=== PATIENT | male | born 1955 | race Caucasian/White ===

== ENCOUNTER 2021-03-21 10:35 | Outpatient (REF) | payer MEDICARE, SELFPAY ==
[2021-03-21 11:32] LABS: MANUAL DIFF FLAG NO
[2021-03-21 11:41] LABS: Glucose Urine UA NEG (NEG); Leukocyte Esterase Urine NEG (NEG); Nitrite Urine NEG (NEG); Urine Blood NEG (NEG); Urine Ketones NEG (NEG); Urine Protein NEG (NEG-TRACE)
[2021-03-21 11:46] LABS: Appearance Urine CLEAR; Color Urine YELLOW
[2021-03-21 11:50] LABS: Basophils Absolute Auto 0.1 X10*3/uL (0.0-0.2); Basophils Percent Auto 0.8 % (0-2); Eosinophils Absolute Auto 0.2 X10*3/uL (0.0-0.4); Eosinophils Percent Auto 3.1 % (0-4); Hematocrit 36.5 % (42-52); Hemoglobin 12.5 g/dl (14.0-18.0); Imm Gran Abs Auto 0.03 X10*3/uL (0.00-0.03); Imm Gran Pct Auto 0.5 % (0.0-0.4); Lymphocytes Absolute Auto 1.2 X10*3/uL (1.2-4.9); Lymphocytes Percent Auto 19.6 % (20-40); Mean Corpuscular HGB Conc 34.2 g/dl (31.0-36.0); Mean Corpuscular Hemoglobin 32.7 pg (27.0-33.0); Mean Corpuscular Volume 95.5 fL (80-98); Mean Platelet Volume 9.1 fL (9.4-12.4); Monocytes Absolute Auto 0.6 X10*3/uL (0.1-1.2); Monocytes Percent Auto 10.3 % (2-11); Neutrophils Percent Auto 65.7 % (45-73); Platelet Count 300 X10*3/uL (160-400); Red Blood Count 3.82 X10*6/uL (4.60-5.80); Red Cell Distribution Width 12.6 % (11.0-16.0); White Blood Count 6.1 X10*3/uL (4.8-10.8)
[2021-03-21 12:07] LABS: Alanine Aminotransferase 12 U/L (0-40); Albumin Level 4.3 g/dL (3.5-5.0); Alkaline Phosphatase 65 U/L (39-117); Anion Gap 14 (12-20); Aspartate Amino Transferase 17 U/L (5-37); Bilirubin Total 0.4 mg/dL (0.0-1.0); Blood Urea Nitrogen 15 mg/dL (9-16); Calcium 9.3 mg/dL (8.4-10.2); Carbon Dioxide 22 mmol/L (22-29); Chloride 100 mmol/L (96-108); Cholesterol 234 mg/dL; Estimated Glomerular Filt Rate > 60; Glucose Fasting 106 mg/dL (60-99); HDL Cholesterol 76 mg/dL; LDL Cholesterol Calculated 141 mg/dl; Potassium 5.1 mmol/L (3.3-5.1); Sodium 131 mmol/L (135-145); Total Protein 6.7 g/dL (6.5-8.0); Triglycerides 85 mg/dL
[2021-03-21 12:45] LABS: Prostate Specific Antigen < 0.05 ng/mL (<0.05-4.0)
== END 2021-03-21 10:36 | disposition home or self-care (01) ==
LOC: HO.LAB 10:35
PROVIDERS: PCP Internal Medicine; Visit Provider Internal Medicine
DX: Z12.5 Encounter for screening for malignant neoplasm of prostate (principal); I10 Essential (primary) hypertension; E78.00 Pure hypercholesterolemia, unspecified; Z87.19 Personal history of other diseases of the digestive system
CPT/HCPCS: 36415; 80053; 80061; 81003; 82378; 84153; 85025

== ENCOUNTER 2021-04-25 06:58 | Day surgery (SDC) | payer MEDICARE, OTHER, SELFPAY ==
[2021-04-18 16:15] VITALS: BMI 31.3
--- NOTE | 2021-04-24 11:53 | HO.ANESPROP2 ---
Documented by User: Therese Garcia 04/24/21 11:55 HPI - Anesthesia Eval Consult details Narrative: 65yo M for Colonoscopy Labs from PCP noted hyponatremic. Repeat lytes DOS. [facility] Past Medical History Medical History GERD (gastroesophageal reflux disease) Hiatal hernia HTN (hypertension) Hyperlipidemia Prostate cancer Surgical History Surgical History History of esophagogastroduodenoscopy (EGD) History of prostatectomy History of tonsillectomy Hx of colonoscopy Social History Social History Are you a primary summer child caregiver to a significant other at home: No Do you presently have visiting nurse or other home services: No Patient Tobacco Use Status: Former Tobacco user Tobacco use type: Cigarette Are you DNR?: No Advance Directives: No Advance Directives Information Provided: No Advance Directives on File: No Recently lost weight without trying: No Eating poorly because of decreased appetite: No Nutrition Risks: No Nutritional Risk Meds Allergies Allergy/AdvReac Type Severity Reaction Status Date / Time bee pollen [bee stings] Allergy Severe Swelling Verified 04/25/21 07:31 Penicillins [PENICILLINS] Allergy Intermediate UNKNOWN Verified 04/25/21 07:31 Home Medications Medication Instructions Recorded Confirmed Last Taken Type lisinopril 1 tab PO DAILY 04/18/21 04/18/21 Unknown History pantoprazole 1 tab PO DAILY 04/18/21 04/18/21 Unknown History pravastatin 1 tab PO DAILY 04/18/21 04/18/21 Unknown History Exam Exam Date and Time: April 24, 2021 1153 Height,Weight and Vital Signs: Height 6 ft Weight 104.78 kg Assessment and Plan Assessment Anesthesia Assessment: Chart Reviewed Documented by User: Maria Guadalupe Go 04/25/21 07:48 [facility] Past Medical History Medical History GERD (gastroesophageal reflux disease) Hiatal hernia HTN (hypertension) Hyperlipidemia Prostate cancer Surgical History Surgical History History of esophagogastroduodenoscopy (EGD) History of prostatectomy History of tonsillectomy Hx of colonoscopy Social History Social History Are you a primary summer child caregiver to a significant other at home: No Do you presently have visiting nurse or other home services: No Patient Tobacco Use Status: Former Tobacco user Tobacco use type: Cigarette Are you DNR?: No Advance Directives: No Advance Directives Information Provided: No Advance Directives on File: No Recently lost weight without trying: No Eating poorly because of decreased appetite: No Nutrition Risks: No Nutritional Risk Meds Allergies Allergy/AdvReac Type Severity Reaction Status Date / Time bee pollen [bee stings] Allergy Severe Swelling Verified 04/25/21 07:31 Penicillins [PENICILLINS] Allergy Intermediate UNKNOWN Verified 04/25/21 07:31 Home Medications Medication Instructions Recorded Confirmed Last Taken Type lisinopril 1 tab PO DAILY 04/18/21 04/18/21 Unknown History pantoprazole 1 tab PO DAILY 04/18/21 04/18/21 Unknown History pravastatin 1 tab PO DAILY 04/18/21 04/18/21 Unknown History Exam Airway Mallampati Class: III TM Dist: >3cm Neck ROM: Full Loose/Missing/Broken Teeth: No Heart: RRR Lungs: CTA Assessment and Plan Assessment Anesthesia Assessment: Anesthesia Plan Discussed and Chart Reviewed Final Anesthetic Review NPO: Yes ASA Class: II Final Preanesthetic Review: Meds/Allgs Chart Reviewed, Consent Obtained/Reviewed and Anes Risks/Benef Reviewed Patient Risk: Low Procedure Risk: Low Anesthetic Plan Anesthetic Plan: MAC: Disposition: Standard PACU
[2021-04-25 07:27] VITALS: BP 160/99; PULSE 83; RESP 20; TEMP 36.6; O2SAT 97
[2021-04-25 07:28] LABS: INTERNATIONAL NORM RATIO 0.9 (0.9-1.1); Prothrombin Time 10.9 SEC (10.8-13.0)
[2021-04-25 07:41] LABS: Anion Gap 14 (12-20); Carbon Dioxide 23 mmol/L (22-29); Chloride 102 mmol/L (96-108); Potassium 4.4 mmol/L (3.3-5.1); Sodium 135 mmol/L (135-145)
[2021-04-25] MEDS: Lactated Ringers 1,000 ML 50 ML IVCONT (07:45)
[2021-04-25 09:35] VITALS: BP 133/78; PULSE 74; RESP 12; TEMP 36.4; O2SAT 98
--- NOTE | 2021-04-25 09:37 | PM.OP ---
Brief Operative Note Date of Service: 04/25/21 Pre-op diagnosis: Screening Post-op diagnosis: other (Colon polyps) Procedure: Colonoscopy to cecum and TI with bx/removal of polyps, snare polypectomy, and placement of 2 Resolution clips on the distal AC polypectomy site. Surgeon: Russ Davis Anesthesia: MAC Was an Calcine Furnace Loader used for this Procedure?: No Estimated blood loss (mL): 5.0 Pathology: other (A. TC polyps B. Cecal polyp near juanpablo. orific C. Cecal polyp opposite ICV D. Proximal AC polyp E. E. Distal AC polyp F. rectal polyp) Condition: stable Disposition: PACU
[2021-04-25 09:49] VITALS: BP 148/97; PULSE 69; RESP 16; TEMP 36.4; O2SAT 99
--- NOTE | 2021-04-25 09:55 | OP_ITS ---
SURGEON: Russ Davis MD INDICATIONS: Full consent has been obtained from him for this, including risks of bleeding and perforation. PREOPERATIVE DIAGNOSIS: POSTOPERATIVE DIAGNOSIS: PROCEDURE PERFORMED: Colonoscopy to cecum and terminal ileum with snare polypectomy, biopsy and removal of polyps, and placement of 2 resolution clips on the distal ascending colon polypectomy site. ESTIMATED BLOOD LOSS: COMPLICATIONS: ANESTHESIA: Monitored anesthesia care. ASSISTANTS: SPECIMENS: PREOPERATIVE DIAGNOSES: Colorectal cancer screening and personal history of colon polyps. POSTOPERATIVE DIAGNOSES: Colorectal cancer screening and personal history of colon polyps, colon polyps, diverticulosis and internal hemorrhoids. DESCRIPTION OF PROCEDURE: The patient was placed in the left lateral decubitus position. The digital rectal exam revealed no abnormalities. The Olympus video pediatric colonoscope was entered into the rectum and advanced easily to the cecum. Once in the cecum, I did identify cecal pouch with an approximately 3 or 4 mm polyp just adjacent to the appendiceal orifice that was biopsied and completely removed with a cold biopsy forceps. The terminal ileum was cannulated and appeared normal. The scope was withdrawn back in the colon. The appendiceal orifice appeared normal. Just opposite the ileocecal valve in the cecum, was a flat approximately 4 or 5 mm polyp, which was biopsied and completely removed with cold biopsy forceps. The scope was slowly withdrawn assessing all mucosal surfaces carefully. Preparation was excellent. In the proximal ascending colon, was an approximately 8 to 10 mm polyp, which was snared and recovered by suction. The polypectomy site appeared clean, without any sign of residual polyp nor bleeding. In the distal ascending colon, was an approximately 12 to 15 mm flat, but raised polyp, which was snared and removed. It was then recovered with the retrieval net and brought out of the patient. The scope was advanced back to the polypectomy site, which appeared clean, without any sign of residual polyp nor bleeding. However, I did place 2 resolution clips on it with good deployment and good hemostasis. In the transverse colon, was a 3 mm polyp, which was biopsied and completely removed with cold biopsy forceps. In the same area, was an approximately 10 mm polyp, which was snared and recovered by suction. The polypectomy site appeared clean, without any sign of residual polyp nor bleeding. In the rectum, was an approximately 3 or 4 mm polyp, which was biopsied and completely removed with cold biopsy forceps. I did not visualize any other polyps, colitis, nor angiodysplasia. There was a moderate amount of sigmoid diverticulosis. In the rectum, scope was retroflexed visualizing internal hemorrhoids, but no other pathology. The rectal mucosa appeared normal. The scope was straightened out and withdrawn from the patient. He tolerated the procedure well and was returned to recovery area in stable condition. IMPRESSION: 1. Colon polyps, status post biopsy and removal, snare polypectomy, and placement of 2 resolution clips on the distal ascending colon polypectomy site. 2. Diverticulosis. 3. Internal hemorrhoids. PLAN: The results of the pathology will be checked. I would recommend a repeat colonoscopy within 5 years for further screening and surveillance. He was advised not to use any aspirin and NSAIDs for at least a week. He will otherwise see me on a p.r.n. basis. MD DAV Krishnamurthy/SHARI / [id number] MTDD
== END 2021-04-25 10:08 | disposition home or self-care (01) ==
PROVIDERS: Nurse Practitioner; PCP Internal Medicine; Visit Provider Internal Medicine
PROC: 0DJD8ZZ Inspection of Lower Intestinal Tract, Via Natural or Artificial Opening Endoscopic (ICD-10-PCS; CPT 45378; principal; 2021-04-25 08:20)
DX: Z12.11 Encounter for screening for malignant neoplasm of colon (principal); Z86.010 Personal history of colon polyps; D12.0 Benign neoplasm of cecum; D12.2 Benign neoplasm of ascending colon; D12.3 Benign neoplasm of transverse colon; D12.8 Benign neoplasm of rectum; K57.30 Diverticulosis of large intestine without perforation or abscess without bleeding; K64.8 Other hemorrhoids; K21.9 Gastro-esophageal reflux disease without esophagitis; I10 Essential (primary) hypertension; E78.5 Hyperlipidemia, unspecified; Z79.899 Other long term (current) drug therapy; Z88.0 Allergy status to penicillin; Z85.46 Personal history of malignant neoplasm of prostate; Z87.891 Personal history of nicotine dependence
CPT/HCPCS: 45385; 45380; 36415; 80051; 85610; 88305

== ENCOUNTER 2022-02-06 07:55 | Outpatient (REF) | payer MEDICARE, SELFPAY ==
--- NOTE | ~2022-02-06 | XR_ITS ---
EXAMINATION: XR RIBS, RIGHT CLINICAL INFORMATION: Right-sided rib pain COMPARISON: Chest x-ray 06/15/2018 TECHNIQUE: 3 views of the right ribs were obtained. FINDINGS: Cardiac silhouette is normal in size. The lungs are well aerated. There is no lobar consolidation. No pleural effusion or pneumothorax. No acute right-sided rib fracture. Old healed left fourth anterior rib fracture. XR/XR ribs RT min 3V w CXR1V IMPRESSION: No right-sided rib fracture.
[2022-02-06 08:41] LABS: MANUAL DIFF FLAG NO
[2022-02-06 08:55] LABS: Basophils Absolute Auto 0.1 X10*3/uL (0.0-0.2); Basophils Percent Auto 0.6 % (0-2); Eosinophils Absolute Auto 0.3 X10*3/uL (0.0-0.4); Eosinophils Percent Auto 2.8 % (0-4); Hematocrit 35.4 % (42.0-52.0); Hemoglobin 11.9 g/dl (14.0-18.0); Imm Gran Abs Auto 0.03 X10*3/uL (0.00-0.03); Imm Gran Pct Auto 0.3 % (0.0-0.4); Lymphocytes Absolute Auto 1.4 X10*3/uL (1.2-4.9); Lymphocytes Percent Auto 14.7 % (20-40); Mean Corpuscular HGB Conc 33.6 g/dl (31.0-36.0); Mean Corpuscular Hemoglobin 33.3 pg (27.0-33.0); Mean Corpuscular Volume 99.2 fL (80.0-98.0); Monocytes Absolute Auto 0.6 X10*3/uL (0.1-1.2); Monocytes Percent Auto 6.7 % (2-11); Neutrophils Absolute Auto 6.9 x10*3/uL (2.0-8.3); Neutrophils Percent Auto 74.9 % (45-73); Platelet Count 294 X10*3/uL (160-400); Red Blood Count 3.57 X10*6/uL (4.60-5.80); Red Cell Distribution Width 12.2 % (11.0-16.0); White Blood Count 9.2 X10*3/uL (4.8-10.8)
[2022-02-06 09:18] LABS: Anion Gap 12 (12-20); Blood Urea Nitrogen 15 mg/dL (9-16); Calcium 8.9 mg/dL (8.4-10.2); Carbon Dioxide 25 mmol/L (22-29); Chloride 102 mmol/L (96-108); Estimated Glomerular Filt Rate 57; Glucose Random 94 mg/dL (60-115); Potassium 5.1 mmol/L (3.3-5.1); Sodium 134 mmol/L (135-145)
[2022-02-06 09:56] LABS: Appearance Urine CLEAR; Color Urine YELLOW; Glucose Urine UA NEG (NEG); Leukocyte Esterase Urine NEG (NEG); Nitrite Urine NEG (NEG); Urine Blood NEG (NEG); Urine Ketones NEG (NEG); Urine Protein NEG (NEG-TRACE)
== END 2022-02-06 07:56 | disposition home or self-care (01) ==
LOC: HO.LAB 07:55
PROVIDERS: PCP Internal Medicine; Visit Provider Internal Medicine
DX: R10.9 Unspecified abdominal pain (principal); R07.81 Pleurodynia
CPT/HCPCS: 36415; 71101; 80048; 81003; 85025

== ENCOUNTER 2022-02-19 13:15 | Outpatient (REF) | payer MEDICARE, OTHER, SELFPAY ==
--- NOTE | ~2022-02-19 | CT_ITS ---
EXAMINATION: CT ABDOMEN AND PELVIS WITHOUT CONTRAST CLINICAL INFORMATION: Chronic kidney disease. Abdominal pain. COMPARISON: 08/16/2006 TECHNIQUE: Multidetector volumetric imaging was performed from the superior aspect of the liver through the pubic symphysis. Sagittal and coronal reformatted images were obtained on the technologist's workstation. This CT examination was performed using dose optimization techniques as appropriate, variously including the following: *Automated exposure control *Adjustment of mA and/or kV according to patient size (this includes techniques or standardized protocols for targeted exams where dose is matched to indication/reason for exam; i.e. extremities or head) *Use of iterative reconstruction technique DLP: 595 mGy-cm FINDINGS: LUNG BASES: The visualized lung bases are unremarkable. LIVER, GALLBLADDER, AND BILIARY TREE: The liver is normal in size, shape, and attenuation. No focal hepatic lesion or biliary ductal dilatation is present. The gallbladder is unremarkable with no evidence of radiopaque gallstones, gallbladder wall thickening, or obvious pericholecystic inflammatory changes. PANCREAS: Unremarkable. SPLEEN: Unremarkable. ADRENAL GLANDS: Unremarkable. KIDNEYS AND URETERS: The kidneys are normal in size, shape, and attenuation. No hydronephrosis, hydroureter, or calculi seen. Moderate symmetric perinephric stranding. Exophytic left lower pole 3 cm simple cyst. No follow-up imaging recommended. BLADDER: Unremarkable. GASTROINTESTINAL TRACT: The stomach is decompressed. Normal caliber small bowel. No obstruction. There is prominent colonic diverticulosis present, particularly at the sigmoid colon. Mild inflammation of the fat in the left lower quadrant near the sigmoid colon could represent very mild diverticulitis. No free air or free fluid. Normal appendix. ABDOMINAL WALL: No significant hernia is appreciated. LYMPH NODES: Normal. VASCULAR: Normal caliber aorta with mild atherosclerotic calcification. PELVIC VISCERA: The prostate is diminutive or absent. No pelvic mass. OSSEOUS STRUCTURES: No acute or suspicious osseous abnormality. Mild to moderate degenerative change throughout the spine. CT/CT abdomen pelvis wo con IMPRESSION: Suspect mild sigmoid diverticulitis. No free air or fluid collection. The report will be called to the ordering clinician by a [facility] Workflow Coordinator.
== END 2022-02-19 13:16 | disposition home or self-care (01) ==
LOC: HO.CT 13:15
PROVIDERS: Visit Provider Internal Medicine
DX: N18.9 Chronic kidney disease, unspecified (principal); R10.9 Unspecified abdominal pain; D64.9 Anemia, unspecified
CPT/HCPCS: 74176

== ENCOUNTER 2022-09-08 10:01 | Inpatient (IN) | payer MEDICARE, SELFPAY ==
--- NOTE | 2022-09-08 | ECG_ITS ---
Test Reason : TACHYCARDIA Blood Pressure : / mmHG Vent. Rate : 127 BPM Atrial Rate : 127 BPM P-R Int : 160 ms QRS Dur : 080 ms QT Int : 324 ms P-R-T Axes : 036 -18 015 degrees QTc Int : 470 ms Sinus tachycardia Left anterior fascicular block Cannot rule out Anterior infarct , age undetermined Abnormal ECG When compared with ECG of 07-NOV-2018 15:07, T wave inversion less evident in Inferior leads Referred By: Generic ED Physician Electronically Signed By:AVRIL AMEZQUITA MD
--- NOTE | ~2022-09-08 | XR_ITS ---
EXAMINATION: XR KNEE, LEFT CLINICAL INFORMATION: Left knee pain. COMPARISON: None TECHNIQUE: Four views of the left knee. FINDINGS: Mild medial femoral-tibial joint space narrowing is seen. There is no acute fracture, dislocation or joint effusion. The soft tissues are unremarkable. XR/XR knee LT 4V IMPRESSION: Mild medial femoral-tibial joint space narrowing may be degenerative in nature. No acute abnormality.
--- NOTE | ~2022-09-08 | US_ITS ---
EXAMINATION: US VENOUS ULTRASOUND WITH DOPPLER LOWER EXTREMITY, LEFT CLINICAL INFORMATION: Leg pain COMPARISON: None TECHNIQUE: Ultrasound of the deep veins is performed from the hip to the calf with compression sonography and color and pulse Doppler assessment. Spectral analysis with color-flow imaging is performed. FINDINGS: There is normal venous compression and respiratory variation and augmented flow. The visualized common femoral vein, superficial femoral vein, profunda femoral vein, popliteal vein, and the trifurcation region shows no evidence of deep venous thrombosis. There is a edema seen along the lateral thigh in the area of pain. Also visualized is fluid collection along the anterior medial knee measuring 4.5 x 0.8 x 3.5 cm. There is limited visualization of peroneal vein due to body habitus. If the patient's symptoms persist, followup ultrasound in 5 days 7 days might be of value to exclude proximal propagation from a non-visualized calf vein. US/US venous duplex LE IMPRESSION: No DVT demonstrated in the left lower extremity.
--- NOTE | ~2022-09-08 | CT_ITS ---
EXAMINATION: CT ABDOMEN AND PELVIS WITHOUT CONTRAST CLINICAL INFORMATION: Abdominal pain COMPARISON: Previous CT of the abdomen and pelvis January 2022 TECHNIQUE: Multidetector volumetric imaging was performed from the superior aspect of the liver through the pubic symphysis. Sagittal and coronal reformatted images were obtained on the technologist's workstation. This CT examination was performed using dose optimization techniques as appropriate, variously including the following: *Automated exposure control *Adjustment of mA and/or kV according to patient size (this includes techniques or standardized protocols for targeted exams where dose is matched to indication/reason for exam; i.e. extremities or head) *Use of iterative reconstruction technique DLP: 795 mGy-cm FINDINGS: LUNG BASES: There is subsegmental atelectasis at the left lung base. LIVER, GALLBLADDER, AND BILIARY TREE: The liver is low in attenuation suggestive of fatty infiltration. Normal gallbladder. No biliary duct dilatation. PANCREAS: There is slight enlargement of the body and tail the pancreas. There is stranding of the peripancreatic fat. There is a small amount of fluid in the left anterior pararenal and left lateral conal fascia. Findings are questionable for pancreatitis. SPLEEN: Unremarkable. ADRENAL GLANDS: Unremarkable. KIDNEYS AND URETERS: 3 cm cyst in the lower pole of the left kidney. No imaging follow-up. Kidneys are otherwise unremarkable. BLADDER: Not optimally distended and not well evaluated. GASTROINTESTINAL TRACT: There is diverticulosis of the colon. There is a long segment of all wall thickening of the colon from the distal transverse colon to the sigmoid colon. There may be some wall edema. There is stranding of the pericolic fat. Long segment distribution is more suggestive of colitis than diverticulitis. This could be reactive secondary to pancreatitis small and large bowel is otherwise normal. The appendix is normal. There is question of mild wall thickening of the proximal stomach versus changes due to underdistention. ABDOMINAL WALL: No significant hernia is appreciated. LYMPH NODES: Normal. VASCULAR: Atherosclerotic disease. No aneurysm. PELVIC VISCERA: Small or absent. OSSEOUS STRUCTURES: Degenerative changes of the spine. CT/CT abdomen pelvis wo IV con IMPRESSION: Slight enlargement of the body and tail the pancreas, stranding of the peripancreatic fat and small amount of fluid in the left anterior pararenal fascia and left paracolic gutter. Findings are questionable for pancreatitis. Diverticulosis of the colon. Long segment wall thickening and edema of the mid transverse colon to sigmoid colon, stranding of the surrounding fat and small amount of adjacent fluid. Long segment distribution is more suggestive of colitis than diverticulitis. This may be a secondary to pancreatitis secondary to vascular changes. Fatty liver. Fleischner guidelines were followed.
[2022-09-08 10:32] VITALS: BP 108/76; PULSE 128; RESP 20; TEMP 36.4; O2SAT 98; BMI 31.1
[2022-09-08 11:05] LABS: Hematocrit 39.4 % (42.0-52.0); Hemoglobin 14.4 g/dl (14.0-18.0); Mean Corpuscular HGB Conc 36.5 g/dl (31.0-36.0); Mean Corpuscular Hemoglobin 33.8 pg (27.0-33.0); Mean Corpuscular Volume 92.5 fL (80.0-98.0); Platelet Count 223 X10*3/uL (160-400); Red Blood Count 4.26 X10*6/uL (4.60-5.80); Red Cell Distribution Width 12.8 % (11.0-16.0)
[2022-09-08 11:15] LABS: Alanine Aminotransferase 65 U/L (0-40); Albumin Level 3.5 g/dL (3.5-5.0); Alkaline Phosphatase 103 U/L (39-117); Anion Gap 23 (12-20); Aspartate Amino Transferase 120 U/L (5-37); Bilirubin Direct 0.8 mg/dL (0.0-0.5); Bilirubin Total 1.7 mg/dL (0.0-1.0); Blood Urea Nitrogen 43 mg/dL (9-16); Carbon Dioxide 12 mmol/L (22-29); Chloride 98 mmol/L (96-108); Creatinine Clr Calc Pharmacy 40.8; Estimated Glomerular Filt Rate 30; Glucose Random 146 mg/dL (60-115); Potassium 4.6 mmol/L (3.3-5.1); Sodium 128 mmol/L (135-145); Total Protein 6.1 g/dL (6.5-8.0)
[2022-09-08 11:21] LABS: COVID-19 Test Negative (Negative); IDNOW Serial# 55D5AD1C
--- OUTSIDE RECORDS SUMMARY | 2022-09-08 11:31 | XMS_ITS ---
:1955 Author Organization [facility] Address [address] [place] [address] Care Team Providers Name Role Phone Russ Davis Unavailable Unavailable PROBLEMS Type Condition ICD9-CM HGE70-AM Onset Condition SNOMED Cod e Code Code Dates Status Problem History of colon Z86.010 Active 428 200013 polyps Problem Diverticulosis of K57.30 Active 42 3183312 sigmoid colon Problem Preprocedural Z01.818 Active 920932 [id number] examination Problem Encounter for Z12.11 Active 668472 004 screening for malignant neoplasm of colon ALLERGIES Substance Reaction Event Type Date Status Penicillin G Sodium Unknown Drug Allergy Mar, Active bees Unknown Non Drug Allergy Mar, Active ENCOUNTERS Encounter Location Date Diagnosis [facility] Out[facility] [address] [address] Apr, Colon polyps K6 3.5 ; Ayo MD [id number] Diverticul osis of sigmoid colon K57.30 ; I nternal hemorrhoids K64. 8 and Rectal polyp K62 .[address] Mar, [facility] [address] [place] MD Z01.818 ; History of colon [address] polyps Z86.010 a nd Encounter for sc reening for malignant neopla sm of colon Z12.[address] February, [facility] [address] [place] [address] IMMUNIZATIONS No Known Immunizations SOCIAL HISTORY Qualifiers Date Never Smoker REASON FOR REFERRAL FUNCTIONAL STATUS PLAN OF CARE Activity Details Follow Up prn Reason: Pending Test Pathology Future/Pending Procedure COLONOSCOPY [id number] VITAL SIGNS Weight 231 lbs 2021-04-01 Height 72 in 2021-04-01 BMI 31.33 kg/m2 2021-04-01 Temperature 97.5 degrees Fahrenheit 2021-04-01 Blood pressure systolic 000 mm Hg 2021-04-01 Blood pressure diastolic 00 mm Hg 2021-04-01 MEDICATIONS Medication Instructions Dosage Frequency Start Date End Date Duration S tatus Pravastatin TAKE 1 90 Active Sodium 40 MG TABLET BY MOUTH EVERY DAY Lisinopril 5 MG TAKE 1 90 Active TABLET BY MOUTH EVERY DAY Prevacid Active PROCEDURES Procedure Date Ordered Result Body Site BP SCR PRFRM RCMDD DEFIND SCR INTVL April 01, 2021 TOBACCO NON-USER April 01, 2021 DOC MEDS VERIFIED W/PT OR RE April 01, 2021 COLONOSCOPY AND BIOPSY April 25, 2021 COLORECTAL CA SCREEN DOC REV April 01, 2021 LESION REMOVAL COLONOSCOPY April 25, 2021 RESULTS Name Result Date Reference Range Prothrombin Time INR 2021-04-25 Prothrombin Time 10.9 10.8-13.0 INTERNATIONAL NORM RATIO 0.9 0.9-1.1 REASON FOR VISIT hx polyps,screening, patient presents today for hx of polyps, screening colonoscopy, cancelled appt march 12urs @ 3:15 Insurance Providers [facility] Health Member Patient Patient Patient Patient Patient Subscriber Subscriber Subscriber Group Insurance Plan Plan Plan Plan ID Relationship Address Phone Name Date of ID Name Date of No Type Insurance Insurance Insurance Coverage to Subscriber Address Phone Name Dates BLUE [address] BLUE self [employer] [id number] [facility] [id number] [id number] MEDICARE [phone] MEDICARE self [employer] [id number] [facility] [id number] [facility] [address] [place] [phone] [place] self [employer] [id number] [facility] [id number] [address]
[2022-09-08 11:40] LABS: Neutrophils Percent Manual 84 % (45-73)
[2022-09-08 11:45] LABS: Band Neutrophils Percent 13 % (3-5); Lymphocytes Absolute Manual 0.3 X10*3/uL (1.2-4.9); Lymphocytes Percent Manual 1 % (20-40); Metamyelocytes Absolute 0.3 X10*3/uL; Metamyelocytes Percent 1 %; Monocytes Absolute Manual 0.3 X10*3/uL (0.1-1.2); Monocytes Percent Manual 1 % (2-11); Neutrophils Absolute Manual 28.1 X10*3/uL (2.0-8.3); Platelet Estimate NORMAL (NORMAL); Platelet Morphology Comment NORMAL; RBC Morphology NORMAL; Toxic Vacuolation PRESENT
--- NOTE | 2022-09-08 12:03 | ED.GENADULT ---
HPI - General Adult General Chief complaint: Abdominal Pain Stated complaint: Abdominal Pain Time Seen by Provider: 09/08/22 12:03 Source: patient and family () Mode of arrival: ambulatory Limitations: no limitations History of Present Illness HPI narrative: Patient is a 67 year old assigned male at with a history of diverticulitis presenting to the emergency department today with abdominal pain. Patient states that since yesterday, he has had lower abdominal pain and diarrhea. Patient states that he has had some bright red blood in his stools but he does have hemorrhoids. Patient's states that the patient is a daily drinker of vodka. Patient denies any dizziness, lightheadedness, nausea, vomiting, fever, chills, blurry vision, double vision, loss of vision, chest pain, difficulty breathing, shortness of breath, back pain, night sweats, pain with urination, increased urinary frequency, increased urinary urgency, blood in his urine, syncope or a near syncopal episode, recent trauma or falls, bowel incontinence, bladder incontinence, bowel retention, bladder retention, or any other complaints at this time. Onset (ago): day(s) (1) Location: abdomen Radiation: non-radiation Severity: severe Severity scale (1-10): 8 Quality: constant Pain Consistency: constant Relieving factors: none Exacerbating factors: none Associated symptoms: denies other symptoms Treatments prior to arrival: none Related Data Home Medications Medication Instructions Recorded Confirmed lisinopril 5 mg tablet 1 tab PO DAILY 04/18/21 09/08/22 omeprazole 20 mg capsule,delayed 20 mg PO DAILY 09/08/22 09/08/22 release Allergies Allergy/AdvReac Type Severity Reaction Status Date / Time bee pollen [bee stings] Allergy Severe Swelling Verified 10/07/21 10:36 Penicillins [PENICILLINS] Allergy Intermediate UNKNOWN Verified 10/07/21 10:36 Review of Systems Constitutional: Constitutional: Reports no additional constitutional complaints, Denies chills, Denies fever(s) and Denies night sweats Eyes: Eyes: Reports no additional eye complaints, Denies blurry vision, Denies change in vision, Denies diplopia, Denies eye discharge, Denies loss of vision and Denies eye pain ENT: Denies dizziness Cardiovascular: Cardiovascular: Reports no additional cardiovascular complaints, Denies chest pain, Denies lightheadedness, Denies Loss of Consciousness and Denies dyspnea Respiratory: Respiratory: Reports no additional respiratory complaints and Denies dyspnea Gastrointestinal: Gastrointestinal: Reports no additional gastrointestinal complaints, Reports abdominal pain, Denies melena, Reports hematochezia, Denies change in bowel habits and Denies change in stool character Genitourinary: Genitourinary: Reports no additional male genitourinary complaints, Denies hematuria, Denies oliguria, Denies difficulty urinating, Denies dysuria, Denies urinary frequency, Denies urinary hesitancy, Denies urinary incontinence and Denies urinary urgency Musculoskeletal: Musculoskeletal: Reports no additional musculoskeletal complaints, Denies numbness and Denies tingling Neurologic: Denies dizziness, Denies loss of vision, Denies numbness and Denies tingling Psychiatric: Psychiatric: Reports no additional psychiatric complaints Endocrine: Endocrine: Reports no additional endocrine complaints Hematologic/Lymphatic: Hematologic/Lymphatic: Reports no additional hematologic/lymphatic complaints Allergic/Immunologic: Allergic/Immunologic: Reports no additional allergic/immunologic complaints PMF Past Medical History Attestation statement: The following information was validated with the patient. Source: old records reviewed Medical History Acute pancreatitis GERD (gastroesophageal reflux disease) Hiatal hernia HTN (hypertension) Hyperlipidemia Prostate cancer Surgical History History of esophagogastroduodenoscopy (EGD) History of prostatectomy History of tonsillectomy Hx of colonoscopy Social History Social History Are you a primary post acute care nurse practitioner to a significant other at home: No Do you presently have visiting nurse or other home services: No Alcohol intake: current Alcohol intake frequency: 0-2 drinks per day Alcohol type: hard liquor Patient Tobacco Use Status: Former Tobacco user Tobacco use type: Cigarette Smoked in Last 30 Days: Yes Use of substances other than those prescribed or required for medical reasons: No Advance Directives: No Physical Exam ED Vital Signs: Vital Signs - 24 hr 09/08/22 10:32 09/08/22 12:24 09/08/22 13:52 Temperature 97.5 F 98.0 F Pulse Rate 128 H 102 H 108 H Respiratory Rate 20 14 20 Blood Pressure 108/76 145/96 H 126/84 Pulse Oximetry 98 97 Oxygen Delivery Method Room Air Room Air 09/08/22 14:33 Temperature 98.5 F Pulse Rate 99 Respiratory Rate 14 Blood Pressure 152/82 H Pulse Oximetry 98 Oxygen Delivery Method Room Air BMI result Body Mass Index 31.1 Const General: cooperative, no acute distress, alert and awake Nutritional Appearance: well nourished Orientation/consciousness: patient oriented x3 Limitations: no limitations HENMT Head: Yes normal to inspection and Yes atraumatic Ears: hearing grossly normal bilaterally and external ears normal General nose exam: Normal external nose present, no nasal discharge noted and no epistaxis Face and sinus: Yes normal facial exam, No abrasion and No laceration Mouth: Normal oral and palatal mucosa present, no drooling and no muffled voice Eyes General: appearance normal, both eyes and all related structures Periorbital: periorbital findings normal Eyelids: Yes eyelids normal Conjunctivae: conjunctivae normal Pupils: Equal, round and reactive pupils present EOM: EOMs intact bilaterally Neck Neck: Yes normal visual inspection, Yes full ROM and Yes no lymphadenopathy Chest Chest palpation & inspection: normal inspection of the chest Resp Effort & Inspection: normal respiratory effort and able to speak in complete sentences Auscultation: clear to auscultation bilaterally Cardio Rate: regular rate Rhythm: regular rhythm GI Inspection: Yes normal to inspection Palpation (GI): Soft to palpation, not firm, Tenderness to palpation present (GI) other (diffuse), no guarding and not rigid Neuro General: patient oriented x3 and moves all extremities Cranial nerves: Yes Equal, round and reactive pupils present Cognition (Neuro): normal cognition Motor exam (neuro): 5/5 motor strength present throughout Sensory Exam: Normal double simultaneous stimulation for sensation Coordination: [id number] test normal Extrem General: Yes normal to inspection, Yes full ROM and Yes capillary refill normal Psych Appearance: grossly normal Mental Status: mental status grossly normal Affect: normal affect Attitude: cooperative Thought process: Normal thought process present Thought content: Normal thought content present Insight: Good insight present (Psych) Medications Administered Discontinued Medications Generic Name Dose Route Start Last Admin Trade Name Freq PRN Reason Stop Dose Admin Piperacillin Sod/Tazobactam 50 mls @ 100 mls/hr 09/08/22 12:05 09/08/22 13:43 Sod 3.375 gm/ Sodium Chloride IV 09/08/22 12:34 Infused ONCE ONE Infusion Sodium Chloride 3,129.78 mls @ 3,129.78 mls/hr 09/08/22 12:09 09/08/22 12:34 Ns 30 ml/kg infuse over 1 hr (3129.78 ml) 09/08/22 13:08 3,129.78 mls/hr IV Administration .Q1H STA Morphine Sulfate 4 mg 09/08/22 12:09 09/08/22 12:35 Morphine Sulfate 4 Mg/Ml Cartridge IVPUSH 09/08/22 12:10 4 mg ONCE ONE Administration Protocol Ondansetron HCl 4 mg 09/08/22 12:09 09/08/22 12:34 Ondansetron Hcl 4 Mg/2 Ml Vial IVPUSH 09/08/22 12:10 4 mg ONCE ONE Administration Medical Decision Making MDM Narrative Medical decision making narrative: Patient is a 67 year old assigned male at with a history of diverticulitis and alcohol abuse presenting to the emergency department today with abdominal pain. Patient's physical exam showed diffuse tenderness to the abdomen. Patient's blood work showed a WBC count of 29, NA of 128, CO2 of 12, anion gap of 23, BUN of 43, CR of 2.19, total bilirubin of 1.7, elevated AST of 120, ALT of 65, amylase of 199, lipase of 501, and lactic acid of 2.6. Patient's urine showed no acute process. Patient's EKG was unremarkable. Patient's abdominal CT showed possible pancreatitis and colitis. I spoke to the surgical team who recommended the patient be admitted and he will consult on him. I spoke to the hospitalist team who agreed to admission. Patient is not septic and I do not consider the patient to be septic. Patient was covered with IV Zosyn and given IV fluds. I explained my physical exam findings as well as all test results to the patient and the patient's . I answered all questions asked by the patient and the patient's . Patient and the patient's verbalized agreement and understanding with this treatment plan and admission. Medical Records Medical records reviewed: Yes I reviewed the patient's medical records. Lab Data Lab results reviewed: Yes I reviewed the patient's lab results. Result diagrams: 09/08/22 10:47 09/08/22 10:47 Labs: Lab Results 11/15/22 11/15/22 11/15/22 Range/Units 10:47 10:47 10:47 WBC 29.0 H (4.8-10.8) X10*3/uL RBC 4.26 L (4.60-5.80) X10*6/uL Hgb 14.4 D (14.0-18.0) g/dl Hct 39.4 L (42.0-52.0) % MCV 92.5 (80.0-98.0) fL MCH 33.8 H (27.0-33.0) pg MCHC 36.5 H (31.0-36.0) g/dl RDW 12.8 (11.0-16.0) % Plt Count 223 (160-400) X10*3/uL MPV 9.0 L (9.4-12.4) fL Immature Gran % (Auto) Cancelled Neut % (Auto) Cancelled Lymph % (Auto) Cancelled Meeker % (Auto) Cancelled Eos % (Auto) Cancelled Baso % (Auto) Cancelled Lymph # (Auto) Cancelled Meeker # (Auto) Cancelled Eos # (Auto) Cancelled Baso # (Auto) Cancelled Abs Immat Gran (auto) Cancelled Absolute Neuts (auto) Cancelled Absolute Nucleated RBC 0.000 (0.0-0.012) X10*3/uL Nucleated RBC % (auto) 0.0 (0.0-0.2) /100WBC Neutrophils % (Manual) 84 H (45-73) % Band Neutrophils % 13 H (3-5) % Lymphocytes % (Manual) 1 L (20-40) % Monocytes % (Manual) 1 L (2-11) % Metamyelocytes % 1 % Abs Neuts (Manual) 28.1 H (2.0-8.3) X10*3/uL Lymphocytes # (Manual) 0.3 L (1.2-4.9) X10*3/uL Monocytes # (Manual) 0.3 (0.1-1.2) X10*3/uL Metamyelocytes # 0.3 X10*3/uL Toxic Vacuolation PRESENT Platelet Estimate NORMAL (NORMAL) Plt Morphology Comment NORMAL RBC Morphology NORMAL VBG pH (7.32-7.43) VBG pCO2 mmHg VBG pO2 mmHg VBG HCO3 (22-26) mmol/L VBG O2 Saturation % VBG Base Excess mmol/L Sodium 128 L (135-145) mmol/L Potassium 4.6 (3.3-5.1) mmol/L Chloride 98 (96-108) mmol/L Carbon Dioxide 12 L (22-29) mmol/L Anion Gap 23 H (12-20) BUN 43 H D (9-16) mg/dL Creatinine 2.19 H (0.5-1.4) mg/dL Estim Creat Clear Calc 40.8 Estimated GFR 30 Random Glucose 146 H D (60-115) mg/dL Lactic Acid (0.5-2.0) mmol/L Calcium 8.0 L D (8.4-10.2) mg/dL Total Bilirubin 1.7 H (0.0-1.0) mg/dL Direct Bilirubin 0.8 H (0.0-0.5) mg/dL AST 120 H (5-37) U/L ALT 65 H (0-40) U/L Alkaline Phosphatase 103 D (39-117) U/L Total Protein 6.1 L (6.5-8.0) g/dL Albumin 3.5 (3.5-5.0) g/dL Amylase 199 H (28-100) U/L Lipase 501 H (8-78) U/L COVID-19 ([facility]) Negative (Negative) COVID-19 Clin Com See Note 09/08/22 09/08/22 Range/Units 12:26 14:00 WBC (4.8-10.8) X10*3/uL RBC (4.60-5.80) X10*6/uL Hgb (14.0-18.0) g/dl Hct (42.0-52.0) % MCV (80.0-98.0) fL MCH (27.0-33.0) pg MCHC (31.0-36.0) g/dl RDW (11.0-16.0) % Plt Count (160-400) X10*3/uL MPV (9.4-12.4) fL Immature Gran % (Auto) Neut % (Auto) Lymph % (Auto) Meeker % (Auto) Eos % (Auto) Baso % (Auto) Lymph # (Auto) Meeker # (Auto) Eos # (Auto) Baso # (Auto) Abs Immat Gran (auto) Absolute Neuts (auto) Absolute Nucleated RBC (0.0-0.012) X10*3/uL Nucleated RBC % (auto) (0.0-0.2) /100WBC Neutrophils % (Manual) (45-73) % Band Neutrophils % (3-5) % Lymphocytes % (Manual) (20-40) % Monocytes % (Manual) (2-11) % Metamyelocytes % % Abs Neuts (Manual) (2.0-8.3) X10*3/uL Lymphocytes # (Manual) (1.2-4.9) X10*3/uL Monocytes # (Manual) (0.1-1.2) X10*3/uL Metamyelocytes # X10*3/uL Toxic Vacuolation Platelet Estimate (NORMAL) Plt Morphology Comment RBC Morphology VBG pH 7.34 (7.32-7.43) VBG pCO2 29 mmHg VBG pO2 38 mmHg VBG HCO3 16 L (22-26) mmol/L VBG O2 Saturation 57.0 % VBG Base Excess -7.9 mmol/L Sodium (135-145) mmol/L Potassium (3.3-5.1) mmol/L Chloride (96-108) mmol/L Carbon Dioxide (22-29) mmol/L Anion Gap (12-20) BUN (9-16) mg/dL Creatinine (0.5-1.4) mg/dL Estim Creat Clear Calc Estimated GFR Random Glucose (60-115) mg/dL Lactic Acid 2.6 H* (0.5-2.0) mmol/L Calcium (8.4-10.2) mg/dL Total Bilirubin (0.0-1.0) mg/dL Direct Bilirubin (0.0-0.5) mg/dL AST (5-37) U/L ALT (0-40) U/L Alkaline Phosphatase (39-117) U/L Total Protein (6.5-8.0) g/dL Albumin (3.5-5.0) g/dL Amylase (28-100) U/L Lipase (8-78) U/L COVID-19 ([facility]) (Negative) COVID-19 Clin Com Imaging Data [address] scan - abdomen: Attestation: I personally reviewed and interpreted this imaging study as follows: My impression: Pancreatitis and colitis. Radiologist's impression: EXAMINATION: CT ABDOMEN AND PELVIS WITHOUT CONTRAST? CLINICAL INFORMATION: Abdominal pain? COMPARISON: Previous CT of the abdomen and pelvis January 2022? TECHNIQUE: Multidetector volumetric imaging was performed from the superior aspect of the liver through the pubic symphysis. Sagittal and coronal reformatted images were obtained on the technologist's workstation.? This CT examination was performed using dose optimization techniques as appropriate, variously including the following: *Automated exposure control *Adjustment of mA and/or kV according to patient size (this includes techniques or standardized protocols for targeted exams where dose is matched to indication/reason for exam; i.e. extremities or head) *Use of iterative reconstruction technique DLP: 795 mGy-cm FINDINGS: LUNG BASES: There is subsegmental atelectasis at the left lung base.? LIVER, GALLBLADDER, AND BILIARY TREE: The liver is low in attenuation suggestive of fatty infiltration. Normal gallbladder. No biliary duct dilatation. PANCREAS: There is slight enlargement of the body and tail the pancreas. There is stranding of the peripancreatic fat. There is a small amount of fluid in the left anterior pararenal and left lateral conal fascia. Findings are questionable for pancreatitis.? SPLEEN: Unremarkable.? ADRENAL GLANDS: Unremarkable.? KIDNEYS AND URETERS: 3 cm cyst in the lower pole of the left kidney. No imaging follow-up. Kidneys are otherwise unremarkable.? BLADDER: Not optimally distended and not well evaluated.? GASTROINTESTINAL TRACT: There is diverticulosis of the colon. There is a long segment of all wall thickening of the colon from the distal transverse colon to the sigmoid colon. There may be some wall edema. There is stranding of the pericolic fat. Long segment distribution is more suggestive of colitis than diverticulitis. This could be reactive secondary to pancreatitis small and large bowel is otherwise normal. The appendix is normal. There is question of mild wall thickening of the proximal stomach versus changes due to underdistention.? ABDOMINAL WALL: No significant hernia is appreciated.? LYMPH NODES: Normal. VASCULAR: Atherosclerotic disease. No aneurysm. PELVIC VISCERA: Small or absent. OSSEOUS STRUCTURES: Degenerative changes of the spine.? CT/CT abdomen pelvis wo IV con IMPRESSION: Slight enlargement of the body and tail the pancreas, stranding of the peripancreatic fat and small amount of fluid in the left anterior pararenal fascia and left paracolic gutter. Findings are questionable for pancreatitis. Diverticulosis of the colon. Long segment wall thickening and edema of the mid transverse colon to sigmoid colon, stranding of the surrounding fat and small amount of adjacent fluid. Long segment distribution is more suggestive of colitis than diverticulitis. This may be a secondary to pancreatitis secondary to vascular changes. Fatty liver.? ? Fleischner guidelines were followed. Dictated By: Maria Guadalupe Nava MD Signed By: Electronically signed by Maria Guadalupe Nava MD 09/08/22 1331 ECG Data Attestation: I personally reviewed and interpreted this ECG as follows: Prior ECG tracings: available for review Interpretation: Vent. Rate: 127 BPM ? ? Atrial Rate: 127 BPM P-R Int: 160 ms? QRS Dur: 080 ms QT Int: 324 ms ? ? ? P-R-T Axes: 036 -18 015 degrees QTc Int: 470 ms ? Sinus tachycardia Cannot rule out Anterior infarct , age undetermined Abnormal ECG When compared with ECG of 07-NOV-2018 15:07, No significant change was found [id number]/ [id number] Critical Care Time Critical Care Time Critical Care Time: Yes Total Critical Care Time: 30 Attestation: I spent 30 minutes of Critical Care Time with this patient. This does not include time spent on separately reported billable procedures. Discharge Plan Discharge Clinical Impression: Acute pancreatitis, Colitis Patient Disposition: Admitted As Inpatient Prescriptions: No Action lisinopril 5 mg tablet 1 tab PO DAILY omeprazole 20 mg Capsule,Delayed Release(Dr/Ec) 20 mg PO DAILY
[2022-09-08 12:24] VITALS: BP 145/96; PULSE 102; RESP 14; TEMP 36.7; O2SAT 97
[2022-09-08] MEDS: ondansetron HCL 4 MG/2 ML VIAL IVPUSH (12:34)
[2022-09-08] MEDS: 0.9 % Sodium Chloride 3,129.78 ML 3129.78 ML IV (12:34)
[2022-09-08] MEDS: Morphine Sulfate 4 MG/ML CARTRIDGE IVPUSH ×3 (12:35→19:43)
[2022-09-08 12:53] LABS: Lactic Acid 2.6 mmol/L (0.5-2.0)
[2022-09-08] MEDS: Piperacillin Sodium/Tazobactam 3.375 GM in 0.9 % Sodium Chloride 50 ML IV (13:03)
[2022-09-08 13:29] LABS: Amylase 199 U/L (28-100); Lipase 501 U/L (8-78)
--- NOTE | 2022-09-08 13:31 | PM.CNGS ---
History of Present Illness Consult details Consult date: 09/08/22 Narrative: 67M here in the ED for abdominal pain. He says this started yesterday afternoon. He describes this as diffuse but now is mostly on the upper abdomen. He denies nausea. He does state that the intensity of his pain has been progressively getting worse since yesterday. His says he drinks vodka almost everyday. He had a colonoscopy in [address] Davis showing polyps and diverticulosis. His says he has a history of diveriticulitis in the distant past. He had robotic prostate surgery many years ago for prostate cancer. Review of Systems Constitutional: Constitutional: Denies chills and Denies fever(s) Cardiovascular: Cardiovascular: Denies chest pain, Denies dyspnea and Denies dyspnea on exertion Respiratory: Respiratory: Denies cough, Denies dyspnea and Denies dyspnea on exertion Gastrointestinal: Gastrointestinal: Denies hematochezia and Denies change in bowel habits Genitourinary: Genitourinary: Denies hematuria and Denies difficulty urinating Musculoskeletal: Musculoskeletal: Denies back pain and Denies limited range of motion Neurologic: Denies focal weakness and Denies convulsions Psychiatric: Psychiatric: Denies depression and Denies mood swings PMFSH Past Medical History Medical History (Updated 09/10/22 @ 12:25 by Abhilash Villatoro MD) GERD (gastroesophageal reflux disease) Hiatal hernia HTN (hypertension) Hyperlipidemia Prostate cancer Surgical History Surgical History History of esophagogastroduodenoscopy (EGD) History of prostatectomy History of tonsillectomy Hx of colonoscopy Social History Social History (Updated 09/08/22 @ 17:04 by MADISON Ordonez) Household Members: Spouse Housing: House Are you a primary nursing care attendant to a significant other at home: No Do you presently have visiting nurse or other home services: No Alcohol intake: current Alcohol intake frequency: 3 or more drinks per day Alcohol type: hard liquor Patient Tobacco Use Status: Former Tobacco user Tobacco use type: Cigarette service: No Meds Allergies Allergy/AdvReac Type Severity Reaction Status Date / Time bee pollen [bee stings] Allergy Severe Swelling Verified 10/07/21 10:36 Active Medications: Current Medications Pharmacy Consult (Consult Rx Perform Med Rec) 1 each MISCELLANE ONCE PRN PRN Reason: Consult order Home Medications Medication Instructions Recorded Confirmed Last Taken Type lisinopril 5 mg tablet 1 tab PO DAILY 04/18/21 09/08/22 09/08/22 08:00 History omeprazole 20 mg capsule,delayed 20 mg PO DAILY 09/08/22 09/08/22 Unknown History release Physical Exam Vital Signs: Vital Signs: Last Vital Signs Temp 98.0 F 09/08/22 12:24 Pulse 102 H 09/08/22 12:24 Resp 14 09/08/22 12:24 BP 145/96 H 09/08/22 12:24 Pulse Ox 97 09/08/22 12:24 O2 Del Method 09/08/22 12:24 BMI result Body Mass Index 31.1 Const: Other: looks uncomfortable, conversant General: no acute distress Orientation/consciousness: patient oriented x3 Neck: Neck: Yes no lymphadenopathy Resp: Auscultation: clear to auscultation bilaterally Cardio: Rhythm: regular rhythm GI: Other: diffusely tender, more on upper abdomen, some voluntary guarding Palpation (GI): Soft to palpation and Tenderness to palpation present (GI) Neuro: General: patient oriented x3 Results Labs Result diagrams: 09/10/22 05:44 09/10/22 05:44 Labs: Abnormal lab results 09/08/22 09/08/22 09/08/22 Range/Units 10:47 10:47 12:26 WBC 29.0 H (4.8-10.8) X10*3/uL RBC 4.26 L (4.60-5.80) X10*6/uL Hct 39.4 L (42.0-52.0) % MCH 33.8 H (27.0-33.0) pg MCHC 36.5 H (31.0-36.0) g/dl MPV 9.0 L (9.4-12.4) fL Neutrophils % (Manual) 84 H (45-73) % Band Neutrophils % 13 H (3-5) % Lymphocytes % (Manual) 1 L (20-40) % Monocytes % (Manual) 1 L (2-11) % Abs Neuts (Manual) 28.1 H (2.0-8.3) X10*3/uL Lymphocytes # (Manual) 0.3 L (1.2-4.9) X10*3/uL Sodium 128 L (135-145) mmol/L Carbon Dioxide 12 L (22-29) mmol/L Anion Gap 23 H (12-20) BUN 43 H D (9-16) mg/dL Creatinine 2.19 H (0.5-1.4) mg/dL Random Glucose 146 H D (60-115) mg/dL Lactic Acid 2.6 H* (0.5-2.0) mmol/L Calcium 8.0 L D (8.4-10.2) mg/dL Total Bilirubin 1.7 H (0.0-1.0) mg/dL Direct Bilirubin 0.8 H (0.0-0.5) mg/dL AST 120 H (5-37) U/L ALT 65 H (0-40) U/L Total Protein 6.1 L (6.5-8.0) g/dL Amylase 199 H (28-100) U/L Lipase 501 H (8-78) U/L Short CBC 09/08/22 Range/Units 10:47 WBC 29.0 H (4.8-10.8) X10*3/uL Hgb 14.4 D (14.0-18.0) g/dl Hct 39.4 L (42.0-52.0) % Plt Count 223 (160-400) X10*3/uL BMP 09/08/22 10:47 Sodium 128 L Potassium 4.6 Chloride 98 Carbon Dioxide 12 L BUN 43 H D Creatinine 2.19 H Calcium 8.0 L D Liver Function 09/08/22 Range/Units 10:47 Total Bilirubin 1.7 H (0.0-1.0) mg/dL Direct Bilirubin 0.8 H (0.0-0.5) mg/dL AST 120 H (5-37) U/L ALT 65 H (0-40) U/L Alkaline Phosphatase 103 D (39-117) U/L Albumin 3.5 (3.5-5.0) g/dL All other labs normal. Imaging Additional studies: Laboratory Results WBC 29.0 X10*3/uL (4.8-10.8) H 09/08/22 10:47 RBC 4.26 X10*6/uL (4.60-5.80) L 09/08/22 10:47 Hgb 14.4 g/dl (14.0-18.0) D 09/08/22 10:47 Hct 39.4 % (42.0-52.0) L 09/08/22 10:47 MCV 92.5 fL (80.0-98.0) 09/08/22 10:47 MCH 33.8 pg (27.0-33.0) H 09/08/22 10:47 MCHC 36.5 g/dl (31.0-36.0) H 09/08/22 10:47 RDW 12.8 % (11.0-16.0) 09/08/22 10:47 Plt Count 223 X10*3/uL (160-400) 09/08/22 10:47 MPV 9.0 fL (9.4-12.4) L 09/08/22 10:47 Immature Gran % (Auto) Cancelled 09/08/22 10:47 Neut % (Auto) Cancelled 09/08/22 10:47 Lymph % (Auto) Cancelled 09/08/22 10:47 Lane % (Auto) Cancelled 09/08/22 10:47 Eos % (Auto) Cancelled 09/08/22 10:47 Baso % (Auto) Cancelled 09/08/22 10:47 Lymph # (Auto) Cancelled 09/08/22 10:47 Lane # (Auto) Cancelled 09/08/22 10:47 Eos # (Auto) Cancelled 09/08/22 10:47 Baso # (Auto) Cancelled 09/08/22 10:47 Abs Immat Gran (auto) Cancelled 09/08/22 10:47 Absolute Neuts (auto) Cancelled 09/08/22 10:47 Absolute Nucleated RBC 0.000 X10*3/uL (0.0-0.012) 09/08/22 10:47 Nucleated RBC % (auto) 0.0 /100WBC (0.0-0.2) 09/08/22 10:47 Neutrophils % (Manual) 84 % (45-73) H 09/08/22 10:47 Band Neutrophils % 13 % (3-5) H 09/08/22 10:47 Lymphocytes % (Manual) 1 % (20-40) L 09/08/22 10:47 Monocytes % (Manual) 1 % (2-11) L 09/08/22 10:47 Metamyelocytes % 1 % 09/08/22 10:47 Abs Neuts (Manual) 28.1 X10*3/uL (2.0-8.3) H 09/08/22 10:47 Lymphocytes # (Manual) 0.3 X10*3/uL (1.2-4.9) L 09/08/22 10:47 Monocytes # (Manual) 0.3 X10*3/uL (0.1-1.2) 09/08/22 10:47 Metamyelocytes # 0.3 X10*3/uL 09/08/22 10:47 Toxic Vacuolation PRESENT 09/08/22 10:47 Platelet Estimate NORMAL (NORMAL) 09/08/22 10:47 Plt Morphology Comment NORMAL 09/08/22 10:47 RBC Morphology NORMAL 09/08/22 10:47 Sodium 128 mmol/L (135-145) L 09/08/22 10:47 Potassium 4.6 mmol/L (3.3-5.1) 09/08/22 10:47 Chloride 98 mmol/L (96-108) 09/08/22 10:47 Carbon Dioxide 12 mmol/L (22-29) L 09/08/22 10:47 Anion Gap 23 (12-20) H 09/08/22 10:47 BUN 43 mg/dL (9-16) H D 09/08/22 10:47 Creatinine 2.19 mg/dL (0.5-1.4) H 09/08/22 10:47 Estim Creat Clear Calc 40.8 09/08/22 10:47 Estimated GFR 30 09/08/22 10:47 Random Glucose 146 mg/dL (60-115) H D 09/08/22 10:47 Lactic Acid 2.6 mmol/L (0.5-2.0) H* 09/08/22 12:26 Calcium 8.0 mg/dL (8.4-10.2) L D 09/08/22 10:47 Total Bilirubin 1.7 mg/dL (0.0-1.0) H 09/08/22 10:47 Direct Bilirubin 0.8 mg/dL (0.0-0.5) H 09/08/22 10:47 AST 120 U/L (5-37) H 09/08/22 10:47 ALT 65 U/L (0-40) H 09/08/22 10:47 Alkaline Phosphatase 103 U/L (39-117) D 09/08/22 10:47 Total Protein 6.1 g/dL (6.5-8.0) L 09/08/22 10:47 Albumin 3.5 g/dL (3.5-5.0) 09/08/22 10:47 Amylase 199 U/L (28-100) H 09/08/22 10:47 Lipase 501 U/L (8-78) H 09/08/22 10:47 COVID-19 ([facility]) Negative (Negative) 09/08/22 10:47 COVID-19 Clin Com See Note 09/08/22 10:47 Impressions Abdomen/Pelvis CT 09/08/22 12:59 IMPRESSION: Slight enlargement of the body and tail the pancreas, stranding of the peripancreatic fat and small amount of fluid in the left anterior pararenal fascia and left paracolic gutter. Findings are questionable for pancreatitis. Diverticulosis of the colon. Long segment wall thickening and edema of the mid transverse colon to sigmoid colon, stranding of the surrounding fat and small amount of adjacent fluid. Long segment distribution is more suggestive of colitis than diverticulitis. This may be a secondary to pancreatitis secondary to vascular changes. Fatty liver. Fleischner guidelines were followed. Assessment and Plan (1) Acute pancreatitis: Status: Deleted He has had abdominal pain since yesterday. I have reviewed his CT with the radiologist and this shows edema of the pancreas with peripancreatic stranding and fluid c/w acute pancreatiits. Etiology is likely ETOH, but he should have an US down the line to rule out gallstones as well. There is note of some thickening of his left colon and trasnverse colon suggestive of colitis rather than diverticulitis. This may be related to his acute pancreatitis with sympathetic inflammation. Nevertheless, he should be tested for C diff as well. His lactate should be repeated after IVF resuscitation. Procedures Date of Service Date of Service: 09/08/22
[2022-09-08 13:52] VITALS: BP 126/84; PULSE 108; RESP 20
[2022-09-08 14:05] LABS: VBG Base Excess -7.9 mmol/L; VBG HCO3 16 mmol/L (22-26); VBG pCO2 29 mmHg; VBG pH 7.34 (7.32-7.43); VBG pO2 38 mmHg
[2022-09-08 14:05] LABS: Venous Blood Gas Refer to POC result
--- NOTE | 2022-09-08 14:16 | PHA.MEDREC ---
Pharmacy Consult ? Medication Reconciliation Pharmacy has completed the medication reconciliation.
[2022-09-08 14:30] LABS: Reflex Lactate? Lactic Acid Added
[2022-09-08 14:33] VITALS: BP 152/82; PULSE 99; RESP 14; TEMP 36.9; O2SAT 98
[2022-09-08 14:58] VITALS: BP 150/81; PULSE 107; RESP 20; O2SAT 96
--- NOTE | 2022-09-08 15:01 | PC.NURSE ---
PT REPORTS PAIN GETTING WORSE, PAIN AT 10/10 AT THIS TIME. POSITIVE BOWEL SOUNDS ALL 4 QUADRANTS AT THIS TIME
[2022-09-08 15:10] LABS: ~Lactic Acid-LAB USE ONLY 1.9 mmol/L (0.5-2.0)
[2022-09-08] MEDS: Enoxaparin Sodium 40 MG/0.4 ML SYRINGE SUBCUT (15:18)
[2022-09-08] MEDS: 0.9 % Sodium Chloride Flush 3 ML SYRINGE IVFLUSH (15:19)
--- NOTE | 2022-09-08 15:21 | P.HPHOSP_ITS ---
History of Present Illness Date of Service: 09/08/22 Attending physician on admission: Ravindra Hernandez Chief Complaint: Abdominal pain Pt is a 67 year-old male with a PMH significant for HTN, diverticulitis, prostate cancer, and alcohol dependence who presents to the ED with a two-day history of abdominal pain and diarrhea. The pt describes his pain as severe, constant, and located across his lower abdomen. He notes the pain increased significantly this morning and denies it radiates to his back. He notes the pain is different and lower down than when he had diverticulitis. He also c omplains of 2-3 days of diarrhea . He denies N/V, fever, chills. No chest pain, SOB, or changes in urination. Of note, the pt reports a long history of drinking 5-6 shots of vodka daily; it has been years since he abstained for more than a few days. His last drink was on Wednesday night. Review of Systems Review of Systems: negative except [facility] Medical History (Updated 09/08/22 @ 17:04 by MADISON Ordonez) GERD (gastroesophageal reflux disease) Hiatal hernia HTN (hypertension) Hyperlipidemia Prostate cancer Pertinent family history: Denies Surgical History History of esophagogastroduodenoscopy (EGD) History of prostatectomy History of tonsillectomy Hx of colonoscopy Social History (Updated 09/08/22 @ 17:04 by MADISON Ordonez) Are you a primary career counselor to a significant other at home: No Do you presently have visiting nurse or other home services: No Alcohol intake: current Alcohol intake frequency: 3 or more drinks per day Alcohol type: hard liquor Patient Tobacco Use Status: Former Tobacco user Tobacco use type: Cigarette Smoked in Last 30 Days: Yes Use of substances other than those prescribed or required for medical reasons: No Advance Directives: No Meds Allergies Allergy/AdvReac Type Severity Reaction Status Date / Time bee pollen [bee stings] Allergy Severe Swelling Verified 10/07/21 10:36 Penicillins [PENICILLINS] Allergy Intermediate UNKNOWN Verified 10/07/21 10:36 Active Medications: Current Medications Acetaminophen (Acetaminophen 325 Mg Tablet) 650 mg PO Q6H PRN PRN Reason: Pain, Mild (Pain Scale 1-3) Enoxaparin Sodium (Enoxaparin Sodium 40 Mg/0.4 Ml Syringe) 40 mg SUBCUT Q24H [facility] Last Admin: 09/08/22 15:18 Dose: 40 mg Lactated Ringer's (Lr) 1,000 mls @ 125 mls/hr IVCONT .Q8H [facility] Piperacillin Sod/Tazobactam (Sod 2.25 gm/ Sodium Chloride) 50 mls @ 100 mls/hr IV Q6H [facility] Morphine Sulfate (Morphine Sulfate 4 Mg/Ml Cartridge) 4 mg IVPUSH Q4H PRN; Protocol PRN Reason: Pain, Severe (Pain Scale 7-10) Last Admin: 09/08/22 15:18 Dose: 4 mg Omeprazole (Omeprazole 20 Mg Capsule.Dr) 20 mg PO DAILY [facility] Ondansetron HCl (Ondansetron Hcl 4 Mg/2 Ml Vial) 4 mg IVPUSH Q8H PRN PRN Reason: Nausea and Vomiting Pharmacy Consult (Consult Rx Perform Med Rec) 1 each MISCELLANE ONCE PRN PRN Reason: Consult order Pharmacy Consult (Consult Rx Etoh Phenob Im/Po) 1 each MISCELLANE ONCE PRN; Pro tocol PRN Reason: Consult order Sodium Chloride (0.9 % Sodium Chloride Flush 3 Ml Syringe) 3 ml IVFLUSH QSHIFT [facility] Last Admin: 09/08/22 15:19 Dose: 3 ml Home Medications Medication Instructions Recorded Confirmed Last Taken Type lisinopril 5 mg tablet 1 tab PO DAILY 04/18/21 09/08/22 09/08/22 08:00 History omeprazole 20 mg capsule,delayed 20 mg PO DAILY 09/08/22 09/08/22 Unknown History release Physical Exam Vital Signs and Narrative: Vital Signs: Last Vital Signs Temp 98.5 F 09/08/22 14:33 Pulse 107 H 09/08/22 14:58 Resp 20 09/08/22 14:58 BP 150/81 H 09/08/22 14:58 Pulse Ox 96 09/08/22 14:58 O2 Del Method 09/08/22 14:58 BMI result Body Mass Index 31.1 Const: General: cooperative, no acute distress, alert and awake Nutritional Appearance: well nourished Orientation/consciousness: patient oriented x3 Limitations: no limitations HEENT: Head: Yes normocephalic and Yes atraumatic Ears: hearing grossly normal bilaterally and external ears normal General nose exam: Normal externa l nose present and No nasal discharge present Face and sinus: Yes normal facial exam, Yes face symmetric, No abrasion and No laceration Mouth: no drooling and no muffled voice Eyes: General: appearance normal, both eyes and all related structures Visual Hong: normal visual hong by confrontation Alignment and Position: alignment normal and position normal Periorbital: periorbital findings normal Eyelids: Yes eyelids normal Conjunctivae: conjunctivae normal Sclerae: sclerae normal Corneas: corneas normal Pupils: Pupils normal by confrontation EOM: EOMs intact bilaterally Neck: Yes normal visual inspection Chest: Chest palpation & inspection: normal inspection of the chest Resp: Effort & Inspection: normal respiratory effort and able to speak in complete sentences Auscultation: clear to auscultation bilaterally Cardio: Jugular venous distension: no JVD Rate: regular rate Rhythm: regular rhythm GI: Other: LUQ of abdomen tender to palpation and lower abdomen diffusely tender. Inspection: Yes normal to inspection and No distended Palpation (GI): Soft to palpation, not firm and not rigid Neuro: General: patient oriented x3 and moves all extremities Cognition ( Neuro): normal cognition Motor exam (neuro): no tremor noted Extrem: General: Yes normal to inspection Psych: Appearance: grossly normal Mental Status: mental status grossly normal Speech and movement: Normal speech and movement present Affect: normal affect Attitude: cooperative Thought process: Normal thought proce ss present Thought content: Normal thought content present Insight: Good insight present (Psych) Judgement: Good judgement present (Psych) Results Labs CBC and Chem 7: 09/08/22 10:47 09/08/22 10:47 Labs: Laboratory Results - last 24 hr 09/08/22 09/08/22 09/08/22 10:47 10:47 10:47 MCV 92.5 MCH 33.8 H MCHC 36.5 H RDW 12.8 Plt Count 223 MPV 9.0 L Immature Gran % (Auto) Cancelled Neut % (Auto) Cancelled Lymph % (Auto) Cancelled [place] % (Auto) Cancelled Eos % (Auto) Cancelled Baso % (Auto) Cancelled Lymph # (Auto) Cancelled [place] # (Auto) Cancelled Eos # (Auto) Cancelled Baso # (Auto) Cancelled Abs Immat Gran (auto) Cancelled Absolute Neuts (auto) Cancelled Absolute Nucleated RBC 0.000 Nucleated RBC % (auto) 0.0 Neutrophils % (Manual) 84 H Band Neutrophils % 13 H Lymphocytes % (Manual) 1 L Monocytes % (Manual) 1 L Metamyelocytes % 1 Abs Neuts (Manual) 28.1 H Lymphocytes # (Manual) 0.3 L Monocytes # (Manual) 0.3 Metamyelocytes # 0.3 Toxic Vacuolation PRESENT Platelet Estimate NORMAL Plt Morphology Comment NORMAL RBC Morphology NORMAL VBG pH VBG pCO2 VBG pO2 VBG HCO3 VBG O2 Saturation VBG Base Excess Anion Gap 23 H Estim Creat Clear Calc 40.8 Estimated GFR 30 Random Glucose 146 H D Lactic Acid Lactic Acid F/U @ 2Hr Calcium 8.0 L D Total Bilirubin 1.7 H Direct Bilirubin 0.8 H AST 120 H ALT 65 H Alkaline Phosphatase 103 D Total Protein 6.1 L Albumin 3.5 Amylase 199 H Lipase 501 H COVID-19 ([facility]) Negative COVID-19 Clin Com See Note 09/08/22 09/08/22 09/08/22 12:26 14:00 14:54 MCV MCH MCHC RDW Plt Count MPV Immature Gran % (Auto) Neut % (Auto) Lymph % (Auto) [place] % (Auto) Eos % (Auto) Baso % (Auto) Lymph # (Auto) [place] # (Auto) Eos # (Auto) Baso # (Auto) Abs Immat Gran (auto) Absolute Neuts (auto) Absolute Nucleated RBC Nucleated RBC % (auto) Neutrophils % (Manual) Band Neutrophils % Lymphocytes % (Manual) Monocytes % (Manual) Metamyelocytes % Abs Neuts (Manual) Lymphocytes # (Manual) Monocytes # (Manual) Metamyelocytes # Toxic Vacuolation Platelet Estimate Plt Morphology Comment RBC Morphology VBG pH 7.34 VBG pCO2 29 VBG pO2 38 VBG HCO3 16 L VBG O2 Saturation 57.0 VBG Base Excess -7.9 Anion Gap Estim Creat Clear Calc Estimated GFR Random Glucose Lactic Acid 2.6 H* Lactic Acid F/U @ 2Hr 1.9 Calcium Total Bilirubin Direct Bilirubin AST ALT Alkaline Phosphatase Total Protein Albumin Amylase Lipase COVID-19 ([facility]) COVID-19 Clin Com Imaging Radiologist's Impressions: Impressions Abdomen/Pelvis CT 09/08/22 12:59 IMPRESSION: Slight enlargement of the body and tail the pancreas, stranding of the peripancreatic fat and small amount of fluid in the left anterior pararenal fascia and left paracolic gutter. Findings are questionable for pancreatitis. Diverticulosis of the colon. Long segment wall thickening and edema of the mid transverse colon to sigmoid colon, stranding of the surrounding fat and small amount of adjacent fluid. Long segment distribution is more suggestive of colitis than diverticulitis. This may be a secondary to pancreatitis secondary to vascular changes. Fatty liver. Fleischner guidelines were followed. Assessment and Plan (1) Colitis: Status: Acute (2) Acute pancreatitis: Status: Deleted (3) Alcohol dependence: Status: Acute (4) Acute kidney injury: Status: Acute Pt's creatinine at 2.19, likely secondary to dehydration. -- Pt to receive IV fluids for hydration -- Hold lisinopril -- Monitor labs Plan This is a 67 yo M with a PMH of HTN, GERD, and daily heavy alcohol use who presents to the hospital with a 2-3 day history of diarrhea and lower abdominal pain. His work up in the ED reveals pancreatitis (and possible colitis), PAM with metabolic acidosis. He will be admitted for further work up 1. Acute Pancreatitis Suspected secondary to alcohol use IVF, IV analgesics, bowel rest alcohol cessation as been encouraged 2. Possible colitis empiric zosyn if recurrent diarrhea (pt reports no diarrhea since ED arrival) -- will send for C. Diff 3. PAM with metabolic acidosis suspected hypovoluemic should improve with IVF trend BMP 4. Severe sepsis due to #1 and #2 meets sepsis criteria tachycardia, leukocytosis; severe features include elevated Cr and bilirubin + elevated lactate follow cultures 5. HypoMg repleted with 2g IV recheck tomorrow AM 6. Alcohol use and dependence exhibiting mild withdrawal symptoms -- started on phenobarb monitor lytes 7. HTN on lisinopril 5mg, hold due to PAM if bp remains elevated, will have to use alternative agent Full Code DVT pptx, Lovenox Attending: Dr. Hernandez Due to the patients pancreatitis, PAM and colitis/sepsis which will require IV antibiotics, IVF, IV analgesics and bowel rest, I anticipate an inpatient hospitalization which is likely to span at least 2 midnights. Quality Stroke Does the patient have a stroke diagnosis?: No VTE Prior VTE?: No VTE Risk Level:: Medical - moderate - high VTE Device Contraindication: N/A - Device Ordered VTE Drug Contraindication: N/A - Med Ordered
[2022-09-08] MEDS: Lactated Ringers 1,000 ML 125 ML IVCONT (16:07)
[2022-09-08] MEDS: PHENobarbitaL sodium 130 MG/ML IM ONCE 310 MG IM (16:07)
--- NOTE | 2022-09-08 16:33 | P.EN_ITS ---
Event Note Date of Service: 09/08/22 Event Note: Attending Attestation: I have personally seen and examined the patient independently (on the date of service as documented by FAIZA), reviewed the FAIZA history, exam and?MDM and agree with the assessment and plan as?written with the following additions and/or changes. S 67 yo M with a PMH of HTN, GERD and daily heavy alcohol use (more than 5-6 drinks per day, last drink 2 days prior to admission) who presents to the ED with complaints of lower abdominal, sharp pain, constant in nature with associated diarrhea and loss of appetite. THe patient reports he noticed diarrhea (4-5 times daily) starting about 2 days ago. He had intermittent bl eeding (reported history of hemorrhoids). His pain started 1 day prior to admission. He reports it was mild at first, but on the morning of admission it became unbearable and hence he presented to the ED. In the ED, work up revealed leukocytosis, PAM with metabolic acidosis, hypoMg, elevated LFTs. CT imaging showed pancreatitis and possible coliitis. He is exhibiting mild withdrawal symptoms. He has been given IVF, IV antibiotics and will be admitted for further work up. O Vitals - tachycardic and hypertensive (see vitals) Gen - appears comfortable (received IV morphine earlier) Abd - diffuse tenderness with voluntary guarding, but otherwise soft A/P 67 yo M presenting with abdominal pain and diarrhea CT imaging shows pancreatitis + possible colitis Suspect pancreatitis more so than cololitis, but given his leukocytosis -- will give IV zosyn empirically IVF, IV morphine, bowel rest Gen surger consulted by ED -- recs appreciated. Likely cause of pancreatitis is secondary to alcohol, but will need to rule out biilary cause as well. Remainder per H&P
--- NOTE | 2022-09-08 16:58 | PC.NURSE ---
report given to doug cantu in overflow
[2022-09-08] MEDS: Magnesium Sulfate/H2O 2 GM/50 ML PIGGYBACK IV (20:24)
[2022-09-08] MEDS: Piperacillin Sodium/Tazobactam 2.25 GM in 0.9 % Sodium Chloride 50 ML IV (20:24)
[2022-09-08] MEDS: PHENobarbitaL sodium 130 MG/ML VIAL 233 MG IM (22:12)
--- NOTE | 2022-09-08 23:34 | PC.NURSE ---
Pt brought up to floor. Pharmacy call to adjust medication times due to late administration.
[2022-09-08 23:41] VITALS: BP 158/81; PULSE 76; RESP 18; TEMP 36.9; O2SAT 97
[2022-09-09] VITALS (7 sets, daily range): BP systolic 140–170; BP diastolic 73–91; PULSE 97–110; RESP 16–20; TEMP 36.3–37.3; O2SAT 94–97
[2022-09-09] MEDS: Morphine Sulfate 4 MG/ML CARTRIDGE IVPUSH ×5 (00:26→21:50)
[2022-09-09] MEDS: Lactated Ringers 1,000 ML 125 ML IVCONT ×3 (00:27→21:50)
[2022-09-09] MEDS: PHENobarbitaL sodium 130 MG/ML VIAL 233 MG IM (00:28)
[2022-09-09] MEDS: 0.9 % Sodium Chloride Flush 3 ML SYRINGE IVFLUSH (00:29)
[2022-09-09] MEDS: Piperacillin Sodium/Tazobactam 2.25 GM in 0.9 % Sodium Chloride 50 ML IV ×4 (01:41→19:57)
[2022-09-09 06:55] LABS: Basophils Percent Auto 0.2 % (0-2); Hematocrit 33.1 % (42.0-52.0); Hemoglobin 11.5 g/dl (14.0-18.0); Imm Gran Abs Auto 0.09 X10*3/uL (0.00-0.03); Imm Gran Pct Auto 0.7 % (0.0-0.4); Lymphocytes Absolute Auto 0.8 X10*3/uL (1.2-4.9); Lymphocytes Percent Auto 5.6 % (20-40); MANUAL DIFF FLAG SCAN; Mean Corpuscular HGB Conc 34.7 g/dl (31.0-36.0); Mean Corpuscular Hemoglobin 33.7 pg (27.0-33.0); Mean Corpuscular Volume 97.1 fL (80.0-98.0); Mean Platelet Volume 9.1 fL (9.4-12.4); Monocytes Absolute Auto 0.5 X10*3/uL (0.1-1.2); Monocytes Percent Auto 3.3 % (2-11); Neutrophils Absolute Auto 12.2 x10*3/uL (2.0-8.3); Neutrophils Percent Auto 90.2 % (45-73); Platelet Count 147 X10*3/uL (160-400); Red Blood Count 3.41 X10*6/uL (4.60-5.80); SCAN SMEAR FLAG 1; White Blood Count 13.5 X10*3/uL (4.8-10.8)
[2022-09-09 07:21] LABS: Anion Gap 16 (12-20); Blood Urea Nitrogen 37 mg/dL (9-16); Calcium 7.4 mg/dL (8.4-10.2); Carbon Dioxide 17 mmol/L (22-29); Chloride 103 mmol/L (96-108); Creatinine Clr Calc Pharmacy 50.8; Estimated Glomerular Filt Rate 39; Glucose Random 103 mg/dL (60-115); Potassium 4.3 mmol/L (3.3-5.1); Sodium 132 mmol/L (135-145)
[2022-09-09 07:49] LABS: SLIDE REVIEW VERIFIED
[2022-09-09 08:27] LABS: Alanine Aminotransferase 37 U/L (0-40); Albumin Level 2.9 g/dL (3.5-5.0); Alkaline Phosphatase 84 U/L (39-117); Aspartate Amino Transferase 59 U/L (5-37); Bilirubin Direct 0.5 mg/dL (0.0-0.5); Magnesium 1.8 mg/dL (1.6-2.6)
[2022-09-09] MEDS: PHENobarbitaL 30 MG TABLET 60 MG PO ×2 (08:30→19:58)
[2022-09-09] MEDS: Omeprazole 20 MG CAPSULE.DR PO (08:30)
--- NOTE | 2022-09-09 10:13 | P.PNGS_ITS ---
Subjective Subjective Date of Service: 09/09/22 Interval history: Still with pain, mostly in the upper abdomen but says this is better overall No nausea or vomiting Physical Exam Vital Signs: Vital Signs: Last Vital Signs Temp 97.7 F 09/09/22 07:21 Pulse 100 09/09/22 07:21 Resp 20 09/09/22 07:21 BP 140/81 H 09/09/22 07:21 Pulse Ox 95 09/09/22 07:21 O2 Del Method 09/09/22 07:21 BMI result Body Mass Index 31.1 Const: General: no acute distress Resp: Effort & Inspection: normal respiratory effort Cardio: Rate: tachycardic GI: Other: Still with tenderness mostly on the upper abdomen Palpation (GI): Soft to palpation, not firm and no guarding Objective Data Active Medications Acetaminophen (Acetaminophen 325 Mg Tablet) 650 mg PO Q6H PRN PRN Reason: Pain, Mild (Pain Scale 1-3) Enoxaparin Sodium (Enoxaparin Sodium 40 Mg/0.4 Ml Syringe) 40 mg SUBCUT Q24H [facility] Last Admin: 09/08/22 15:18 Dose: 40 mg Documented By: DELROY Lactated Ringer's (Lr) 1,000 mls @ 125 mls/hr IVCONT .Q8H [facility] Last Admin: 09/09/22 08:30 Dose: 125 mls/hr Documented By: JUS Piperacillin Sod/Tazobactam (Sod 2.25 gm/ Sodium Chloride) 50 mls @ 100 mls/hr IV Q6H [facility] Last Infusion: 09/09/22 07:04 Dose: 0 mls/hr Documented By: ROXY Morphine Sulfate (Morphine Sulfate 4 Mg/Ml Cartridge) 4 mg IVPUSH Q4H PRN; Protocol PRN Reason: Pain, Severe (Pain Scale 7-10) Last Admin: 09/09/22 06:05 Dose: 4 mg Documented By: ROXY Omeprazole (Omeprazole 20 Mg Capsule.) 20 mg PO DAILY [facility] Last Admin: 09/09/22 08:30 Dose: 20 mg Documented By: JUS Ondansetron HCl (Ondansetron Hcl 4 Mg/2 Ml Vial) 4 mg IVPUSH Q8H PRN PRN Reason: Nausea and Vomiting Pharmacy Consult (Consult Rx Perform Med Rec) 1 each MISCELLANE ONCE PRN PRN Reason: Consult order Pharmacy Consult (Consult Rx Etoh Phenob Im/Po) 1 each MISCELLANE ONCE PRN; Protocol PRN Reason: Consult order Phenobarbital (Phenobarbital 30 Mg Tablet) 60 mg PO BID [facility]; Protocol Stop: 09/10/22 21:01 Last Admin: 09/09/22 08:30 Dose: 60 mg Documented By: JUS Phenobarbital (Phenobarbital 30 Mg Tablet) 30 mg PO BID [facility]; Protocol Stop: 09/12/22 21:01 Phenobarbital (Phenobarbital 30 Mg Tablet) 30 mg PO DAILY [facility]; Protocol Stop: 09/14/22 09:01 Sodium Chloride (0.9 % Sodium Chloride Flush 3 Ml Syringe) 3 ml IVFLUSH QSHIFT [facility] Last Admin: 09/09/22 08:36 Dose: Not Given Documented By: JUS Non-Admin Reason: IV Running Labs CBC & Chem 7: 09/09/22 06:25 09/09/22 06:25 Labs: Laboratory Results - last 24 hr 09/08/22 09/08/22 09/08/22 10:47 10:47 10:47 MCV 92.5 MCH 33.8 H MCHC 36.5 H RDW 12.8 Plt Count 223 MPV 9.0 L Immature Gran % (Auto) Cancelled Neut % (Auto) Cancelled Lymph % (Auto) Cancelled [place] % (Auto) Cancelled Eos % (Auto) Cancelled Baso % (Auto) Cancelled Lymph # (Auto) Cancelled [place] # (Auto) Cancelled Eos # (Auto) Cancelled Baso # (Auto) Cancelled Abs Immat Gran (auto) Cancelled Absolute Neuts (auto) Cancelled Absolute Nucleated RBC 0.000 Nucleated RBC % (auto) 0.0 Neutrophils % (Manual) 84 H Band Neutrophils % 13 H Lymphocytes % (Manual) 1 L Monocytes % (Manual) 1 L Metamyelocytes % 1 Abs Neuts (Manual) 28.1 H Lymphocytes # (Manual) 0.3 L Monocytes # (Manual) 0.3 Metamyelocytes # 0.3 Toxic Vacuolation PRESENT Platelet Estimate NORMAL Plt Morphology Comment NORMAL RBC Morphology NORMAL Smear Tech's Comments VBG pH VBG pCO2 VBG pO2 VBG HCO3 VBG O2 Saturation VBG Base Excess Anion Gap 23 H Estim Creat Clear Calc 40.8 Estimated GFR 30 Random Glucose 146 H D Lactic Acid Lactic Acid F/U @ 2Hr Calcium 8.0 L D Magnesium 1.1 L* Total Bilirubin 1.7 H Direct Bilirubin 0.8 H AST 120 H ALT 65 H Alkaline Phosphatase 103 D Total Protein 6.1 L Albumin 3.5 Amylase 199 H Lipase 501 H COVID-19 ([facility]) Negative COVID-19 Clin Com See Note 09/08/22 09/08/22 09/08/22 12:26 14:00 14:54 MCV MCH MCHC RDW Plt Count MPV Immature Gran % (Auto) Neut % (Auto) Lymph % (Auto) [place] % (Auto) Eos % (Auto) Baso % (Auto) Lymph # (Auto) [place] # (Auto) Eos # (Auto) Baso # (Auto) Abs Immat Gran (auto) Absolute Neuts (auto) Absolute Nucleated RBC Nucleated RBC % (auto) Neutrophils % (Manual) Band Neutrophils % Lymphocytes % (Manual) Monocytes % (Manual) Metamyelocytes % Abs Neuts (Manual) Lymphocytes # (Manual) Monocytes # (Manual) Metamyelocytes # Toxic Vacuolation Platelet Estimate Plt Morphology Comment RBC Morphology Smear Tech's Comments VBG pH 7.34 VBG pCO2 29 VBG pO2 38 VBG HCO3 16 L VBG O2 Saturation 57.0 VBG Base Excess -7.9 Anion Gap Estim Creat Clear Calc Estimated GFR Random Glucose Lactic Acid 2.6 H* Lactic Acid F/U @ 2Hr 1.9 Calcium Magnesium Total Bilirubin Direct Bilirubin AST ALT Alkaline Phosphatase Total Protein Albumin Amylase Lipase COVID-19 ([facility]) COVID-19 Clin Com 09/09/22 09/09/22 06:25 06:25 MCV 97.1 MCH 33.7 H MCHC 34.7 RDW 13.0 Plt Count 147 L D MPV 9.1 L Immature Gran % (Auto) 0.7 H Neut % (Auto) 90.2 H Lymph % (Auto) 5.6 L [place] % (Auto) 3.3 Eos % (Auto) 0.0 Baso % (Auto) 0.2 Lymph # (Auto) 0.8 L [place] # (Auto) 0.5 Eos # (Auto) 0.0 Baso # (Auto) 0.0 Abs Immat Gran (auto) 0.09 H Absolute Neuts (auto) 12.2 H Absolute Nucleated RBC 0.000 Nucleated RBC % (auto) 0.0 Neutrophils % (Manual) Band Neutrophils % Lymphocytes % (Manual) Monocytes % (Manual) Metamyelocytes % Abs Neuts (Manual) Lymphocytes # (Manual) Monocytes # (Manual) Metamyelocytes # Toxic Vacuolation Platelet Estimate Plt Morphology Comment RBC Morphology Smear Tech's Comments VERIFIED VBG pH VBG pCO2 VBG pO2 VBG HCO3 VBG O2 Saturation VBG Base Excess Anion Gap 16 Estim Creat Clear Calc 50.8 Estimated GFR 39 Random Glucose 103 Lactic Acid Lactic Acid F/U @ 2Hr Calcium 7.4 L D Magnesium 1.8 Total Bilirubin 1.0 Direct Bilirubin 0.5 AST 59 H ALT 37 Alkaline Phosphatase 84 Total Protein 5.0 L Albumin 2.9 L Amylase Lipase COVID-19 ([facility]) COVID-19 Clin Com Procedures Date of Service Date of Service: 09/09/22 Progress Note: A&P Assessment and plan (1) Acute pancreatitis: Status: Acute Assessment and Plan: Pain improving WBC much improved Lactate levels have normalized after IV hydration Continue supportive care for acute pancreatitis Follow LFTs Okay to try clear liquids today Time Spent With Patient Time: Total time spent is greater than 50% in coordination of care (as documented) at patient's floor/unit and/or counseling patient: Quality Stroke Does the patient have a stroke diagnosis?: No VTE Prior VTE?: No VTE Risk Level:: Medical - moderate - high VTE Device Contraindication: N/A - Device Ordered VTE Drug Contraindication: N/A - Med Ordered
--- NOTE | 2022-09-09 11:37 | MHC.CM.PN ---
met with pt who lives with his pt had no services prior to admisison pt is zari schwartz x4 dc plan home no servcies
[2022-09-09] MEDS: Enoxaparin Sodium 40 MG/0.4 ML SYRINGE SUBCUT (15:43)
--- NOTE | 2022-09-09 17:48 | P.PNIM_ITS ---
Subjective Subjective Date of Service: 09/09/22 Interval History: Abdominal pain Review of Systems patient still has significant abdominal pain, mild nausea, denies any fever chills or cough or phlegm. Physical Exam Vital Signs: Vital Signs: Last Vital Signs Temp 99.1 F 09/09/22 15:38 Pulse 110 H 09/09/22 15:38 Resp 16 09/09/22 15:38 BP 162/91 H 09/09/22 15:38 Pulse Ox 96 09/09/22 15:38 O2 Del Method 09/09/22 15:38 BMI result Body Mass Index 31.1 Appearance: Alert.? Oriented X3.? cvs: rrr, [id number] , no murmur res: clear to auscultation ,no rhonchii or wheezing abd: no rebound or guarding ,diffuse abd pain similar to yesterday, bs present. ext pulses present , no cyanosis neuro: axo3 , nonfocal. Objective Data Active Medications Acetaminophen (Acetaminophen 325 Mg Tablet) 650 mg PO Q6H PRN PRN Reason: Pain, Mild (Pain Scale 1-3) Enoxaparin Sodium (Enoxaparin Sodium 40 Mg/0.4 Ml Syringe) 40 mg SUBCUT Q24H [facility] Last Admin: 09/09/22 15:43 Dose: 40 mg Documented By: JUS Lactated Ringer's (Lr) 1,000 mls @ 125 mls/hr IVCONT .Q8H [facility] Last Admin: 09/09/22 15:06 Dose: Not Given Documented By: JUS Non-Admin Reason: IV Running Piperacillin Sod/Tazobactam (Sod 2.25 gm/ Sodium Chloride) 50 mls @ 100 mls/hr IV Q6H [facility] Last Infusion: 09/09/22 13:39 Dose: 0 mls/hr Documented By: JUS Morphine Sulfate (Morphine Sulfate 4 Mg/Ml Cartridge) 4 mg IVPUSH Q4H PRN; Protocol PRN Reason: Pain, Severe (Pain Scale 7-10) Last Admin: 09/09/22 12:46 Dose: 4 mg Documented By: JUS Omeprazole (Omeprazole 20 Mg Capsule.) 20 mg PO DAILY [facility] Last Admin: 09/09/22 08:30 Dose: 20 mg Documented By: JUS Ondansetron HCl (Ondansetron Hcl 4 Mg/2 Ml Vial) 4 mg IVPUSH Q8H PRN PRN Reason: Nausea and Vomiting Pharmacy Consult (Consult Rx Perform Med Rec) 1 each MISCELLANE ONCE PRN PRN Reason: Consult order Pharmacy Consult (Consult Rx Etoh Phenob Im/Po) 1 each MISCELLANE ONCE PRN; Protocol PRN Reason: Consult order Phenobarbital (Phenobarbital 30 Mg Tablet) 60 mg PO BID [facility]; Protocol Stop: 09/10/22 21:01 Last Admin: 09/09/22 08:30 Dose: 60 mg Documented By: JUS Phenobarbital (Phenobarbital 30 Mg Tablet) 30 mg PO BID [facility]; Protocol Stop: 09/12/22 21:01 Phenobarbital (Phenobarbital 30 Mg Tablet) 30 mg PO DAILY [facility]; Protocol Stop: 09/14/22 09:01 Sodium Chloride (0.9 % Sodium Chloride Flush 3 Ml Syringe) 3 ml IVFLUSH QSHIFT [facility] Last Admin: 09/09/22 16:59 Dose: Not Given Documented By: JUS Non-Admin Reason: IV Running Labs CBC & Chem 7: 09/09/22 06:25 09/09/22 06:25 Labs: Laboratory Results - last 24 hr 09/08/22 09/08/22 09/08/22 10:47 10:47 14:00 MCV 92.5 MCH 33.8 H MCHC 36.5 H RDW 12.8 Plt Count 223 MPV 9.0 L Immature Gran % (Auto) Neut % (Auto) Lymph % (Auto) [place] % (Auto) Eos % (Auto) Baso % (Auto) Lymph # (Auto) [place] # (Auto) Eos # (Auto) Baso # (Auto) Abs Immat Gran (auto) Absolute Neuts (auto) Absolute Nucleated RBC 0.000 Nucleated RBC % (auto) 0.0 Neutrophils % (Manual) 84 H Band Neutrophils % 13 H Lymphocytes % (Manual) 1 L Monocytes % (Manual) 1 L Metamyelocytes % 1 Abs Neuts (Manual) 28.1 H Lymphocytes # (Manual) 0.3 L Monocytes # (Manual) 0.3 Metamyelocytes # 0.3 Toxic Vacuolation PRESENT Platelet Estimate NORMAL Plt Morphology Comment NORMAL RBC Morphology NORMAL Smear Tech's Comments VBG pH 7.34 VBG pCO2 29 VBG pO2 38 VBG HCO3 16 L VBG O2 Saturation 57.0 VBG Base Excess -7.9 Anion Gap Estim Creat Clear Calc Estimated GFR Random Glucose Calcium Magnesium 1.1 L* Total Bilirubin Direct Bilirubin AST ALT Alkaline Phosphatase Total Protein Albumin Amylase 199 H Lipase 501 H 09/09/22 09/09/22 06:25 06:25 MCV 97.1 MCH 33.7 H MCHC 34.7 RDW 13.0 Plt Count 147 L D MPV 9.1 L Immature Gran % (Auto) 0.7 H Neut % (Auto) 90.2 H Lymph % (Auto) 5.6 L [place] % (Auto) 3.3 Eos % (Auto) 0.0 Baso % (Auto) 0.2 Lymph # (Auto) 0.8 L [place] # (Auto) 0.5 Eos # (Auto) 0.0 Baso # (Auto) 0.0 Abs Immat Gran (auto) 0.09 H Absolute Neuts (auto) 12.2 H Absolute Nucleated RBC 0.000 Nucleated RBC % (auto) 0.0 Neutrophils % (Manual) Band Neutrophils % Lymphocytes % (Manual) Monocytes % (Manual) Metamyelocytes % Abs Neuts (Manual) Lymphocytes # (Manual) Monocytes # (Manual) Metamyelocytes # Toxic Vacuolation Platelet Estimate Plt Morphology Comment RBC Morphology Smear Tech's Comments VERIFIED VBG pH VBG pCO2 VBG pO2 VBG HCO3 VBG O2 Saturation VBG Base Excess Anion Gap 16 Estim Creat Clear Calc 50.8 Estimated GFR 39 Random Glucose 103 Calcium 7.4 L D Magnesium 1.8 Total Bilirubin 1.0 Direct Bilirubin 0.5 AST 59 H ALT 37 Alkaline Phosphatase 84 Total Protein 5.0 L Albumin 2.9 L Amylase Lipase Microbiology Microbiology Results: Microbiology 09/08/22 12:45 Blood Culture - Preliminary Blood - Venous No growth after 24 hours. 09/08/22 12:26 Blood Culture - Preliminary Blood - Venous No growth after 24 hours. Assessment and Plan (1) Acute pancreatitis: Status: Acute (2) Acute kidney injury: Status: Acute (3) Alcohol dependence: Status: Acute (4) Colitis: Status: Acute (5) Hypomagnesemia: Status: Acute Plan 67 yo M with a PMH of HTN, GERD, and daily heavy alcohol use who presents to the hospital with a 2-3 day history of diarrhea and lower abdominal pain. His work up in the ED reveals pancreatitis (and possible colitis), PAM with metabolic acidosis. He will be admitted for further work up 1. Acute Pancreatitis Suspected secondary to alcohol use IVF, IV analgesics, bowel rest alcohol cessation as been encouraged 2. Possible colitis empiric zosyn if recurrent diarrhea (pt reports no diarrhea since ED arrival) -- will send for C. Diff stool studies ordered. 3. PAM with metabolic acidosis improving at hydration suspected hypovoluemic should improve with IVF trend BMP 4. Severe sepsis due to #1 and #2 meets sepsis criteria tachycardia, leukocytosis; severe features include elevated Cr and bilirubin + elevated lactate follow cultures 5. HypoMg repleted and resolved. 6. Alcohol use and dependence exhibiting mild withdrawal symptoms -- started on phenobarb monitor lytes 7. HTN on lisinopril 5mg, hold due to PAM if bp remains elevated, will have to use alternative agent Full Code Ongoing inpatient need: acute pancreatitis and colitis need IV hydration as well as pain management IV as well as IV antibiotics, stool labs also pending Quality Stroke Does the patient have a stroke diagnosis?: No VTE Prior VTE?: No VTE Risk Level:: Medical - moderate - high VTE Device Contraindication: N/A - Device Ordered VTE Drug Contraindication: N/A - Med Ordered
[2022-09-09 18:30] LABS: Magnesium 1.1 mg/dL (1.6-2.6)
[2022-09-10] VITALS (7 sets, daily range): BP systolic 133–182; BP diastolic 62–91; PULSE 89–112; RESP 18–20; TEMP 36.2–37.7; O2SAT 94–100
[2022-09-10] MEDS: 0.9 % Sodium Chloride Flush 3 ML SYRINGE IVFLUSH ×3 (00:29→15:52)
[2022-09-10] MEDS: Piperacillin Sodium/Tazobactam 2.25 GM in 0.9 % Sodium Chloride 50 ML IV ×4 (00:30→18:16)
[2022-09-10] MEDS: Morphine Sulfate 4 MG/ML CARTRIDGE IVPUSH ×5 (03:00→22:17)
[2022-09-10 06:37] LABS: Hematocrit 30.8 % (42.0-52.0); Hemoglobin 10.6 g/dl (14.0-18.0); Mean Corpuscular HGB Conc 34.4 g/dl (31.0-36.0); Mean Corpuscular Hemoglobin 33.4 pg (27.0-33.0); Mean Corpuscular Volume 97.2 fL (80.0-98.0); Platelet Count 149 X10*3/uL (160-400); Red Blood Count 3.17 X10*6/uL (4.60-5.80); Red Cell Distribution Width 12.9 % (11.0-16.0); White Blood Count 10.9 X10*3/uL (4.8-10.8)
[2022-09-10 07:59] LABS: Anion Gap 15 (12-20); Blood Urea Nitrogen 29 mg/dL (9-16); Calcium 7.6 mg/dL (8.4-10.2); Carbon Dioxide 18 mmol/L (22-29); Chloride 103 mmol/L (96-108); Creatinine Clr Calc Pharmacy 65.3; Estimated Glomerular Filt Rate 52; Glucose Random 92 mg/dL (60-115); Magnesium 1.9 mg/dL (1.6-2.6); Sodium 132 mmol/L (135-145)
[2022-09-10] MEDS: Omeprazole 20 MG CAPSULE.DR PO (08:16)
[2022-09-10] MEDS: PHENobarbitaL 30 MG TABLET 60 MG PO ×2 (08:16→22:06)
--- NOTE | 2022-09-10 08:52 | P.CDIC_ITS ---
CDI Concurrent Query Documentation Clarification: PHYSICIAN'S DOCUMENTATION REQUEST Date of Query: 09/10/22 0852 Patient Name: Abel Grayson Admit Date: 09/08/22 Dear Doctor, A review of the medical record indicates additional documentation may be needed. Please review below and update the documentation accordingly. Clinical Indicators: Risk Factors/Clinical Indicators/Treatments LABS 09/08 - sodium 128 L 132 IV fluids Please clarify based on the above if: Hyponatremia, poa, resolved, etc. * [ ] was present on admission * [ ] was not present on admission * Unable to determine Use of terms such as suspected, likely, concern for, or probable (associated with a specific diagnosis that is being evaluated, monitored, or treated as if it exists) are acceptable and can be coded in the inpatient setting, when documented at the time of discharge. Thank you, Kristy Gibbs [facility], CDIS Extension: [phone] Please use your independent medical judgment in providing your response. THIS QUERY IS PART OF THE PERMANENT MEDICAL RECORD Provider Response: Other Other Diagnosis: Hyponatremia- due to decreased p.o. intake and hydration.
--- NOTE | 2022-09-10 09:15 | P.PNGS_ITS ---
Subjective Subjective Date of Service: 09/11/22 Interval history: He says abdominal pain is much improved However, he feels he is constipated No BMs since he was admitted Physical Exam Vital Signs: Vital Signs: Last Vital Signs Temp 97.6 F 09/10/22 08:00 Pulse 90 09/10/22 08:00 Resp 18 09/10/22 08:00 BP 171/91 H 09/10/22 08:00 Pulse Ox 97 09/10/22 08:00 O2 Del Method 09/10/22 08:00 BMI result Body Mass Index 31.1 Const: General: comfortable and no acute distress Resp: Effort & Inspection: normal respiratory effort Cardio: Rate: regular rate GI: Other: Distended Palpation (GI): Soft to palpation, not firm, no guarding and not rigid Objective Data Active Medications Acetaminophen (Acetaminophen 325 Mg Tablet) 650 mg PO Q6H PRN PRN Reason: Pain, Mild (Pain Scale 1-3) Enoxaparin Sodium (Enoxaparin Sodium 40 Mg/0.4 Ml Syringe) 40 mg SUBCUT Q24H [facility] Last Admin: 09/09/22 15:43 Dose: 40 mg Documented By: JUS Lactated Ringer's (Lr) 1,000 mls @ 125 mls/hr IVCONT .Q8H [facility] Last Admin: 09/09/22 21:50 Dose: 125 mls/hr Documented By: JUS Piperacillin Sod/Tazobactam (Sod 2.25 gm/ Sodium Chloride) 50 mls @ 100 mls/hr IV Q6H [facility] Last Infusion: 09/10/22 08:18 Dose: 0 mls/hr Documented By: LIYA Morphine Sulfate (Morphine Sulfate 4 Mg/Ml Cartridge) 4 mg IVPUSH Q4H PRN; Prot ocol PRN Reason: Pain, Severe (Pain Scale 7-10) Last Admin: 09/10/22 08:16 Dose: 4 mg Documented By: LIYA Omeprazole (Omeprazole 20 Mg Capsule.) 20 mg PO DAILY [facility] Last Admin: 09/10/22 08:16 Dose: 20 mg Documented By: LIYA Ondansetron HCl (Ondansetron Hcl 4 Mg/2 Ml Vial) 4 mg IVPUSH Q8H PRN PRN Reason: Nausea and Vomiting Pharmacy Consult (Consult Rx Perform Med Rec) 1 each MISCELLANE ONCE PRN PRN Reason: Consult order Pharmacy Consult (Consult Rx Etoh Phenob Im/Po) 1 each MISCELLANE ONCE PRN; Protocol PRN Reason: Consult order Phenobarbital (Phenobarbital 30 Mg Tablet) 60 mg PO BID [facility]; Protocol Stop: 09/10/22 21:01 Last Admin: 09/10/22 08:16 Dose: 60 mg Documented By: LIYA Phenobarbital (Phenobarbital 30 Mg Tablet) 30 mg PO BID [facility]; Protocol Stop: 09/12/22 21:01 Phenobarbital (Phenobarbital 30 Mg Tablet) 30 mg PO DAILY [facility]; Protocol Stop: 09/14/22 09:01 Sodium Chloride (0.9 % Sodium Chloride Flush 3 Ml Syringe) [facility] Last Admin: 09/10/22 08:16 Dose: 3 ml Documented By: LIYA Labs CBC & Chem 7: 09/10/22 05:44 09/10/22 05:44 Labs: Laboratory Results - last 24 hr 09/08/22 09/10/22 09/10/22 10:47 05:44 05:44 MCV 97.2 MCH 33.4 H MCHC 34.4 RDW 12.9 Plt Count 149 L MPV 9.0 L Absolute Nucleated RBC 0.000 Nucleated RBC % (auto) 0.0 Anion Gap 15 Estim Creat Clear Calc 65.3 Estimated GFR 52 Random Glucose 92 Calcium 7.6 L Magnesium 1.1 L* 1.9 Microbiology Microbiology Results: Microbiology 09/08/22 12:45 Blood Culture - Preliminary Blood - Venous No growth after 24 hours. 09/08/22 12:26 Blood Culture - Preliminary Blood - Venous No growth after 24 hours. Procedures Date of Service Date of Service: 09/10/22 Progress Note: A&P Assessment and plan (1) Acute pancreatitis: Status: Acute Assessment and Plan: Likely to ETOH related Abdominal pain much improved He feels constipated, abdomen distended, consistent with ileus Would recommend cutting down on narcotics Ambulate Clinically better Time Spent With Patient Time: Total time spent is greater than 50% in coordination of care (as documented) at patient's floor/unit and/or counseling patient: Quality Stroke Does the patient have a stroke diagnosis?: No VTE Prior VTE?: No VTE Risk Level:: Medical - moderate - high VTE Device Contraindication: N/A - Device Ordered VTE Drug Contraindication: N/A - Med Ordered
[2022-09-10] MEDS: Lactated Ringers 1,000 ML 125 ML IVCONT (09:51)
--- NOTE | 2022-09-10 12:19 | P.PNIM_ITS ---
Subjective Subjective Date of Service: 09/10/22 Interval History: Hyponatremia, acute pancreatitis, acute colitis Review of Systems still has abdominal pain but slightly improving than yesterday nauseated denies any chest pain or shortness of breath, no fevers Physical Exam Vital Signs: Vital Signs: Last Vital Signs Temp 97.5 F 09/10/22 11:36 Pulse 95 09/10/22 11:36 Resp 20 09/10/22 11:36 BP 182/91 H 09/10/22 11:36 Pulse Ox 97 09/10/22 11:36 O2 Del Method 09/10/22 11:36 BMI result Body Mass Index 31.1 Appearance: Alert.? Oriented X3.? cvs: [id number], [id number] , no murmur res: clear to auscultation ,no rhonchii or wheezing abd: no rebound or guarding ,diffuse abd pain slightly improving, bs present. ext pulses present , no cyanosis neuro: axo3 , nonfocal. Objective Data Active Medications Acetaminophen (Acetaminophen 325 Mg Tablet) 650 mg PO Q6H PRN PRN Reason: Pain, Mild (Pain Scale 1-3) Amlodipine Besylate (Amlodipine Besylate 2.5 Mg Tablet) 2.5 mg PO DAILY [facility]; Protocol Enoxaparin Sodium (Enoxaparin Sodium 40 Mg/0.4 Ml Syringe) 40 mg SUBCUT Q24H [facility] Last Admin: 09/09/22 15:43 Dose: 40 mg Documented By: JUS Piperacillin Sod/Tazobactam (Sod 2.25 gm/ Sodium Chloride) 50 mls @ 100 mls/hr IV Q6H [facility] Last Infusion: 09/10/22 08:18 Dose: 0 mls/hr Documented By: LIYA Morphine Sulfate (Morphine Sulfate 4 Mg/Ml Cartridge) 4 mg IVPUSH Q4H PRN; Protocol PRN Reason: Pain, Severe (Pain Scale 7-10) Last Admin: 09/10/22 08:16 Dose: 4 mg Documented By: LIYA Omeprazole (Omeprazole 20 Mg Capsule.) 20 mg PO DAILY [facility] Last Admin: 09/10/22 08:16 Dose: 20 mg Documented By: LIYA Ondansetron HCl (Ondansetron Hcl 4 Mg/2 Ml Vial) 4 mg IVPUSH Q8H PRN PRN Reason: Nausea and Vomiting Pharmacy Consult (Consult Rx Perform Med Rec) 1 each MISCELLANE ONCE PRN PRN Reason: Consult order Pharmacy Consult (Consult Rx Etoh Phenob Im/Po) 1 each MISCELLANE ONCE PRN; Protocol PRN Reason: Consult order Phenobarbital (Phenobarbital 30 Mg Tablet) 60 mg PO BID [facility]; Protocol Stop: 09/10/22 21:01 Last Admin: 09/10/22 08:16 Dose: 60 mg Documented By: LIYA Phenobarbital (Phenobarbital 30 Mg Tablet) 30 mg PO BID [facility]; Protocol Stop: 09/12/22 21:01 Phenobarbital (Phenobarbital 30 Mg Tablet) 30 mg PO DAILY [facility]; Protocol Stop: 09/14/22 09:01 Sodium Chloride (0.9 % Sodium Chloride Flush 3 Ml Syringe) [facility] Last Admin: 09/10/22 08:16 Dose: 3 ml Documented By: LIYA Labs CBC & Chem 7: 09/10/22 05:44 09/10/22 05:44 Labs: Laboratory Results - last 24 hr 09/08/22 09/10/22 09/10/22 10:47 05:44 05:44 MCV 97.2 MCH 33.4 H MCHC 34.4 RDW 12.9 Plt Count 149 L MPV 9.0 L Absolute Nucleated RBC 0.000 Nucleated RBC % (auto) 0.0 Anion Gap 15 Estim Creat Clear Calc 65.3 Estimated GFR 52 Random Glucose 92 Calcium 7.6 L Magnesium 1.1 L* 1.9 Microbiology Microbiology Results: Microbiology 09/08/22 12:45 Blood Culture - Preliminary Blood - Venous No growth after 24 hours. 09/08/22 12:26 Blood Culture - Preliminary Blood - Venous No growth after 24 hours. Assessment and Plan (1) Acute pancreatitis: Status: Acute (2) Acute kidney injury: Status: Acute (3) Alcohol dependence: Status: Acute (4) Colitis: Status: Acute (5) Hypomagnesemia: Status: Acute (6) Hyponatremia: Status: Acute Plan 67 yo M with a PMH of HTN, GERD, and daily heavy alcohol use who presents to the hospital with a 2-3 day history of diarrhea and lower abdominal pain. His work up in the ED reveals pancreatitis (and possible colitis), PAM with metabolic acidosis. He will be admitted for further work up 1. Acute Pancreatitis Suspected secondary to alcohol use IVF, IV analgesics, will try clear liqids alcohol cessation as been encouraged 2. Possible colitis empiric zosyn if recurrent diarrhea (pt reports no diarrhea since ED arrival) -- will send for C. Diff stool studies ordered. 3. PAM with metabolic acidosis improving at hydration suspected hypovoluemic improving with IVF trend BMP 4. Severe sepsis due to #1 and #2 meets sepsis criteria tachycardia, leukocytosis; severe features include elevated Cr and bilirubin + elevated lactate follow cultures 5. HypoMg repleted and resolved. 6. Alcohol use and dependence exhibiting mild withdrawal symptoms -- started on phenobarb monitor lytes 7. HTN added amlodipine ,hold ANDERS/ARB due to pam. 8.Hyponatremia: due to hypovolemia /decreased po intake. improving with hydration. 9.overweight: advised to lose weight. Full Code Ongoing inpatient need: acute pancreatitis and colitis ,pam need IV hydration as well as pain management IV as well as IV antibiotics, stool labs also pending Quality Stroke Does the patient have a stroke diagnosis?: No VTE Prior VTE?: No VTE Risk Level:: Medical - moderate - high VTE Device Contraindication: N/A - Device Ordered VTE Drug Contraindication: N/A - Med Ordered
[2022-09-10] MEDS: amLODIPine Besylate 2.5 MG TABLET PO (12:26)
[2022-09-10] MEDS: Enoxaparin Sodium 40 MG/0.4 ML SYRINGE SUBCUT (15:51)
[2022-09-11] VITALS (7 sets, daily range): BP systolic 126–158; BP diastolic 67–86; PULSE 71–105; RESP 17–20; TEMP 36.4–37.2; O2SAT 95–98
[2022-09-11] MEDS: Piperacillin Sodium/Tazobactam 2.25 GM in 0.9 % Sodium Chloride 50 ML IV ×4 (00:23→21:08)
[2022-09-11] MEDS: 0.9 % Sodium Chloride Flush 3 ML SYRINGE IVFLUSH ×4 (00:23→21:08)
[2022-09-11] MEDS: Morphine Sulfate 4 MG/ML CARTRIDGE IVPUSH ×5 (04:12→21:48)
[2022-09-11] MEDS: amLODIPine Besylate 2.5 MG TABLET PO (08:05)
[2022-09-11] MEDS: PHENobarbitaL 30 MG TABLET PO ×2 (08:05→21:07)
[2022-09-11] MEDS: Omeprazole 20 MG CAPSULE.DR PO (08:05)
--- NOTE | 2022-09-11 09:40 | PM.PNGS ---
Subjective Subjective Date of Service: 09/11/22 Interval history: Abdominal pain is much improved No nausea or vomiting Passing flatus Physical Exam Vital Signs: Vital Signs: Last Vital Signs Temp 97.6 F 09/11/22 07:43 Pulse 105 H 09/11/22 07:43 Resp 20 09/11/22 07:43 BP 127/75 09/11/22 07:43 Pulse Ox 96 09/11/22 07:43 O2 Del Method 09/11/22 07:43 O2 Flow Rate 3 09/10/22 19:32 BMI result Body Mass Index 31.1 Const: General: comfortable and no acute distress Resp: Effort & Inspection: normal respiratory effort Cardio: Rate: tachycardic GI: Other: Distended but soft Palpation (GI): Soft to palpation, not firm and nontender Objective Data Active Medications Acetaminophen (Acetaminophen 325 Mg Tablet) 650 mg PO Q6H PRN PRN Reason: Pain, Mild (Pain Scale 1-3) Amlodipine Besylate (Amlodipine Besylate 2.5 Mg Tablet) 2.5 mg PO DAILY [facility]; Protocol Last Admin: 09/11/22 08:05 Dose: 2.5 mg Documented By: LIYA Enoxaparin Sodium (Enoxaparin Sodium 40 Mg/0.4 Ml Syringe) 40 mg SUBCUT Q24H [facility] Last Admin: 09/10/22 15:51 Dose: 40 mg Documented By: LIYA Piperacillin Sod/Tazobactam (Sod 2.25 gm/ Sodium Chloride) 50 mls @ 100 mls/hr IV Q6H [facility] Last Infusion: 09/11/22 07:02 Dose: 0 mls/hr Documented By: MONROE Morphine Sulfate (Morphine Sulfate 4 Mg/Ml Cartridge) 4 mg IVPUSH Q4H PRN; Protocol PRN Reason: Pain, Severe (Pain Scale 7-10) Last Admin: 09/11/22 08:09 Dose: 4 mg Documented By: LIYA Omeprazole (Omeprazole 20 Mg Capsule.) 20 mg PO DAILY [facility] Last Admin: 09/11/22 08:05 Dose: 20 mg Documented By: LIYA Ondansetron HCl (Ondansetron Hcl 4 Mg/2 Ml Vial) 4 mg IVPUSH Q8H PRN PRN Reason: Nausea and Vomiting Pharmacy Consult (Consult Rx Perform Med Rec) 1 each MISCELLANE ONCE PRN PRN Reason: Consult order Pharmacy Consult (Consult Rx Etoh Phenob Im/Po) 1 each MISCELLANE ONCE PRN; Protocol PRN Reason: Consult order Phenobarbital (Phenobarbital 30 Mg Tablet) 30 mg PO BID [facility]; Protocol Stop: 09/12/22 21:01 Last Admin: 09/11/22 08:05 Dose: 30 mg Documented By: LIYA Phenobarbital (Phenobarbital 30 Mg Tablet) 30 mg PO DAILY [facility]; Protocol Stop: 09/14/22 09:01 Sodium Chloride (0.9 % Sodium Chloride Flush 3 Ml Syringe) 3 ml IVFLUSH QSHIFT [facility] Last Admin: 09/11/22 08:05 Dose: 3 ml Documented By: LIYA Labs CBC & Chem 7: 09/10/22 05:44 09/10/22 05:44 Labs: Laboratory Results WBC 10.9 X10*3/uL (4.8-10.8) H 09/10/22 05:44 RBC 3.17 X10*6/uL (4.60-5.80) L 09/10/22 05:44 Hgb 10.6 g/dl (14.0-18.0) L 09/10/22 05:44 Hct 30.8 % (42.0-52.0) L 09/10/22 05:44 MCV 97.2 fL (80.0-98.0) 09/10/22 05:44 MCH 33.4 pg (27.0-33.0) H 09/10/22 05:44 MCHC 34.4 g/dl (31.0-36.0) 09/10/22 05:44 RDW 12.9 % (11.0-16.0) 09/10/22 05:44 Plt Count 149 X10*3/uL (160-400) L 09/10/22 05:44 MPV 9.0 fL (9.4-12.4) L 09/10/22 05:44 Immature Gran % (Auto) 0.7 % (0.0-0.4) H 09/09/22 06:25 Neut % (Auto) 90.2 % (45-73) H 09/09/22 06:25 Lymph % (Auto) 5.6 % (20-40) L 09/09/22 06:25 Tama % (Auto) 3.3 % (2-11) 09/09/22 06:25 Eos % (Auto) 0.0 % (0-4) 09/09/22 06:25 Baso % (Auto) 0.2 % (0-2) 09/09/22 06:25 Lymph # (Auto) 0.8 X10*3/uL (1.2-4.9) L 09/09/22 06:25 Tama # (Auto) 0.5 X10*3/uL (0.1-1.2) 09/09/22 06:25 Eos # (Auto) 0.0 X10*3/uL (0.0-0.4) 09/09/22 06:25 Baso # (Auto) 0.0 X10*3/uL (0.0-0.2) 09/09/22 06:25 Abs Immat Gran (auto) 0.09 X10*3/uL (0.00-0.03) H 09/09/22 06:25 Absolute Neuts (auto) 12.2 x10*3/uL (2.0-8.3) H 09/09/22 06:25 Absolute Nucleated RBC 0.000 X10*3/uL (0.0-0.012) 09/10/22 05:44 Nucleated RBC % (auto) 0.0 /100WBC (0.0-0.2) 09/10/22 05:44 Neutrophils % (Manual) 84 % (45-73) H 09/08/22 10:47 Band Neutrophils % 13 % (3-5) H 09/08/22 10:47 Lymphocytes % (Manual) 1 % (20-40) L 09/08/22 10:47 Monocytes % (Manual) 1 % (2-11) L 09/08/22 10:47 Metamyelocytes % 1 % 09/08/22 10:47 Abs Neuts (Manual) 28.1 X10*3/uL (2.0-8.3) H 09/08/22 10:47 Lymphocytes # (Manual) 0.3 X10*3/uL (1.2-4.9) L 09/08/22 10:47 Monocytes # (Manual) 0.3 X10*3/uL (0.1-1.2) 09/08/22 10:47 Metamyelocytes # 0.3 X10*3/uL 09/08/22 10:47 Toxic Vacuolation PRESENT 09/08/22 10:47 Platelet Estimate NORMAL (NORMAL) 09/08/22 10:47 Plt Morphology Comment NORMAL 09/08/22 10:47 RBC Morphology NORMAL 09/08/22 10:47 Smear Tech's Comments VERIFIED 09/09/22 06:25 VBG pH 7.34 (7.32-7.43) 09/08/22 14:00 VBG pCO2 29 mmHg 09/08/22 14:00 VBG pO2 38 mmHg 09/08/22 14:00 VBG HCO3 16 mmol/L (22-26) L 09/08/22 14:00 VBG O2 Saturation 57.0 % 09/08/22 14:00 VBG Base Excess -7.9 mmol/L 09/08/22 14:00 Sodium 132 mmol/L (135-145) L 09/10/22 05:44 Potassium 4.0 mmol/L (3.3-5.1) 09/10/22 05:44 Chloride 103 mmol/L (96-108) 09/10/22 05:44 Carbon Dioxide 18 mmol/L (22-29) L 09/10/22 05:44 Anion Gap 15 (12-20) 09/10/22 05:44 BUN 29 mg/dL (9-16) H 09/10/22 05:44 Creatinine 1.37 mg/dL (0.5-1.4) 09/10/22 05:44 Estim Creat Clear Calc 65.3 09/10/22 05:44 Estimated GFR 52 09/10/22 05:44 Random Glucose 92 mg/dL (60-115) 09/10/22 05:44 Lactic Acid 2.6 mmol/L (0.5-2.0) H* 09/08/22 12:26 Lactic Acid F/U @ 2Hr 1.9 mmol/L (0.5-2.0) 09/08/22 14:54 Calcium 7.6 mg/dL (8.4-10.2) L 09/10/22 05:44 Magnesium 1.9 mg/dL (1.6-2.6) 09/10/22 05:44 Total Bilirubin 1.0 mg/dL (0.0-1.0) 09/09/22 06:25 Direct Bilirubin 0.5 mg/dL (0.0-0.5) 09/09/22 06:25 AST 59 U/L (5-37) H 09/09/22 06:25 ALT 37 U/L (0-40) 09/09/22 06:25 Alkaline Phosphatase 84 U/L (39-117) 09/09/22 06:25 Total Protein 5.0 g/dL (6.5-8.0) L 09/09/22 06:25 Albumin 2.9 g/dL (3.5-5.0) L 09/09/22 06:25 Amylase 199 U/L (28-100) H 09/08/22 10:47 Lipase 501 U/L (8-78) H 09/08/22 10:47 COVID-19 (ALEXA) Negative (Negative) 09/08/22 10:47 COVID-19 Clin Com See Note 09/08/22 10:47 Impressions Abdomen/Pelvis CT 09/08/22 12:59 IMPRESSION: Slight enlargement of the body and tail the pancreas, stranding of the peripancreatic fat and small amount of fluid in the left anterior pararenal fascia and left paracolic gutter. Findings are questionable for pancreatitis. Diverticulosis of the colon. Long segment wall thickening and edema of the mid transverse colon to sigmoid colon, stranding of the surrounding fat and small amount of adjacent fluid. Long segment distribution is more suggestive of colitis than diverticulitis. This may be a secondary to pancreatitis secondary to vascular changes. Fatty liver. Fleischner guidelines were followed. Microbiology Microbiology Results: Microbiology 09/08/22 12:45 Blood Culture - Preliminary Blood - Venous No growth after 48 hours. 09/08/22 12:26 Blood Culture - Preliminary Blood - Venous No growth after 48 hours. Procedures Date of Service Date of Service: 09/11/22 Progress Note: A&P Assessment and plan (1) Acute pancreatitis: Status: Acute Assessment and Plan: Abdominal pain much improved Distended abdomen but soft, likely with some ileus Encourage ambulation and to get out bed more No withdrawal symptoms No diarrhea Okay to advance diet as tolerated Time Spent With Patient Time: Total time spent is greater than 50% in coordination of care (as documented) at patient's floor/unit and/or counseling patient: Quality Stroke Does the patient have a stroke diagnosis?: No VTE Prior VTE?: No VTE Risk Level:: Medical - moderate - high VTE Device Contraindication: N/A - Device Ordered VTE Drug Contraindication: N/A - Med Ordered
--- NOTE | 2022-09-11 16:01 | P.PNIM_ITS ---
Subjective Subjective Date of Service: 09/11/22 Interval History: Hyponatremia, acute pancreatitis, acute colitis Review of Systems abdominal pain somewhat improving, denies any chest pain or shortness of breath or fever or chills somewhat nauseated Still unable to tolerate diet, passing gases. Physical Exam Vital Signs: Vital Signs: Last Vital Signs Temp 98.8 F 09/11/22 15:30 Pulse 98 09/11/22 15:30 Resp 18 09/11/22 15:30 BP 158/82 H 09/11/22 15:30 Pulse Ox 95 09/11/22 15:30 O2 Del Method 09/11/22 15:30 O2 Flow Rate 3 09/10/22 19:32 BMI result Body Mass Index 31.1 Appearance: Alert.? Oriented X3.? cvs: rrr, [id number] , no murmur res: clear to auscultation ,no rhonchii or wheezing abd: no rebound or guarding ,diffuse abd pain slightly improving, bs present. ext pulses present , no cyanosis neuro: axo3 , nonfocal. Objective Data Active Medications Acetaminophen (Acetaminophen 325 Mg Tablet) 650 mg PO Q6H PRN PRN Reason: Pain, Mild (Pain Scale 1-3) Amlodipine Besylate (Amlodipine Besylate 2.5 Mg Tablet) 2.5 mg PO DAILY [facility]; Protocol Last Admin: 09/11/22 08:05 Dose: 2.5 mg Documented By: LIYA Enoxaparin Sodium (Enoxaparin Sodium 40 Mg/0.4 Ml Syringe) 40 mg SUBCUT Q24H [facility] Last Admin: 09/10/22 15:51 Dose: 40 mg Documented By: LIYA Piperacillin Sod/Tazobactam (Sod 2.25 gm/ Sodium Chloride) 50 mls @ 100 mls/hr IV Q6H [facility] Last Infusion: 09/11/22 12:56 Dose: 0 mls/hr Documented By: LIYA Morphine Sulfate (Morphine Sulfate 4 Mg/Ml Cartridge) 4 mg IVPUSH Q4H PRN; Protocol PRN Reason: Pain, Severe (Pain Scale 7-10) Last Admin: 09/11/22 12:19 Dose: 4 mg Documented By: LIYA Omeprazole (Omeprazole 20 Mg Capsule.) 20 mg PO DAILY [facility] Last Admin: 09/11/22 08:05 Dose: 20 mg Documented By: LIYA Ondansetron HCl (Ondansetron Hcl 4 Mg/2 Ml Vial) 4 mg IVPUSH Q8H PRN PRN Reason: Nausea and Vomiting Pharmacy Consult (Consult Rx Perform Med Rec) 1 each MISCELLANE ONCE PRN PRN Reason: Consult order Pharmacy Consult (Consult Rx Etoh Phenob Im/Po) 1 each MISCELLANE ONCE PRN; Protocol PRN Reason: Consult order Phenobarbital (Phenobarbital 30 Mg Tablet) 30 mg PO BID [facility]; Protocol Stop: 09/12/22 21:01 Last Admin: 09/11/22 08:05 Dose: 30 mg Documented By: LIYA Phenobarbital (Phenobarbital 30 Mg Tablet) 30 mg PO DAILY [facility]; Protocol Stop: 09/14/22 09:01 Sodium Chloride (0.9 % Sodium Chloride Flush 3 Ml Syringe) 3 ml IVFLUSH QSHIFT [facility] Last Admin: 09/11/22 08:05 Dose: 3 ml Documented By: LIYA Labs CBC & Chem 7: 09/10/22 05:44 09/10/22 05:44 Microbiology Microbiology Results: Microbiology 09/08/22 12:45 Blood Culture - Preliminary Blood - Venous No growth after 48 hours. 09/08/22 12:26 Blood Culture - Preliminary Blood - Venous No growth after 48 hours. Assessment and Plan (1) Hyponatremia: Status: Acute (2) Hypomagnesemia: Status: Acute (3) Acute pancreatitis: Status: Acute (4) Acute kidney injury: Status: Acute (5) Colitis: Status: Acute (6) Alcohol dependence: Status: Acute Plan 67 yo M with a PMH of HTN, GERD, and daily heavy alcohol use who presents to the hospital with a 2-3 day history of diarrhea and lower abdominal pain. His work up in the ED reveals pancreatitis (and possible colitis), PAM with metabolic acidosis. He will be admitted for further work up 1. Acute Pancreatitis Suspected secondary to alcohol use IVF, IV analgesics, will try clear liqids-unable to tolerate adequately yet alcohol cessation as been encouraged 2. Possible colitis empiric zosyn if recurrent diarrhea (pt reports no diarrhea since ED arrival) -- will send for C. Diff ?stool studies ordered-staff is aware to send when has bm. 3. PAM with metabolic acidosis ?improving at hydration suspected hypovoluemic improving with IVF trend BMP 4. Severe sepsis due to #1 and #2 meets sepsis criteria tachycardia, leukocytosis; severe features include elevated Cr and bilirubin + elevated lactate follow cultures 5. HypoMg repleted? and resolved. 6. Alcohol use and dependence exhibiting mild withdrawal symptoms - on phenobarb monitor lytes 7. HTN added amlodipine ,hold ANDERS/ARB due to pam. 8.Hyponatremia: due to hypovolemia /decreased po intake. improving with hydration. 9.overweight: advised to lose weight. Full Code ? Ongoing inpatient need: acute pancreatitis and colitis ,pam need IV hydration as well as pain management IV as well as IV antibiotics. Quality Stroke Does the patient have a stroke diagnosis?: No VTE Prior VTE?: No VTE Risk Level:: Medical - moderate - high VTE Device Contraindication: N/A - Device Ordered VTE Drug Contraindication: N/A - Med Ordered
[2022-09-11] MEDS: Enoxaparin Sodium 40 MG/0.4 ML SYRINGE SUBCUT (16:06)
[2022-09-12] VITALS (10 sets, daily range): BP systolic 110–148; BP diastolic 66–83; PULSE 73–118; RESP 16–20; TEMP 36–37.1; O2SAT 94–99
[2022-09-12] MEDS: Piperacillin Sodium/Tazobactam 2.25 GM in 0.9 % Sodium Chloride 50 ML IV ×4 (00:03→20:26)
[2022-09-12] MEDS: Morphine Sulfate 4 MG/ML CARTRIDGE IVPUSH ×4 (04:52→20:27)
[2022-09-12] MEDS: Omeprazole 20 MG CAPSULE.DR PO (09:19)
[2022-09-12] MEDS: amLODIPine Besylate 2.5 MG TABLET PO (09:19)
[2022-09-12] MEDS: PHENobarbitaL 30 MG TABLET PO ×2 (09:20→20:27)
[2022-09-12] MEDS: 0.9 % Sodium Chloride Flush 3 ML SYRINGE IVFLUSH ×3 (09:20→20:27)
[2022-09-12] MEDS: Albuterol/Iprat 2.5/0.5MG 3 ML AMPUL.NEB INHALE ×3 (11:49→21:04)
[2022-09-12] MEDS: polyethylene glycoL 3350 17 GM POWD.PACK PO (12:33)
[2022-09-12] MEDS: Lidocaine 4 % Patch ADH..PATCH 1 PATCH TRANSDERMA (12:34)
[2022-09-12] MEDS: Docusate Sodium 100 MG CAPSULE PO ×2 (12:34→20:27)
[2022-09-12] MEDS: predniSONE 20 MG TABLET 40 MG PO (12:34)
--- NOTE | 2022-09-12 14:55 | P.PNIM_ITS ---
Subjective Subjective Date of Service: 09/12/22 Interval History: Hyponatremia, acute pancreatitis, acute colitis, knee pain Review of Systems has left knee pain with walking denies any chest pain or shortness of breath or fever or chills Physical Exam Vital Signs: Vital Signs: Last Vital Signs Temp 97.8 F 09/12/22 11:17 Pulse 83 09/12/22 11:53 Resp 16 09/12/22 11:53 BP 110/67 09/12/22 11:17 Pulse Ox 99 09/12/22 11:53 O2 Del Method 09/12/22 11:17 O2 Flow Rate 3 09/10/22 19:32 BMI result Body Mass Index 31.1 Appearance: Alert.? Oriented X3.? cvs: rrr, [id number] , no murmur res: clear to auscultation ,no rhonchii or wheezing abd: no rebound or guarding ,diffuse abd pain slightly improving, bs present. ext pulses present , no cyanosis neuro: axo3 , nonfocal. Objective Data Active Medications Acetaminophen (Acetaminophen 325 Mg Tablet) 650 mg PO Q6H PRN PRN Reason: Pain, Mild (Pain Scale 1-3) Albuterol/Ipratropium (Albuterol/Iprat 2.5/0.5mg 3 Ml Ampul.Neb) 3 ml INHALE RQ4H WHILE AWAKE [facility] Last Admin: 09/12/22 11:49 Dose: 3 ml Documented By: BRANDY Amlodipine Besylate (Amlodipine Besylate 2.5 Mg Tablet) 2.5 mg PO DAILY [facility]; Protocol Last Admin: 09/12/22 09:19 Dose: 2.5 mg Documented By: SD Docusate Sodium (Docusate Sodium 100 Mg Capsule) 100 mg PO BID [facility] Last Admin: 09/12/22 12:34 Dose: 100 mg Documented By: SD Enoxaparin Sodium (Enoxaparin Sodium 40 Mg/0.4 Ml Syringe) 40 mg SUBCUT Q24H [facility] Last Admin: 09/11/22 16:06 Dose: 40 mg Documented By: LIYA Piperacillin Sod/Tazobactam (Sod 2.25 gm/ Sodium Chloride) 50 mls @ 100 mls/hr IV Q6H [facility] Last Infusion: 09/12/22 13:27 Dose: 0 mls/hr Documented By: SD Lidocaine (Lidocaine 4 % Patch Adh..Patch) 1 patch TRANSDERMA DAILY [facility]; Protocol Last Admin: 09/12/22 12:34 Dose: 1 patch Documented By: SD Morphine Sulfate (Morphine Sulfate 4 Mg/Ml Cartridge) 4 mg IVPUSH Q4H PRN; Protocol PRN Reason: Pain, Severe (Pain Scale 7-10) Last Admin: 09/12/22 09:19 Dose: 4 mg Documented By: SD Omeprazole (Omeprazole 20 Mg Capsule.Dr) 20 mg PO DAILY [facility] Last Admin: 09/12/22 09:19 Dose: 20 mg Documented By: SD Ondansetron HCl (Ondansetron Hcl 4 Mg/2 Ml Vial) 4 mg IVPUSH Q8H PRN PRN Reason: Nausea and Vomiting Oxycodone HCl (Oxycodone Hcl Immed Release 5 Mg Tablet) 5 mg PO Q6H PRN PRN Reason: Pain, Mild (Pain Scale 1-3) Pharmacy Consult (Consult Rx Perform Med Rec) 1 each MISCELLANE ONCE PRN PRN Reason: Consult order Pharmacy Consult (Consult Rx Etoh Phenob Im/Po) 1 each MISCELLANE ONCE PRN; Protocol PRN Reason: Consult order Phenobarbital (Phenobarbital 30 Mg Tablet) 30 mg PO BID [facility]; Protocol Stop: 09/12/22 21:01 Last Admin: 09/12/22 09:20 Dose: 30 mg Documented By: SD Phenobarbital (Phenobarbital 30 Mg Tablet) 30 mg PO DAILY [facility]; Protocol Stop: 09/14/22 09:01 Polyethylene Glycol (Polyethylene Glycol 3350 17 Gm Powd.Pack) 17 gm PO DAILY [facility] Last Admin: 09/12/22 12:33 Dose: 17 gm Documented By: SD Sodium Chloride (0.9 % Sodium Chloride Flush 3 Ml Syringe) 3 ml IVFLUSH QSHIFT [facility] Last Admin: 09/12/22 09:20 Dose: 3 ml Documented By: SD Labs CBC & Chem 7: 09/10/22 05:44 09/10/22 05:44 Assessment and Plan (1) Hyponatremia: Status: Acute (2) Hypomagnesemia: Status: Acute (3) Acute pancreatitis: Status: Acute (4) Acute kidney injury: Status: Acute (5) Colitis: Status: Acute Plan 67 yo M with a PMH of HTN, GERD, and daily heavy alcohol use who presents to the hospital with a 2-3 day history of diarrhea and lower abdominal pain. His work up in the ED reveals pancreatitis (and possible colitis), PAM with metabolic acidosis. He will be admitted for further work up 1. Acute Pancreatitis Suspected secondary to alcohol use IVF, IV analgesics, will try clear liqids-unable to tolerate adequately yet alcohol cessation as been encouraged 2. Possible colitis empiric zosyn if recurrent diarrhea (pt reports no diarrhea since ED arrival) -- will send for C. Diff ?stool studies ordered-staff is aware to send when has bm. 3. PAM with metabolic acidosis ?improving at hydration suspected hypovoluemic improving with IVF trend BMP 4. Severe sepsis due to #1 and #2 meets sepsis criteria tachycardia, leukocytosis; severe features include elevated Cr and bilirubin + elevated lactate follow cultures 5. HypoMg repleted? and resolved. 6. Alcohol use and dependence exhibiting mild withdrawal symptoms - on phenobarb monitor lytes 7. HTN added amlodipine ,hold ANDERS/ARB due to pam. 8.Hyponatremia: due to hypovolemia /decreased po intake. improving with hydration. 9.overweight: advised to lose weight. 10 knee pain -possible related to knee arthritis Mild medial femoral-tibial joint space narrowing may be degenerative in nature. continue pain meds,bowel regimen,ambulate,lidocaine patch Full Code ? Ongoing inpatient need: acute pancreatitis and colitis ,pam need IV hydration as well as pain management IV as well as IV antibiotics. Quality Stroke Does the patient have a stroke diagnosis?: No VTE Prior VTE?: No VTE Risk Level:: Medical - moderate - high VTE Device Contraindication: N/A - Device Ordered VTE Drug Contraindication: N/A - Med Ordered
[2022-09-12] MEDS: Enoxaparin Sodium 40 MG/0.4 ML SYRINGE SUBCUT (15:42)
[2022-09-13] VITALS (8 sets, daily range): BP systolic 134–155; BP diastolic 71–83; PULSE 74–110; RESP 16–20; TEMP 36.1–37.9; O2SAT 96–98
[2022-09-13] MEDS: Piperacillin Sodium/Tazobactam 2.25 GM in 0.9 % Sodium Chloride 50 ML IV ×4 (00:28→20:09)
[2022-09-13] MEDS: Morphine Sulfate 4 MG/ML CARTRIDGE IVPUSH ×2 (03:49→09:44)
[2022-09-13] MEDS: Albuterol/Iprat 2.5/0.5MG 3 ML AMPUL.NEB INHALE ×3 (08:01→19:04)
[2022-09-13] MEDS: Docusate Sodium 100 MG CAPSULE PO (09:33)
[2022-09-13] MEDS: Lidocaine 4 % Patch ADH..PATCH 1 PATCH TRANSDERMA (09:33)
[2022-09-13] MEDS: PHENobarbitaL 30 MG TABLET PO (09:33)
[2022-09-13] MEDS: Omeprazole 20 MG CAPSULE.DR PO (09:33)
[2022-09-13] MEDS: amLODIPine Besylate 2.5 MG TABLET PO (09:33)
[2022-09-13] MEDS: polyethylene glycoL 3350 17 GM POWD.PACK PO (09:33)
[2022-09-13] MEDS: 0.9 % Sodium Chloride Flush 3 ML SYRINGE IVFLUSH ×2 (09:34→15:51)
[2022-09-13] MEDS: Milk of Magnesia 30 ML ORAL.SUSP 15 ML PO (11:29)
--- NOTE | 2022-09-13 12:16 | P.PNIM_ITS ---
Subjective Subjective Date of Service: 09/13/22 Interval History: colitis vs Ielus Review of Systems abd pain improved Passing gases, did not pass stool yet.,get knee pain somewhat improving Physical Exam Vital Signs: Vital Signs: Last Vital Signs Temp 97.2 F 09/13/22 07:47 Pulse 82 09/13/22 10:46 Resp 18 09/13/22 10:46 BP 138/82 09/13/22 07:47 Pulse Ox 97 09/13/22 07:47 O2 Del Method 09/13/22 07:47 O2 Flow Rate 3 09/10/22 19:32 BMI result Body Mass Index 31.1 Appearance: Alert.? Oriented X3.? cvs: rrr, [id number] , no murmur res: clear to auscultation ,no rhonchii or wheezing abd: no rebound or guarding ,abd pain improved,but abd mild distended , bs present. ext pulses present , no cyanosis neuro: axo3 , nonfocal. Objective Data Active Medications Acetaminophen (Acetaminophen 325 Mg Tablet) 650 mg PO Q6H PRN PRN Reason: Pain, Mild (Pain Scale 1-3) Albuterol/Ipratropium (Albuterol/Iprat 2.5/0.5mg 3 Ml Ampul.Neb) 3 ml INHALE RQ4H WHILE AWAKE [facility] Last Admin: 09/13/22 10:45 Dose: 3 ml Documented By: YESENIA Amlodipine Besylate (Amlodipine Besylate 2.5 Mg Tablet) 2.5 mg PO DAILY [facility]; Protocol Last Admin: 09/13/22 09:33 Dose: 2.5 mg Documented By: SD Capsaicin (Capsaicin 0.025% Cream 60 Gm Tube) 1 appl TOPICAL QID PRN; Protocol PRN Reason: Pain, Mild (Pain Scale 1-3) Docusate Sodium (Docusate Sodium 100 Mg Capsule) 100 mg PO BID [facility] Last Admin: 09/13/22 09:33 Dose: 100 mg Documented By: SD Enoxaparin Sodium (Enoxaparin Sodium 40 Mg/0.4 Ml Syringe) 40 mg SUBCUT Q24H [facility] Last Admin: 09/12/22 15:42 Dose: 40 mg Documented By: SD Piperacillin Sod/Tazobactam (Sod 2.25 gm/ Sodium Chloride) 50 mls @ 100 mls/hr IV Q6H [facility] Last Infusion: 09/13/22 06:50 Dose: 0 mls/hr Documented By: ROXY Lidocaine (Lidocaine 4 % Patch Adh..Patch) 1 patch TRANSDERMA DAILY [facility]; Protocol Last Admin: 09/13/22 09:33 Dose: 1 patch Documented By: SD Omeprazole (Omeprazole 20 Mg Capsule.Dr) 20 mg PO DAILY [facility] Last Admin: 09/13/22 09:33 Dose: 20 mg Documented By: SD Ondansetron HCl (Ondansetron Hcl 4 Mg/2 Ml Vial) 4 mg IVPUSH Q8H PRN PRN Reason: Nausea and Vomiting Oxycodone HCl (Oxycodone Hcl Immed Release 5 Mg Tablet) 5 mg PO Q6H PRN PRN Reason: Pain, Mild (Pain Scale 1-3) Pharmacy Consult (Consult Rx Perform Med Rec) 1 each MISCELLANE ONCE PRN PRN Reason: Consult order Pharmacy Consult (Consult Rx Etoh Phenob Im/Po) 1 each MISCELLANE ONCE PRN; Protocol PRN Reason: Consult order Phenobarbital (Phenobarbital 30 Mg Tablet) 30 mg PO DAILY [facility]; Protocol Stop: 09/14/22 09:01 Last Admin: 09/13/22 09:33 Dose: 30 mg Documented By: SD Polyethylene Glycol (Polyethylene Glycol 3350 17 Gm Powd.Pack) 17 gm PO DAILY [facility] Last Admin: 09/13/22 09:33 Dose: 17 gm Documented By: SD Sodium Chloride (0.9 % Sodium Chloride Flush 3 Ml Syringe) 3 ml IVFLUSH QSHIFT [facility] Last Admin: 09/13/22 09:34 Dose: 3 ml Documented By: SD Labs CBC & Chem 7: 09/10/22 05:44 09/10/22 05:44 Assessment and Plan (1) Hyponatremia: Status: Acute (2) Hypomagnesemia: Status: Acute (3) Acute pancreatitis: Status: Acute (4) Acute kidney injury: Status: Acute (5) Colitis: Status: Acute (6) Ileus: Status: Acute Plan 67 yo M with a PMH of HTN, GERD, and daily heavy alcohol use who presents to the hospital with a 2-3 day history of diarrhea and lower abdominal pain. His work up in the ED reveals pancreatitis (and possible colitis), PAM with metabolic acidosis. He will be admitted for further work up 1. Acute Pancreatitis Possible Ielus sec to above Suspected secondary to alcohol use IVF, IV analgesics, will try clear liqids-unable to tolerate adequately yet seen by surgery -stopped luxative , patient passing gases, not past bowels yet surgery following 2. Possible colitis empiric zosyn if recurrent diarrhea (pt reports no diarrhea since ED arrival) -- will send for C. Diff ?stool studies ordered-staff is aware to send when has bm. 3. PAM with metabolic acidosis ?improving at hydration suspected hypovoluemic improving with IVF trend BMP 4. Severe sepsis due to #1 and #2 meets sepsis criteria tachycardia, leukocytosis; severe features include elevated Cr and bilirubin + elevated lactate follow cultures 5. HypoMg repleted? and resolved. 6. Alcohol use and dependence exhibiting mild withdrawal symptoms - on phenobarb monitor lytes 7. HTN added amlodipine ,hold ANDERS/ARB due to pam. 8.Hyponatremia: due to hypovolemia /decreased po intake. improving with hydration. 9.overweight: advised to lose weight. 10 knee pain -possible related to knee arthritis Mild medial femoral-tibial joint space narrowing may be degenerative in nature. continue pain meds,bowel regimen,ambulate,lidocaine patch Full Code ? Ongoing inpatient need: Ielus possible sec to acute pancreatitis and colitis- need moniter for Ielus. Quality Stroke Does the patient have a stroke diagnosis?: No VTE Prior VTE?: No VTE Risk Level:: Medical - moderate - high VTE Device Contraindication: N/A - Device Ordered VTE Drug Contraindication: N/A - Med Ordered
[2022-09-13] MEDS: Metoclopramide HCl 5 MG TABLET PO (13:08)
[2022-09-13 14:24] LABS: Anion Gap 14 (12-20); Blood Urea Nitrogen 16 mg/dL (9-16); Calcium 7.8 mg/dL (8.4-10.2); Carbon Dioxide 22 mmol/L (22-29); Chloride 97 mmol/L (96-108); Creatinine Clr Calc Pharmacy 54.9; Estimated Glomerular Filt Rate 42; Glucose Random 416 mg/dL (60-115); Potassium 3.5 mmol/L (3.3-5.1); Sodium 129 mmol/L (135-145)
[2022-09-13 14:56] LABS: Glucose, Whole Blood 439 mg/dL (60-115)
[2022-09-13 15:01] LABS: Estimated Average Glucose 117 mg/dL; Hemoglobin A1c % 5.7 %
--- NOTE | 2022-09-13 15:11 | P.PNGS_ITS ---
Subjective Subjective Date of Service: 09/13/22 Patient reports: still having pain, flatus and no bowel movement Interval history: The patient was originally seen by Dr. Angel and is seen today because of worsening abdominal distension following alcohol related pancreatitis. The patient is seen with his at the bedside in the patient requested I speak freely in front of his . As noted, the patient has had some flatus, but he has not had a bowel movement. He has been given oral laxatives in reports increasing distention, cramping but no bowel movement. He is taking very little regular diet due to this distension and bloating. He denies any nausea or vomiting but notes that he is not interested in drinking liquids or taking p.o. at this time who is abdominal bloating. He otherwise denies difficulty breathing, chest pain or shortness of breath. Physical Exam Vital Signs: Vital Signs: Last Vital Signs Temp 97.2 F 09/13/22 07:47 Pulse 82 09/13/22 10:46 Resp 18 09/13/22 10:46 BP 138/82 09/13/22 07:47 Pulse Ox 97 09/13/22 07:47 O2 Del Method 09/13/22 07:47 O2 Flow Rate 3 09/10/22 19:32 BMI result Body Mass Index 31.1 On exam, he is nontoxic Sclera are anicteric, conjunctiva pink and moist Abdomen is obese and distended with diffuse tympany.. No rebound, rigidity, guarding or peritoneal irritation to percussion is present Objective Data Active Medications Acetaminophen (Acetaminophen 325 Mg Tablet) 650 mg PO Q6H PRN PRN Reason: Pain, Mild (Pain Scale 1-3) Albuterol/Ipratropium (Albuterol/Iprat 2.5/0.5mg 3 Ml Ampul.Neb) 3 ml INHALE RQ4H WHILE AWAKE [facility] Last Admin: 09/13/22 15:00 Dose: Not Given Documented By: YESENIA Non-Admin Reason: pt refused pt visiting and doesnt feel good Amlodipine Besylate (Amlodipine Besylate 2.5 Mg Tablet) 2.5 mg PO DAILY [facility]; Protocol Last Admin: 09/13/22 09:33 Dose: 2.5 mg Documented By: SD Capsaicin (Capsaicin 0.025% Cream 60 Gm Tube) 1 appl TOPICAL QID PRN; Protocol PRN Reason: Pain, Mild (Pain Scale 1-3) Dextrose (Dextrose 50 % 25 Gm/50 Ml Syringe) 25 gm IVPUSH Q15M PRN; Protocol PRN Reason: per Hypoglycemia Standing Ord. Docusate Sodium (Docusate Sodium 100 Mg Capsule) 100 mg PO BID [facility] Last Admin: 09/13/22 09:33 Dose: 100 mg Documented By: SD Enoxaparin Sodium (Enoxaparin Sodium 40 Mg/0.4 Ml Syringe) 40 mg SUBCUT Q24H [facility] Last Admin: 09/12/22 15:42 Dose: 40 mg Documented By: SD Glucose (Glucose Gel 15 Gm Gel..Gram.) 15 gm PO Q15M PRN; Protocol PRN Reason: per Hypoglycemia Standing Ord. Piperacillin Sod/Tazobactam (Sod 2.25 gm/ Sodium Chloride) 50 mls @ 100 mls/hr IV Q6H [facility] Last Infusion: 09/13/22 13:48 Dose: 0 mls/hr Documented By: SD Lactated Ringer's (Lr) 1,000 mls @ 80 mls/hr IVCONT .[id number] [facility] Insulin Human Lispro (Insulin Lispro 100 Unit/Ml 3 Ml Vial) 0 unit SUBCUT QIDACHS [facility]; Protocol Lidocaine (Lidocaine 4 % Patch Adh..Patch) 1 patch TRANSDERMA DAILY [facility]; Protocol Last Admin: 09/13/22 09:33 Dose: 1 patch Documented By: SD Omeprazole (Omeprazole 20 Mg Capsule.Dr) 20 mg PO DAILY [facility] Last Admin: 09/13/22 09:33 Dose: 20 mg Documented By: SD Ondansetron HCl (Ondansetron Hcl 4 Mg/2 Ml Vial) 4 mg IVPUSH Q8H PRN PRN Reason: Nausea and Vomiting Pharmacy Consult (Consult Rx Perform Med Rec) 1 each MISCELLANE ONCE PRN PRN Reason: Consult order Pharmacy Consult (Consult Rx Etoh Phenob Im/Po) 1 each MISCELLANE ONCE PRN; Protocol PRN Reason: Consult order Phenobarbital (Phenobarbital 30 Mg Tablet) 30 mg PO DAILY [facility]; Protocol Stop: 09/14/22 09:01 Last Admin: 09/13/22 09:33 Dose: 30 mg Documented By: SD Polyethylene Glycol (Polyethylene Glycol 3350 17 Gm Powd.Pack) 17 gm PO DAILY [facility] Last Admin: 09/13/22 09:33 Dose: 17 gm Documented By: SD Sodium Chloride (0.9 % Sodium Chloride Flush 3 Ml Syringe) 3 ml IVFLUSH QSHIFT [facility] Last Admin: 09/13/22 09:34 Dose: 3 ml Documented By: SD Labs CBC & Chem 7: 09/10/22 05:44 09/13/22 13:19 Labs: Laboratory Results - last 24 hr 09/13/22 09/13/22 09/13/22 13:19 13:19 14:51 Anion Gap 14 Estim Creat Clear Calc 54.9 Estimated GFR 42 POC Glucose 439 H* Random Glucose 416 H* Estimat Average Glucose 117 Hemoglobin A1c % 5.7 Calcium 7.8 L Microbiology Microbiology Results: Microbiology 09/08/22 12:45 Blood Culture - Final Blood - Venous No growth after 5 days. 09/08/22 12:26 Blood Culture - Final Blood - Venous No growth after 5 days. Procedures Date of Service Date of Service: 09/13/22 Progress Note: A&P Assessment and plan (1) Ileus: Status: Acute (2) Acute pancreatitis: Status: Acute (3) Alcohol dependence: Status: Acute (4) Colitis: Status: Acute Plan The patient is in tolerating a regular diet, likely to continued resolution from his pancreatitis related ileus and question of colitis. Would hold on any additional laxatives since the patient is not responding to the and may not while he was a resolving ileus. Continue clears for now and call for worsening pain. NPO and NG if the patient begins vomiting. The patient is resolving white count has not normalized yet which may be indicative of ongoing pancreatitis-related ileus. Please call with questions. Time Spent With Patient Time: Total time spent is greater than 50% in coordination of care (as documented) at patient's floor/unit and/or counseling patient: Quality Stroke Does the patient have a stroke diagnosis?: No VTE Prior VTE?: No VTE Risk Level:: Medical - moderate - high VTE Device Contraindication: N/A - Device Ordered VTE Drug Contraindication: N/A - Med Ordered
[2022-09-13] MEDS: Capsaicin 0.025% Cream 60 GM TUBE 1 APPL TOPICAL (15:47)
[2022-09-13] MEDS: Lactated Ringers 1,000 ML 80 ML IVCONT (15:51)
[2022-09-13] MEDS: Enoxaparin Sodium 40 MG/0.4 ML SYRINGE SUBCUT (15:51)
[2022-09-13] MEDS: Potassium Chloride Packet 20 MEQ PACKET PO (15:52)
[2022-09-13 16:29] LABS: Glucose, Whole Blood 398 mg/dL (60-115)
[2022-09-13] MEDS: Acetaminophen 325 MG TABLET 650 MG PO ×2 (16:33→23:29)
[2022-09-13] MEDS: Insulin Lispro 100 UNIT/ML 3 ML VIAL SUBCUT (16:34)
[2022-09-13 19:45] LABS: Glucose, Whole Blood 155 mg/dL (60-115)
[2022-09-14] MEDS: Piperacillin Sodium/Tazobactam 2.25 GM in 0.9 % Sodium Chloride 50 ML IV ×2 (02:34→08:34)
[2022-09-14 03:22] VITALS: BP 141/81; PULSE 95; RESP 20; TEMP 37.2; O2SAT 96
[2022-09-14 03:43] LABS: CDiff Gene PCR NEGATIVE (Negative)
[2022-09-14 03:50] LABS: Leukocytes Stool Qualitative NEGATIVE (NEGATIVE)
[2022-09-14 07:30] VITALS: BP 170/100; PULSE 108; RESP 18; TEMP 36.2; O2SAT 95
[2022-09-14 07:50] LABS: Glucose, Whole Blood 135 mg/dL (60-115)
--- NOTE | 2022-09-14 08:03 | PM.PNGS ---
Subjective Subjective Date of Service: 09/14/22 Patient reports: feels better Interval history: The patient reports that he is feeling better regarding his abdominal cramps and distention is had 2 bowel movements. His complaint today is that of left lateral thigh and knee pain. He is interested in having his diet advanced and otherwise denies chest pain, neurologic symptoms, difficulty breathing or shortness of breath. Physical Exam Vital Signs: Vital Signs: Last Vital Signs Temp 97.2 F 09/14/22 07:30 Pulse 108 H 09/14/22 07:30 Resp 18 09/14/22 07:30 BP 170/100 H 09/14/22 07:30 Pulse Ox 95 09/14/22 07:30 O2 Del Method 09/14/22 07:30 O2 Flow Rate 3 09/10/22 19:32 BMI result Body Mass Index 31.1 The patient is nontoxic and in good spirits Sclera remain anicteric PERRLA, EOMI His abdomen is obese with no significant tenderness. He is still somewhat tympanitic but has no rebound, rigidity, guarding and certainly no peritoneal irritation to percussion. No palpable cord is present in the left lower extremity and the patient's complaints seemed to be centered around the left vastus lateralis and left iliotibial band as well as left knee Objective Data Active Medications Acetaminophen (Acetaminophen 325 Mg Tablet) 650 mg PO Q6H PRN PRN Reason: Pain, Mild (Pain Scale 1-3) Last Admin: 09/13/22 23:29 Dose: 650 mg Documented By: MELVINA Albuterol/Ipratropium (Albuterol/Iprat 2.5/0.5mg 3 Ml Ampul.Neb) 3 ml INHALE RQ4H WHILE AWAKE [facility] Last Admin: 09/13/22 19:04 Dose: 3 ml Documented By: YOKASTA Amlodipine Besylate (Amlodipine Besylate 2.5 Mg Tablet) 2.5 mg PO DAILY [facility]; Protocol Last Admin: 09/13/22 09:33 Dose: 2.5 mg Documented By: SD Capsaicin (Capsaicin 0.025% Cream 60 Gm Tube) 1 appl TOPICAL QID PRN; Protocol PRN Reason: Pain, Mild (Pain Scale 1-3) Last Admin: 09/13/22 15:47 Dose: 1 appl Documented By: SD Dextrose (Dextrose 50 % 25 Gm/50 Ml Syringe) 25 gm IVPUSH Q15M PRN; Protocol PRN Reason: per Hypoglycemia Standing Ord. Docusate Sodium (Docusate Sodium 100 Mg Capsule) 100 mg PO BID [facility] Last Admin: 09/13/22 09:33 Dose: 100 mg Documented By: SD Enoxaparin Sodium (Enoxaparin Sodium 40 Mg/0.4 Ml Syringe) 40 mg SUBCUT Q24H [facility] Last Admin: 09/13/22 15:51 Dose: 40 mg Documented By: SD Glucose (Glucose Gel 15 Gm Gel..Gram.) 15 gm PO Q15M PRN; Protocol PRN Reason: per Hypoglycemia Standing Ord. Piperacillin Sod/Tazobactam (Sod 2.25 gm/ Sodium Chloride) 50 mls @ 100 mls/hr IV Q6H [facility] Last Infusion: 09/14/22 03:40 Dose: 0 mls/hr Documented By: MELVINA Lactated Ringer's (Lr) 1,000 mls @ 80 mls/hr IVCONT .[id number] [facility] Last Admin: 09/14/22 05:28 Dose: Not Given Documented By: MELVINA Non-Admin Reason: IV Running Insulin Human Lispro (Insulin Lispro 100 Unit/Ml 3 Ml Vial) 0 unit SUBCUT QIDACHS [facility]; Protocol Last Admin: 09/13/22 20:06 Dose: Not Given Documented By: MELVINA Non-Admin Reason: No Insulin Coverage Lidocaine (Lidocaine 4 % Patch Adh..Patch) 1 patch TRANSDERMA DAILY [facility]; Protocol Last Admin: 09/13/22 09:33 Dose: 1 patch Documented By: SD Omeprazole (Omeprazole 20 Mg Capsule.Dr) 20 mg PO DAILY [facility] Last Admin: 09/13/22 09:33 Dose: 20 mg Documented By: SD Ondansetron HCl (Ondansetron Hcl 4 Mg/2 Ml Vial) 4 mg IVPUSH Q8H PRN PRN Reason: Nausea and Vomiting Pharmacy Consult (Consult Rx Perform Med Rec) 1 each MISCELLANE ONCE PRN PRN Reason: Consult order Pharmacy Consult (Consult Rx Etoh Phenob Im/Po) 1 each MISCELLANE ONCE PRN; Protocol PRN Reason: Consult order Phenobarbital (Phenobarbital 30 Mg Tablet) 30 mg PO DAILY [facility]; Protocol Stop: 09/14/22 09:01 Last Admin: 09/13/22 09:33 Dose: 30 mg Documented By: SD Polyethylene Glycol (Polyethylene Glycol 3350 17 Gm Powd.Pack) 17 gm PO DAILY [facility] Last Admin: 09/13/22 09:33 Dose: 17 gm Documented By: SD Sodium Chloride (0.9 % Sodium Chloride Flush 3 Ml Syringe) 3 ml IVFLUSH QSHIFT [facility] Last Admin: 09/13/22 20:30 Dose: Not Given Documented By: MELVINA Non-Admin Reason: IV Running Labs CBC & Chem 7: 09/10/22 05:44 09/13/22 13:19 Labs: Laboratory Results - last 24 hr 09/13/22 09/13/22 09/13/22 13:19 13:19 14:51 Anion Gap 14 Estim Creat Clear Calc 54.9 Estimated GFR 42 POC Glucose 439 H* Random Glucose 416 H* Estimat Average Glucose 117 Hemoglobin A1c % 5.7 Calcium 7.8 L Stool Leukocytes, Qual C. difficile Tox B Gene 09/13/22 09/13/22 09/14/22 16:20 19:33 02:46 Anion Gap Estim Creat Clear Calc Estimated GFR POC Glucose 398 H* 155 H Random Glucose Estimat Average Glucose Hemoglobin A1c % Calcium Stool Leukocytes, Qual NEGATIVE C. difficile Tox B Gene 09/14/22 09/14/22 02:46 07:30 Anion Gap Estim Creat Clear Calc Estimated GFR POC Glucose 135 H Random Glucose Estimat Average Glucose Hemoglobin A1c % Calcium Stool Leukocytes, Qual C. difficile Tox B Gene NEGATIVE Microbiology Microbiology Results: Microbiology 09/08/22 12:45 Blood Culture - Final Blood - Venous No growth after 5 days. 09/08/22 12:26 Blood Culture - Final Blood - Venous No growth after 5 days. Procedures Date of Service Date of Service: 09/14/22 Progress Note: A&P Assessment and plan (1) Ileus: Status: Acute (2) Acute pancreatitis: Status: Acute (3) Alcohol dependence: Status: Acute Plan Regarding the ileus: Patient's white blood cell count has continued to drop and he is moving his bowels and reports he is empirically better, given this, I would advance his diet and consider discharge Patient's left lower extremity comply seems musculoskeletal, given his hospitalization and risk factors, a venous duplex scan to exclude DVT is deferred to Dr. Villatoro. Please call with any new surgical questions. Time Spent With Patient Time: Total time spent is greater than 50% in coordination of care (as documented) at patient's floor/unit and/or counseling patient: Quality Stroke Does the patient have a stroke diagnosis?: No VTE Prior VTE?: No VTE Risk Level:: Medical - moderate - high VTE Device Contraindication: N/A - Device Ordered VTE Drug Contraindication: N/A - Med Ordered
[2022-09-14 08:18] VITALS: PULSE 85; RESP 18; O2SAT 98
[2022-09-14] MEDS: Albuterol/Iprat 2.5/0.5MG 3 ML AMPUL.NEB INHALE ×2 (08:18→12:01)
[2022-09-14] MEDS: Omeprazole 20 MG CAPSULE.DR PO (08:26)
[2022-09-14] MEDS: PHENobarbitaL 30 MG TABLET PO (08:26)
[2022-09-14] MEDS: amLODIPine Besylate 2.5 MG TABLET PO (08:26)
[2022-09-14] MEDS: Acetaminophen 325 MG TABLET 975 MG PO (08:27)
[2022-09-14] MEDS: 0.9 % Sodium Chloride Flush 3 ML SYRINGE IVFLUSH (08:28)
[2022-09-14] MEDS: Lidocaine 4 % Patch ADH..PATCH 1 PATCH TRANSDERMA (08:34)
[2022-09-14 09:11] LABS: Anion Gap 14 (12-20); Blood Urea Nitrogen 11 mg/dL (9-16); Calcium 7.5 mg/dL (8.4-10.2); Carbon Dioxide 22 mmol/L (22-29); Chloride 100 mmol/L (96-108); Creatinine Clr Calc Pharmacy 69.3; Estimated Glomerular Filt Rate 56; Glucose Random 141 mg/dL (60-115); Potassium 3.6 mmol/L (3.3-5.1); Sodium 132 mmol/L (135-145)
[2022-09-14 11:29] VITALS: BP 135/87; PULSE 97; RESP 18; TEMP 36.4; O2SAT 98
--- NOTE | 2022-09-14 11:57 | P.DS_ITS ---
DS: Providers Provider Date of Service: 09/14/22 Date of admission: 09/08/22 14:50 Primary care physician: Nicola Rubio MD Consults: 09/09/22 15:10 Consult to General Surgery Routine Consulting Provider: Nicola Angel Reason for consultation: colitis Has provider been notified: No DS: Diagnosis Discharge Diagnosis (1) Ileus: Status: Acute (2) Acute pancreatitis: Status: Acute (3) Alcohol dependence: Status: Acute (4) Hyponatremia: Status: Acute (5) Hypomagnesemia: Status: Acute (6) Colitis: Status: Acute (7) Hyperglycemia: Status: Acute (8) Hyponatremia: Status: Acute DS: Summary Hospital Course Hospital Course: 67 year-old male with a PMH significant for HTN, diverticulitis, prostate cancer, and alcohol dependence who presents to the ED with a two-day history of abdominal pain and diarrhea. The pt describes his pain as severe, constant, and located across his lower abdomen. He notes the pain increased significantly this morning and denies it radiates to his back. He notes the pain is different and lower down than when he had diverticulitis. He also complains of 2-3 days of diarrhea . He denies N/V, fever, chills. No chest pain, SOB, or changes in urination. Of note, the pt reports a long history of drinking 5-6 shots of vodka daily; it has been years since he abstained for more than a few days. His last drink was on Wednesday night. Hospital course: patient admitted for acute pancreatitis and sepsis sec to colitis - patient was started on IV hydration and antibiotics, also hydrated for renal failure: seems like abdominal pain improved patient is tolerating diet, hospital course was complicated by ileus secondary to pancreatitis which seems to be improved pa tient is passing gases and bowels. In addition patient has slightly elevated blood sugars because of steroid use, Hemoglobin A1c is 5.7, he was advised to follow diabetic diet if possible. For colitis patient is to complete antibiotic course. follow-up outpatient. in addition patient has left knee arthritis :has on and off pain- advised to use lidocaine patch, lidocaine patch, capsaicin cream. DVT study- of left leg seems fine. hypertension: Patient was on lisinopril but was on hold due to PAM, PAM improved significantly with hydration, patient need to check renal function and electrolytes in 1 week out patiently and subsequently started back on lisinopril sees started on lisinopril amlodipine she needs to be stopped if does not need further blood pressure control outpatient. patient is to follow up outpatient with PCP, in addition monitor renal function and electrolytes in 1 week and according to that amlodipine can be stopped and started back on lisinopril as per renal function. above plan he understand and in agreement with the above plan, time spent 50 minute. Time Spent with Patient Time attestation: Total time spent providing and/or coordinating discharge services: Discharge coordination time: Greater than 30 minutes Quality: Safe Use of Opioids Does Pt have an Active Cancer Diagnosis on the Problem List?: No Quality: Stroke Does the patient have a stroke diagnosis?: No Physical Exam Vital Signs: Vital Signs: Last Vital Signs Temp 97.6 F 09/14/22 11:29 Pulse 97 09/14/22 11:29 Resp 18 09/14/22 11:29 BP 135/87 09/14/22 11:29 Pulse Ox 98 09/14/22 11:29 O2 Del Method 09/14/22 11:29 O2 Flow Rate 3 09/10/22 19:32 BMI result Body Mass Index 31.1 ? Appearance: Alert.? Oriented X3.? cvs: rrr, [id number] , no murmur res: clear to auscultation ,no rhonchii or wheezing abd: no rebound or guarding ,abd pain improved,nd , bs present. ext pulses present , no cyanosis neuro: axo3 , nonfocal. DS: Data Data Completed and Pending Labs on day of discharge: Laboratory Results - last 24 hr 09/13/22 09/13/22 09/13/22 13:19 13:19 14:51 Sodium 129 L Potassium 3.5 Chloride 97 Carbon Dioxide 22 Anion Gap 14 BUN 16 Creatinine 1.63 H Estim Creat Clear Calc 54.9 Estimated GFR 42 POC Glucose 439 H* Random Glucose 416 H* Estimat Average Glucose 117 Hemoglobin A1c % 5.7 Calcium 7.8 L Stool Leukocytes, Qual C. difficile Tox B Gene 09/13/22 09/13/22 09/14/22 16:20 19:33 02:46 Sodium Potassium Chloride Carbon Dioxide Anion Gap BUN Creatinine Estim Creat Clear Calc Estimated GFR POC Glucose 398 H* 155 H Random Glucose Estimat Average Glucose Hemoglobin A1c % Calcium Stool Leukocytes, Qual NEGATIVE C. difficile Tox B Gene 09/14/22 09/14/22 09/14/22 02:46 07:30 08:22 Sodium 132 L Potassium 3.6 Chloride 100 Carbon Dioxide 22 Anion Gap 14 BUN 11 D Creatinine 1.29 Estim Creat Clear Calc 69.3 Estimated GFR 56 POC Glucose 135 H Random Glucose 141 H D Estimat Average Glucose Hemoglobin A1c % Calcium 7.5 L Stool Leukocytes, Qual C. difficile Tox B Gene NEGATIVE Imaging CT scan - abdomen: Radiologist's impression: ITS Impressions Abdomen/Pelvis CT 09/08/22 12:59 IMPRESSION: Slight enlargement of the body and tail the pancreas, stranding of the peripancreatic fat and small amount of fluid in the left anterior pararenal fascia and left paracolic gutter. Findings are questionable for pancreatitis. Diverticulosis of the colon. Long segment wall thickening and edema of the mid transverse colon to sigmoid colon, stranding of the surrounding fat and small amount of adjacent fluid. Long segment distribution is more suggestive of colitis than diverticulitis. This may be a secondary to pancreatitis secondary to vascular changes. Fatty liver. Fleischner guidelines were followed. Knee X-Ray 09/12/22 11:33 IMPRESSION: Mild medial femoral-tibial joint space narrowing may be degenerative in nature. No acute abnormality. Venous Duplex 09/14/22 09:20 IMPRESSION: No DVT demonstrated in the left lower extremity. Discharge Plan Discharge Anticipated Discharge Date/Time: 09/13/22 10:41 Patient Disposition: Home Health Service Discharge Diagnosis: Hyponatremia, acute pancreatitis, acute colitis, knee pain Referrals: [facility] [Other] - 1 Week Nicola Rubio MD [Primary Care Provider] - 1 Week Discharge Medications: New lidocaine [Lidocaine Pain Relief] 4 % Adhesive Patch,Medicated 1 patch transdermal DAILY Qty: 10 0RF Protocol: Apply to: Apply to: AFFECTED area capsaicin 0.025 % Cream 1 appl topical QID PRN (Reason: Pain, Mild (Pain Scale 1-3)) Qty: 25 0RF Protocol: Apply to: Apply to: Affected area polyethylene glycol 3350 17 gram Powder In Packet 17 g PO DAILY Qty: 30 0RF docusate sodium 100 mg Capsule 100 mg PO BID Qty: 30 0RF acetaminophen 325 mg Tablet 975 mg PO TID Qty: 14 0RF amlodipine 2.5 mg Tablet 2.5 mg PO DAILY Qty: 30 0RF Protocol: Hold for SBP< HOLD for SBP < : 90 amoxicillin-pot clavulanate 875-125 mg tablet 1 tab PO BID Qty: 10 0RF Continued omeprazole 20 mg Capsule,Delayed Release(Dr/Ec) 20 mg PO DAILY Held lisinopril 5 mg tablet 1 tab PO DAILY Hold Instructions: Resume on 09/21/22. Discharge Orders: Discharge Order (Routine); Ordered 09/14/22 Ordered By: Abhilash Villatoro Diet: Diabetic diet Activity on Discharge: As tolerated Stand Alone Forms: Patient Portal Discharge page Care Plan Goals: patient admitted for pancreatic inflammation as well as colon Inflammation and infection and sepsis- patient was started on IV hydration and antibiotics, also hydrated for renal failure: seems like abdominal pain improved patient is tolerating diet, hospital course was complicated by ileus secondary to pancreatitis which seems to be improved patient is passing gases and bowels. In addition patient has slightly elevated blood sugars because of steroid use, Hemoglobin A1c is 5.7, he was advised to follow diabetic diet if possible. For colitis patient is to complete antibiotic course. follow-up outpatient. in addition patient has left knee arthritis :has on and off pain- advised to use lidocaine patch, lidocaine patch, capsaicin cream. DVT study- of left leg seems fine. hypertension: Patient was on lisinopril but was on hold due to PAM, PAM improved significantly with hydration, patient need to check renal function and electrolytes in 1 week out patiently and subsequently started back on lisinopril sees started on lisinopril amlodipine she needs to be stopped if does not need further blood pressure control outpatient. patient is to follow up outpatient with PCP, in addition monitor renal function and electrolytes in 1 week and according to that amlodipine can be stopped and started back on lisinopril as per renal function. Health Concerns: As above. Plan of Treatment: As above. Assessment: As above. Discharge Date/Time: 09/14/22 15:30
[2022-09-14 11:59] LABS: Glucose, Whole Blood 202 mg/dL (60-115)
[2022-09-14 12:02] VITALS: PULSE 88; RESP 15; O2SAT 98
[2022-09-14] MEDS: Amoxicillin/Potassium Clav 875 MG TABLET PO (12:21)
[2022-09-14] MEDS: Insulin Lispro 100 UNIT/ML 3 ML VIAL SUBCUT (12:21)
[2022-09-14 13:02] LABS: E. coli EPEC Detected (Not Detect.)
[2022-09-14 13:03] LABS: Adenovirus F 40/41 Not Detected (Not Detect.); Astrovirus Not Detected (Not Detect.); Campylobacter Not Detected (Not Detect.); Cryptosporidium Not Detected (Not Detect.); Cyclospora cayetanensis Not Detected (Not Detect.); E. coli EAEC Not Detected (Not Detect.); E. coli ETEC Not Detected (Not Detect.); E. coli STEC Not Detected (Not Detect.); Entamoeba histolytica Not Detected (Not Detect.); Giardia lamblia Not Detected (Not Detect.); Norovirus GI/GII Not Detected (Not Detect.); Plesiomonas shigelloides Not Detected (Not Detect.); Rotavirus A Not Detected (Not Detect.); Salmonella Not Detected (Not Detect.); Sapovirus Not Detected (Not Detect.); Shigella sp./EIEC Not Detected (Not Detect.); Vibrio Not Detected (Not Detect.); Vibrio Cholerae Not Detected (Not Detect.); Yersinia enterocolitica Not Detected (Not Detect.)
== END 2022-09-14 15:30 | disposition home health service (06) | DRG 871 ==
LOC: HO.ED 15:04 → HO.EDOVER 15:10 → HO.IMC 18:58
PROVIDERS: Physician Assistant Medical; Admitting Provider Student in an Organized Health Care Education/Training Program; Emergency Provider Internal Medicine; PCP Internal Medicine; Visit Provider Internal Medicine
DX: A41.9 Sepsis, unspecified organism (principal); K85.20 Alcohol induced acute pancreatitis without necrosis or infection; N17.9 Acute kidney failure, unspecified; E87.20 Acidosis, unspecified; F10.239 Alcohol dependence with withdrawal, unspecified; E87.1 Hypo-osmolality and hyponatremia; K56.7 Ileus, unspecified; K52.9 Noninfective gastroenteritis and colitis, unspecified; K21.9 Gastro-esophageal reflux disease without esophagitis; E83.42 Hypomagnesemia; I10 Essential (primary) hypertension; E86.1 Hypovolemia; E66.3 Overweight; Z68.31 Body mass index [BMI] 31.0-31.9, adult; R73.9 Hyperglycemia, unspecified; T38.0X5A Adverse effect of glucocorticoids and synthetic analogues, initial encounter; M17.12 Unilateral primary osteoarthritis, left knee; R65.20 Severe sepsis without septic shock; E78.5 Hyperlipidemia, unspecified; E86.0 Dehydration; Z20.822 Contact with and (suspected) exposure to COVID-19; Z87.891 Personal history of nicotine dependence; Z91.030 Bee allergy status; Z79.899 Other long term (current) drug therapy
CPT/HCPCS: 36415; 73564; 74176; 80048; 80076; 82150; 82803; 82947; 83036; 83605; 83690; 83735; 85007; 85025; 85027; 87040; 87493; 87507; 87635; 89055; 93005; 93971; 94640; 97161; 99285; J1650; J2270; J2405; J2543; J2560; J3475

== ENCOUNTER 2022-09-28 10:02 | Outpatient (REF) | payer MEDICARE, SELFPAY ==
[2022-09-28 11:20] LABS: MANUAL DIFF FLAG NO
[2022-09-28 11:38] LABS: Basophils Absolute Auto 0.1 X10*3/uL (0.0-0.2); Basophils Percent Auto 0.9 % (0-2); Eosinophils Absolute Auto 0.2 X10*3/uL (0.0-0.4); Eosinophils Percent Auto 1.8 % (0-4); Hematocrit 32.6 % (42.0-52.0); Hemoglobin 10.8 g/dl (14.0-18.0); Imm Gran Abs Auto 0.08 X10*3/uL (0.00-0.03); Imm Gran Pct Auto 0.8 % (0.0-0.4); Lymphocytes Absolute Auto 1.9 X10*3/uL (1.2-4.9); Lymphocytes Percent Auto 19.8 % (20-40); Mean Corpuscular HGB Conc 33.1 g/dl (31.0-36.0); Mean Corpuscular Hemoglobin 32.2 pg (27.0-33.0); Mean Corpuscular Volume 97.3 fL (80.0-98.0); Mean Platelet Volume 8.6 fL (9.4-12.4); Monocytes Absolute Auto 0.8 X10*3/uL (0.1-1.2); Monocytes Percent Auto 8.6 % (2-11); Neutrophils Absolute Auto 6.5 x10*3/uL (2.0-8.3); Neutrophils Percent Auto 68.1 % (45-73); Platelet Count 642 X10*3/uL (160-400); Red Blood Count 3.35 X10*6/uL (4.60-5.80); Red Cell Distribution Width 12.3 % (11.0-16.0); White Blood Count 9.6 X10*3/uL (4.8-10.8)
[2022-09-28 11:44] LABS: Estimated Average Glucose 143 mg/dL; Hemoglobin A1c % 6.6 %
[2022-09-28 12:16] LABS: Alanine Aminotransferase 31 U/L (0-40); Albumin Level 3.8 g/dL (3.5-5.0); Alkaline Phosphatase 99 U/L (39-117); Anion Gap 13 (12-20); Aspartate Amino Transferase 21 U/L (5-37); Bilirubin Total 0.3 mg/dL (0.0-1.0); Blood Urea Nitrogen 12 mg/dL (9-16); C Reactive Protein 1.48 mg/dL (< or = 0.50); Carbon Dioxide 25 mmol/L (22-29); Chloride 101 mmol/L (96-108); Estimated Glomerular Filt Rate 54; Glucose Random 155 mg/dL (60-115); Iron 57 mcg/dL (45-160); Lipase 100 U/L (8-78); Percent Iron Saturation 27 % (15-50); Potassium 4.9 mmol/L (3.3-5.1); Sodium 134 mmol/L (135-145); Total Iron Binding Capacity 215 mcg/dL (228-428); Total Protein 6.5 g/dL (6.5-8.0); Unsaturated Iron Binding 158 ug/dL
== END 2022-09-28 10:03 | disposition home or self-care (01) ==
LOC: HO.HMGCLDS 10:02
PROVIDERS: PCP Internal Medicine; Visit Provider Internal Medicine
DX: I10 Essential (primary) hypertension (principal); K85.90 Acute pancreatitis without necrosis or infection, unspecified; K21.9 Gastro-esophageal reflux disease without esophagitis; R10.9 Unspecified abdominal pain; R73.03 Prediabetes; K52.9 Noninfective gastroenteritis and colitis, unspecified
CPT/HCPCS: 36415; 80053; 83036; 83540; 83690; 85025; 86140

== ENCOUNTER 2022-12-04 08:07 | Outpatient (REF) | payer MEDICARE, SELFPAY ==
[2022-12-04 11:31] LABS: MANUAL DIFF FLAG NO
[2022-12-04 11:56] LABS: Basophils Absolute Auto 0.1 X10*3/uL (0.0-0.2); Basophils Percent Auto 0.8 % (0-2); Eosinophils Absolute Auto 0.3 X10*3/uL (0.0-0.4); Eosinophils Percent Auto 3.9 % (0-4); Hematocrit 37.5 % (42.0-52.0); Hemoglobin 12.7 g/dl (14.0-18.0); Imm Gran Abs Auto 0.02 X10*3/uL (0.00-0.03); Imm Gran Pct Auto 0.3 % (0.0-0.4); Lymphocytes Absolute Auto 1.3 X10*3/uL (1.2-4.9); Lymphocytes Percent Auto 18.6 % (20-40); Mean Corpuscular HGB Conc 33.9 g/dl (31.0-36.0); Mean Corpuscular Hemoglobin 32.4 pg (27.0-33.0); Mean Corpuscular Volume 95.7 fL (80.0-98.0); Mean Platelet Volume 9.3 fL (9.4-12.4); Monocytes Absolute Auto 0.6 X10*3/uL (0.1-1.2); Monocytes Percent Auto 7.8 % (2-11); Neutrophils Absolute Auto 4.9 x10*3/uL (2.0-8.3); Neutrophils Percent Auto 68.6 % (45-73); Platelet Count 368 X10*3/uL (160-400); Red Blood Count 3.92 X10*6/uL (4.60-5.80); Red Cell Distribution Width 12.4 % (11.0-16.0); White Blood Count 7.2 X10*3/uL (4.8-10.8)
[2022-12-04 12:00] LABS: Estimated Average Glucose 126 mg/dL
[2022-12-04 12:16] LABS: Alanine Aminotransferase 10 U/L (0-40); Alkaline Phosphatase 81 U/L (39-117); Anion Gap 13 (12-20); Aspartate Amino Transferase 14 U/L (5-37); Bilirubin Total 0.4 mg/dL (0.0-1.0); Blood Urea Nitrogen 17 mg/dL (9-16); Calcium 9.3 mg/dL (8.4-10.2); Carbon Dioxide 25 mmol/L (22-29); Chloride 101 mmol/L (96-108); Estimated Glomerular Filt Rate 51; Glucose Random 134 mg/dL (60-115); Potassium 5.2 mmol/L (3.3-5.1); Sodium 134 mmol/L (135-145); Total Protein 6.5 g/dL (6.5-8.0)
== END 2022-12-04 08:08 | disposition home or self-care (01) ==
LOC: HO.HMGCLDS 08:07
PROVIDERS: PCP Internal Medicine; Visit Provider Internal Medicine
DX: I12.9 Hypertensive chronic kidney disease with stage 1 through stage 4 chronic kidney disease, or unspecified chronic kidney disease (principal); E11.22 Type 2 diabetes mellitus with diabetic chronic kidney disease; N18.9 Chronic kidney disease, unspecified; D64.9 Anemia, unspecified
CPT/HCPCS: 36415; 80053; 83036; 85025

== ENCOUNTER 2022-12-11 09:50 | Outpatient (REF) | payer MEDICARE, SELFPAY ==
--- NOTE | ~2022-12-11 | XR_ITS ---
EXAMINATION: XR HIP, RIGHT CLINICAL INFORMATION: Pain COMPARISON: None TECHNIQUE: Two views of the right hip. FINDINGS: Bone alignment is normal. No fracture or dislocation. There is mild axial joint space narrowing at the right hip joint. No osteophyte formation subchondral cyst or erosive changes seen. Soft tissues are unremarkable. XR/XR hip RT min 2V IMPRESSION: Mild axial joint space narrowing at the right hip joint.
== END 2022-12-11 09:51 | disposition home or self-care (01) ==
LOC: HO.XRAY 09:50
PROVIDERS: PCP Internal Medicine; Visit Provider Internal Medicine
DX: M25.551 Pain in right hip (principal)
CPT/HCPCS: 73502

== ENCOUNTER 2023-01-12 07:41 | Outpatient (REF) | payer MEDICARE, SELFPAY ==
[2023-01-12 11:44] LABS: MANUAL DIFF FLAG NO
[2023-01-12 11:54] LABS: Basophils Absolute Auto 0.1 X10*3/uL (0.0-0.2); Basophils Percent Auto 1.1 % (0-2); Eosinophils Absolute Auto 0.3 X10*3/uL (0.0-0.4); Eosinophils Percent Auto 3.8 % (0-4); Hematocrit 39.7 % (42.0-52.0); Hemoglobin 13.3 g/dl (14.0-18.0); Imm Gran Abs Auto 0.03 X10*3/uL (0.00-0.03); Imm Gran Pct Auto 0.5 % (0.0-0.4); Lymphocytes Absolute Auto 1.5 X10*3/uL (1.2-4.9); Lymphocytes Percent Auto 23.1 % (20-40); Mean Corpuscular HGB Conc 33.5 g/dl (31.0-36.0); Mean Corpuscular Hemoglobin 30.7 pg (27.0-33.0); Mean Corpuscular Volume 91.7 fL (80.0-98.0); Mean Platelet Volume 9.3 fL (9.4-12.4); Monocytes Absolute Auto 0.5 X10*3/uL (0.1-1.2); Monocytes Percent Auto 7.3 % (2-11); Neutrophils Absolute Auto 4.2 x10*3/uL (2.0-8.3); Neutrophils Percent Auto 64.2 % (45-73); Platelet Count 374 X10*3/uL (160-400); Red Blood Count 4.33 X10*6/uL (4.60-5.80); Red Cell Distribution Width 12.2 % (11.0-16.0); White Blood Count 6.6 X10*3/uL (4.8-10.8)
[2023-01-12 12:01] LABS: Estimated Average Glucose 148 mg/dL; Hemoglobin A1c % 6.8 %
[2023-01-12 12:14] LABS: Alanine Aminotransferase 11 U/L (0-40); Albumin Level 3.9 g/dL (3.5-5.0); Alkaline Phosphatase 86 U/L (39-117); Anion Gap 14 (12-20); Aspartate Amino Transferase 13 U/L (5-37); Bilirubin Total 0.3 mg/dL (0.0-1.0); Blood Urea Nitrogen 17 mg/dL (9-16); Calcium 9.3 mg/dL (8.4-10.2); Carbon Dioxide 25 mmol/L (22-29); Chloride 100 mmol/L (96-108); Cholesterol 246 mg/dL; Estimated Glomerular Filt Rate 48; Glucose Fasting 140 mg/dL (60-99); HDL Cholesterol 46 mg/dL; Iron 92 mcg/dL (45-160); LDL Cholesterol Calculated 153 mg/dl; Percent Iron Saturation 33 % (15-50); Potassium 5.1 mmol/L (3.3-5.1); Sodium 134 mmol/L (135-145); Total Iron Binding Capacity 279 mcg/dL (228-428); Total Protein 6.5 g/dL (6.5-8.0); Triglycerides 238 mg/dL; Unsaturated Iron Binding 187 ug/dL
[2023-01-12 12:15] LABS: Creatinine Urine 141.54 mg/dL; Microalbum/Creatinine Ratio Ur 4.9 ug/mg cr
== END 2023-01-12 07:42 | disposition home or self-care (01) ==
LOC: HO.HMGCLDS 07:41
PROVIDERS: PCP Internal Medicine; Visit Provider Internal Medicine
DX: E78.00 Pure hypercholesterolemia, unspecified (principal); I10 Essential (primary) hypertension; R73.03 Prediabetes; D64.9 Anemia, unspecified
CPT/HCPCS: 36415; 80053; 80061; 82043; 83036; 83540; 85025

== ENCOUNTER 2023-01-21 14:38 | Outpatient (REF) | payer MEDICARE, SELFPAY ==
--- NOTE | ~2023-01-21 | XR_ITS ---
EXAMINATION: XR PELVIS CLINICAL INFORMATION: Pain COMPARISON: Right hip radiograph 12/11/2022 TECHNIQUE: AP view of the pelvis. FINDINGS: The bones and soft tissues are normal. Right hip osteoarthritis with joint space narrowing medially. Pubic symphysis is normal. No abnormal soft tissue calcifications. XR/XR pelvis 1-2V IMPRESSION: Right hip osteoarthritis.
== END 2023-01-21 14:39 | disposition home or self-care (01) ==
LOC: HO.HOSX 14:38
PROVIDERS: Visit Provider Orthopaedic Surgery
DX: M70.61 Trochanteric bursitis, right hip (principal); E11.9 Type 2 diabetes mellitus without complications
CPT/HCPCS: 20610; 72170; 99202; J1100

== ENCOUNTER 2023-02-16 07:54 | Outpatient (RCR) | payer MEDICARE, SELFPAY ==
--- NOTE | 2023-02-16 09:13 | MHC.PT.EP ---
[facility] [place] Office [place] [facility] [place] Office [address] Ronel Hinojosa [address] [phone] F: [phone] F: [phone] F: [phone] F: [phone] Physical Therapy Plan of Care Date of Evaluation: Date of Surgery: Diagnosis: This is a 67 yo male presenting to skilled PT with a script for trochanteric bursitis of R hip. Assessment: This is a 67 yo male presenting to skilled PT with a script for trochanteric bursitis of R hip. He reports ongoing R hip pain for a few months now but has been recently been improving since weather improving and he retired. He has tried both a topical cream, Lidocaine patch, arthritis cream, CBD lotion and Tylenol. He is being followed by [facility] ortho and had a cortisone injection at his last appointment on 01/21, does not have an appointment to return. Pain increases with laying on his L side. His pain is constant and aggravating . Movement seems to improve symptoms. Pain is located at R buttock, occasional numbness and tingling in the leg, but denies back pain. Pain is described as sharp. Assessment reveals pain that ranges from 4-8/10. Patient demos decreased lumbar and hip extension ROM, strength of hip glut muscles, core and back, he is TTP at piriformis muscle. Based on functional limitations, impaired QOL and decreased pain tolerance patient is a good candidate for skilled PT 2x/wk for 4wks but would like to try HEP on own at home for now as he feels like he is getting better. He was educated on calling our office as needed with HEP if pain no longer seems to improve. Frequency and Duration: The patient will be seen 2x/wk for 4wks Short Term Goals: I in HEP in 2wks Demo proper squatting and lifting techniques without pain or cuing in 2wks Demo proper transfers supine<>sit without cues in 2wks Stunner Animal Goals: Improve pain to no more than 3/10 at the worst in 4wks Improve hip muscle grade by at least 1 in 4wks Report ability to roll side to side without pain in 4wks Report at least 50% improvement in subjective QOL in 4wks Treatment Plan: Modalities to reduce pain, spasms and effusion. Manual therapy to restore motion and function. Therapeutic exercise to improve strength and flexibility. Neuromuscular re-education for posture and balance. Therapeutic activities to return to functional activities of daily living. Electronically signed by: Marcia Sanchez PT Please sign and return to therapist. Thank you for your referral.
--- NOTE | 2023-03-17 09:55 | MHC.PT.DC ---
[facility] [place] Office [place] Office [place] Office [address] Ronel Hinojosa [address] [phone] F: [phone] F: [phone] F: [phone] F: [phone] Physical Therapy Discharge Report Diagnosis: This is a 67 yo male presenting to skilled PT with a script for trochanteric bursitis of R hip. Date of Surgery: Date of Evaluation: 02/16/23 Date of Discharge: 03/17/23 Treatments to Date: 1 Cancellations to Date: 0 No Shows to Date: 0 Discharge Status: Independent with HEP Patient Elected to Stop Discharge Summary: This is a 67 yo male presenting to skilled PT with a script for trochanteric bursitis of R hip. He reports ongoing R hip pain for a few months now but has been recently been improving since weather improving and he retired. He has tried both a topical cream, Lidocaine patch, arthritis cream, CBD lotion and Tylenol. He is being followed by [facility] [place] and had a cortisone injection at his last appointment on 01/21, does not have an appointment to return. Pain increases with laying on his L side. His pain is constant and aggrevating . Movement seems to improve symptoms. Pain is located at R buttock, occasional numbness and tingling in the leg, but denies back pain. Pain is described as sharp. Assessment reveals pain that ranges from 4-8/10. Patient demos decreased lumbar and hip extension ROM, strength of hip glut muscles, core and back, he is TTP at piriformis muscle. Based on functional limitations, impaired QOL and decreased pain tolerance patient is a good candidate for skilled PT 2x/wk for 4wks but would like to try HEP on own at home for now as he feels like he is getting better. He was educated on calling our office as needed with HEP if pain no longer seems to improve. Chart was DC'd after 30 days Electronically signed by: Marcia Sanchez, PT Please sign and return to therapist. Thank you for your referral.
== END 2023-03-17 09:55 | disposition home or self-care (01) ==
LOC: HO.PTCHIC 07:54
PROVIDERS: PCP Internal Medicine; Visit Provider Orthopaedic Surgery
DX: M70.61 Trochanteric bursitis, right hip (principal)
CPT/HCPCS: 97110; 97162

== ENCOUNTER 2023-03-02 08:13 | Outpatient (REF) | payer MEDICARE, SELFPAY ==
[2023-03-02 11:22] LABS: MANUAL DIFF FLAG NO
[2023-03-02 11:32] LABS: Basophils Absolute Auto 0.1 X10*3/uL (0.0-0.2); Eosinophils Absolute Auto 0.2 X10*3/uL (0.0-0.4); Eosinophils Percent Auto 3.2 % (0-4); Hematocrit 38.1 % (42.0-52.0); Hemoglobin 12.6 g/dl (14.0-18.0); Imm Gran Abs Auto 0.02 X10*3/uL (0.00-0.03); Imm Gran Pct Auto 0.3 % (0.0-0.4); Lymphocytes Absolute Auto 1.6 X10*3/uL (1.2-4.9); Mean Corpuscular HGB Conc 33.1 g/dl (31.0-36.0); Mean Corpuscular Hemoglobin 30.1 pg (27.0-33.0); Mean Corpuscular Volume 91.1 fL (80.0-98.0); Mean Platelet Volume 9.6 fL (9.4-12.4); Monocytes Absolute Auto 0.5 X10*3/uL (0.1-1.2); Monocytes Percent Auto 7.6 % (2-11); Neutrophils Absolute Auto 4.4 x10*3/uL (2.0-8.3); Neutrophils Percent Auto 64.9 % (45-73); Platelet Count 338 X10*3/uL (160-400); Red Blood Count 4.18 X10*6/uL (4.60-5.80); White Blood Count 6.8 X10*3/uL (4.8-10.8)
[2023-03-02 12:12] LABS: Estimated Average Glucose 151 mg/dL; Hemoglobin A1c % 6.9 %
[2023-03-02 12:33] LABS: Alanine Aminotransferase 10 U/L (0-40); Albumin Level 3.9 g/dL (3.5-5.0); Alkaline Phosphatase 82 U/L (39-117); Anion Gap 14 (12-20); Aspartate Amino Transferase 13 U/L (5-37); Bilirubin Total 0.5 mg/dL (0.0-1.0); Blood Urea Nitrogen 16 mg/dL (9-16); Calcium 9.1 mg/dL (8.4-10.2); Carbon Dioxide 24 mmol/L (22-29); Chloride 101 mmol/L (96-108); Estimated Glomerular Filt Rate 48; Glucose Random 132 mg/dL (60-115); Potassium 4.8 mmol/L (3.3-5.1); Sodium 134 mmol/L (135-145); Total Protein 6.5 g/dL (6.5-8.0)
== END 2023-03-02 08:14 | disposition home or self-care (01) ==
LOC: HO.HMGCLDS 08:13
PROVIDERS: PCP Internal Medicine; Visit Provider Internal Medicine
DX: D64.9 Anemia, unspecified (principal); I12.9 Hypertensive chronic kidney disease with stage 1 through stage 4 chronic kidney disease, or unspecified chronic kidney disease; E11.22 Type 2 diabetes mellitus with diabetic chronic kidney disease; N18.9 Chronic kidney disease, unspecified
CPT/HCPCS: 36415; 80053; 83036; 85025

== ENCOUNTER 2023-06-02 07:23 | Outpatient (REF) | payer MEDICARE, SELFPAY ==
[2023-06-02 11:36] LABS: MANUAL DIFF FLAG NO
[2023-06-02 11:47] LABS: Basophils Absolute Auto 0.1 X10*3/uL (0.0-0.2); Eosinophils Absolute Auto 0.3 X10*3/uL (0.0-0.4); Eosinophils Percent Auto 3.7 % (0-4); Hematocrit 40.1 % (42.0-52.0); Hemoglobin 13.5 g/dl (14.0-18.0); Imm Gran Abs Auto 0.02 X10*3/uL (0.00-0.03); Imm Gran Pct Auto 0.3 % (0.0-0.4); Lymphocytes Absolute Auto 1.6 X10*3/uL (1.2-4.9); Lymphocytes Percent Auto 24.4 % (20-40); Mean Corpuscular HGB Conc 33.7 g/dl (31.0-36.0); Mean Corpuscular Hemoglobin 31.3 pg (27.0-33.0); Mean Corpuscular Volume 92.8 fL (80.0-98.0); Mean Platelet Volume 9.9 fL (9.4-12.4); Monocytes Absolute Auto 0.5 X10*3/uL (0.1-1.2); Monocytes Percent Auto 7.7 % (2-11); Neutrophils Absolute Auto 4.2 x10*3/uL (2.0-8.3); Neutrophils Percent Auto 62.9 % (45-73); Platelet Count 314 X10*3/uL (160-400); Red Blood Count 4.32 X10*6/uL (4.60-5.80); Red Cell Distribution Width 12.6 % (11.0-16.0); White Blood Count 6.7 X10*3/uL (4.8-10.8)
[2023-06-02 11:52] LABS: Estimated Average Glucose 131 mg/dL; Hemoglobin A1c % 6.2 %
[2023-06-02 12:11] LABS: Alanine Aminotransferase 14 U/L (0-40); Albumin Level 4.1 g/dL (3.5-5.0); Alkaline Phosphatase 81 U/L (39-117); Anion Gap 16 (12-20); Aspartate Amino Transferase 16 U/L (5-37); Bilirubin Total 0.4 mg/dL (0.0-1.0); Blood Urea Nitrogen 13 mg/dL (9-16); Calcium 9.5 mg/dL (8.4-10.2); Carbon Dioxide 24 mmol/L (22-29); Chloride 99 mmol/L (96-108); Cholesterol 229 mg/dL; Estimated Glomerular Filt Rate 56; Glucose Fasting 133 mg/dL (60-99); HDL Cholesterol 50 mg/dL; LDL Cholesterol Calculated 135 mg/dl; Potassium 5.1 mmol/L (3.3-5.1); Sodium 134 mmol/L (135-145); Triglycerides 221 mg/dL
[2023-06-02 12:40] LABS: Microalbumin Urine < 5.0 mg/L
== END 2023-06-02 07:24 | disposition home or self-care (01) ==
LOC: HO.HMGCLDS 07:23
PROVIDERS: PCP Internal Medicine; Visit Provider Internal Medicine
DX: E11.22 Type 2 diabetes mellitus with diabetic chronic kidney disease (principal); E78.00 Pure hypercholesterolemia, unspecified; I12.9 Hypertensive chronic kidney disease with stage 1 through stage 4 chronic kidney disease, or unspecified chronic kidney disease; N18.9 Chronic kidney disease, unspecified
CPT/HCPCS: 36415; 80053; 80061; 82043; 83036; 85025

== ENCOUNTER 2024-11-24 09:41 | Outpatient (REF) | payer MEDICARE, SELFPAY ==
--- NOTE | ~2024-11-24 | XR_ITS ---
EXAMINATION: XR CHEST CLINICAL INFORMATION: cough COMPARISON: 02/06/2022. TECHNIQUE: 2 views of the chest were obtained. FINDINGS: The cardiac, hilar, and mediastinal contours are normal. Aorta is mildly tortuous. The lungs are clear bilaterally. There is no pneumothorax or pleural effusion. There is no focal osseous or soft tissue abnormality. There are spinal degenerative changes. XR/XR chest 2V IMPRESSION: No active pulmonary disease. Electronically signed by: Hayes Butler MD 11/24/2024 10:22 AM MURIEL
[2024-11-24 09:55] LABS: MANUAL DIFF FLAG NO
[2024-11-24 10:40] LABS: Basophils Absolute Auto 0.1 X10*3/uL (0.0-0.2); Basophils Percent Auto 0.5 % (0-2); Eosinophils Absolute Auto 0.2 X10*3/uL (0.0-0.4); Eosinophils Percent Auto 1.6 % (0-4); Hematocrit 44.6 % (42.0-52.0); Hemoglobin 15.5 g/dl (14.0-18.0); Imm Gran Abs Auto 0.04 X10*3/uL (0.00-0.03); Imm Gran Pct Auto 0.4 % (0.0-0.4); Lymphocytes Absolute Auto 0.9 X10*3/uL (1.2-4.9); Lymphocytes Percent Auto 9.4 % (20-40); Mean Corpuscular HGB Conc 34.8 g/dl (31.0-36.0); Mean Corpuscular Hemoglobin 31.5 pg (27.0-33.0); Mean Corpuscular Volume 90.7 fL (80.0-98.0); Monocytes Absolute Auto 0.9 X10*3/uL (0.1-1.2); Monocytes Percent Auto 9.3 % (2-11); Neutrophils Absolute Auto 7.5 x10*3/uL (2.0-8.3); Neutrophils Percent Auto 78.8 % (45-73); Platelet Count 361 X10*3/uL (160-400); Red Blood Count 4.92 X10*6/uL (4.60-5.80); Red Cell Distribution Width 12.7 % (11.0-16.0); White Blood Count 9.5 X10*3/uL (4.8-10.8)
[2024-11-24 11:10] LABS: Alanine Aminotransferase 8 U/L (0-40); Albumin Level 3.9 g/dL (3.5-5.0); Alkaline Phosphatase 85 U/L (39-117); Anion Gap 15 (12-20); Aspartate Amino Transferase 21 U/L (5-37); Bilirubin Total 0.5 mg/dL (0.0-1.0); Blood Urea Nitrogen 15 mg/dL (9-16); C Reactive Protein 2.34 mg/dL (< or = 0.50); Calcium 9.5 mg/dL (8.4-10.2); Carbon Dioxide 23 mmol/L (22-29); Chloride 96 mmol/L (96-108); Estimated Glomerular Filt Rate 48; Glucose Random 157 mg/dL (60-115); Sodium 129 mmol/L (135-145); Total Protein 7.6 g/dL (6.5-8.0)
== END 2024-11-24 09:42 | disposition home or self-care (01) ==
LOC: HO.XRAY 09:41
PROVIDERS: PCP Internal Medicine; Visit Provider Internal Medicine
DX: R10.9 Unspecified abdominal pain (principal); R05.9 Cough, unspecified
CPT/HCPCS: 36415; 71046; 80053; 82550; 85025; 86140

== ENCOUNTER → 2024-11-24 10:05 | Outpatient (BNV) | payer MEDICARE, SELFPAY | PROVIDERS: PCP Internal Medicine; Visit Provider Radiology Diagnostic Radiology | DX: R05.9 Cough, unspecified (principal) | CPT/HCPCS: 71046 ==

== ENCOUNTER 2024-11-28 08:03 | Outpatient (AMB) | payer MEDICARE, SELFPAY ==
--- NOTE | 2024-11-28 08:50 | MHC.OFFWIV ---
Intake Vital Signs 11/28/24 08:54 Weight 240 lb BP 122/80 Blood Pressure Location Rt brachial Position Sitting Pulse 99 Pulse Source Pulse Oximeter Pulse Oximetry (%) 97 Oxygen Delivery Method Room Air Intake Visit Reasons: EP lesions on tongue/shoulder pain Intake Note: Patient here for 2 lesions on tongue that have been there since last week. Patient Tobacco Use Status: Former Tobacco user Allergies bee pollen [bee stings] Allergy (Severe, Verified 11/28/24 08:55) Swelling Do you need a note to return to daycare/school/sports/work: No HPI HPI Comments History of Present Illness Details History of Present Illness - The patient is a 69-year-old male presenting with 3 issues. The first is 2 painful tongue lesions. He first noticed a hardened tatum spot on the back of his tongue approximately two weeks ago, which is painful and causes discomfort during eating. The patient, who quit smoking five years ago, has noticed a slight slurring of speech associated with this lesion as well as pain with swallowing. The other spot is further back on the same left side of the tongue and is red and raised. - The patient also reports persistent bilateral shoulder pain, with the right shoulder being more affected. The pain's duration is unspecified, and it is not linked to any specific injury. [id number] medication such as ibuprofen has been used with minimal effect. - The patient reports a blocked left ear for over a week, noting no severe pain but some discomfort. He has used ear drops to try to alleviate this concern without success. Physical Exam General: Cooperative, healthy appearing, comfortable, no acute distress and well developed Orientation: Patient oriented x3 Limitations: No limitations Head: Normal to inspection Ears: External ears normal, TM's cerumen impaction bilaterally Nose: Normal external nose present Face and sinus: Normal facial exam Eyes: Appearance normal, both eyes and all related structures Neck: Normal visual inspection and Yes full ROM Respiratory: Normal respiratory effort and able to speak in complete sentences. Skin: No rashes or lesions noted Neuro: Patient oriented x3, no slur in speech noted Extremities: see below [facility] Medical History (Updated 11/28/24 @ 09:19 by Tami Lancaster PA-C) Hyperlipidemia Hiatal hernia GERD (gastroesophageal reflux disease) Prostate cancer HTN (hypertension) Surgical History History of tonsillectomy History of prostatectomy History of esophagogastroduodenoscopy (EGD) Hx of colonoscopy Social History (Updated 01/21/23 @ 09:08 by Nati Meier CMA) Household Members: Spouse Housing: House Are you a primary physician locums urgent care to a significant other at home: No Do you presently have visiting nurse or other home services: No Alcohol intake: current Alcohol intake frequency: 3 or more drinks per day Alcohol type: hard liquor Comment: REFUSE ALARM Patient Tobacco Use Status: Former Tobacco user Tobacco use type: Cigarette service: No Current occupational status: retired Review of Systems Const All systems reviewed & are unremarkable except as noted in HPI and below Physical Exam Vital Signs: Last Vital Signs Pulse 99 11/28/24 08:54 BP 122/80 11/28/24 08:54 Pulse Ox 97 11/28/24 08:54 Oxygen Delivery Method Room Air 11/28/24 08:54 HEENT Mouth: tongue abnormal discolored (0.25cm hard, bess flat area on left side & 0.25 red raised area left posterior tongue) Extrem Right upper extremity: normal to inspection and shoulder/upper arm Details: normal to inspection and abnormal ROM Details: pain with active ROM Details: in internal rotation and pain with passive ROM Details: with internal rotation; no swelling Left upper extremity: normal to inspection and shoulder/upper arm Details: inspection abnormal and abnormal ROM Details: pain with active ROM Details: in internal rotation and pain with passive ROM Details: in internal rotation Office Procedures Cerumen Removal Details: unable to clear completely From which ear canal was the cerumen removed: bilateral Removal: irrigation and cerumen loop/spoon Notes: patient tolerated procedure well and no complications [id number] Irrigation/Lavage Assessment & Plan Assessment & Plan (1) Shoulder pain, right: Code(s): M25.511 - Pain in right shoulder Qualifiers: Chronicity: acute Qualified Code(s): M25.511 - Pain in right shoulder Plan: The persistent bilateral shoulder pain, exacerbated by movement and unresponsive to current medication, warrants further evaluation by an grant specialist to assess underlying causes. Patient was informed and verbally consented to the use of an ambient scribe for clinic note documentation during this visit. (2) Lesion of tongue: Code(s): K14.8 - Other diseases of tongue Plan: Referred pt to oral surgeon BRITTANI to evaluate these 2 lesions as he has a history of smoking. Explained he needs a biopsy of each. The patient needs referral to an oral surgeon for evaluation of the lingual lesion, particularly considering the patient's smoking history which necessitates a thorough investigation and biopsies. Coordination with insurance and securing a possible referral through Dr. Rubio will assist in expediting this process. (3) Cerumen impaction: Code(s): H61.20 - Impacted cerumen, unspecified ear Qualifiers: Laterality: bilateral Qualified Code(s): H61.23 - Impacted cerumen, bilateral Plan: For the impacted cerumen, professional ear irrigation is recommended to alleviate the blockage, as previous attempts with [id number]-higgfob methods have been ineffective. Unable to clear completely, recommended to use Debrox drops daily for a week and come back for flushing. Coding Level of Care Code New Pt Level 4 (16561) Diagnoses Acute pain of right shoulder M25.511 Chronicity: acute Lesion of tongue K14.8 Bilateral impacted cerumen H61.23 Laterality: bilateral CPT Codes Office Procedure - CPT: 14075-Thy Irrigation/Lavage ([id number])
[2024-11-28 08:54] VITALS: BP 122/80; PULSE 99; O2SAT 97
== END 2024-11-28 09:46 | disposition home or self-care (01) ==
PROVIDERS: PCP Internal Medicine; Visit Provider Physician Assistant
DX: M25.511 Pain in right shoulder (principal); K14.8 Other diseases of tongue; H61.23 Impacted cerumen, bilateral

== ENCOUNTER → 2024-11-28 08:03 | Outpatient (BNVA) | payer MEDICARE, SELFPAY | PROVIDERS: PCP Internal Medicine | DX: H61.23 Impacted cerumen, bilateral (principal); K14.8 Other diseases of tongue; M25.511 Pain in right shoulder | CPT/HCPCS: 69210; 99202 ==

== ENCOUNTER 2024-12-09 08:30 | Inpatient (IN) | payer MEDICARE, SELFPAY ==
[2024-12-08 14:00] VITALS: BP 110/59; PULSE 68; RESP 14; O2SAT 96
[2024-12-09] VITALS (22 sets, daily range): BP systolic 54–150; BP diastolic 21–89; PULSE 74–116; RESP 14–30; TEMP 35.6–36.8; O2SAT 94–100; BMI 34.6; BMI 32.8
--- NOTE | ~2024-12-09 | XR_ITS ---
CLINICAL HISTORY: tamponade 1 view chest x-ray Comparison: CR - XR CHEST 2V - 12/09/24 09:15 EST CR/MT/SR - XR CHEST 2V - 11/24/24 10:15 EST Findings: Cardiac size is stable. No dense consolidation. Unchanged mild prominence of the interstitium. Patchy airspace along the right heart border. No acute osseous findings. IMPRESSION: 1. No significant interval change This document has been electronically signed by: Reyna Gutiérrez MD on 12/09/2024 17:18:16
--- NOTE | ~2024-12-09 | CT_ITS ---
CLINICAL HISTORY: hemopericadium, look for malignancy CT abdomen and pelvis with contrast Comparison: CT/SR - CT ABDOMEN PELVIS WO IV CON - 09/08/22 12:47 EST Findings: Findings at the lung bases are reported separately. There are 2 6 mm nodules within the anterior segment of the liver (images 8 and 11 ). These were not visible on the prior study. There are atrophic changes of the distal pancreatic body and pancreatic tail. Unremarkable spleen and adrenal glands. 4 cm cyst arising from the left kidney without change. 1.6 cm cyst arising from the right kidney without change. No calcified gallstones. Marked thickening of the wall of the sigmoid colon extending over 9 cm of its length. No significant infiltration of the adjacent mesentery. There is colonic diverticulosis without diverticulitis. No bowel obstruction. There are numerous enlarged retroperitoneal lymph nodes which measure up to 2 cm in short axis dimension. There are multiple lymph nodes within the sigmoid colon mesentery, none of which are enlarged. Pelvic contents unremarkable. Normal appendix. No acute fracture. IMPRESSION: 1. There is a small amount of free intraperitoneal air and there are multiple pockets of gas within the subcutaneous tissues. Gas may be iatrogenic or secondary to bowel perforation. 2. There is marked thickening of the wall of the sigmoid colon extending over 9 cm of its length. The degree of thickening is suspicious for malignancy. Recommend further evaluation with colonoscopy. 3. There is moderate retroperitoneal lymphadenopathy. This document has been electronically signed by: Darlene Hall MD on 12/12/2024 15:43:17
--- NOTE | ~2024-12-09 | XR_ITS ---
CLINICAL HISTORY: R RIb pain 2 views chest Comparison: CR/TN/SR - XR CHEST 2V - 11/24/24 10:15 EST Findings: Cardiac and mediastinal contours are mildly prominent but stable. Mild interstitial prominence with scattered peribronchial thickening. No focal consolidation. No effusion. No pneumothorax. No acute osseous finding. Impression: Mild interstitial prominence with scattered peribronchial thickening. No focal consolidation. No rib fracture identified. This document has been electronically signed by: Rui Ron MD on 12/09/2024 09:57:45
--- NOTE | ~2024-12-09 | CT_ITS ---
CLINICAL HISTORY: hemopericardium, rule out malignancy CT chest with contrast Comparison: CT/ID/SR - CHEST WITH IV CONTRAST [id number] - 06/15/18 20:56 EDT Findings: There is a small pericardial effusion measuring up to 1.7 cm in thickness. Measurable portions of the collection have density compatible with simple fluid. There is a large pneumomediastinum predominating within the anterior mediastinum. There is trace gas within the pericardial space and there are pockets of gas within the anterior chest wall soft tissues. Normal heart size. Mild coronary artery calcifications. Unremarkable thyroid gland. Multiple mediastinal lymph nodes including pathologic appearing lymph nodes measuring up to 17 mm in short axis dimension. There are small simple appearing bilateral pleural effusions. There are multiple scattered bilateral pulmonary nodules. A 7 mm right upper lobe nodule is without change. Remaining nodules are new since the prior study. Nodules measure up to 12 mm in size ( right lower lobe series 5, image 27 ). There is mild dependent atelectasis within the bilateral lower lobes. Findings at the level of the abdomen are reported separately. No acute fractures. IMPRESSION: 1. Large pneumomediastinum. 2. Small pericardial effusion. There is also trace gas within the pericardial space. 3. Small bilateral pleural effusions. 4. There is mediastinal lymphadenopathy with an appearance suspicious for malignancy. 5. There are multiple new bilateral pulmonary nodules, suspicious for metastatic disease. This document has been electronically signed by: Darlene Hall MD on 12/12/2024 15:42:23
--- NOTE | 2024-12-09 08:32 | ECG_ITS ---
Test Reason : CHEST PAIN Blood Pressure : */* mmHG Vent. Rate : 115 BPM Atrial Rate : 115 BPM P-R Int : 178 ms QRS Dur : 82 ms QT Int : 320 ms P-R-T Axes : -7 7 18 degrees QTcB Int : 442 ms Sinus tachycardia with frequent Premature ventricular complexes Low voltage QRS Cannot rule out Anterior infarct (cited on or before 08-Sep-2022) Abnormal ECG When compared with ECG of 08-Sep-2022 10:38, Premature ventricular complexes are now Present Referred By: Generic ED Physician Electronically Signed By: MUSA GOYAL MD
--- NOTE | 2024-12-09 09:03 | ED.CHESTPAIN ---
HPI - Chest Pain General Chief Complaint: Dyspnea Stated Complaint: CP Time Seen by Provider: 12/09/24 08:54 Source: patient and old records reviewed Mode of arrival: ambulatory Limitations: no limitations History of Present Illness ED Provider: JASON FLOWERS narrative: 69 yo male with PMH of hypomagnesemia, DM, colitis, ETOH abuse, HTN, diverticulitis, pancreatitis recently has had cough/shoulder pain since December - had negative chest xray and labs through just went to [facility] and on Wednesday had xrays of both shoulders and then cortisone shots which helped. For the past day he has gone down hill, cannot breathe, cannot sleep, coughing, not feeling well. Could not sleep last night. He is very tired. No recent sick contacts, travel, procedures with anesthesia. He is not on blood thinners. He has not had blood clot before. He denies any hx of tick borne illness MD complaint: other (weakness, dyspnea, chest pain, body aches) Onset (ago): month(s) (since end of October but acutely worse x 2 days) Timing of current episode: constant Prior episodes: No Onset: during rest and during exertion Pain location: right chest Pain radiation: none Severity: moderate Quality: sharp Relieving factors: nothing Exacerbating factors: inspiration, movement and other (coughing) Context: recent illness Associated symptoms: nausea, dyspnea and cough Treatment prior to arrival: none Related Data Home Medications ?Medication ?Instructions ?Recorded ?Confirmed lisinopril 5 mg tablet 1 tab PO DAILY 04/18/21 09/08/22 omeprazole 20 mg capsule,delayed 20 mg PO DAILY 09/08/22 09/08/22 release Previous Rx's ?Medication ?Instructions ?Recorded capsaicin 0.025 % topical cream 1 appl topical QID PRN Pain, Mild 09/13/22 (Pain Scale 1-3) #25 grams docusate sodium 100 mg capsule 100 mg PO BID #30 caps 09/13/22 lidocaine 4 % topical patch 1 patch transdermal DAILY #10 ea 09/13/22 (Lidocaine Pain Relief) acetaminophen 325 mg tablet 975 mg (3 x 325 mg) PO TID #14 tabs 09/14/22 amlodipine 2.5 mg tablet 2.5 mg PO DAILY #30 tabs 09/14/22 Allergies Allergy/AdvReac Type Severity Reaction Status Date / Time bee pollen [bee stings] Allergy Severe Swelling Verified 12/09/24 08:42 Review of Systems Review of Systems: Constitutional : No Fever, pos Chills ENT/Mouth : No sore throat, No Rhinorrhea, No Swallowing Difficulty Eyes: No Eye Pain, No Swelling, No Redness Cardiovascular : pos Chest Pain, positive SOB, pos Orthopnea, no Edema Respiratory : pos Cough, No Sputum, No Wheezing, positive dyspnea Gastrointestinal : pos Nausea, No Vomiting, No Diarrhea, No abdominal Pain, No Hematochezia, No Melena Genitourinary : No Dysuria, No Urinary Frequency, No Hematuria Musculoskeletal : No joint pain, pos Myalgias Skin : No Skin Lesions, No rash Neuro : pos Weakness, No Numbness, No Dizziness, No Headache All other systems reviewed and are negative PMFSH Past Medical History Attestation statement: The following information was validated with the patient. Source: old records reviewed Medical History Hyperlipidemia Hiatal hernia GERD (gastroesophageal reflux disease) Prostate cancer HTN (hypertension) Surgical History History of tonsillectomy History of prostatectomy History of esophagogastroduodenoscopy (EGD) Hx of colonoscopy Social History Social History Household Members: Spouse Housing: House Are you a primary cattle care worker to a significant other at home: No Do you presently have visiting nurse or other home services: No Alcohol intake: current Alcohol intake frequency: 0-2 drinks per day Alcohol type: beer, wine and hard liquor Comment: REFUSE ALARM Patient Tobacco Use Status: Former Tobacco user Tobacco use type: Cigarette Smoked in Last 30 Days: No Use of substances other than those prescribed or required for medical reasons: Yes Substance Use Type: Marijuana Advance Directives: No Advance Directives Information Provided: Yes Do you have a plan to hurt others: No Plan service: No Current occupational status: retired Physical Exam Vital Signs: Vital Signs: Last Vital Signs Temp 96.1 F L 12/09/24 10:25 Pulse 103 H 12/09/24 10:45 Resp 30 H 12/09/24 10:25 BP 54/21 L 12/09/24 10:45 Pulse Ox 96 12/09/24 10:25 O2 Del Method Room Air 12/09/24 10:25 BMI result Body Mass Index 32.8 Appearance: Alert. Oriented X3. Mild acute distress. Appears unwell and uncomfortable Eyes: Pupils equal, round and reactive to light. ENT: Pharynx dry MM Neck: Normal inspection. Neck supple. CVS: tachycardic heart rate and rhythm. muffled heart sounds. Pulses normal. Respiratory: No respiratory distress. Breath sounds diminished R base Abdomen: Soft and nontender. Skin: Skin warm and dry. pale skin color. Normal skin turgor. Extremities: No lower extremity edema. No calf ttp Neuro: Oriented X 3. No motor deficit. No sensory deficit. CN2-12 intact Course Course Course Narrative: BP dropped patient became more symptomatic moved to bed 22 main ED - IVF and 2 IVs ordered, bedside ECHO shows 3+ cm effusion with RV collapse and septal bowing - given BPs in 70s IVF bolus started along with rapid calls to thoracic for signs of clinical tamponade and tamponade on ECHO rapid calls to thoracic surgery and ICU they are aware anticipate OR responding to fluids still has RV collapse on bedside ECHO pressure dropping 70/50s starting levophed now I cannot keep large volumes of fluids given NA 121 Reevaluation(s) Reevaluation #1: patient escorted to OR by me and RN Medications Administered Generic Name Dose Route Start Last Admin Trade Name Freq PRN Reason Stop Dose Admin Norepinephrine Bitartrate 8 mg in 250 mls @ 0 mls/hr 12/09/24 10:45 12/09/24 10:45 Levophed IVCONT 0.05 mcg/kg/min .Q0M HONEY 10.28 mls/hr Administration Protocol Per Protocol Discontinued Medications Generic Name Dose Route Start Last Admin Trade Name Freq PRN Reason Stop Dose Admin Albuterol/Ipratropium 3 ml 12/09/24 09:44 12/09/24 09:49 Albuterol/Iprat 2.5/0.5mg 3 Ml Ampul.Neb INHALE 12/09/24 09:45 3 ml ONCE ONE Administration Lactated Ringer's 1,000 mls @ 999 mls/hr 12/09/24 09:36 12/09/24 10:08 Lr IV 12/09/24 10:36 Infused .Q1H1M ONE Infusion Cefepime HCl 2 gm in 50 mls @ 100 mls/hr 12/09/24 09:39 12/09/24 10:30 Maxipime IV 12/09/24 10:08 Infused ONCE ONE Infusion Vancomycin HCl 2,000 mg in 500 mls @ 250 mls/hr 12/09/24 09:39 12/09/24 10:36 Vancomycin/Ns IV 12/09/24 11:38 250 mls/hr ONCE ONE Administration Albumin Human 100 mls @ 133.333 mls/hr 12/09/24 10:00 12/09/24 10:39 Kedbumin 25 % IV 12/09/24 11:44 133.33 mls/hr Q1H HONEY Administration Procedures Procedure Narrative Procedure Narrative: bedside ECHO - parasternal, apical, subxiphoid RV collapse, hyerdynemic, 3+ CM effusion noted, bowing of septum, complete RV collapse noted on subxiphoid view Medical Decision Making Medical Decision Making [facility] Narrative: 69 yo male with PMH of hypomagnesemia, DM, colitis, ETOH abuse, HTN, diverticulitis, pancreatitis here with c/o worsening breathing, pleuritic chest pain since yesterday had a long prodrome of viral like illness and cough. He looks unwell at this time - sepsis alert ordered, VTE work up ordered. I am going to do bedside ECHO as well for pericardial effusion - could be myocarditis, pneumonia, floor, effusion, CHF, VTE Differential Diagnosis Differential Diagnoses: The differential diagnosis associated with the presentation includes pneumonia, VTE, viral infection, arthralgia, myocarditis, Admission/Observation Consideration of admission/observation: Escalation of care including admission/observation considered admit emergently to OR Consult Healthcare Provider Management of the patient was discussed with: Pattern Stamper Dr. Fine and Dr. Telles aware Lab Data [facility] Lab Attestation statement: I reviewed the patient's lab results. 12/09/24 09:04 12/09/24 09:04 Labs: Lab Results 12/09/24 12/09/24 12/09/24 Range/Units 09:04 09:39 09:52 WBC 15.9 H (4.8-10.8) X10*3/uL RBC 3.45 L D (4.60-5.80) X10*6/uL Hgb 11.1 L D (14.0-18.0) g/dl Hct 31.4 L D (42.0-52.0) % MCV 91.0 (80.0-98.0) fL MCH 32.2 (27.0-33.0) pg MCHC 35.4 (31.0-36.0) g/dl RDW 12.5 (11.0-16.0) % Plt Count 552 H D (160-400) X10*3/uL MPV 8.8 L (9.4-12.4) fL Immature Gran % (Auto) 0.8 H (0.0-0.4) % Neut % (Auto) 85.1 H (45-73) % Lymph % (Auto) 5.3 L (20-40) % [place] % (Auto) 8.5 (2-11) % Eos % (Auto) 0.1 (0-4) % Baso % (Auto) 0.2 (0-2) % Lymph # (Auto) 0.8 L (1.2-4.9) X10*3/uL [place] # (Auto) 1.4 H (0.1-1.2) X10*3/uL Eos # (Auto) 0.0 (0.0-0.4) X10*3/uL Baso # (Auto) 0.0 (0.0-0.2) X10*3/uL Abs Immat Gran (auto) 0.12 H (0.00-0.03) X10*3/uL Absolute Neuts (auto) 13.5 H (2.0-8.3) x10*3/uL Absolute Nucleated RBC 0.000 (0.0-0.012) X10*3/uL Nucleated RBC % (auto) 0.0 (0.0-0.2) /100WBC PT 12.2 (10.9-12.4) SEC INR 1.0 (0.9-1.1) D-Dimer High Sensitivty 881 NG/ML Sodium 121 L (135-145) mmol/L Potassium 5.7 H (3.3-5.1) mmol/L Chloride 90 L (96-108) mmol/L Carbon Dioxide 14 L (22-29) mmol/L Anion Gap 23 H (12-20) BUN 38 H (9-16) mg/dL Creatinine 2.89 H (0.5-1.4) mg/dL Estim Creat Clear Calc 30.8 Estimated GFR 22 Random Glucose 199 H (60-115) mg/dL Lactic Acid 3.0 H* (0.5-2.0) mmol/L Calcium 9.1 (8.4-10.2) mg/dL Magnesium 1.6 (1.6-2.6) mg/dL Total Bilirubin 0.5 (0.0-1.0) mg/dL AST 19 (5-37) U/L ALT 7 (0-40) U/L Alkaline Phosphatase 116 (39-117) U/L Total Creatine Kinase 110 (38-174) U/L Troponin I High Sens 4.9 (<3.5-35.0) ng/L C-Reactive Protein 13.10 H (< or = 0.50) mg/dL B-Natriuretic Peptide 160 H (<100) pg/mL Total Protein 7.3 (6.5-8.0) g/dL Albumin 3.5 (3.5-5.0) g/dL Procalcitonin 0.30 ng/mL Influenza Type A (PCR) NEGATIVE (Negative) Influenza Type B (PCR) NEGATIVE (Negative) RSV RNA Qual (PCR) NEGATIVE (Negative) SARS-CoV-2 RNA (RT-PCR) NEGATIVE (Negative) Blood Type O Negative Antibody Screen NEGATIVE Independent Interpretation I performed an independent interpretation of an: EKG and Plain X-Ray (enlarged silhouette) Interpretation: Rate: 115 Rhythm: sinus tachycardia with frequent PVCs [place]: normal Normal P waves. Normal FRANCES[place]. Normal QRS complex. alternating change in qrs size but there are also a lot of PVCs ST T wave : flat t waves III and aVF, no SNEHAL qTC: 442 prior studies: frequent PVCs but no ischemia The study has been interpreted contemporaneously by me. . Radiology Impression Discussion of test interpretation with radiology: I have reviewed the radiologist's reading. Independent Historian Clinical information obtained from an independent historian. History obtained from or confirmed by: Spouse External Record Review External record reviewed: Inpatient record and Outpatient record Critical Care Time Critical Care Time Critical Care Time: Yes Total Critical Care Time: 60 Attestation: repeat bedside assessments, sepsis protocol, emergent calls to ICU and thoracic I attest to this time spent taking care of the patient Discharge Plan Discharge Clinical Impression: Acute hyponatremia, PAM (acute kidney injury), Acute pericardial effusion, Elevated WBC count, Acute dyspnea, Cardiac tamponade Patient Disposition: Admitted As Inpatient Sepsis Bolus Exclusion Sepsis Bolus Exclusion CHF/Renal Failure This patient met severe sepsis criteria due to the following condition(s):: Hypotension In my clinical judgement the administration of 30 ml/kg of crystalloid would be detrimental to this patient due to the patient's following conditions:: Concern for fluid overload Replace the 30 mls/kg with (Zero amount not acceptable and all fluids for severe sepsis must be given at GREATER than 125 mls/hr) Crystalloids amount given in mls: (rate must be at least 150cc/hr): 1,000 Colloids amount given in mls:: 133
[2024-12-09 09:08] LABS: MANUAL DIFF FLAG NO
[2024-12-09 09:16] LABS: Basophils Percent Auto 0.2 % (0-2); Eosinophils Percent Auto 0.1 % (0-4); Hematocrit 31.4 % (42.0-52.0); Hemoglobin 11.1 g/dl (14.0-18.0); Imm Gran Abs Auto 0.12 X10*3/uL (0.00-0.03); Imm Gran Pct Auto 0.8 % (0.0-0.4); Lymphocytes Absolute Auto 0.8 X10*3/uL (1.2-4.9); Lymphocytes Percent Auto 5.3 % (20-40); Mean Corpuscular HGB Conc 35.4 g/dl (31.0-36.0); Mean Corpuscular Hemoglobin 32.2 pg (27.0-33.0); Mean Platelet Volume 8.8 fL (9.4-12.4); Monocytes Absolute Auto 1.4 X10*3/uL (0.1-1.2); Monocytes Percent Auto 8.5 % (2-11); Neutrophils Absolute Auto 13.5 x10*3/uL (2.0-8.3); Neutrophils Percent Auto 85.1 % (45-73); Platelet Count 552 X10*3/uL (160-400); Red Blood Count 3.45 X10*6/uL (4.60-5.80); Red Cell Distribution Width 12.5 % (11.0-16.0); White Blood Count 15.9 X10*3/uL (4.8-10.8)
[2024-12-09 09:23] LABS: D Dimer High Sensitivity 881 NG/ML
[2024-12-09 09:33] LABS: Alanine Aminotransferase 7 U/L (0-40); Albumin Level 3.5 g/dL (3.5-5.0); Alkaline Phosphatase 116 U/L (39-117); Anion Gap 23 (12-20); Aspartate Amino Transferase 19 U/L (5-37); Bilirubin Total 0.5 mg/dL (0.0-1.0); Blood Urea Nitrogen 38 mg/dL (9-16); Calcium 9.1 mg/dL (8.4-10.2); Carbon Dioxide 14 mmol/L (22-29); Chloride 90 mmol/L (96-108); Creatinine Clr Calc Pharmacy 30.8; Estimated Glomerular Filt Rate 22; Glucose Random 199 mg/dL (60-115); Magnesium 1.6 mg/dL (1.6-2.6); Potassium 5.7 mmol/L (3.3-5.1); Sodium 121 mmol/L (135-145); Total Protein 7.3 g/dL (6.5-8.0)
[2024-12-09 09:37] LABS: Troponin-I High Sensitivity 4.9 ng/L (<3.5-35.0)
--- NOTE | 2024-12-09 09:48 | PC.NURSE ---
patient arrived [place] [facility] [place] [facility] a&ox3, speaking in full sentences but notably short of breath, upon inserting the IV to the patient his BP was noted to be 70s systolic, repeat BP performed with same result, BP cuff then moved to other side which he was noted to be 70s systolic. patient then became very pale and RR increased. provider was notified, bcx2 drawn and additional labs drawn, pt being moved to room 22.
[2024-12-09] MEDS: Albuterol/Iprat 2.5/0.5MG 3 ML AMPUL.NEB INHALE (09:49)
[2024-12-09] MEDS: Lactated Ringers 1,000 ML 999 ML IV (09:50)
[2024-12-09 09:51] LABS: Influenza A PCR NEGATIVE (Negative); Influenza B PCR NEGATIVE (Negative); Resp Syncy Virus RNA Qual PCR NEGATIVE (Negative); SARS COV2 PCR INHOUSE NEGATIVE (Negative)
[2024-12-09] MEDS: cefEPime HCl/D5W 2 GM/50 ML PIGGYBACK IV (09:53)
[2024-12-09] MEDS: Albumin Human 25 % 100 ML 133.33 ML IV ×2 (10:02→10:39)
[2024-12-09 10:09] LABS: B Type Natriuretic Peptide 160 pg/mL (<100)
--- NOTE | 2024-12-09 10:15 | PC.NURSE ---
patient brought over by baltazar ROJAS from [facility]. patient noted to be sob rr 25-30. secondary IV line started in patient left hand #20. patient LR Bolus initiated per [facility], ED provider at bedside for cardiac US. patient medicated per MAR, patient remains alert and oriented x4, able to follow commands, pupils equal and reactive bilaterally. patient breathing noted to be labored, skin dry and intact.
[2024-12-09 10:26] LABS: Prothrombin Time 12.2 SEC (10.9-12.4)
[2024-12-09] MEDS: vancomycin/NS 2,000 MG/500 ML PLAST..BAG 250 MG IV (10:36)
[2024-12-09] MEDS: Norepinephrine Bitartrate/D5W 8 MG/250 ML PLAST..BAG 10.28 MG IVCONT (10:45)
--- NOTE | 2024-12-09 11:16 | PC.NURSE ---
Additional IV started in patient right hand #20. patient became hypotensive despite LR running at 100ml/hr, unable to get bp on monitor, manual done at bedside by this RN 50/20. Ed provider at bedside ordered levophed gtt. patient remained alert and awake, stated he felt tired. levophed gtt started per DEC. Thoracic surgeon at bedside, OR nurse at bedside. patient transported on monitor to OR by this RN, ED provider, Thoracic surgeon and OR nurse. patients escorted to ICU WR and given update.
--- NOTE | 2024-12-09 11:29 | HO.THORH&P ---
History of Present Illness History of Present Illness Date of Service: 12/09/24 Chief complaint: CP Narrative: Abel Grayson is a 69 year old male whom I met acutely. He has been diagnosed with acute pericardial effusion and tamponade. The diagnosis was made by ER doctor confirmed by demonstrator sewing techniques of pericardial tamponade by sonogram. Patient is somewhat conversant. His is also present and gets a collateral history. Patient has a collection of comorbidities and intercurrent medical problems. Chart was reviewed and patient evaluated PMFSH Past Medical History Medical History Hyperlipidemia Hiatal hernia GERD (gastroesophageal reflux disease) Prostate cancer HTN (hypertension) Surgical History Surgical History History of tonsillectomy History of prostatectomy History of esophagogastroduodenoscopy (EGD) Hx of colonoscopy Social History Social History Household Members: Spouse Housing: House Are you a primary caregivers homecare to a significant other at home: No Do you presently have visiting nurse or other home services: No Alcohol intake: current Alcohol intake frequency: 0-2 drinks per day Alcohol type: beer, wine and hard liquor Comment: REFUSE ALARM Patient Tobacco Use Status: Former Tobacco user Tobacco use type: Cigarette Smoked in Last 30 Days: No Use of substances other than those prescribed or required for medical reasons: Yes Substance Use Type: Marijuana Advance Directives: No Advance Directives Information Provided: Yes Do you have a plan to hurt others: No Plan service: No Current occupational status: retired Meds Allergies Allergy/AdvReac Type Severity Reaction Status Date / Time bee pollen [bee stings] Allergy Severe Swelling Verified 12/09/24 08:42 Active Medications: Current Medications Vancomycin HCl (Vancomycin/Ns) 2,000 mg in 500 mls @ 250 mls/hr IV ONCE ONE Stop: 12/09/24 11:38 Last Admin: 12/09/24 10:36 Dose: 250 mls/hr Albumin Human (Kedbumin 25 %) 100 mls @ 133.333 mls/hr IV Q1H HONEY Stop: 12/09/24 11:44 Last Admin: 12/09/24 10:39 Dose: 133.33 mls/hr Norepinephrine Bitartrate (Levophed) 8 mg in 250 mls @ 0 mls/hr IVCONT .Q0M [facility], [facility]; Protocol Last Admin: 12/09/24 10:45 Dose: 0.05 mcg/kg/min, 10.28 mls/hr Home Medications ?Medication ?Instructions ?Recorded ?Confirmed ?Last Taken ?Type lisinopril 5 mg tablet 1 tab PO DAILY 04/18/21 09/08/22 09/08/22 08:00 History omeprazole 20 mg capsule,delayed 20 mg PO DAILY 09/08/22 09/08/22 Unknown History release Physical Exam Vital Signs: Vital Signs: Last Vital Signs Temp 96.1 F L 12/09/24 10:25 Pulse 103 H 12/09/24 10:45 Resp 30 H 12/09/24 10:25 BP 54/21 L 12/09/24 10:45 Pulse Ox 96 12/09/24 10:25 O2 Del Method Room Air 12/09/24 10:25 BMI result Body Mass Index 32.8 Patient has become more hypotensive. He is being resuscitated with volume and pressors. Chest: Other: Chest breath sounds bilaterally. Heart sounds distant GI: Other: Abdomen is very corpulent, soft, benign Results Results Labs: Short CBC 12/09/24 Range/Units 09:04 WBC 15.9 H (4.8-10.8) X10*3/uL Hgb 11.1 L D (14.0-18.0) g/dl Hct 31.4 L D (42.0-52.0) % Plt Count 552 H D (160-400) X10*3/uL BMP 12/09/24 09:04 Sodium 121 L Potassium 5.7 H Chloride 90 L Carbon Dioxide 14 L BUN 38 H Creatinine 2.89 H Calcium 9.1 Cardiac Enzymes 12/09/24 Range/Units 09:39 Total Creatine Kinase 110 (38-174) U/L Liver Function 12/09/24 Range/Units 09:04 Total Bilirubin 0.5 (0.0-1.0) mg/dL AST 19 (5-37) U/L ALT 7 (0-40) U/L Alkaline Phosphatase 116 (39-117) U/L Albumin 3.5 (3.5-5.0) g/dL Assessment and Plan (1) Acute pericardial effusion: Status: Acute (2) Pericardial effusion without cardiac tamponade: Status: Acute Plan I discussed with the patient and his the immediately/urgency of the situation. Patient needs a pericardial window. He will be emergently taken to the operating room for this presently. Risks, benefits, alternatives of the procedure reviewed with the patient's and included but not limited to bleeding, infection, recurrence, numbness, pain, scarring and she wishes to proceed. All questions answered. She signed consent. Patient is being transported to the OR area now. Quality Stroke Does the patient have a stroke diagnosis?: No VTE Prior VTE?: No VTE Risk Level:: Surgical - low VTE Device Contraindication: N/A - Device Ordered VTE Drug Contraindication: Treatment Not Indicated Procedures Date of Service Date of Service: 12/09/24
--- NOTE | 2024-12-09 11:34 | HO.ANESPROP2 ---
HPI - Anesthesia Eval Consult details Narrative: Pericardiac tamponate PMFSH Active Problems Active Problems: All Active Problems Pericardial effusion without cardiac tamponade (Acute) Acute dyspnea (Acute) Elevated WBC count (Acute) Acute pericardial effusion (Acute) PAM (acute kidney injury) (Acute) Acute hyponatremia (Acute) Cerumen impaction (Acute) Lesion of tongue (Acute) Shoulder pain, right (Acute) Diabetes mellitus (Acute) Greater trochanteric bursitis of right hip (Acute) Hyponatremia (Acute) Hyperglycemia (Acute) Ileus (Acute) Hyponatremia (Acute) Hypomagnesemia (Acute) Acute pancreatitis (Acute) Acute kidney injury (Acute) Alcohol dependence (Acute) Colitis (Acute) Strain of lumbar paraspinal muscle (Acute) Past Medical History Medical History Hyperlipidemia Hiatal hernia GERD (gastroesophageal reflux disease) Prostate cancer HTN (hypertension) Family History Family history of problems with anesthesia: No Surgical History Surgical History History of tonsillectomy History of prostatectomy History of esophagogastroduodenoscopy (EGD) Hx of colonoscopy History of Problems with Anesthesia: No Social History Social History Household Members: Spouse Housing: House Are you a primary career and technology education teacher to a significant other at home: No Do you presently have visiting nurse or other home services: No Alcohol intake: current Alcohol intake frequency: 0-2 drinks per day Alcohol type: beer, wine and hard liquor Comment: REFUSE ALARM Patient Tobacco Use Status: Former Tobacco user Tobacco use type: Cigarette Smoked in Last 30 Days: No Use of substances other than those prescribed or required for medical reasons: Yes Substance Use Type: Marijuana Advance Directives: No Advance Directives Information Provided: Yes Do you have a plan to hurt others: No Plan service: No Current occupational status: retired Meds Allergies Allergy/AdvReac Type Severity Reaction Status Date / Time bee pollen [bee stings] Allergy Severe Swelling Verified 12/09/24 08:42 Active Medications: Current Medications Vancomycin HCl (Vancomycin/Ns) 2,000 mg in 500 mls @ 250 mls/hr IV ONCE ONE Stop: 12/09/24 11:38 Last Admin: 12/09/24 10:36 Dose: 250 mls/hr Albumin Human (Kedbumin 25 %) 100 mls @ 133.333 mls/hr IV Q1H HONEY Stop: 12/09/24 11:44 Last Admin: 12/09/24 10:39 Dose: 133.33 mls/hr Norepinephrine Bitartrate (Levophed) 8 mg in 250 mls @ 0 mls/hr IVCONT .Q0M HONEY; Protocol Last Admin: 12/09/24 10:45 Dose: 0.05 mcg/kg/min, 10.28 mls/hr Cefazolin Sodium/Dextrose (Ancef) 2 gm in 50 mls @ 100 mls/hr IV PREOP ONE Stop: 12/09/24 11:54 Home Medications ?Medication ?Instructions ?Recorded ?Confirmed ?Last Taken ?Type lisinopril 5 mg tablet 1 tab PO DAILY 04/18/21 09/08/22 09/08/22 08:00 History omeprazole 20 mg capsule,delayed 20 mg PO DAILY 09/08/22 09/08/22 Unknown History release Exam Height,Weight and Vital Signs: Height 6 ft Weight 109.6 kg Last Vital Signs Temp 96.1 F L 12/09/24 10:25 Pulse 103 H 12/09/24 10:45 Resp 30 H 12/09/24 10:25 BP 54/21 L 12/09/24 10:45 Pulse Ox 96 12/09/24 10:25 O2 Del Method Room Air 12/09/24 10:25 Pertinent Lab Results Pertinent Lab Results: Laboratory Tests 12/09/24 12/09/24 12/09/24 09:04 09:39 09:52 WBC 15.9 H RBC 3.45 L D Hgb 11.1 L D Hct 31.4 L D MCV 91.0 MCH 32.2 MCHC 35.4 RDW 12.5 Plt Count 552 H D MPV 8.8 L Immature Gran % (Auto) 0.8 H Neut % (Auto) 85.1 H Lymph % (Auto) 5.3 L [place] % (Auto) 8.5 Eos % (Auto) 0.1 Baso % (Auto) 0.2 Lymph # (Auto) 0.8 L [place] # (Auto) 1.4 H Eos # (Auto) 0.0 Baso # (Auto) 0.0 Abs Immat Gran (auto) 0.12 H Absolute Neuts (auto) 13.5 H Absolute Nucleated RBC 0.000 Nucleated RBC % (auto) 0.0 PT 12.2 INR 1.0 D-Dimer High Sensitivty 881 Sodium 121 L Potassium 5.7 H Chloride 90 L Carbon Dioxide 14 L Anion Gap 23 H BUN 38 H Creatinine 2.89 H Estim Creat Clear Calc 30.8 Estimated GFR 22 Random Glucose 199 H Lactic Acid 3.0 H* Calcium 9.1 Magnesium 1.6 Total Bilirubin 0.5 AST 19 ALT 7 Alkaline Phosphatase 116 Total Creatine Kinase 110 Troponin I High Sens 4.9 C-Reactive Protein 13.10 H B-Natriuretic Peptide 160 H Total Protein 7.3 Albumin 3.5 Procalcitonin 0.30 Influenza Type A (PCR) NEGATIVE Influenza Type B (PCR) NEGATIVE RSV RNA Qual (PCR) NEGATIVE SARS-CoV-2 RNA (RT-PCR) NEGATIVE Blood Type O Negative Antibody Screen NEGATIVE Airway Mallampati Class: II TM Dist: >3cm Neck ROM: Full Loose/Missing/Broken Teeth: No Heart: RRR Lungs: CTA Assessment and Plan Assessment Anesthesia Assessment: Anesthesia Plan Discussed and Chart Reviewed Final Anesthetic Review Family History of Problems with Anesthesia: No History of Problems with Anesthesia: No NPO: Yes ASA Class: IV and Emergency Final Preanesthetic Review: No Changes in Pt Med Stat, Meds/Allgs Chart Reviewed, Consent Obtained/Reviewed and Anes Risks/Benef Reviewed Patient Risk: High Procedure Risk: Intermediate Anesthetic Plan Anesthetic Plan: GA Disposition: Standard PACU
[2024-12-09 11:45] LABS: Reflex Lactate? Lactic Acid Added
[2024-12-09] MEDS: ceFAZolin Sodium/Dextrose,Iso 2 GM/50 ML PIGGYBACK IV (11:45)
--- NOTE | 2024-12-09 14:30 | P.OP_ITS ---
Operative Note Operative Note Date of Service: 12/09/24 Narrative: Preoperative diagnosis: [] Massive pericardial effusion, pericardial tamponade, hemodynamically unstable Postop diagnosis: [] The same Procedure [] subxiphoid pericardial window, pericardial biopsy Surgeon: [] [facility] Specialist: [] Type of Anesthesia: [] General Findings; patient was in extremis and hemodynamically unstable. Very corpulent abdomen. Roughly 1 L of grossly bloody fluid drained from pericardium. Hemodynamics immediately improved upon release of pericardial tamponade fluid. The fluid was sent for variety of cultures as well as cytology. Pericardial sac specimen sent to pathology. Procedure; Patient brought to the operating emergently, placed on operative table in supine position, after an adequate level of general anesthesia was induced, patient was abdomen and upper chest were prepped and draped in usual sterile fashion. Using a subxiphoid incision, this carried down through skin, subcutaneous tissue, and linea alba. Extraperitoneal dissection was performed and the pericardial sac was identified. An incision was made in the pericardium and immediate retrieval of 1 L of grossly bloody fluid was retrieved. Next a pericardial window was fascia using Bovie. Through a separate stab wound incision in the left upper quadrant, large De Leon catheter was placed in the pericardium. This catheter was secured to the skin using 2-0 nylon. Wound was irrigated, secured hemostasis. Subxiphoid fascia incision was reapproximated using running 1. Maxon suture. Interrupted inverted dermal 3-0 Vicryl sutures followed by Steri-Strips and sterile dressings were applied. Wound was infiltrated 0.5% Marcaine at completion. Sponge, needle, and instrument counts reported correct. Patient tolerated the procedure well and was transferred to recovery room in stable condition. EBL minimal.
--- NOTE | 2024-12-09 14:46 | PHA.MEDREC ---
Addendum entered by Danette Hopkins RPh 12/09/24 15:14: MED REC REVIEWED BY DNIA Original Note: Pharmacy Consult ? Medication Reconciliation Pharmacy has completed the medication reconciliation. Spoke with patient and spouse to confirm medications. He was given ibuprofen 800 mg bid for shoulder pain but stopped taking 4 days ago. He has been using OTC pain meds (advil, alieve, voltaren) prn for the pain but does not use these regularly. He last took his maintenance meds this morning and 2 OTC advils as well.
[2024-12-09] MEDS: HYDROmorphone HCl 0.5 MG/0.5 ML SYRINGE IVPUSH ×2 (15:00→19:54)
[2024-12-09] MEDS: Pantoprazole Sodium 40 MG/10 ML VIAL IVPUSH (15:00)
[2024-12-09 15:12] LABS: MANUAL DIFF FLAG NO
[2024-12-09 15:18] LABS: Basophils Percent Auto 0.1 % (0-2); Eosinophils Percent Auto 0.3 % (0-4); Hematocrit 30.5 % (42.0-52.0); Hemoglobin 10.5 g/dl (14.0-18.0); Imm Gran Abs Auto 0.12 X10*3/uL (0.00-0.03); Imm Gran Pct Auto 0.9 % (0.0-0.4); Lymphocytes Absolute Auto 0.5 X10*3/uL (1.2-4.9); Lymphocytes Percent Auto 4.2 % (20-40); Mean Corpuscular HGB Conc 34.4 g/dl (31.0-36.0); Mean Corpuscular Hemoglobin 31.5 pg (27.0-33.0); Mean Corpuscular Volume 91.6 fL (80.0-98.0); Mean Platelet Volume 8.7 fL (9.4-12.4); Monocytes Absolute Auto 0.9 X10*3/uL (0.1-1.2); Monocytes Percent Auto 6.6 % (2-11); Neutrophils Absolute Auto 11.4 x10*3/uL (2.0-8.3); Neutrophils Percent Auto 87.9 % (45-73); Platelet Count 393 X10*3/uL (160-400); Red Blood Count 3.33 X10*6/uL (4.60-5.80); Red Cell Distribution Width 12.5 % (11.0-16.0); White Blood Count 12.9 X10*3/uL (4.8-10.8)
[2024-12-09 15:29] LABS: Alanine Aminotransferase 13 U/L (0-40); Albumin Level 3.3 g/dL (3.5-5.0); Alkaline Phosphatase 99 U/L (39-117); Anion Gap 19 (12-20); Aspartate Amino Transferase 23 U/L (5-37); Bilirubin Total 0.4 mg/dL (0.0-1.0); Blood Urea Nitrogen 39 mg/dL (9-16); Calcium 8.5 mg/dL (8.4-10.2); Carbon Dioxide 14 mmol/L (22-29); Chloride 96 mmol/L (96-108); Creatinine Clr Calc Pharmacy 34.4; Estimated Glomerular Filt Rate 25; Glucose Random 144 mg/dL (60-115); Potassium 5.6 mmol/L (3.3-5.1); Rheumatoid Factor 45.1 IU/mL (<15.0); Sodium 123 mmol/L (135-145); Total Protein 6.5 g/dL (6.5-8.0)
[2024-12-09 15:35] LABS: C Reactive Protein 12.38 mg/dL (< or = 0.50)
--- NOTE | 2024-12-09 15:36 | P.HPCC_ITS ---
History of Present Illness Date of Service: 12/09/24 Chief Complaint: Shortness of breath 69-year-old gentleman with past medical history of chronic alcohol abuse, last drink yesterday night hypertension, diabetes mellitus, diverticulitis, pancreatitis presented to the ED with complaints of shortness of breath and extreme fatigue for the past day or so that he could not ambulate or take care of his daily routine. He also has been having cough for the past 3 weeks, mildly productive, not associated with blood. He had bilateral shoulder joint pains so far which is at Dr. and was given steroid injection. In the ED he underwent TTE which showed large pericardial effusion with tamponade physiology, thoracic surgery was called in, underwent pericardial window placement and is being transferred to ICU for close monitoring. He drinks alcohol everyday about 1-2 cans off [place], last drink was yesterday night. He states he does not drink enough to go through withdrawal, has never had withdrawals in his life during previous admissions. Review of Systems 2 Constitutional: Constitutional: Reports anorexia, Reports body ache(s), Denies chills, Denies daytime sleepiness, Reports excessive sweating and Reports fatigue Eyes: Eyes: Denies change in vision and Denies decreased night vision ENT: Reports Normal hearing present and Denies bleeding gums Cardiovascular: Cardiovascular: Denies Abdominal Distension, Denies chest pain, Denies chest pain at rest and Denies chest pain with activity Respiratory: Respiratory: Reports change in phlegm color, Reports chest congestion, Reports cough and Denies hemoptysis Gastrointestinal: Gastrointestinal: Denies no additional gastrointestinal complaints, Denies abdominal pain, Denies belching and Denies melena Genitourinary: Genitourinary: Denies change in libido, Denies hematuria and Denies oliguria Integumentary/Breasts: Skin/Breast: Denies bleeding lesions, Denies furuncle and Denies breast swelling Neurologic: Reports Normal hearing present, Denies Neuro-related abnormal movements, Denies Abnormal speech present and Denies behavioral changes Psychiatric: Psychiatric: Denies behavioral changes, Reports change in appetite and Denies change in libido Endocrine: Endocrine: Denies change in libido, Reports excessive sweating and Reports fatigue PMFSH Past Medical History Medical History Hyperlipidemia Hiatal hernia GERD (gastroesophageal reflux disease) Prostate cancer HTN (hypertension) Surgical History Surgical History History of tonsillectomy History of prostatectomy History of esophagogastroduodenoscopy (EGD) Hx of colonoscopy Social History Social History Household Members: Spouse Housing: House Are you a primary care transport nurse to a significant other at home: No Do you presently have visiting nurse or other home services: No Alcohol intake: current Alcohol intake frequency: 0-2 drinks per day Alcohol type: beer, wine and hard liquor Comment: REFUSE ALARM Patient Tobacco Use Status: Former Tobacco user Tobacco use type: Cigarette Smoked in Last 30 Days: No Use of substances other than those prescribed or required for medical reasons: Yes Substance Use Type: Marijuana Advance Directives: No Advance Directives Information Provided: Yes Do you have a plan to hurt others: No Plan service: No Current occupational status: retired Meds Allergies Allergy/AdvReac Type Severity Reaction Status Date / Time bee pollen [bee stings] Allergy Severe Swelling Verified 12/09/24 08:42 Active Medications: Current Medications Fentanyl (Fentanyl Citrate/Pf 100 Mcg/2 Ml Vial) 50 mcg IVPUSH Q5M PRN PRN Reason: Pain, Moderate to Severe (Pain Scale 4-10) Stop: 12/09/24 17:35 Hydromorphone HCl (Hydromorphone Hcl 0.5 Mg/0.5 Ml Syringe) 0.5 mg IVPUSH Q4H PRN; Protocol PRN Reason: Pain, Moderate(Pain Scale 4-6) Last Admin: 12/09/24 15:00 Dose: 0.5 mg Norepinephrine Bitartrate (Levophed) 8 mg in 250 mls @ 0 mls/hr IVCONT .Q0M HONEY; Protocol Last Admin: 12/09/24 10:45 Dose: 0.05 mcg/kg/min, 10.28 mls/hr Naloxone HCl (Naloxone Hcl 0.4 Mg/Ml Vial) 0.04 mg IVPUSH Q5M PRN PRN Reason: Excessive sedation or RR < 8 Ondansetron HCl (Ondansetron Hcl 4 Mg/2 Ml Vial) 4 mg IVPUSH Q8H PRN PRN Reason: Nausea and Vomiting Pantoprazole Sodium (Pantoprazole Sodium 40 Mg/10 Ml Vial) 40 mg IVPUSH DAILY@0630 COUNTS INCLUDE 234 BEDS AT THE [facility] Last Admin: 12/09/24 15:00 Dose: 40 mg Home Medications ?Medication ?Instructions ?Recorded ?Confirmed ?Last Taken ?Type lisinopril 5 mg tablet 1 tab PO DAILY 04/18/21 12/09/24 12/09/24 History omeprazole 20 mg capsule,delayed 20 mg PO DAILY 09/08/22 12/09/24 12/09/24 History release Physical Exam 2 Vital Signs: Vital Signs: Last Vital Signs Temp 96.1 F L 12/09/24 10:25 Pulse 74 12/09/24 15:20 Resp 16 12/09/24 15:20 BP 127/69 12/09/24 15:20 Pulse Ox 100 12/09/24 15:20 O2 Del Method Nasal Cannula 12/09/24 15:20 O2 Flow Rate 1 12/09/24 15:20 Oxygen Flow Rate 1 12/09/24 14:11 BMI result Body Mass Index 32.8 General: In somewhat acute distress, ill appearing and tired appearing Nutritional Appearance: well nourished and overweight Eyes: appearance normal, both eyes and all related structures; Alignment and Position: alignment normal and position normal Neck: No lymphadenopathy, no thyromegaly Resp: bilateral air entry equal, occasional added sounds present Cardio: Regular rate, regular rhythm; Heart sounds: S1 normal heart sound present and S2 normal heart sound present GI: soft, nontender, no guarding, no hepatosplenomegaly : bladder normal to inspection, bladder normal to palpation, no renal angle tenderness Skin: no rashes or lesions noted and elasticity normal Neuro: oriented to person, oriented to place, oriented to time and moves all extremities Neuro: Cranial nerves: Yes Normal hearing present Speech: No Abnormal speech present Results Labs 12/09/24 14:57 12/09/24 14:57 Labs: Laboratory Results - last 24 hr 12/09/24 12/09/24 12/09/24 09:04 09:39 09:52 MCV 91.0 MCH 32.2 MCHC 35.4 RDW 12.5 Plt Count 552 H D MPV 8.8 L Immature Gran % (Auto) 0.8 H Neut % (Auto) 85.1 H Lymph % (Auto) 5.3 L [place] % (Auto) 8.5 Eos % (Auto) 0.1 Baso % (Auto) 0.2 Lymph # (Auto) 0.8 L [place] # (Auto) 1.4 H Eos # (Auto) 0.0 Baso # (Auto) 0.0 Abs Immat Gran (auto) 0.12 H Absolute Neuts (auto) 13.5 H Absolute Nucleated RBC 0.000 Nucleated RBC % (auto) 0.0 Hold Purple Top PT 12.2 INR 1.0 D-Dimer High Sensitivty 881 Anion Gap 23 H Estim Creat Clear Calc 30.8 Estimated GFR 22 Random Glucose 199 H Lactic Acid 3.0 H* Calcium 9.1 Magnesium 1.6 Total Bilirubin 0.5 AST 19 ALT 7 Alkaline Phosphatase 116 Total Creatine Kinase 110 C-Reactive Protein 13.10 H B-Natriuretic Peptide 160 H Total Protein 7.3 Albumin 3.5 Procalcitonin 0.30 Rheumatoid Factor Influenza Type A (PCR) NEGATIVE Influenza Type B (PCR) NEGATIVE RSV RNA Qual (PCR) NEGATIVE SARS-CoV-2 RNA (RT-PCR) NEGATIVE Blood Type O Negative Antibody Screen NEGATIVE 12/09/24 14:57 MCV 91.6 MCH 31.5 MCHC 34.4 RDW 12.5 Plt Count 393 D MPV 8.7 L Immature Gran % (Auto) 0.9 H Neut % (Auto) 87.9 H Lymph % (Auto) 4.2 L [place] % (Auto) 6.6 Eos % (Auto) 0.3 Baso % (Auto) 0.1 Lymph # (Auto) 0.5 L [place] # (Auto) 0.9 Eos # (Auto) 0.0 Baso # (Auto) 0.0 Abs Immat Gran (auto) 0.12 H Absolute Neuts (auto) 11.4 H Absolute Nucleated RBC 0.000 Nucleated RBC % (auto) 0.0 Hold Purple Top SEE NOTE PT INR D-Dimer High Sensitivty Anion Gap 19 Estim Creat Clear Calc 34.4 Estimated GFR 25 Random Glucose 144 H Lactic Acid Calcium 8.5 D Magnesium Total Bilirubin 0.4 AST 23 ALT 13 Alkaline Phosphatase 99 Total Creatine Kinase C-Reactive Protein 12.38 H B-Natriuretic Peptide Total Protein 6.5 Albumin 3.3 L Procalcitonin Rheumatoid Factor 45.1 H Influenza Type A (PCR) Influenza Type B (PCR) RSV RNA Qual (PCR) SARS-CoV-2 RNA (RT-PCR) Blood Type Antibody Screen Assessment and Plan (1) Alcohol dependence: Status: Acute (2) Cardiac tamponade: Status: Acute (3) Acute pericardial effusion: Status: Acute (4) Pericardial effusion without cardiac tamponade: Status: Acute (5) Diabetes mellitus: Status: Acute (6) Hyponatremia: Status: Acute (7) Acute dyspnea: Status: Acute Plan Acute dyspnea: Pericardial tamponade: Secondary to pericardial tamponade Status post pericardial window, About a L of hemorrhagic pericardial fluid was drained Possibly viral in etiology, sending respiratory viral panel, GORDON, RF factor, HIV, ESR, CRP. If these things are negative then the patient for need CT chest abdomen and pelvis to rule out underlying malignancy. Pericardial fluid analysis is pending. Chronic alcoholism: Patient states he does not drink enough to go through withdrawals, never had withdrawals in the past Hypotension: Blood pressure is under good control at present continue standing fluids Diabetes mellitus: will start on sliding scale insulin Prophylaxis: SCD, pantoprazole Total time managing care of this patient today: 39 minutes.
[2024-12-09 15:38] LABS: ~Lactic Acid-LAB USE ONLY 3.1 mmol/L (0.5-2.0)
[2024-12-09 15:52] LABS: Erythrocyte Sedimentation Rate 42 MM/HR (0-15); Thyroid Stimulating Hormone 0.55 uIU/mL (0.32-4.0)
[2024-12-09 16:10] LABS: Troponin-I High Sensitivity 116.5 ng/L (<3.5-35.0)
[2024-12-09 17:06] LABS: Glucose, Whole Blood 120 mg/dL (60-115)
[2024-12-09 17:09] LABS: Reflex Lactate? 2 Y
[2024-12-09 18:00] LABS: ~Lactic Acid-LAB USE ONLY 1.5 mmol/L (0.5-2.0)
[2024-12-09] MEDS: Benzonatate 100 MG CAPSULE PO (18:01)
[2024-12-09 20:06] LABS: MN% 5.5 %; PMN% 94.5 %
[2024-12-09 20:19] LABS: BF Shift QC OK YES
[2024-12-09 20:29] LABS: Lymphs Pericardial Fl 1 %; Monocytes Pericard Fl 2 %; Neutrophils Pericardial Fluid 97 %
[2024-12-09 21:24] LABS: Alanine Aminotransferase 9 U/L (0-40); Albumin Level 3.1 g/dL (3.5-5.0); Alkaline Phosphatase 94 U/L (39-117); Anion Gap 17 (12-20); Aspartate Amino Transferase 22 U/L (5-37); Bilirubin Total 0.4 mg/dL (0.0-1.0); Blood Urea Nitrogen 39 mg/dL (9-16); Calcium 8.1 mg/dL (8.4-10.2); Carbon Dioxide 16 mmol/L (22-29); Chloride 95 mmol/L (96-108); Creatinine Clr Calc Pharmacy 38.5; Estimated Glomerular Filt Rate 28; Glucose Random 189 mg/dL (60-115); Sodium 123 mmol/L (135-145); Total Protein 6.1 g/dL (6.5-8.0)
[2024-12-09 22:22] LABS: Glucose, Whole Blood 171 mg/dL (60-115)
[2024-12-09] MEDS: Insulin Lispro 100 UNIT/ML 3 ML VIAL SUBCUT (23:17)
[2024-12-10] VITALS (19 sets, daily range): BP systolic 91–134; BP diastolic 49–69; PULSE 83–107; RESP 14–26; TEMP 36.2–37; O2SAT 92–100; BMI 33.6
[2024-12-10] MEDS: HYDROmorphone HCl 0.5 MG/0.5 ML SYRINGE IVPUSH ×3 (01:04→16:21)
[2024-12-10] MEDS: Pantoprazole Sodium 40 MG/10 ML VIAL IVPUSH (05:41)
[2024-12-10 07:14] LABS: MANUAL DIFF FLAG NO
[2024-12-10 07:21] LABS: Basophils Percent Auto 0.2 % (0-2); Eosinophils Percent Auto 0.1 % (0-4); Hematocrit 29.4 % (42.0-52.0); Hemoglobin 10.3 g/dl (14.0-18.0); Imm Gran Abs Auto 0.06 X10*3/uL (0.00-0.03); Imm Gran Pct Auto 0.6 % (0.0-0.4); Lymphocytes Absolute Auto 0.4 X10*3/uL (1.2-4.9); Lymphocytes Percent Auto 4.1 % (20-40); Mean Corpuscular Hemoglobin 31.9 pg (27.0-33.0); Mean Platelet Volume 8.9 fL (9.4-12.4); Monocytes Percent Auto 10.2 % (2-11); Neutrophils Absolute Auto 8.4 x10*3/uL (2.0-8.3); Neutrophils Percent Auto 84.8 % (45-73); Platelet Count 376 X10*3/uL (160-400); Red Blood Count 3.23 X10*6/uL (4.60-5.80); Red Cell Distribution Width 12.4 % (11.0-16.0); White Blood Count 9.9 X10*3/uL (4.8-10.8)
[2024-12-10 07:41] LABS: Alanine Aminotransferase 10 U/L (0-40); Albumin Level 2.8 g/dL (3.5-5.0); Alkaline Phosphatase 93 U/L (39-117); Anion Gap 16 (12-20); Aspartate Amino Transferase 23 U/L (5-37); Bilirubin Total 0.4 mg/dL (0.0-1.0); Blood Urea Nitrogen 37 mg/dL (9-16); Carbon Dioxide 17 mmol/L (22-29); Chloride 97 mmol/L (96-108); Creatinine Clr Calc Pharmacy 49.5; Estimated Glomerular Filt Rate 37; Glucose Random 125 mg/dL (60-115); Magnesium 1.6 mg/dL (1.6-2.6); Phosphorus 3.4 mg/dL (2.7-4.5); Sodium 125 mmol/L (135-145); Total Protein 5.7 g/dL (6.5-8.0)
[2024-12-10] MEDS: Benzonatate 100 MG CAPSULE PO (10:13)
--- NOTE | 2024-12-10 11:05 | MHC.CM.PN ---
PT REPORTS HE LIVES WITH HIS AND IS INDEPENDENT WITH CARE HE HAS NO DME AND NO SERVICES HE SAYS HE HAS A HCP, COPY REQUESTED PCP: RICARDA AMEZQUITA IMM DELIVERED DCP: HOME [facility]
[2024-12-10 11:33] LABS: Glucose, Whole Blood 180 mg/dL (60-115)
[2024-12-10 11:48] LABS: Adenovirus PCR Not Detected (Not Detect.); Bordetella parapertussis PCR Not Detected (Not Detect.); Bordetella pertussis PCR Not Detected (Not Detect.); Chlamydia pneumoniae PCR Not Detected (Not Detect.); Coronavirus 229E PCR Not Detected (Not Detect.); Coronavirus HKU1 PCR Not Detected (Not Detect.); Coronavirus NL63 PCR Not Detected (Not Detect.); Coronavirus OC43 PCR Not Detected (Not Detect.); Human metapneumovirus PCR Not Detected (Not Detect.); Influenza A PCR Not Detected (Not Detect.); Influenza B PCR Not Detected (Not Detect.); Mycoplasma pneumoniae PCR Not Detected (Not Detect.); Parainfluenza 1 PCR Not Detected (Not Detect.); Parainfluenza 2 PCR Not Detected (Not Detect.); Parainfluenza 3 PCR Not Detected (Not Detect.); Parainfluenza 4 PCR Not Detected (Not Detect.); RSV PCR Not Detected (Not Detect.); Rhino/Enterovirus PCR Not Detected (Not Detect.)
[2024-12-10 11:57] LABS: SARS-CoV-2 PCR Not Detected (Not Detect.)
--- NOTE | 2024-12-10 12:09 | PM.CCPN ---
Subjective Subjective Date of Service: 12/10/24 Critical Care Time (minutes): 35 Comment: No new events overnight No output from the pericardial drain Hemodynamically stable, pain controlled Physical Exam Vital Signs: Vital Signs: Last Vital Signs Temp 98.6 F 12/10/24 08:00 Pulse 98 12/10/24 11:00 Resp 20 12/10/24 11:00 BP 102/54 L 12/10/24 11:00 Pulse Ox 95 12/10/24 11:35 O2 Del Method Nasal Cannula 12/10/24 11:35 O2 Flow Rate 1 12/10/24 11:00 Oxygen Flow Rate 1 12/10/24 11:35 BMI result Body Mass Index 33.6 General: Middle-aged male, comfortably sitting in the bed not in acute distress Nutritional Appearance: well nourished and overweight Eyes: appearance normal, both eyes and all related structures; Alignment and Position: alignment normal and position normal Neck: No lymphadenopathy, no thyromegaly Resp: bilateral air entry equal, occasional added sounds present Cardio: Regular rate, regular rhythm; Heart sounds: S1 normal heart sound present and S2 normal heart sound present, pericardial drain looks okay, no further drainage overnight GI: soft, nontender, no guarding, no hepatosplenomegaly : bladder normal to inspection, bladder normal to palpation, no renal angle tenderness Skin: no rashes or lesions noted and elasticity normal Neuro: oriented to person, oriented to place, oriented to time and moves all extremities Objective Data Labs 12/10/24 06:43 12/10/24 06:43 Labs: Laboratory Results - last 24 hr 12/09/24 12/09/24 12/09/24 14:57 17:02 17:40 WBC 12.9 H RBC 3.33 L Hgb 10.5 L Hct 30.5 L MCV 91.6 MCH 31.5 MCHC 34.4 RDW 12.5 Plt Count 393 D MPV 8.7 L Immature Gran % (Auto) 0.9 H Neut % (Auto) 87.9 H Lymph % (Auto) 4.2 L [place] % (Auto) 6.6 Eos % (Auto) 0.3 Baso % (Auto) 0.1 Lymph # (Auto) 0.5 L [place] # (Auto) 0.9 Eos # (Auto) 0.0 Baso # (Auto) 0.0 Abs Immat Gran (auto) 0.12 H Absolute Neuts (auto) 11.4 H Absolute Nucleated RBC 0.000 Nucleated RBC % (auto) 0.0 ESR 42 H Hold Purple Top SEE NOTE Sodium 123 L Potassium 5.6 H Chloride 96 Carbon Dioxide 14 L Anion Gap 19 BUN 39 H Creatinine 2.59 H Estim Creat Clear Calc 34.4 Estimated GFR 25 POC Glucose 120 H Random Glucose 144 H Lactic Acid F/U @ 2Hr 3.1 H* Lactic Acid F/U @ 4Hr 1.5 Calcium 8.5 D Phosphorus Magnesium Total Bilirubin 0.4 AST 23 ALT 13 Alkaline Phosphatase 99 Troponin I High Sens 116.5 H* D C-Reactive Protein 12.38 H Total Protein 6.5 Albumin 3.3 L TSH 0.55 Pericard WBC Pericard RBC Pericard Neutrophils Pericard Lymphocytes Pericard Monocytes Rheumatoid Factor 45.1 H Respiratory Panel [place] Adenovirus (Rapid PCR) B.pert (TEM-PCR) B.parapertussis DNA PCR C. pneumoniae DNA (PCR) Coronavirus OC43 (PCR) Coronavirus HKU1 (PCR) Coronavirus 229E (PCR) Coronavirus NL63 (PCR) Human Metapneumovir PCR Influenza A (RT-PCR) Influenza B (RT-PCR) M. pneumoniae (PCR) Parainfluenza 1 (PCR) Parainfluenza 2 (PCR) Parainfluenza 3 (PCR) Parainfluenza 4 (PCR) RSV (PCR) Entero/Rhino (PCR) SARS-CoV-2 RNA (RT-PCR) 12/09/24 12/09/24 12/09/24 19:48 19:49 20:35 WBC RBC Hgb Hct MCV MCH MCHC RDW Plt Count MPV Immature Gran % (Auto) Neut % (Auto) Lymph % (Auto) [place] % (Auto) Eos % (Auto) Baso % (Auto) Lymph # (Auto) [place] # (Auto) Eos # (Auto) Baso # (Auto) Abs Immat Gran (auto) Absolute Neuts (auto) Absolute Nucleated RBC Nucleated RBC % (auto) ESR Hold Purple Top Sodium 123 L Potassium 5.0 Chloride 95 L Carbon Dioxide 16 L Anion Gap 17 BUN 39 H Creatinine 2.31 H Estim Creat Clear Calc 38.5 Estimated GFR 28 POC Glucose Random Glucose 189 H Lactic Acid F/U @ 2Hr Lactic Acid F/U @ 4Hr Calcium 8.1 L Phosphorus Magnesium Total Bilirubin 0.4 AST 22 ALT 9 Alkaline Phosphatase 94 Troponin I High Sens C-Reactive Protein Total Protein 6.1 L Albumin 3.1 L TSH Pericard WBC 3 Pericard RBC 0 Pericard Neutrophils 97 Pericard Lymphocytes 1 Pericard Monocytes 2 Rheumatoid Factor Respiratory Panel [place] Cancelled Adenovirus (Rapid PCR) Cancelled B.pert (TEM-PCR) Cancelled B.parapertussis DNA PCR Cancelled C. pneumoniae DNA (PCR) Cancelled Coronavirus OC43 (PCR) Cancelled Coronavirus HKU1 (PCR) Cancelled Coronavirus 229E (PCR) Cancelled Coronavirus NL63 (PCR) Cancelled Human Metapneumovir PCR Cancelled Influenza A (RT-PCR) Cancelled Influenza B (RT-PCR) Cancelled M. pneumoniae (PCR) Cancelled Parainfluenza 1 (PCR) Cancelled Parainfluenza 2 (PCR) Cancelled Parainfluenza 3 (PCR) Cancelled Parainfluenza 4 (PCR) Cancelled RSV (PCR) Cancelled Entero/Rhino (PCR) Cancelled SARS-CoV-2 RNA (RT-PCR) Cancelled 12/09/24 12/10/24 12/10/24 22:14 06:43 10:13 WBC 9.9 RBC 3.23 L Hgb 10.3 L Hct 29.4 L MCV 91.0 MCH 31.9 MCHC 35.0 RDW 12.4 Plt Count 376 MPV 8.9 L Immature Gran % (Auto) 0.6 H Neut % (Auto) 84.8 H Lymph % (Auto) 4.1 L [place] % (Auto) 10.2 Eos % (Auto) 0.1 Baso % (Auto) 0.2 Lymph # (Auto) 0.4 L [place] # (Auto) 1.0 Eos # (Auto) 0.0 Baso # (Auto) 0.0 Abs Immat Gran (auto) 0.06 H Absolute Neuts (auto) 8.4 H Absolute Nucleated RBC 0.000 Nucleated RBC % (auto) 0.0 ESR Hold Purple Top Sodium 125 L Potassium 5.0 Chloride 97 Carbon Dioxide 17 L Anion Gap 16 BUN 37 H Creatinine 1.82 H Estim Creat Clear Calc 49.5 Estimated GFR 37 POC Glucose 171 H Random Glucose 125 H Lactic Acid F/U @ 2Hr Lactic Acid F/U @ 4Hr Calcium 8.0 L Phosphorus 3.4 Magnesium 1.6 Total Bilirubin 0.4 AST 23 ALT 10 Alkaline Phosphatase 93 Troponin I High Sens C-Reactive Protein Total Protein 5.7 L Albumin 2.8 L TSH Pericard WBC Pericard RBC Pericard Neutrophils Pericard Lymphocytes Pericard Monocytes Rheumatoid Factor Respiratory Panel [place] See Note Adenovirus (Rapid PCR) Not Detected B.pert (TEM-PCR) Not Detected B.parapertussis DNA PCR Not Detected C. pneumoniae DNA (PCR) Not Detected Coronavirus OC43 (PCR) Not Detected Coronavirus HKU1 (PCR) Not Detected Coronavirus 229E (PCR) Not Detected Coronavirus NL63 (PCR) Not Detected Human Metapneumovir PCR Not Detected Influenza A (RT-PCR) Not Detected Influenza B (RT-PCR) Not Detected M. pneumoniae (PCR) Not Detected Parainfluenza 1 (PCR) Not Detected Parainfluenza 2 (PCR) Not Detected Parainfluenza 3 (PCR) Not Detected Parainfluenza 4 (PCR) Not Detected RSV (PCR) Not Detected Entero/Rhino (PCR) Not Detected SARS-CoV-2 RNA (RT-PCR) Not Detected 12/10/24 11:28 WBC RBC Hgb Hct MCV MCH MCHC RDW Plt Count MPV Immature Gran % (Auto) Neut % (Auto) Lymph % (Auto) [place] % (Auto) Eos % (Auto) Baso % (Auto) Lymph # (Auto) [place] # (Auto) Eos # (Auto) Baso # (Auto) Abs Immat Gran (auto) Absolute Neuts (auto) Absolute Nucleated RBC Nucleated RBC % (auto) ESR Hold Purple Top Sodium Potassium Chloride Carbon Dioxide Anion Gap BUN Creatinine Estim Creat Clear Calc Estimated GFR POC Glucose 180 H Random Glucose Lactic Acid F/U @ 2Hr Lactic Acid F/U @ 4Hr Calcium Phosphorus Magnesium Total Bilirubin AST ALT Alkaline Phosphatase Troponin I High Sens C-Reactive Protein Total Protein Albumin TSH Pericard WBC Pericard RBC Pericard Neutrophils Pericard Lymphocytes Pericard Monocytes Rheumatoid Factor Respiratory Panel [place] Adenovirus (Rapid PCR) B.pert (TEM-PCR) B.parapertussis DNA PCR C. pneumoniae DNA (PCR) Coronavirus OC43 (PCR) Coronavirus HKU1 (PCR) Coronavirus 229E (PCR) Coronavirus NL63 (PCR) Human Metapneumovir PCR Influenza A (RT-PCR) Influenza B (RT-PCR) M. pneumoniae (PCR) Parainfluenza 1 (PCR) Parainfluenza 2 (PCR) Parainfluenza 3 (PCR) Parainfluenza 4 (PCR) RSV (PCR) Entero/Rhino (PCR) SARS-CoV-2 RNA (RT-PCR) Microbiology Microbiology Results: Microbiology 12/09/24 09:39 Blood - Venous Blood Culture - Preliminary No growth after 24 hours. 12/09/24 09:39 Blood - Venous Blood Culture - Preliminary No growth after 24 hours. 12/09/24 19:48 Pericardial Fluid Gram Stain - Final 12/09/24 19:48 Pericardial Fluid Anaerobic Culture - Preliminary No growth to date. 12/09/24 19:48 Pericardial Fluid Body Fluid Culture - Preliminary No growth to date. 12/09/24 12:10 Pericardial Fluid Gram Stain - Final 12/09/24 12:10 Pericardial Fluid Routine Culture - Preliminary No growth to date. 12/09/24 12:10 Pericardial Fluid Anaerobic Culture - Preliminary No growth to date. Progress Note: A&P Assessment and plan (1) Cardiac tamponade: Status: Acute (2) Acute pericardial effusion: Status: Acute (3) Pericardial effusion without cardiac tamponade: Status: Acute (4) Hyperglycemia: Status: Acute (5) PAM (acute kidney injury): Status: Acute (6) Acute hyponatremia: Status: Acute Plan Acute dyspnea: Pericardial tamponade: Secondary to pericardial tamponade Status post pericardial window, About a L of hemorrhagic pericardial fluid was drained Possibly viral in etiology given his recent history of cough for 3 weeks along with joint pain. Pending respiratory viral panel, GORDON, RF factor, HIV, ESR, CRP. If these things are negative then the patient for need CT chest abdomen and pelvis to rule out underlying malignancy. Pericardial fluid analysis is pending. Chronic alcoholism: Patient states he does not drink enough to go through withdrawals, never had withdrawals in the past He did well overnight without any symptoms Acute kidney injury: Secondary to poor output from pericardial tamponade Creatinine improving, down to 1.82 this morning after pericardial window placement Acute on chronic hyponatremia: Patient has chronic hyponatremia, currently dropped secondary to poor perfusion Sodium is up to 125 this morning Hypocalcemia: Corrected calcium normal Diabetes mellitus: Continue sliding scale insulin Prophylaxis: SCD, pantoprazole Quality Stroke Does the patient have a stroke diagnosis?: No VTE Prior VTE?: No VTE Risk Level:: Surgical - low VTE Device Contraindication: N/A - Device Ordered VTE Drug Contraindication: Treatment Not Indicated
[2024-12-10 12:14] LABS: RBC Pericardial Fluid 153000 MM*3; WBC Pericardial Fluid 2577 MM*3
[2024-12-10] MEDS: Insulin Lispro 100 UNIT/ML 3 ML VIAL SUBCUT (12:24)
--- NOTE | 2024-12-10 13:30 | HO.POSTANES ---
Post Anesthesia Evaluation Post Anesthesia Evaluation Date of Service: 12/10/24 Vital Signs: Vital Signs Temp Pulse Resp BP Pulse Ox O2 Del Method O2 Flow Rate 12/10/24 13:00 102 H 18 107/62 96 Room Air 12/10/24 12:00 97.8 F 100 18 118/55 L 95 Room Air 12/10/24 11:35 95 Nasal Cannula 12/10/24 11:00 98 20 102/54 L 95 Nasal Cannula 1 12/10/24 10:00 107 H 18 102/49 L 97 Nasal Cannula 1 12/10/24 09:00 105 H 18 103/57 L 96 Nasal Cannula 1 12/10/24 08:00 98.6 F 95 18 133/66 94 Room Air 12/10/24 07:00 97.9 F 95 18 126/56 L 95 Room Air 12/10/24 05:54 98.0 F 95 16 119/63 95 Room Air 12/10/24 05:00 98.0 F 84 16 107/65 95 Room Air 12/10/24 03:44 97.8 F 83 15 91/57 L 95 Room Air 12/10/24 03:00 97.9 F 85 15 99/60 92 Room Air 12/10/24 01:48 97.9 F 88 14 104/59 L 92 Room Air Anesthesia: General LMA Mental Status: Awake Pain Control: Satisfactory Nausea/Vomiting: None Hydration: Adequate Anesthesia-Related Issues: No Anes. Related Issues
--- NOTE | 2024-12-10 13:46 | PM.PNTS ---
Subjective Subjective Date of Service: 12/10/24 Interval history: Postop day 1. Patient doing very well. Hemodynamics normal. Scant output from pericardial drain. Physical Exam Vital Signs: Vital Signs: Last Vital Signs Temp 97.8 F 12/10/24 12:00 Pulse 102 H 12/10/24 13:00 Resp 18 12/10/24 13:00 BP 107/62 12/10/24 13:00 Pulse Ox 96 12/10/24 13:00 O2 Del Method Room Air 12/10/24 13:00 O2 Flow Rate 1 12/10/24 11:00 Oxygen Flow Rate 1 12/10/24 11:35 BMI result Body Mass Index 33.6 Chest: Other: Incision clean dry and intact. Drain minimal output Procedures Date of Service Date of Service: 12/10/24 Progress Note: A&P Assessment and plan (1) Pericardial effusion without cardiac tamponade: Status: Acute Plan Patient was doing very well. Tentative plan is for transfer to the floor. Considered drain removal tomorrow. Time Spent With Patient Time: Total time managing care of this patient today ____ minutes. Quality Stroke Does the patient have a stroke diagnosis?: No VTE Prior VTE?: No VTE Risk Level:: Surgical - low VTE Device Contraindication: N/A - Device Ordered VTE Drug Contraindication: Treatment Not Indicated
[2024-12-10] MEDS: guaiFEN/Codeine SF 200/20/10ML 10 ML LIQUID PO (16:21)
[2024-12-10 16:50] LABS: Glucose, Whole Blood 127 mg/dL (60-115)
[2024-12-10 20:41] LABS: Glucose, Whole Blood 174 mg/dL (60-115)
[2024-12-11] VITALS (9 sets, daily range): BP systolic 107–143; BP diastolic 63–88; PULSE 90–106; RESP 16–20; TEMP 36.2–36.6; O2SAT 94–97; BMI 34.0
[2024-12-11] MEDS: Pantoprazole Sodium 40 MG/10 ML VIAL IVPUSH (05:23)
--- NOTE | 2024-12-11 07:00 | CA_ITS ---
Transthoracic Echocardiogram Patient (Last, First, Middle): Abel Grayson, Gender: Male Date of : 1955 Age: 69 Procedure Date: 12/11/2024 Procedure Type: Transthoracic Echocardiogram Location: [facility] [place] Height: 182.88 cm Weight: 113.4 kg BSA: 2.34 m2 Heart Rate: bpm BP: 119 / 70 mmHg Lubricating Specialist: TO Referring MD: Rebecca Sal DO Symptoms: s/p pericardial window Study Quality: Technically Difficult/Contrast ECG Rhythm: Sinus Conclusions: - The left ventricular systolic function is normal. The visually estimated ejection fraction is between 65-70%. - No significant pericardial effusion noted. Findings Procedure Information Contrast agent, definity, is being given per protocol without apparent complications. The study quality is limited by the presence of bandages and patients body habitus. Left Ventricle Normal left ventricular cavity size. The left ventricular systolic function is normal. The visually estimated ejection fraction is between 65-70%. There is no evidence of regional wall motion abnormalities. Venous The inferior vena cava is dilated and collapses less than 50% with inspiration. Pericardium/Pleural No significant pericardial effusion noted. Prior Study Comparison No significant change compared to prior study dated: 03/17/2005. Measurements 2D Linear Measurements LVOT Diam: 2.10 3.0+(-)1.3 cm 2D Systolic Function EF 4C: 65.40 >55% Mitral Valve MV Pk E: 0.68 MV PK A: 0.78 MV Decel Time: 193.00 E/A: 0.90 E'Lateral: 6.42 E'Medial: 6.64 E/E' Med: 10.20 E/E' Lat: 10.50 PHT: 56.00 MVA PHT: 3.93 Decel [place]: 3.52 Aortic Valve AoV Pk J Luis: 1.79 AoV Pk Grad: 13.00 LVOT LVOT Pk J Luis: 1.43 LVOT Mn J Luis: 1.07 LVOT VTI: 0.22 LVOT Pk Grad: 8.00 LVOT Mn Grad: 5.00 LVOT Diam: 2.10 LVOT Area: 3.46 Diastolic Function MV Pk E: 0.68 MV Pk A: 0.78 E/A: 0.90 E'Medial: 6.64 E/E' Med: 10.20 E' Laterial: 6.42 E/E' Lat: 10.50 Right Ventricle TAPSE (mm): 16.80 TVS' J Luis: 11.30 Tricuspid Valve RA Press: 15.00 Updated in Other Vendor System with Status of Final Armando Walter MD electronically signed on 12/11/2024 1:43:23 PM with status of Final
[2024-12-11 07:35] LABS: Glucose, Whole Blood 121 mg/dL (60-115)
[2024-12-11 08:36] LABS: Hematocrit 30.3 % (42.0-52.0); Hemoglobin 10.4 g/dl (14.0-18.0); Mean Corpuscular HGB Conc 34.3 g/dl (31.0-36.0); Mean Corpuscular Hemoglobin 31.5 pg (27.0-33.0); Mean Corpuscular Volume 91.8 fL (80.0-98.0); Mean Platelet Volume 8.7 fL (9.4-12.4); Platelet Count 425 X10*3/uL (160-400); Red Cell Distribution Width 12.4 % (11.0-16.0); White Blood Count 10.2 X10*3/uL (4.8-10.8)
[2024-12-11 08:52] LABS: Anion Gap 16 (12-20); Blood Urea Nitrogen 33 mg/dL (9-16); Calcium 8.5 mg/dL (8.4-10.2); Carbon Dioxide 17 mmol/L (22-29); Chloride 100 mmol/L (96-108); Creatinine Clr Calc Pharmacy 73.2; Estimated Glomerular Filt Rate 58; Glucose Random 124 mg/dL (60-115); Potassium 5.2 mmol/L (3.3-5.1); Sodium 128 mmol/L (135-145)
--- NOTE | 2024-12-11 09:32 | P.PNGS_ITS ---
Subjective Subjective Date of Service: 12/11/24 Interval history: feels ok says he does not recall events on admission denies SOB Physical Exam 2 Vital Signs: Vital Signs: Last Vital Signs Temp 97.3 F 12/11/24 07:59 Pulse 90 12/11/24 07:59 Resp 18 12/11/24 07:59 BP 119/70 12/11/24 07:59 Pulse Ox 96 12/11/24 07:59 O2 Del Method Room Air 12/11/24 07:59 O2 Flow Rate 1 12/10/24 11:00 Oxygen Flow Rate 1 12/10/24 11:35 BMI result Body Mass Index 34.0 Const: General: comfortable and no acute distress Chest: Other: pericardiostomy tube in, scanty serosanguinous output Resp: Effort & Inspection: normal respiratory effort Cardio: Rate: regular rate GI: Palpation (GI): Soft to palpation Objective Data Active Medications Benzonatate (Benzonatate 100 Mg Capsule) 100 mg PO TID PRN PRN Reason: Cough Last Admin: 12/10/24 10:13 Dose: 100 mg Documented By: DIANA Guaifenesin/Codeine Phosphate (Guaifen/Codeine Sf 200/20/10ml 10 Ml Liquid) 10 ml PO Q4H PRN PRN Reason: Cough Last Admin: 12/10/24 16:21 Dose: 10 ml Documented By: KLEVER Hydromorphone HCl (Hydromorphone Hcl 0.5 Mg/0.5 Ml Syringe) 0.5 mg IVPUSH Q4H PRN; Protocol PRN Reason: Pain, Moderate(Pain Scale 4-6) Last Admin: 12/10/24 16:21 Dose: 0.5 mg Documented By: KLEVER Ondansetron HCl (Ondansetron Hcl 4 Mg/2 Ml Vial) 4 mg IVPUSH Q8H PRN PRN Reason: Nausea and Vomiting Pantoprazole Sodium (Pantoprazole Sodium 40 Mg/10 Ml Vial) 40 mg IVPUSH DAILY@0630 HONEY Last Admin: 12/11/24 05:23 Dose: 40 mg Documented By: ANTOIC Labs 12/11/24 07:47 12/11/24 07:47 Labs: Laboratory Results - last 24 hr 12/09/24 12/09/24 12/10/24 19:48 19:49 10:13 MCV MCH MCHC RDW Plt Count MPV Absolute Nucleated RBC Nucleated RBC % (auto) Anion Gap Estim Creat Clear Calc Estimated GFR POC Glucose Random Glucose Calcium Pericard WBC 2577 Pericard RBC [id number] Respiratory Panel [place] Cancelled See Note Adenovirus (Rapid PCR) Cancelled Not Detected B.pert (TEM-PCR) Cancelled Not Detected B.parapertussis DNA PCR Cancelled Not Detected C. pneumoniae DNA (PCR) Cancelled Not Detected Coronavirus OC43 (PCR) Cancelled Not Detected Coronavirus HKU1 (PCR) Cancelled Not Detected Coronavirus 229E (PCR) Cancelled Not Detected Coronavirus NL63 (PCR) Cancelled Not Detected Human Metapneumovir PCR Cancelled Not Detected Influenza A (RT-PCR) Cancelled Not Detected Influenza B (RT-PCR) Cancelled Not Detected M. pneumoniae (PCR) Cancelled Not Detected Parainfluenza 1 (PCR) Cancelled Not Detected Parainfluenza 2 (PCR) Cancelled Not Detected Parainfluenza 3 (PCR) Cancelled Not Detected Parainfluenza 4 (PCR) Cancelled Not Detected RSV (PCR) Cancelled Not Detected Entero/Rhino (PCR) Cancelled Not Detected SARS-CoV-2 RNA (RT-PCR) Cancelled Not Detected 12/10/24 12/10/24 12/10/24 11:28 16:46 20:35 MCV MCH MCHC RDW Plt Count MPV Absolute Nucleated RBC Nucleated RBC % (auto) Anion Gap Estim Creat Clear Calc Estimated GFR POC Glucose 180 H 127 H 174 H Random Glucose Calcium Pericard WBC Pericard RBC Respiratory Panel [place] Adenovirus (Rapid PCR) B.pert (TEM-PCR) B.parapertussis DNA PCR C. pneumoniae DNA (PCR) Coronavirus OC43 (PCR) Coronavirus HKU1 (PCR) Coronavirus 229E (PCR) Coronavirus NL63 (PCR) Human Metapneumovir PCR Influenza A (RT-PCR) Influenza B (RT-PCR) M. pneumoniae (PCR) Parainfluenza 1 (PCR) Parainfluenza 2 (PCR) Parainfluenza 3 (PCR) Parainfluenza 4 (PCR) RSV (PCR) Entero/Rhino (PCR) SARS-CoV-2 RNA (RT-PCR) 12/11/24 12/11/24 07:29 07:47 MCV 91.8 MCH 31.5 MCHC 34.3 RDW 12.4 Plt Count 425 H MPV 8.7 L Absolute Nucleated RBC 0.000 Nucleated RBC % (auto) 0.0 Anion Gap 16 Estim Creat Clear Calc 73.2 Estimated GFR 58 POC Glucose 121 H Random Glucose 124 H Calcium 8.5 D Pericard WBC Pericard RBC Respiratory Panel [place] Adenovirus (Rapid PCR) B.pert (TEM-PCR) B.parapertussis DNA PCR C. pneumoniae DNA (PCR) Coronavirus OC43 (PCR) Coronavirus HKU1 (PCR) Coronavirus 229E (PCR) Coronavirus NL63 (PCR) Human Metapneumovir PCR Influenza A (RT-PCR) Influenza B (RT-PCR) M. pneumoniae (PCR) Parainfluenza 1 (PCR) Parainfluenza 2 (PCR) Parainfluenza 3 (PCR) Parainfluenza 4 (PCR) RSV (PCR) Entero/Rhino (PCR) SARS-CoV-2 RNA (RT-PCR) Microbiology Microbiology Results: Microbiology 12/09/24 09:39 Blood Culture - Preliminary Blood - Venous No growth after 24 hours. 12/09/24 09:39 Blood Culture - Preliminary Blood - Venous No growth after 24 hours. 12/09/24 19:48 Gram Stain - Final Pericardial Fluid Anaerobic Culture - Preliminary No growth to date. Body Fluid Culture - Preliminary No growth to date. 12/09/24 12:10 Gram Stain - Final Pericardial Fluid Routine Culture - Preliminary No growth to date. Anaerobic Culture - Preliminary No growth to date. Procedures Date of Service Date of Service: 12/11/24 Progress Note: A&P Assessment and plan (1) Acute pericardial effusion: Status: Acute Assessment and Plan: s/p pericardial window output minimal I removed the pericardiostomy tube without issues nonocclusive dressings with vaseline/xeroform placed continue current care doing well clinically Time Spent With Patient Time: Total time managing care of this patient today ____ minutes. Quality Stroke Does the patient have a stroke diagnosis?: No VTE Prior VTE?: No VTE Risk Level:: Surgical - low VTE Device Contraindication: N/A - Device Ordered VTE Drug Contraindication: Treatment Not Indicated
--- NOTE | 2024-12-11 10:25 | P.PNIM_ITS ---
Subjective Subjective Date of Service: 12/11/24 Interval History: cough Physical Exam 2 Vital Signs: Vital Signs: Last Vital Signs Temp 97.3 F 12/11/24 07:59 Pulse 90 12/11/24 07:59 Resp 18 12/11/24 07:59 BP 119/70 12/11/24 07:59 Pulse Ox 96 12/11/24 07:59 O2 Del Method Room Air 12/11/24 07:59 O2 Flow Rate 1 12/10/24 11:00 Oxygen Flow Rate 1 12/10/24 11:35 BMI result Body Mass Index 34.0 General: AO X 3, no acute distress Resp: CTA bilateral, no accessory muscles used CVS: S1,S2,RRR GI: soft, non tender, non distended Neuro: motor grossly intact, alert Psych: appropriate affect, appropriate insight Objective Data Active Medications Benzonatate (Benzonatate 100 Mg Capsule) 100 mg PO TID PRN PRN Reason: Cough Last Admin: 12/10/24 10:13 Dose: 100 mg Documented By: DIANA Colchicine (Colchicine 0.6 Mg Tablet) 0.6 mg PO BID [facility] Guaifenesin/Codeine Phosphate (Guaifen/Codeine Sf 200/20/10ml 10 Ml Liquid) 10 ml PO Q4H PRN PRN Reason: Cough Last Admin: 12/10/24 16:21 Dose: 10 ml Documented By: KLEVER Hydromorphone HCl (Hydromorphone Hcl 0.5 Mg/0.5 Ml Syringe) 0.5 mg IVPUSH Q4H PRN; Protocol PRN Reason: Pain, Moderate(Pain Scale 4-6) Last Admin: 12/10/24 16:21 Dose: 0.5 mg Documented By: KLEVER Ondansetron HCl (Ondansetron Hcl 4 Mg/2 Ml Vial) 4 mg IVPUSH Q8H PRN PRN Reason: Nausea and Vomiting Pantoprazole Sodium (Pantoprazole Sodium 40 Mg/10 Ml Vial) 40 mg IVPUSH DAILY@0630 [facility] Last Admin: 12/11/24 05:23 Dose: 40 mg Documented By: ANTOIC Labs 12/11/24 07:47 12/11/24 07:47 Labs: Laboratory Results - last 24 hr 12/09/24 12/09/24 12/10/24 19:48 19:49 10:13 MCV MCH MCHC RDW Plt Count MPV Absolute Nucleated RBC Nucleated RBC % (auto) Anion Gap Estim Creat Clear Calc Estimated GFR POC Glucose Random Glucose Calcium Pericard WBC 2577 Pericard RBC [id number] Respiratory Panel [place] Cancelled See Note Adenovirus (Rapid PCR) Cancelled Not Detected B.pert (TEM-PCR) Cancelled Not Detected B.parapertussis DNA PCR Cancelled Not Detected C. pneumoniae DNA (PCR) Cancelled Not Detected Coronavirus OC43 (PCR) Cancelled Not Detected Coronavirus HKU1 (PCR) Cancelled Not Detected Coronavirus 229E (PCR) Cancelled Not Detected Coronavirus NL63 (PCR) Cancelled Not Detected Human Metapneumovir PCR Cancelled Not Detected Influenza A (RT-PCR) Cancelled Not Detected Influenza B (RT-PCR) Cancelled Not Detected M. pneumoniae (PCR) Cancelled Not Detected Parainfluenza 1 (PCR) Cancelled Not Detected Parainfluenza 2 (PCR) Cancelled Not Detected Parainfluenza 3 (PCR) Cancelled Not Detected Parainfluenza 4 (PCR) Cancelled Not Detected RSV (PCR) Cancelled Not Detected Entero/Rhino (PCR) Cancelled Not Detected SARS-CoV-2 RNA (RT-PCR) Cancelled Not Detected 12/10/24 12/10/24 12/10/24 11:28 16:46 20:35 MCV MCH MCHC RDW Plt Count MPV Absolute Nucleated RBC Nucleated RBC % (auto) Anion Gap Estim Creat Clear Calc Estimated GFR POC Glucose 180 H 127 H 174 H Random Glucose Calcium Pericard WBC Pericard RBC Respiratory Panel [place] Adenovirus (Rapid PCR) B.pert (TEM-PCR) B.parapertussis DNA PCR C. pneumoniae DNA (PCR) Coronavirus OC43 (PCR) Coronavirus HKU1 (PCR) Coronavirus 229E (PCR) Coronavirus NL63 (PCR) Human Metapneumovir PCR Influenza A (RT-PCR) Influenza B (RT-PCR) M. pneumoniae (PCR) Parainfluenza 1 (PCR) Parainfluenza 2 (PCR) Parainfluenza 3 (PCR) Parainfluenza 4 (PCR) RSV (PCR) Entero/Rhino (PCR) SARS-CoV-2 RNA (RT-PCR) 12/11/24 12/11/24 07:29 07:47 MCV 91.8 MCH 31.5 MCHC 34.3 RDW 12.4 Plt Count 425 H MPV 8.7 L Absolute Nucleated RBC 0.000 Nucleated RBC % (auto) 0.0 Anion Gap 16 Estim Creat Clear Calc 73.2 Estimated GFR 58 POC Glucose 121 H Random Glucose 124 H Calcium 8.5 D Pericard WBC Pericard RBC Respiratory Panel [place] Adenovirus (Rapid PCR) B.pert (TEM-PCR) B.parapertussis DNA PCR C. pneumoniae DNA (PCR) Coronavirus OC43 (PCR) Coronavirus HKU1 (PCR) Coronavirus 229E (PCR) Coronavirus NL63 (PCR) Human Metapneumovir PCR Influenza A (RT-PCR) Influenza B (RT-PCR) M. pneumoniae (PCR) Parainfluenza 1 (PCR) Parainfluenza 2 (PCR) Parainfluenza 3 (PCR) Parainfluenza 4 (PCR) RSV (PCR) Entero/Rhino (PCR) SARS-CoV-2 RNA (RT-PCR) Microbiology Microbiology Results: Microbiology 12/09/24 09:39 Blood Culture - Preliminary Blood - Venous No growth after 24 hours. 12/09/24 09:39 Blood Culture - Preliminary Blood - Venous No growth after 24 hours. 12/09/24 19:48 Gram Stain - Final Pericardial Fluid Anaerobic Culture - Preliminary No growth to date. Body Fluid Culture - Preliminary No growth to date. 12/09/24 12:10 Gram Stain - Final Pericardial Fluid Routine Culture - Preliminary No growth to date. Anaerobic Culture - Preliminary No growth to date. Assessment and Plan (1) Cardiac tamponade: Status: Acute Plan 69M PMH alcohol dependence, hypertension, diabetes, diverticulitis, pancreatitis presented on 12/09/2024 with increasing fatigue 3 weeks after upper respiratory tract infection. In ED noted to have large pericardial effusion with tamponade. Underwent pericardial window with significant hemopericardium. Was monitored in the ICU, did well, pericardial drain now removed downgraded to medical floor. Cardiac tamponade due to hemopericardium Differential includes infection, malignancy, autoimmune Follow-up CT abdomen and pelvis, autoimmune workup Check echo Starting on colchicine Acute kidney injury Resolved Alcohol dependence No signs of withdrawal currently, monitor CIWA Borderline Diabetes Diet-controlled, monitor point of care acute hyponatremia likely due to above improving, monitor DVT prophylaxis-mechanical due to hemopericardium Full code reason for continued hospitalization: working up hemopericardium Quality Stroke Does the patient have a stroke diagnosis?: No VTE Prior VTE?: No VTE Risk Level:: Surgical - low VTE Device Contraindication: N/A - Device Ordered VTE Drug Contraindication: Treatment Not Indicated
[2024-12-11] MEDS: iohexoL 350 MG/ML 75 ML INFUS..BTL 85 ML IV (11:23)
[2024-12-11] MEDS: Benzonatate 100 MG CAPSULE PO (11:30)
[2024-12-11] MEDS: HYDROmorphone HCl 0.5 MG/0.5 ML SYRINGE IVPUSH (11:31)
[2024-12-11] MEDS: Colchicine 0.6 MG TABLET 1.2 MG PO (11:31)
[2024-12-11 11:56] LABS: Glucose, Whole Blood 161 mg/dL (60-115)
--- NOTE | 2024-12-11 13:25 | PM.EVENT ---
Event Note Date of Service: 12/11/24 Event Note: Seen on afternoon rounds Looks comfortable Denies any shortness of breath Vital signs stable Echocardiogram just done - no significant pericardial effusion Doing well after removal of pericardiostomy tube Time Spent With Patient Time: Total time managing care of this patient today ____ minutes.
[2024-12-11 15:09] LABS: Albumin Pericardial Fluid 2.5; Creatinine Pericardial Fluid 2.4; Glucose Pericardial Fluid 92; Total Protein Pericardial Flui 4.5
[2024-12-11 15:33] LABS: Glucose, Whole Blood 135 mg/dL (60-115)
[2024-12-11 18:44] LABS: Lyme Abs Screen <0.90 index
[2024-12-11 20:50] LABS: Glucose, Whole Blood 146 mg/dL (60-115)
[2024-12-11] MEDS: Colchicine 0.6 MG TABLET PO (20:50)
[2024-12-12] VITALS (8 sets, daily range): BP systolic 125–153; BP diastolic 71–91; PULSE 86–104; RESP 16–19; TEMP 36–36.7; O2SAT 96–98
[2024-12-12] MEDS: Pantoprazole Sodium 40 MG/10 ML VIAL IVPUSH (05:31)
[2024-12-12 07:28] LABS: Glucose, Whole Blood 130 mg/dL (60-115)
[2024-12-12] MEDS: Colchicine 0.6 MG TABLET PO (08:06)
[2024-12-12 08:11] LABS: Hematocrit 30.8 % (42.0-52.0); Hemoglobin 10.6 g/dl (14.0-18.0); Mean Corpuscular HGB Conc 34.4 g/dl (31.0-36.0); Mean Corpuscular Hemoglobin 31.6 pg (27.0-33.0); Mean Corpuscular Volume 91.9 fL (80.0-98.0); Mean Platelet Volume 8.5 fL (9.4-12.4); Platelet Count 443 X10*3/uL (160-400); Red Blood Count 3.35 X10*6/uL (4.60-5.80); Red Cell Distribution Width 12.5 % (11.0-16.0); White Blood Count 10.1 X10*3/uL (4.8-10.8)
[2024-12-12 08:22] LABS: HIV AB/AG Nonreactive (Nonreactive); HIV Num 1 0.06 S/CO (0.00-0.99)
[2024-12-12 08:37] LABS: Alanine Aminotransferase 22 U/L (0-40); Alkaline Phosphatase 109 U/L (39-117); Anion Gap 14 (12-20); Aspartate Amino Transferase 35 U/L (5-37); Bilirubin Direct 0.2 mg/dL (0.0-0.5); Bilirubin Total 0.3 mg/dL (0.0-1.0); Blood Urea Nitrogen 29 mg/dL (9-16); Calcium 8.7 mg/dL (8.4-10.2); Carbon Dioxide 19 mmol/L (22-29); Chloride 101 mmol/L (96-108); Creatinine Clr Calc Pharmacy 84.8; Estimated Glomerular Filt Rate > 60; Glucose Random 130 mg/dL (60-115); Magnesium 1.6 mg/dL (1.6-2.6); Sodium 129 mmol/L (135-145); Total Protein 6.5 g/dL (6.5-8.0)
--- NOTE | 2024-12-12 09:03 | HO.PM.IMPN ---
Subjective Subjective Date of Service: 12/12/24 Interval History: cough Physical Exam Vital Signs: Vital Signs: Last Vital Signs Temp 97.3 F 12/12/24 08:00 Pulse 90 12/12/24 08:00 Resp 19 12/12/24 08:00 BP 125/77 12/12/24 08:00 Pulse Ox 96 12/12/24 08:00 O2 Del Method Room Air 12/12/24 08:00 O2 Flow Rate 1 12/10/24 11:00 Oxygen Flow Rate 1 12/11/24 11:00 BMI result Body Mass Index 34.0 General: AO X 3, no acute distress Resp: CTA bilateral, no accessory muscles used CVS: S1,S2,RRR GI: soft, non tender, non distended Neuro: motor grossly intact, alert Psych: appropriate affect, appropriate insight Objective Data Active Medications Benzonatate (Benzonatate 100 Mg Capsule) 100 mg PO TID PRN PRN Reason: Cough Last Admin: 12/11/24 11:30 Dose: 100 mg Documented By: CLARE Colchicine (Colchicine 0.6 Mg Tablet) 0.6 mg PO BID [facility] Last Admin: 12/12/24 08:06 Dose: 0.6 mg Documented By: ARCADIO Guaifenesin/Codeine Phosphate (Guaifen/Codeine Sf 200/20/10ml 10 Ml Liquid) 10 ml PO Q4H PRN PRN Reason: Cough Last Admin: 12/10/24 16:21 Dose: 10 ml Documented By: KLEVER Hydromorphone HCl (Hydromorphone Hcl 0.5 Mg/0.5 Ml Syringe) 0.5 mg IVPUSH Q4H PRN; Protocol PRN Reason: Pain, Moderate(Pain Scale 4-6) Last Admin: 12/11/24 11:31 Dose: 0.5 mg Documented By: CLARE Magnesium Oxide (Magnesium Oxide 400 Mg Tablet) [facility] Melatonin (Melatonin 3 Mg Tablet) 6 mg PO BEDTIME PRN PRN Reason: Insomnia Ondansetron HCl (Ondansetron Hcl 4 Mg/2 Ml Vial) 4 mg IVPUSH Q8H PRN PRN Reason: Nausea and Vomiting Pantoprazole Sodium (Pantoprazole Sodium 40 Mg/10 Ml Vial) 40 mg IVPUSH DAILY@0630 [facility] Last Admin: 12/12/24 05:31 Dose: 40 mg Documented By: ROXY Labs 12/12/24 07:40 12/12/24 07:49 Labs: Laboratory Results - last 24 hr 12/09/24 12/09/24 12/11/24 09:39 19:49 11:26 MCV MCH MCHC RDW Plt Count MPV Absolute Nucleated RBC Nucleated RBC % (auto) Anion Gap Estim Creat Clear Calc Estimated GFR POC Glucose 161 H Random Glucose Calcium Magnesium Total Bilirubin Direct Bilirubin AST ALT Alkaline Phosphatase Total Protein Albumin Pericardial Creatinine 2.4 Pericard Total Protein 4.5 Pericardial Albumin 2.5 Pericardial Glucose 92 Lyme Screen IgG & IgM <0.90 12/11/24 12/11/24 12/12/24 15:23 20:46 07:22 MCV MCH MCHC RDW Plt Count MPV Absolute Nucleated RBC Nucleated RBC % (auto) Anion Gap Estim Creat Clear Calc Estimated GFR POC Glucose 135 H 146 H 130 H Random Glucose Calcium Magnesium Total Bilirubin Direct Bilirubin AST ALT Alkaline Phosphatase Total Protein Albumin Pericardial Creatinine Pericard Total Protein Pericardial Albumin Pericardial Glucose Lyme Screen IgG & IgM 12/12/24 12/12/24 07:40 07:49 MCV 91.9 MCH 31.6 MCHC 34.4 RDW 12.5 Plt Count 443 H MPV 8.5 L Absolute Nucleated RBC 0.000 Nucleated RBC % (auto) 0.0 Anion Gap 14 Estim Creat Clear Calc 84.8 Estimated GFR > 60 POC Glucose Random Glucose 130 H Calcium 8.7 Magnesium 1.6 Total Bilirubin 0.3 Direct Bilirubin 0.2 AST 35 ALT 22 Alkaline Phosphatase 109 Total Protein 6.5 Albumin 3.0 L Pericardial Creatinine Pericard Total Protein Pericardial Albumin Pericardial Glucose Lyme Screen IgG & IgM Microbiology Microbiology Results: Microbiology 12/09/24 12:10 Gram Stain - Final Pericardial Fluid Routine Culture - Final No growth after 2 days Anaerobic Culture - Preliminary No growth to date. 12/09/24 19:48 Gram Stain - Final Pericardial Fluid Anaerobic Culture - Preliminary No growth to date. Body Fluid Culture - Final No growth after 2 days 12/09/24 12:10 Fungal Identification - Preliminary Pericardial Fluid No growth to date. 12/09/24 09:39 Blood Culture - Preliminary Blood - Venous No growth after 48 hours. 12/09/24 09:39 Blood Culture - Preliminary Blood - Venous No growth after 48 hours. Assessment and Plan (1) Cardiac tamponade: Status: Acute Plan 69M PMH alcohol dependence, hypertension, diabetes, diverticulitis, pancreatitis presented on 12/09/2024 with increasing fatigue 3 weeks after upper respiratory tract infection. In ED noted to have large pericardial effusion with tamponade. Underwent pericardial window with significant hemopericardium. Was monitored in the ICU, did well, pericardial drain now removed downgraded to medical floor. Cardiac tamponade due to hemopericardium Differential includes infection, malignancy, autoimmune Follow-up CT abdomen and pelvis, autoimmune workup repeat echo unremarkable Started on colchicine Acute kidney injury Resolved Alcohol dependence No signs of withdrawal currently, monitor CIWA Borderline Diabetes Diet-controlled, monitor point of care acute hyponatremia likely due to above improving, monitor DVT prophylaxis-mechanical due to hemopericardium Full code reason for continued hospitalization: working up hemopericardium Quality Stroke Does the patient have a stroke diagnosis?: No VTE Prior VTE?: No VTE Risk Level:: Surgical - low VTE Device Contraindication: N/A - Device Ordered VTE Drug Contraindication: Treatment Not Indicated
[2024-12-12 09:17] LABS: Lactate Dehydrogenase 180 U/L (118-273)
[2024-12-12 11:52] LABS: Glucose, Whole Blood 167 mg/dL (60-115)
--- NOTE | 2024-12-12 14:31 | MHC.CM.PN ---
EMR reviewed and per MD rounds, pt is not medically cleared for discharge at this time.
[2024-12-12 16:15] LABS: Glucose, Whole Blood 131 mg/dL (60-115)
--- NOTE | 2024-12-12 17:00 | P.CNHO_ITS ---
Subjective - Subjective Chief complaint: Consult for: Malignant pericardial effusion. Patient: new to practice Consult date: 12/12/24 Requesting Physician: Nicola Rubio MD Primary Care Provider: Nicola Rubio MD Family Provider: Nicola Rubio MD Medical Summary: DIAGNOSIS: MALIGNANT PERICARDIAL EFFUSION. Page Designer Utilized?: No - Angolan Speaking HPI - Consult Narrative Reason for consult: Consult for: Malignant Pericardial Effusion. Narrative: Abel Grayson is a 69 year old gentleman admitted on 12/09. He complained of shortness of breath and extreme fatigue for the past day or so that he could not ambulate or take care of his daily routine. He also has been having cough for the past 3 weeks, mildly productive, not associated with blood. He had bilateral shoulder joint pains, for which he went to [facility] and was given steroid injection. In the ED he underwent TTE which showed large pericardial effusion with tamponade physiology. Thoracic surgery was called in, underwent pericardial window placement and is being transferred to ICU for close monitoring. 12/11: Echocardiogram done - no significant pericardial effusion. Medical History:) Prostate cancer: Status post radical prostatectomy about 20 years ago. Hyperlipidemia Hiatal hernia GERD (gastroesophageal reflux disease) HTN (hypertension) Surgical History:) History of tonsillectomy History of prostatectomy History of esophagogastroduodenoscopy (EGD) Hx of colonoscopy Family history:) No malignancy in the family. Mom is 95 [place] old and in good general health. 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 He is . Has no children. Household Members: Spouse Housing: House Are you a primary career and guidance counselor to a significant other at home: No Do you presently have visiting nurse or other home services: No Alcohol intake: current Alcohol intake frequency: 0-2 drinks per day Alcohol type: beer, wine and hard liquor Comment: REFUSE ALARM Patient Tobacco Use Status: Former Tobacco user Tobacco use type: Cigarette Smoked in Last 30 Days: No Use of substances other than those prescribed or required for medical reasons: Yes Substance Use Type: Marijuana. ROS: Patient has been feeling rather fatigued over the past 3 weeks or so. No fever chills no night sweats. Appetite has not been that great. He has lost weight. No headache no dizziness. He has had a sore on the left tongue border that has not been healing. He had chest discomfort and shortness of breath but that has resolved after the window placement. He has had GI symptoms including reflux and heartburn. He has to take omeprazole. His colonoscopy was several years ago at [facility]. He denies dysuria nor hematuria. He has had B/L shoulder pain. No focal weakness. He is anxious after his recent diagnosis. No skin rashes nor pruritis. Review of Systems - Neurologic Reports hearing normal, Denies abnormal movements, Denies abnormal speech, Denies behavioral changes [facility] Medical History: Medical History (Last Reviewed 12/22/24 @ 09:23 by Shahrzad Chapin) GERD (gastroesophageal reflux disease) Hiatal hernia HTN (hypertension) Hyperlipidemia Prostate cancer Surgical History: Surgical History (Last Reviewed 12/22/24 @ 09:23 by Shahrzad Chapin) History of esophagogastroduodenoscopy (EGD) History of prostatectomy History of tonsillectomy Hx of colonoscopy S/P pericardial window creation Social History: Social History (Last Updated 12/22/24 @ 09:24 by Shahrzad Chapin) Living Situation History: Household Members: Spouse Housing: House Are you a primary career and guidance counselor to a significant other at home: No Do you presently have visiting nurse or other home services: No Alcohol History Details: 1. How often do you have a drink containing alcohol?: b. Monthly or less 2. How many drinks containing alcohol do you have on a typical day when you are drinking?: a. 1 or 2 3. How often do you have six or more drinks on one occasion?: d. 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 Home Medications and Allergies Current Medications: Current Medications Benzonatate (Benzonatate 100 Mg Capsule) 100 mg PO TID PRN PRN Reason: Cough Last Admin: 12/11/24 11:30 Dose: 100 mg Guaifenesin/Codeine Phosphate (Guaifen/Codeine Sf 200/20/10ml 10 Ml Liquid) 10 ml PO Q4H PRN PRN Reason: Cough Last Admin: 12/10/24 16:21 Dose: 10 ml Hydromorphone HCl (Hydromorphone Hcl 0.5 Mg/0.5 Ml Syringe) 0.5 mg IVPUSH Q4H PRN; Protocol PRN Reason: Pain, Moderate(Pain Scale 4-6) Last Admin: 12/11/24 11:31 Dose: 0.5 mg Magnesium Oxide (Magnesium Oxide 400 Mg Tablet) 400 mg PO BIDPC [facility] Melatonin (Melatonin 3 Mg Tablet) 6 mg PO BEDTIME PRN PRN Reason: Insomnia Ondansetron HCl (Ondansetron Hcl 4 Mg/2 Ml Vial) 4 mg IVPUSH Q8H PRN PRN Reason: Nausea and Vomiting Home Medications ?Medication ?Instructions ?Recorded ?Confirmed ?Type omeprazole 20 mg capsule,delayed 20 mg PO DAILY 09/08/22 12/22/24 History release Allergies Allergy/AdvReac Type Severity Reaction Status Date / Time bee pollen [bee stings] Allergy Severe Swelling Verified 12/22/24 09:25 Penicillins Allergy Unknown Swelling Verified 12/22/24 09:25 Physical Exam Vital signs: Vital Signs Temp 97.2 F 12/12/24 16:00 Pulse 86 12/12/24 16:00 Resp 19 12/12/24 16:00 BP 143/71 H 12/12/24 16:00 Pulse Ox 97 12/12/24 16:00 O2 Del Method Room Air 12/12/24 16:00 O2 Flow Rate 1 12/10/24 11:00 Intake & Output 12/11/24 12/12/24 12/12/24 18:59 06:59 18:59 Intake Total 360 / 580 220 / 580 700 / 700 Output Total 575 / 1475 900 / 1475 Balance -215 / -895 -680 / -895 700 / 700 Urine Output (Average ml/kg/hr) 0.27 0.48 0.48 Intake: Intake, Oral Amount 360 / 580 220 / 580 700 / 700 Output: Output, Urine Amount 375 / 1025 650 / 1025 Output, Post Void Residual 200 / 200 Amount Output, Stool Amount 250 / 250 Other: Meal Refused No Breakfast % Eaten 75% Lunch % Eaten 25% 100% Eating (Feeding) Ability Independent Number of Unmeasured Voids 3 Urine Urinal Urinal Urine Color Yellow Weight 113.8 kg - Constitutional Present: no acute distress, mild distress - Routine HEENT Exam Head: Present: normal inspection, normocephalic Eye: Present: normal appearance ENT: Present: mucous membranes moist - Routine Neck Exam Present: supple - Routine Respiratory Exam Present: decreased breath sounds - Routine Abdominal Exam Present: soft, nontender - Routine Extremities Exam Present: nontender - Routine Skin Exam Present: intact, normal turgor - Routine Neurological Exam Present: alert, oriented X3 - Detailed Neurological Exam: Coma Scale Eye Opening: Spontaneous (4) Verbal Response: Oriented (5) Hem/Onc Consult Result - Labs CBC & Chem 7: 12/13/24 07:57 12/13/24 07:57 Labs: Short CBC 12/12/24 Range/Units 07:40 WBC 10.1 (4.8-10.8) X10*3/uL Hgb 10.6 L (14.0-18.0) g/dl Hct 30.8 L (42.0-52.0) % Plt Count 443 H (160-400) X10*3/uL BMP 12/12/24 07:49 Sodium 129 L Potassium 5.0 Chloride 101 Carbon Dioxide 19 L BUN 29 H Creatinine 1.07 Calcium 8.7 Liver Function 12/12/24 Range/Units 07:49 Total Bilirubin 0.3 (0.0-1.0) mg/dL Direct Bilirubin 0.2 (0.0-0.5) mg/dL AST 35 (5-37) U/L ALT 22 (0-40) U/L Alkaline Phosphatase 109 (39-117) U/L Albumin 3.0 L (3.5-5.0) g/dL Assessment and Plan Patient Active problem list reviewed?: Yes (1) Malignant pericardial effusion Status: Acute Assessment and plan: 69-year-old gentleman, admitted with shortness of breath. Noted to be in pericardial tamponade. Had pericardial window placed, by thoracic surgery. Chest CT from 12/12: 1. Large pneumomediastinum. 2. Small pericardial effusion. There is also trace gas within the pericardial space. 3. Small bilateral pleural effusions. 4. There is mediastinal lymphadenopathy with an appearance suspicious for malignancy. 5. There are multiple new bilateral pulmonary nodules, suspicious for metastatic disease. CT scan of the abdomen pelvis 12/12 revealed: 1. There is a small amount of free intraperitoneal air and there are multiple pockets of gas within the subcutaneous tissues. Gas may be iatrogenic or secondary to bowel perforation. 2. There is marked thickening of the wall of the sigmoid colon extending over 9 cm of its length. The degree of thickening is suspicious for malignancy. Recommend further evaluation with colonoscopy. 3. There is moderate retroperitoneal lymphadenopathy. I shared the above results with the patient and his . Mentioned that the suspicion is for underlying colon carcinoma. However the other possible primaries would include lung, pancreatico biliary, upper GI. He does have a remote history of prostate cancer. Recurrence is a possibility. The pericardial fluid cytology is still pending. That may give us a definitive answer. CEA level is 5.70. CA 19-9: 447. LDH: 180. PLAN: Surgery/GI consultation. Will make further plans based upon the exact pathology. I can see him as an outpatient, to follow-up on the results. Thank you for this consult, I will follow along with you, CC: Dr. Rubio. Addendum: Pericardial fluid cytology colon adenocarcinoma. Immunostains are pending. - Time Spent With Patient Time Spent with Patient (in minutes): 30
[2024-12-12] MEDS: Magnesium Oxide 400 MG TABLET PO (18:31)
[2024-12-12 20:53] LABS: Glucose, Whole Blood 163 mg/dL (60-115)
[2024-12-13 03:32] VITALS: BP 128/80; PULSE 89; RESP 18; TEMP 36.4; O2SAT 97
--- NOTE | 2024-12-13 05:27 | ECG_ITS ---
Test Reason : cp Blood Pressure : */* mmHG Vent. Rate : 87 BPM Atrial Rate : 357 BPM P-R Int : * ms QRS Dur : 84 ms QT Int : 360 ms P-R-T Axes : * -8 43 degrees QTcB Int : 433 ms Atrial flutter with variable A-V block Abnormal ECG When compared with ECG of 09-Dec-2024 08:37, Atrial flutter has replaced Sinus rhythm Referred By: Martin Molina Electronically Signed By: SONDRA LIMON
[2024-12-13 06:00] VITALS: BMI 32.0
[2024-12-13 07:34] VITALS: BP 140/85; PULSE 94; RESP 16; TEMP 36.4; O2SAT 97
[2024-12-13 08:34] LABS: Hematocrit 32.8 % (42.0-52.0); Mean Corpuscular HGB Conc 33.5 g/dl (31.0-36.0); Mean Corpuscular Volume 92.4 fL (80.0-98.0); Mean Platelet Volume 8.4 fL (9.4-12.4); Platelet Count 493 X10*3/uL (160-400); Red Blood Count 3.55 X10*6/uL (4.60-5.80); Red Cell Distribution Width 12.3 % (11.0-16.0); White Blood Count 9.4 X10*3/uL (4.8-10.8)
[2024-12-13 08:41] LABS: Anion Gap 14 (12-20); Blood Urea Nitrogen 24 mg/dL (9-16); Calcium 8.5 mg/dL (8.4-10.2); Carbon Dioxide 20 mmol/L (22-29); Chloride 100 mmol/L (96-108); Creatinine Clr Calc Pharmacy 93.7; Estimated Glomerular Filt Rate > 60; Glucose Random 132 mg/dL (60-115); Magnesium 1.6 mg/dL (1.6-2.6); Potassium 4.9 mmol/L (3.3-5.1); Sodium 129 mmol/L (135-145)
[2024-12-13] MEDS: lisinopriL 5 MG TABLET PO (09:03)
[2024-12-13] MEDS: Omeprazole 20 MG CAPSULE.DR PO (09:03)
[2024-12-13] MEDS: Magnesium Oxide 400 MG TABLET PO (09:03)
--- NOTE | 2024-12-13 09:31 | P.PNIM_ITS ---
Subjective Subjective Date of Service: 12/13/24 Interval History: no complaints Physical Exam 2 Vital Signs: Vital Signs: Last Vital Signs Temp 97.6 F 12/13/24 07:34 Pulse 94 12/13/24 07:34 Resp 16 12/13/24 07:34 BP 140/85 H 12/13/24 07:34 Pulse Ox 97 12/13/24 07:34 O2 Del Method Room Air 12/13/24 07:34 O2 Flow Rate 1 12/10/24 11:00 Oxygen Flow Rate 1 12/11/24 11:00 BMI result Body Mass Index 32.0 General: AO X 3, no acute distress Resp: CTA bilateral, no accessory muscles used CVS: S1,S2,RRR GI: soft, non tender, non distended Neuro: motor grossly intact, alert Psych: appropriate affect, appropriate insight Objective Data Active Medications Benzonatate (Benzonatate 100 Mg Capsule) 100 mg PO TID PRN PRN Reason: Cough Last Admin: 12/11/24 11:30 Dose: 100 mg Documented By: CLARE Guaifenesin/Codeine Phosphate (Guaifen/Codeine Sf 200/20/10ml 10 Ml Liquid) 10 ml PO Q4H PRN PRN Reason: Cough Last Admin: 12/10/24 16:21 Dose: 10 ml Documented By: KLEVER Hydromorphone HCl (Hydromorphone Hcl 0.5 Mg/0.5 Ml Syringe) 0.5 mg IVPUSH Q4H PRN; Protocol PRN Reason: Pain, Moderate(Pain Scale 4-6) Last Admin: 12/11/24 11:31 Dose: 0.5 mg Documented By: CLARE Lisinopril (Lisinopril 5 Mg Tablet) 5 mg PO DAILY [facility]; Protocol Last Admin: 12/13/24 09:03 Dose: 5 mg Documented By: ARCADIO Magnesium Oxide (Magnesium Oxide 400 Mg Tablet) 400 mg PO BIDPC [facility] Last Admin: 12/13/24 09:03 Dose: 400 mg Documented By: ARCADIO Melatonin (Melatonin 3 Mg Tablet) 6 mg PO BEDTIME PRN PRN Reason: Insomnia Omeprazole (Omeprazole 20 Mg Nicole.) 20 mg PO DAILY@0630 [facility] Last Admin: 12/13/24 09:03 Dose: 20 mg Documented By: ARCADIO Ondansetron HCl (Ondansetron Hcl 4 Mg/2 Ml Vial) 4 mg IVPUSH Q8H PRN PRN Reason: Nausea and Vomiting Labs 12/13/24 07:57 12/13/24 07:57 Labs: Laboratory Results - last 24 hr 12/09/24 12/09/24 12/12/24 09:39 14:57 07:49 MCV MCH MCHC RDW Plt Count MPV Absolute Nucleated RBC Nucleated RBC % (auto) Anion Gap Estim Creat Clear Calc Estimated GFR POC Glucose Random Glucose Calcium Magnesium Carcinoembryonic Ag 5.70 Lyme Progressive Test TNP HIV 1&2 Ab/P24 Ag 4thGn Nonreactive 12/12/24 12/12/24 12/12/24 11:45 16:04 20:28 MCV MCH MCHC RDW Plt Count MPV Absolute Nucleated RBC Nucleated RBC % (auto) Anion Gap Estim Creat Clear Calc Estimated GFR POC Glucose 167 H 131 H 163 H Random Glucose Calcium Magnesium Carcinoembryonic Ag Lyme Progressive Test HIV 1&2 Ab/P24 Ag 4thGn 12/13/24 07:57 MCV 92.4 MCH 31.0 MCHC 33.5 RDW 12.3 Plt Count 493 H MPV 8.4 L Absolute Nucleated RBC 0.000 Nucleated RBC % (auto) 0.0 Anion Gap 14 Estim Creat Clear Calc 93.7 Estimated GFR > 60 POC Glucose Random Glucose 132 H Calcium 8.5 Magnesium 1.6 Carcinoembryonic Ag Lyme Progressive Test HIV 1&2 Ab/P24 Ag 4thGn Microbiology Microbiology Results: Microbiology 12/09/24 19:48 Gram Stain - Final Pericardial Fluid Anaerobic Culture - Preliminary No growth to date. Body Fluid Culture - Final No growth after 2 days 12/09/24 12:10 Gram Stain - Final Pericardial Fluid Routine Culture - Final No growth after 2 days Anaerobic Culture - Preliminary No growth to date. Assessment and Plan (1) Cardiac tamponade: Status: Acute Plan 69M PMH alcohol dependence, hypertension, diabetes, diverticulitis, pancreatitis presented on 12/09/2024 with increasing fatigue 3 weeks after upper respiratory tract infection. In ED noted to have large pericardial effusion with tamponade. Underwent pericardial window with significant hemopericardium. Was monitored in the ICU, did well, pericardial drain now removed downgraded to medical floor. Cardiac tamponade due to hemopericardium likely due to malignancy Differential includes infection, autoimmune CT showed suspicious lesion in sigmoid, lympadenopathy, and concern for pulmonary mets, also noted postoperative air in chest and abdomen (expected after subxiphoid pericardiocentesis) Follow-up autoimmune workup repeat echo unremarkable given ct findings will dc colchicine follow up pericardial pathology, oncology Acute kidney injury Resolved Alcohol dependence No signs of withdrawal Borderline Diabetes Diet-controlled, monitor point of care acute hyponatremia likely due to above improving DVT prophylaxis-mechanical due to hemopericardium Full code reason for continued hospitalization: working up hemopericardium Quality Stroke Does the patient have a stroke diagnosis?: No VTE Prior VTE?: No VTE Risk Level:: Surgical - low VTE Device Contraindication: N/A - Device Ordered VTE Drug Contraindication: Treatment Not Indicated
[2024-12-13 10:48] VITALS: O2SAT 96
--- NOTE | 2024-12-13 11:10 | P.DS_ITS ---
DS: Providers Provider Date of Service: 12/13/24 Date of admission: 12/09/24 14:11 Date of discharge: 12/13/24 Primary care physician: Nicola Rubio MD Consults: 12/12/24 16:00 Consult to Hematology / Oncology Routine Consulting Provider: [facility] [place] [facility] Oncology/Hematology Reason for consultation: hemopericardium, ?colon ca with mets on CT DS: Diagnosis Discharge Diagnosis (1) Cardiac tamponade: Status: Acute DS: Summary Hospital Course Hospital Course: From initial hpi: 69-year-old gentleman with past medical history of chronic alcohol abuse, last drink yesterday night hypertension, diabetes mellitus, diverticulitis, pancreatitis presented to the ED with complaints of shortness of breath and extreme fatigue for the past day or so that he could not ambulate or take care of his daily routine. He also has been having cough for the past 3 weeks, mildly productive, not associated with blood. He had bilateral shoulder joint pains so far which is at Dr. and was given steroid injection. In the ED he underwent TTE which showed large pericardial effusion with tamponade physiology, thoracic surgery was called in, underwent pericardial window placement and is being transferred to ICU for close monitoring. He drinks alcohol everyday about 1-2 cans off [place], last drink was yesterday night. He states he does not drink enough to go through withdrawal, has never had withdrawals in his life during previous admissions. Hospital course: Patient was admitted to the intensive care unit for cardiac tamponade due to hemopericardium. Underwent pericardial window which was grossly bloody. Eventually drain stopped draining, was removed, repeat echocardiogram was unremarkable. Preliminary pathology results with mesothelial cells, no malignancy seen, follow-up full report. CT abdomen pelvis and chest was done to look for etiology. Revealed suspicious sigmoid colon thickening, lymphadenopathy, suspicious pulmonary nodules bilateral. Patient was seen by Oncology and recommended to get biopsy of sigmoid lesion. Patient will follow up with Gastroenterology as outpatient for colonoscopy. will also follow up with Oncology for PET scan. Patient had acute kidney injury on admission which resolved. For borderline diabetes was diet controlled. Noted to have acute hyponatremia likely due to hemopericardium and possible malignancy, improved to 129 at time of discharge. Patient is feeling better will be discharged home. Time Attestation Discharge Coordination Time (in mins): 33 Quality: Safe Use of Opioids Does Pt have an Active Cancer Diagnosis on the Problem List?: Yes Opioid Measure Date for [facility] Report: 11/13/24 Opioid Measure Time for [facility] Report: 11:10 Quality: Stroke Does the patient have a stroke diagnosis?: No Physical Exam Vital Signs: Vital Signs: Last Vital Signs Temp 97.6 F 12/13/24 07:34 Pulse 94 12/13/24 07:34 Resp 16 12/13/24 07:34 BP 140/85 H 12/13/24 07:34 Pulse Ox 96 12/13/24 10:48 O2 Del Method Room Air 12/13/24 10:48 O2 Flow Rate 1 12/10/24 11:00 Oxygen Flow Rate 1 12/11/24 11:00 BMI result Body Mass Index 32.0 General: AO X 3, no acute distress Resp: CTA bilateral, no accessory muscles used CVS: S1,S2,RRR GI: soft, non tender, non distended Neuro: motor grossly intact, alert Psych: appropriate affect, appropriate insight DS: Data Data Completed and Pending Completed studies during hospitalization [Text1]: Procedures Detoxification Services for Substance Abuse Treatment (09/08/22) Pending studies at discharge: Pending at discharge 12/09/24 12:10 Cytology [PTH] Routine 12/09/24 13:24 Surgical [PTH] Routine Labs on day of discharge: Laboratory Results - last 24 hr 12/09/24 12/12/24 12/12/24 14:57 07:49 11:45 WBC RBC Hgb Hct MCV MCH MCHC RDW Plt Count MPV Absolute Nucleated RBC Nucleated RBC % (auto) Sodium Potassium Chloride Carbon Dioxide Anion Gap BUN Creatinine Estim Creat Clear Calc Estimated GFR POC Glucose 167 H Random Glucose Calcium Magnesium Carcinoembryonic Ag 5.70 HIV 1&2 Ab/P24 Ag 4thGn Nonreactive 12/12/24 12/12/24 12/13/24 16:04 20:28 07:57 WBC 9.4 RBC 3.55 L Hgb 11.0 L Hct 32.8 L MCV 92.4 MCH 31.0 MCHC 33.5 RDW 12.3 Plt Count 493 H MPV 8.4 L Absolute Nucleated RBC 0.000 Nucleated RBC % (auto) 0.0 Sodium 129 L Potassium 4.9 Chloride 100 Carbon Dioxide 20 L Anion Gap 14 BUN 24 H Creatinine 0.94 Estim Creat Clear Calc 93.7 Estimated GFR > 60 POC Glucose 131 H 163 H Random Glucose 132 H Calcium 8.5 Magnesium 1.6 Carcinoembryonic Ag HIV 1&2 Ab/P24 Ag 4thGn Preliminary micro results at discharge 12/09/24 19:48 Anaerobic Culture - Preliminary Pericardial Fluid No growth to date. 12/09/24 12:10 Anaerobic Culture - Preliminary Pericardial Fluid No growth to date. 12/09/24 12:10 Fungal Identification - Preliminary Pericardial Fluid No growth to date. 12/09/24 09:39 Blood Culture - Preliminary Blood - Venous No growth after 48 hours. 12/09/24 09:39 Blood Culture - Preliminary Blood - Venous No growth after 48 hours. Discharge Plan Discharge Anticipated Discharge Date/Time: 12/13/24 11:06 Patient Disposition: Home, Self-Care Discharge Diagnosis: hemopericardium concern for malignant due to colon ca Referrals: Nicola Rubio MD [Primary Care Provider] - 1 Week Jersey Mclaughlin MD [Physician] - 1 Week Reinier Ruiz MD [Physician] - 1 Week Discharge Medications: Continued lisinopril 5 mg tablet 1 tab PO DAILY omeprazole 20 mg Capsule,Delayed Release(Dr/Ec) 20 mg PO DAILY Discharge Orders: Discharge Order (Routine); Ordered 12/13/24 Ordered By: Martin Molina Diet: Advance to usual diet Activity on Discharge: avoid heavy exersion Print Language: Macedonian Care Plan Goals: work up effusion Health Concerns: hemopericardium Plan of Treatment: plan for colonoscopy with GI, PET scan with oncology, follow up with oncology/GI Assessment: see above
[2024-12-13 11:18] LABS: Glucose, Whole Blood 139 mg/dL (60-115)
[2024-12-13 11:32] LABS: Glucose, Whole Blood 150 mg/dL (60-115)
--- NOTE | 2024-12-13 11:54 | MHC.CM.PN ---
Second IMM given 12/13. Pt is medically cleared for discharge home self-care today, pts will transport him home.
--- NOTE | 2024-12-13 12:38 | PM.GICN ---
History of Present Illness Data of Consult Service Date: 12/13/24 Requesting physician: Martin Molina Primary Care Provider: Nicola Rubio MD HPI Reason for consult: colon mass 69 yr old m with chronic alcohol abuse, hypertension, diabetes mellitus, diverticulitis, pancreatitis who I am seeing for abn imaging Patient initially presented with worsening sob and was found to have cardiac tamponade from large effusion and needed pericardial window. He was noted to have blood fluid. Imaging was done and revealed suspicious sigmoid thickening and pulm nodules. he denies any changes in bowel habits, blood in stool, constipation or diarrhea, Last colo was 2020 with many polyps removed dayton the right colon. Today he feels back to baseline and brething is normal. he wants to go home. Review of Systems Review of Systems: Constitutional : No Weight loss, No Fever, No Chills ENT/Mouth : No sore throat, No Rhinorrhea Eyes: No Swelling, No Redness Cardiovascular : No Chest Pain, No SOB, No Edema Respiratory : No Cough, No Sputum, No Wheezing Gastrointestinal : see HPI Genitourinary : NO Dysuria, No Urinary Frequency, No Hematuria, No Urgency Musculoskeletal : no joint pain, No Myalgias, No Joint Swelling Skin : No Skin Lesions, No rash Neuro : No Weakness, No Numbness, No Dizziness, No Headache Psych : No Anxiety/Panic, No Depression Heme/Lymph: No Bruising, No Lymphadenopathy Endocrine : No Polyuria, No Polydipsia All other systems reviewed and are negative. [facility] Past Medical History Medical History Hyperlipidemia Hiatal hernia GERD (gastroesophageal reflux disease) Prostate cancer HTN (hypertension) Family History Pertinent family history: no fh of cRC Surgical History Surgical History History of tonsillectomy History of prostatectomy History of esophagogastroduodenoscopy (EGD) Hx of colonoscopy Social History Social History Household Members: Spouse Housing: House Are you a primary caretaker to a significant other at home: No Do you presently have visiting nurse or other home services: No Alcohol intake: current Alcohol intake frequency: 0-2 drinks per day Alcohol type: beer, wine and hard liquor Comment: REFUSE ALARM Patient Tobacco Use Status: Former Tobacco user Tobacco use type: Cigarette Substance Use Type: Marijuana service: No Current occupational status: retired Meds Allergies Allergy/AdvReac Type Severity Reaction Status Date / Time bee pollen [bee stings] Allergy Severe Swelling Verified 12/09/24 08:42 Penicillins Allergy Unknown Swelling Verified 12/09/24 18:21 Home Medications ?Medication ?Instructions ?Recorded ?Confirmed ?Last Taken ?Type lisinopril 5 mg tablet 1 tab PO DAILY 04/18/21 12/09/24 12/09/24 History omeprazole 20 mg capsule,delayed 20 mg PO DAILY 09/08/22 12/09/24 12/09/24 History release Physical Exam Vital Signs: Vital Signs: Last Vital Signs Temp 97.6 F 12/13/24 07:34 Pulse 94 12/13/24 07:34 Resp 16 12/13/24 07:34 BP 140/85 H 12/13/24 07:34 Pulse Ox 96 12/13/24 10:48 O2 Del Method Room Air 12/13/24 10:48 O2 Flow Rate 1 12/10/24 11:00 Oxygen Flow Rate 1 12/11/24 11:00 BMI result Body Mass Index 32.0 EXAM: GENERAL: The patient is well developed and nontoxic. VITAL SIGNS:see workflow HEENT: Nonicteric sclerae, PERRLA, EOMI. Oropharynx clear. Moist mucous membranes. Conjunctivae appear well perfused. No thyroid mass. CHEST: Chest wall is nontender. HEART: Regular rate and rhythm without murmurs. LUNGS: Clear to auscultation bilaterally. ABDOMEN: Soft, positive bowel sounds, nontender, no organomegaly.no flank tenderness SKIN: No rash, no excessive bruising, petechiae, or purpura. NEUROLOGIC: Cranial nerves II-XII intact without motor/sensory deficit. Psych: normal affect Results Labs 12/13/24 07:57 12/13/24 07:57 Labs: Short CBC 12/13/24 Range/Units 07:57 WBC 9.4 (4.8-10.8) X10*3/uL Hgb 11.0 L (14.0-18.0) g/dl Hct 32.8 L (42.0-52.0) % Plt Count 493 H (160-400) X10*3/uL BMP 12/13/24 07:57 Sodium 129 L Potassium 4.9 Chloride 100 Carbon Dioxide 20 L BUN 24 H Creatinine 0.94 Calcium 8.5 Microbiology Microbiology Results: Microbiology 12/09/24 19:48 Pericardial Fluid Gram Stain - Final 12/09/24 19:48 Pericardial Fluid Anaerobic Culture - Preliminary No growth to date. 12/09/24 19:48 Pericardial Fluid Body Fluid Culture - Final No growth after 2 days 12/09/24 12:10 Pericardial Fluid Gram Stain - Final 12/09/24 12:10 Pericardial Fluid Routine Culture - Final No growth after 2 days 12/09/24 12:10 Pericardial Fluid Anaerobic Culture - Preliminary No growth to date. 12/09/24 12:10 Pericardial Fluid Fungal Identification - Preliminary No growth to date. 12/09/24 09:39 Blood - Venous Blood Culture - Preliminary No growth after 48 hours. 12/09/24 09:39 Blood - Venous Blood Culture - Preliminary No growth after [address] scan - abdomen: Attestation: I personally reviewed and interpreted this imaging study as follows: (thickened sigmoid, portion noted, no obvious mass lesions seen in colon) Assessment and Plan (1) Abnormal finding on imaging: Status: Acute Plan 1/ Presumed malignant pericardial effusion with suspicious findings on CT with pulm nodules, sigmoid thickening -last colo 2020- no mass, but several polyps removed PLAN: 1/ EGD and colo next week, use adult scope with colowrap 2/ will send suprep Procedures Date of Service Date of Service: 12/13/24
[2024-12-14 10:29] LABS: Carbohydrate Antigen 19-9 447 U/mL (<34)
[2024-12-14 20:48] LABS: Cyclic Citrullinated Peptide <16 UNITS
[2024-12-15 10:58] LABS: Anti Nuclear Antibody Screen POSITIVE (NEGATIVE)
[2024-12-15 14:39] LABS: pH Pericardial Fluid 7.57
== END 2024-12-13 12:16 | disposition home or self-care (01) | DRG 982 ==
LOC: HO.ED 10:15 → HO.SSS 10:24 → HO.ICU 14:20 → HO.IMC 12-10 14:25
PROVIDERS: Physician Assistant Medical; Surgery; Admitting Provider Internal Medicine Critical Care Medicine; Emergency Provider Emergency Medicine; PCP Internal Medicine; Visit Provider Internal Medicine
PROC: 0W9D00Z Drainage of Pericardial Cavity with Drainage Device, Open Approach (ICD-10-PCS; principal; 2024-12-09 11:30)
DX: C18.7 Malignant neoplasm of sigmoid colon (principal); C77.1 Secondary and unspecified malignant neoplasm of intrathoracic lymph nodes; I31.4 Cardiac tamponade; E87.1 Hypo-osmolality and hyponatremia; N17.9 Acute kidney failure, unspecified; I31.31 Malignant pericardial effusion in diseases classified elsewhere; C78.02 Secondary malignant neoplasm of left lung; C78.01 Secondary malignant neoplasm of right lung; R73.03 Prediabetes; F10.20 Alcohol dependence, uncomplicated; Z20.822 Contact with and (suspected) exposure to COVID-19; Z87.891 Personal history of nicotine dependence; Z79.899 Other long term (current) drug therapy
CPT/HCPCS: 0241U; 36415; 71045; 71046; 71260; 74177; 80048; 80053; 80076; 82042; 82378; 82550; 82570; 82945; 82947; 83605; 83615; 83735; 83880; 83986; 84100; 84145; 84157; 84443; 84484; 85025; 85027; 85379; 85610; 85652; 86038; 86039; 86140; 86200; 86301; 86431; 86617; 86618; 86850; 86900; 86901; 87040; 87070; 87073; 87102; 87116; 87205; 87206; 87389; 87633; 88112; 88305; 88341; 88342; 89051; 93005; 93306; 94640; 99285; J0171; J0690; J0692; J1171; J2003; J2470; J2704; J2795; J3010; J7120; P9047; Q9957; Q9967

== ENCOUNTER → 2024-12-09 08:32 | Outpatient (BNV) | payer MEDICARE, SELFPAY | PROVIDERS: Admitting Provider Internal Medicine Critical Care Medicine; Emergency Provider Emergency Medicine; PCP Internal Medicine; Visit Provider Internal Medicine Cardiovascular Disease | DX: I49.3 Ventricular premature depolarization (principal); R00.0 Tachycardia, unspecified | CPT/HCPCS: 93010 ==

== ENCOUNTER → 2024-12-09 08:46 | Outpatient (BNV) | payer MEDICARE, SELFPAY | PROVIDERS: Emergency Provider Emergency Medicine; PCP Internal Medicine; Visit Provider Radiology Vascular & Interventional Radiology | DX: R07.81 Pleurodynia (principal); I31.4 Cardiac tamponade | CPT/HCPCS: 71045; 71046 ==

== ENCOUNTER → 2024-12-09 10:20 | Outpatient (BNV) | payer MEDICARE, SELFPAY | PROVIDERS: Emergency Provider Emergency Medicine; PCP Internal Medicine; Visit Provider Surgery | DX: I30.9 Acute pericarditis, unspecified (principal) | CPT/HCPCS: 33025; 99024; 99223; 99499 ==

== ENCOUNTER 2024-12-09 14:11 | Outpatient (BNV) | payer MEDICARE, SELFPAY | END 2024-12-13 05:27 | PROVIDERS: Admitting Provider Internal Medicine Critical Care Medicine; Emergency Provider Emergency Medicine; PCP Internal Medicine; Visit Provider Internal Medicine | DX: R07.9 Chest pain, unspecified (principal); I48.92 Unspecified atrial flutter; R94.31 Abnormal electrocardiogram [ECG] [EKG] | CPT/HCPCS: 93010 ==

== ENCOUNTER 2024-12-09 14:11 | Outpatient (BNV) | payer MEDICARE, SELFPAY | END 2024-12-11 11:00 | PROVIDERS: Admitting Provider Internal Medicine Critical Care Medicine; Emergency Provider Emergency Medicine; PCP Internal Medicine; Visit Provider Radiology Diagnostic Radiology | DX: K68.9 Other disorders of retroperitoneum (principal); J90 Pleural effusion, not elsewhere classified; J98.2 Interstitial emphysema; R91.8 Other nonspecific abnormal finding of lung field | CPT/HCPCS: 71260; 74177 ==

== ENCOUNTER 2024-12-09 14:11 | Outpatient (BNV) | payer MEDICARE, SELFPAY | END 2024-12-11 07:00 | PROVIDERS: Admitting Provider Internal Medicine Critical Care Medicine; Emergency Provider Emergency Medicine; PCP Internal Medicine; Visit Provider Internal Medicine | DX: R94.31 Abnormal electrocardiogram [ECG] [EKG] (principal) | CPT/HCPCS: 93306 ==

== ENCOUNTER → 2024-12-09 14:11 | Outpatient (BNV) | payer MEDICARE, SELFPAY | PROVIDERS: Admitting Provider Internal Medicine Critical Care Medicine; Emergency Provider Emergency Medicine; PCP Internal Medicine; Visit Provider Internal Medicine Medical Oncology | DX: I31.31 Malignant pericardial effusion in diseases classified elsewhere (principal) | CPT/HCPCS: 99222 ==

== ENCOUNTER → 2024-12-09 14:11 | Outpatient (BNV) | payer MEDICARE, SELFPAY | PROVIDERS: Admitting Provider Internal Medicine Critical Care Medicine; Emergency Provider Emergency Medicine; PCP Internal Medicine; Visit Provider Internal Medicine Critical Care Medicine | DX: I31.4 Cardiac tamponade (principal); I30.9 Acute pericarditis, unspecified; R73.9 Hyperglycemia, unspecified; N17.9 Acute kidney failure, unspecified; E87.1 Hypo-osmolality and hyponatremia | CPT/HCPCS: 99233 ==

== ENCOUNTER → 2024-12-09 14:11 | Outpatient (BNV) | payer MEDICARE, SELFPAY | PROVIDERS: Admitting Provider Internal Medicine Critical Care Medicine; Emergency Provider Emergency Medicine; PCP Internal Medicine; Visit Provider Internal Medicine Gastroenterology | DX: R93.89 Abnormal findings on diagnostic imaging of other specified body structures (principal) | CPT/HCPCS: 99223 ==

== ENCOUNTER → 2024-12-09 14:11 | Outpatient (BNV) | payer MEDICARE, SELFPAY | PROVIDERS: Admitting Provider Internal Medicine Critical Care Medicine; Emergency Provider Emergency Medicine; PCP Internal Medicine; Visit Provider Internal Medicine | DX: I31.4 Cardiac tamponade (principal) | CPT/HCPCS: 99232; 99239; 99499 ==

== ENCOUNTER 2024-12-18 08:24 | Outpatient (AMB) | payer MEDICARE, SELFPAY ==
--- NOTE | 2024-12-18 08:25 | MHC.OFFVIS ---
Intake Visit Reasons: s/p cardiac tamponade Intake Note: Patient here s/p subxiphoid pericardial window, pericardial biopsy. Pericardiostomy tube removed on 12-11-2024. Reports incisions healing well. Patiet c/o: reports tube site dressing changed daily but no drainage noted. No concerns. Feeling well. Surgery: 12-09-2024 Banquet Attendant Required: No Accompanied by: spouse Alysa Allergies bee pollen [bee stings] Allergy (Severe, Verified 12/18/24 08:25) Swelling Penicillins Allergy (Unknown, Verified 12/18/24 08:25) Swelling HPI Comments Details: Patient presents for follow-up with his . Status post pericardial tamponade subxiphoid window surgery. Multilevel consider, and is doing well. He is tolerating a diet. Having regular bowel habits. No acute respiratory issues. He is being followed by Oncology. Patient was to have colonoscopy scheduled tomorrow. He is following up with Oncology on Wednesday. Cytology results were reviewed with the patient was already told by Oncology that knee he has a neoplastic process, the primary which is being worked up. [facility] Medical History Hyperlipidemia Hiatal hernia GERD (gastroesophageal reflux disease) Prostate cancer HTN (hypertension) Surgical History History of tonsillectomy History of prostatectomy History of esophagogastroduodenoscopy (EGD) Hx of colonoscopy Social History Household Members: Spouse Housing: House Are you a primary acute care physical therapist to a significant other at home: No Do you presently have visiting nurse or other home services: No Alcohol intake: current Alcohol intake frequency: 0-2 drinks per day Alcohol type: beer, wine and hard liquor Comment: REFUSE ALARM Patient Tobacco Use Status: Former Tobacco user Tobacco use type: Cigarette Substance Use Type: Marijuana service: No Current occupational status: retired Physical Exam GI Other: Abdomen corpulent, soft, incision clean dry and intact. Drain site completely healed. Assessment & Plan Assessment & Plan (1) Status post creation of pericardial window: Code(s): Z98.890 - Other specified postprocedural states Category: Medical Plan At present, no acute surgical issues. Should the patient require either a port or his colonoscopy requires further intervention, patient will contact me. All questions answered. Patient will otherwise follow-up p.r.n.. Coding Level of Care Code Global (92273) Diagnoses Status post creation of pericardial window Z98.890
--- OUTSIDE RECORDS SUMMARY | 2024-12-18 08:44 | XMS_ITS | Data Portability ---
Author Organization [place] - [facility], Allergy Address [address] [place] [id number] Care Team Providers Care Chemist Organic Name Role Phone RICARDA AMEZQUITA Primary Care Provider [phone] Assessment No assessment recorded. 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 Medical [...] Updated DateTime 12/01/2024 182.88 cm 31.2 kg/m2 238189.25 g Lashonda Millerkatheryn [place] - [facility] [place] [facility] 12/01/2024 12:55:35 Social History None recorded. Functional Status None recorded. Mental Status None recorded. Family History Nothing Reported. Medical History No medical history recorded. Past Encounters Encounter ID Performer Location Encounter Start Date Encounter Closed Date Diagnosis/Indication Diagnosis SNOMED-CT Code Diagnosis ICD10 Code Diagnosis Note [id number] TIFFANIE DARBY MD [facility] on [address] [place] [address] 12/01/2024 12:45:15 12/01/2024 13:03:39 Neoplasm of uncertain behavior of tongue 66804588 D37.02 4mm ulcer on left posterolat eral [...] a punch biopsy if persistent . Glossitis 98120595 K14.0 see above Health Concerns Section Related Observation LastModified by Organization Detai ls LastModified Time None Recorded Concern Status LastModified by Organization Details LastModified Time None Recorded Advance Directives Directive None Recorded Payers Encounter Date Sequence Insurance Name Policy Number Policy Osullivan Covered Member ID Osullivan Member ID Guarantor Name 12/01/2024 1 [facility] (MEDICARE REPLACEMENT/A DVANTAGE - PPO) [id number] Abel Grayson [id number] Abel Villanuevaie Notes Date Note Type Note Provider Name [...] just bit his tongue. TIFFANIE DARBY MD [address] [place] [address], [address], [place] - [facility] 12/01/2024 13:05:52
--- OUTSIDE RECORDS SUMMARY | 2024-12-18 08:44 | XMS_ITS | Patient Health Record ---
Author Organization [facility] Address [address] [place] [address] Care Team Providers Care Vice President Safety Name Role Phone Nicola Rubio MD Primary Care Provider Russ Babcock Unavailable [phone] ALLERGIES Allergen (clinical drug ingredient) Drug/Non Drug [...] W/U Status Risk SNOMED Code Notes Problem Encounter for screening for malignant neoplasm of colon (Z12.11) Active confirmed 927001830 Problem Preprocedural examination (Z01.818) Active confirmed 449479928948776 Problem History of colon polyps (Z86.010) Active confirmed 673363408 Problem Diverticulosis of sigmoid colon (K57.30) Active confirmed Diverticulosis of sigmoid colon (896274789) PLAN OF TREATMENT Pending Test Test Name Order Date Pathology 04/25/2021 Future Test Test Name Order Date COLONOSCOPY 04/01/2021 Insurance Providers Payer Name Payer Address Payer Phone Subscriber Number Group Number Insured Name Patient Relationship to Insured Coverage Start Date Coverage End Date MEDICARE OF [place] [address] [place] [id number] [phone] [id number] [employer] Self - patient is the insured [employer] [address] [place] [address] [id number] [employer] Self - patient is the insured MEDICAL (GENERAL) HISTORY Medical History History ICD Code Hypertension Hx prostate cancer with surgery as below Denies [place],DM,CVA,Lung disease,renal dise ase GERD-EGD with Dr. Oneal--he describes a Hyperlipidemia Colon polyps-3 previous colo noscopies with Dr. Oneal, with the most recent one being in approximately 2015 or 2016 Surgical History Surgery Date(Month/Year) Prostatectomy 2010 Tonsillectomy
--- OUTSIDE RECORDS SUMMARY | 2024-12-18 08:44 | XMS_ITS | Continuity of Care Document ---
Author Organization [place] - [facility], [facility] Address [address] [place] [address] Care Team Providers Care District Leader Name Role Phone RICARDA AMEZQUITA Primary Care Provider Assessment No assessment recorded. Plan of Treatment [...] Time Neoplasm of uncertain behavior of tongue 18544131 Active 025 TIFFANIE DARBY MD [address] [place] [address], [place], [address] , [facility] 5 12:57:14 Glossitis 79878586 Active 025 TIFFANIE DARBY MD [address] [place] [address], [place], [address] , [facility] 5 12:57:20 Problem Notes None recorded. [...] Updated DateTime 12/01/2024 182.88 cm 31.2 kg/m2 373163.25 g Lashonda Matos [place] - [facility] 12/01/2024 12:55:35 Social History None recorded. Functional Status None recorded. Mental Status None recorded. Family History Nothing Reported. Medical History No medical history recorded. Past Encounters Encounter ID Performer Location Encounter Start Date Encounter Closed Date Diagnosis/Indication Diagnosis SNOMED-CT Code Diagnosis ICD10 Code Diagnosis Note [id number] TIFFANIE DARBY MD [facility] on [address] [place] [address] 12/01/2024 12:45:15 12/01/2024 13:03:39 Neoplasm of uncertain behavior of tongue 74182410 D37.02 4mm ulcer on left posterolat eral [...] a punch biopsy if persistent . Glossitis 53830671 K14.0 see above Health Concerns Section Related Observation LastModified by Organization Detai ls LastModified Time None Recorded Concern Status LastModified by Organization Details LastModified Time None Recorded Payers Encounter Date Sequence Insurance Name Policy Number Policy Osullivan Covered Member ID Osullivan Member ID Guarantor Name 12/01/2024 1 [facility] (MEDICARE REPLACEMENT/A DVANTAGE - PPO) [id number] Abel Grayson [id number] Abel Kenan Notes Date Note Type Note [...] just bit his tongue. TIFFANIE DARBY MD [address] [place] [address], [place], [address], [facility] - [facility] 12/01/2024 13:05:52
== END 2024-12-18 08:40 | disposition home or self-care (01) ==
PROVIDERS: PCP Internal Medicine; Visit Provider Surgery
DX: Z98.890 Other specified postprocedural states (principal)
CPT/HCPCS: 99024

== ENCOUNTER → 2024-12-18 08:24 | Outpatient (BNVA) | payer MEDICARE, SELFPAY | PROVIDERS: PCP Internal Medicine; Visit Provider Surgery | DX: Z09 Encounter for follow-up examination after completed treatment for conditions other than malignant neoplasm (principal); Z98.890 Other specified postprocedural states | CPT/HCPCS: 99212 ==

== ENCOUNTER 2024-12-19 07:14 | Day surgery (SDC) | payer MEDICARE, SELFPAY ==
--- OUTSIDE RECORDS SUMMARY | 2024-12-14 06:34 | XMS_ITS | Patient Health Record ---
Author Organization [facility] Address [address] [place] [address] Care Team Providers Care Demolition Engineer Name Role Phone Nicola Rubio MD Primary Care Provider Russ Babcock Unavailable [phone] ALLERGIES Allergen (clinical drug ingredient) Drug/Non Drug Allergy documented on EMR Reaction Allergy Type Onset Date Status penicillin G Penicillin G Sodium Unknown Drug Allergy Active bees (uncoded) Unknown Allergy Activ e REASON FOR REFERRAL No Information MEDICATIONS Medication SIG (Take, Route, Frequency, Duration) Notes Start Date End Date Status Lisinopril 5 MG TAKE 1 TABLET BY KALEIGH TH EVERY DAY Oral for 90 Active Prevacid otc Active Pravastatin Sodium 40 MG TAKE 1 TABLET B Y MOUTH EVERY DAY Oral for 90 Active SOCIAL HISTORY Tobacco Use: Social History Observation Description Date Details (start date - stop date) Never Smoker NA - NA Sex Assigned At : Social History Observation Description Sex Assigned At Unknown Tobacco Use/Smoking Question Answer Notes Patient is a nonsmoker Alcohol Screen Question Answer Notes Did you have a drink contain ing alcohol in the past year? Yes How often did you have a dri nk containing alcohol in the past year? 4 or more times a week (4 points) How many drinks did you have on a typical day when you were drinking in the past year? 1 or 2 drinks (0 point) Points 4 Interpretation Positive PROBLEMS Problem Type ICD Code Onset Dates Problem Status W/U Status Risk SNOMED Code Notes Problem History of colon polyps (Z86.010) Active confirmed 493232376 Problem Encounter for screening for malignant neoplasm of colon (Z12.11) Active confirmed 482290625 Problem Preprocedural examination (Z01.818) Active confirmed 607477095771084 Problem Diverticulosis of sigmoid colon (K57.30) Active confirmed Diverticulosis of sigmoid colon (276805356) PLAN OF TREATMENT Pending Test Test Name Order Date Pathology 04/25/2021 Future Test Test Name Order Date COLONOSCOPY 04/01/2021 Insurance Providers Payer Name Payer Address Payer Phone Subscriber Number Group Number Insured Name Patient Relationship to Insured Coverage Start Date Coverage End Date MEDICARE OF [place] [address] [place] [id number] [phone] [id number] [employer] Self - patient is the insured [facility] [address] [place] [address] [id number] [employer] Self - patient is the insured MEDICAL (GENERAL) HISTORY Medical History History ICD Code Hypertension Hx prostate cancer with surgery as below Denies GA,DM,CVA,Lung disease,renal dise ase GERD-EGD with Dr. Oneal--he describes a Hyperlipidemia Colon polyps-3 previous colo noscopies with Dr. Oneal, with the most recent one being in approximately 2015 or 2016 Surgical History Surgery Date(Month/Year) Prostatectomy 2010 Tonsillectomy
--- OUTSIDE RECORDS SUMMARY | 2024-12-14 06:34 | XMS_ITS | Continuity of Care Document ---
Author Organization [place] - [facility], [facility] Address [address] [place] [address] Care Team Providers Care Medical Billing Associate Name Role Phone RICARDA AMEZQUITA Primary Care Provider [phone] Assessment No assessment recorded. Plan of Treatment Reminders Order Date Submit Date Provider Last Modified By Organization Details Last Modified Time Details Appointments Establish ed 15 2024 08:15A M RODRI RECINOS PA-C Not available Not available Not available Lab None recorded. Referral None recorded. Procedures None recorded. Surgeries None recorded. Imaging None recorded. Medication Orders None recorded. Patient TargetsNo targets recorded. Patient InstructionsNo instructions recorded. Reason for Referral None Reported. 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 Medical Equipment None Reported. Medications Name Sig Start Date Stop Date Status Note LastModified by Organization Details LastModified Time ibuprofen 800 mg tablet TAKE 1 TABLET BY MOUTH TWICE DAILY active Not Available Not Available No t Available omeprazole 20 mg capsule,sara yed release TAKE 1 CAPSULE BY MOUTH EVERY DAY active Not Available Not Available No t Available lisinopril 5 mg tablet TAKE 1 TABLET BY MOUTH EVERY DAY active Not Available Not Available No t Available Vitals Date Recorded Body height Body mass index (BMI) Body weight Provider Name and Address Organization Details Last Updated DateTime 12/01/2024 182.88 cm 31.2 kg/m2 685098.25 g Lashonda Matos [place] - [facility] 12/01/2024 12:55:35 Social History None recorded. Functional Status None recorded. Mental Status None recorded. Family History Nothing Reported. Medical History No medical history recorded. 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 I suspect this is traumatic and it has only been present 2 weeks. I recommend he see his dentist to have tooth #18 filed down to remove the area causing trauma and I would expect this to heal if it is traumatic. We will make a close f/u in 4 weeks and plan to do a punch biopsy if persistent . Glossitis [id number] K14.0 see above Health Concerns Section Related Observation LastModified by Organization Detai ls LastModified Time None Recorded Concern Status LastModified by Organization Details LastModified Time None Recorded Payers Encounter Date Sequence Insurance Name Policy Number Policy [place] Covered Member ID [place] Member ID Guarantor Name 12/01/2024 1 [facility] (MEDICARE REPLACEMENT/A DVANTAGE - PPO) [id number] Abel Grayson [id number] Abel Kenan Notes Date Note Type Note Provider Name and Address Organization Details Recorded Time 12/01/2024 text/html He noted several growths on the left side of his tongue 2 weeks ago. they are sensitive. He is sensitive to certain foods. He is pushing food to the other side. They have gotten more painful over the last 2 weeks. He quit smoking 8-9 years ago. He does smoke cannabis. He bites his tongue often. Initially he thought he just bit his tongue. TIFFANIE DARBY MD [address] [place] [address], [place], [address], [facility] - [facility] 12/01/2024 13:05:52
--- NOTE | 2024-12-18 11:48 | HO.ANESPROP2 ---
Documented by User: Therese Garcia NP 12/18/24 11:52 HPI - Anesthesia Eval Consult details Narrative: 69yo M for Colonoscopy [facility] admit 11/2024 Hospital course: Patient was admitted to the intensive care unit for cardiac tamponade due to hemopericardium. Underwent pericardial window which was grossly bloody. Eventually drain stopped draining, was removed, repeat echocardiogram was unremarkable. Preliminary pathology results with mesothelial cells, no malignancy seen, follow-up full report. CT abdomen pelvis and chest was done to look for etiology. Revealed suspicious sigmoid colon thickening, lymphadenopathy, suspicious pulmonary nodules bilateral. Patient was seen by Oncology and recommended to get biopsy of sigmoid lesion. Patient will follow up with Gastroenterology as outpatient for colonoscopy. will also follow up with Oncology for PET scan. Patient had acute kidney injury on admission which resolved. For borderline diabetes was diet controlled. Noted to have acute hyponatremia likely due to hemopericardium and possible malignancy, improved to 129 at time of discharge. Patient is feeling better will be discharged home. PMFSH Active Problems Active Problems: All Active Problems Status post creation of pericardial window (Acute) Abnormal finding on imaging (Acute) Malignant pericardial effusion (Acute) Cardiac tamponade (Acute) Pericardial effusion without cardiac tamponade (Acute) Acute dyspnea (Acute) Elevated WBC count (Acute) Acute pericardial effusion (Acute) PAM (acute kidney injury) (Acute) Acute hyponatremia (Acute) Cerumen impaction (Acute) Lesion of tongue (Acute) Shoulder pain, right (Acute) Diabetes mellitus (Acute) Greater trochanteric bursitis of right hip (Acute) Hyponatremia (Acute) Hyperglycemia (Acute) Ileus (Acute) Hyponatremia (Acute) Hypomagnesemia (Acute) Acute pancreatitis (Acute) Acute kidney injury (Acute) Alcohol dependence (Acute) Colitis (Acute) Strain of lumbar paraspinal muscle (Acute) Past Medical History Medical History (Updated 12/13/24 @ 16:53 by Jersey Mclaughlin MD) Hyperlipidemia Hiatal hernia GERD (gastroesophageal reflux disease) Prostate cancer HTN (hypertension) Family History Family history of problems with anesthesia: No Surgical History Surgical History (Updated 12/19/24 @ 07:28 by Charmaine Vegas RN) S/P pericardial window creation History of tonsillectomy History of prostatectomy History of esophagogastroduodenoscopy (EGD) Hx of colonoscopy History of Problems with Anesthesia: No Social History Social History Household Members: Spouse Housing: House Are you a primary career services coordinator to a significant other at home: No Do you presently have visiting nurse or other home services: No Alcohol intake: current Alcohol intake frequency: 0-2 drinks per day Alcohol type: beer, wine and hard liquor Comment: REFUSE ALARM Patient Tobacco Use Status: Former Tobacco user Tobacco use type: Cigarette Use of substances other than those prescribed or required for medical reasons: No Substance Use Type: Marijuana Are you DNR?: No Advance Directives: No Advance Directives Information Provided: Yes Nutrition Risks: No Nutritional Risk Poor oral hygiene: No service: No Current occupational status: retired Meds Allergies Allergy/AdvReac Type Severity Reaction Status Date / Time bee pollen [bee stings] Allergy Severe Swelling Verified 12/18/24 08:25 Penicillins Allergy Unknown Swelling Verified 12/18/24 08:25 Home Medications ?Medication ?Instructions ?Recorded ?Confirmed ?Last Taken ?Type lisinopril 5 mg tablet 1 tab PO DAILY 04/18/21 12/18/24 12/09/24 History omeprazole 20 mg capsule,delayed 20 mg PO DAILY 09/08/22 12/18/24 12/09/24 History release Exam Pertinent Lab Results Pertinent Lab Results: Laboratory Tests 12/13/24 07:57 WBC 9.4 Hgb 11.0 L Hct 32.8 L Plt Count 493 H Sodium 129 L Potassium 4.9 Chloride 100 Carbon Dioxide 20 L BUN 24 H Creatinine 0.94 Narrative Narrative: EKG 11/2024 Vent. Rate : 87 BPM Atrial Rate : 357 BPM P-R Int : * ms QRS Dur : 84 ms QT Int : 360 ms P-R-T Axes : * -8 43 degrees QTcB Int : 433 ms Atrial flutter with variable A-V block Abnormal ECG When compared with ECG of 09-Dec-2024 08:37, Atrial flutter has replaced Sinus rhythm ECHO 11/2024 Conclusions: - The left ventricular systolic function is normal. The visually estimated ejection fraction is between 65-70%. - No significant pericardial effusion noted. Assessment and Plan Assessment Anesthesia Assessment: Chart Reviewed Final Anesthetic Review Family History of Problems with Anesthesia: No History of Problems with Anesthesia: No Documented by User: Kaleb Vasquez MD 12/19/24 08:29 HPI - Anesthesia Eval Consult details Narrative: 69yo M for Colonoscopy and EGD [facility] admit 11/2024 Hospital course: Patient was admitted to the intensive care unit for cardiac tamponade due to hemopericardium. Underwent pericardial window which was grossly bloody. Eventually drain stopped draining, was removed, repeat echocardiogram was unremarkable. Preliminary pathology results with mesothelial cells, no malignancy seen, follow-up full report. CT abdomen pelvis and chest was done to look for etiology. Revealed suspicious sigmoid colon thickening, lymphadenopathy, suspicious pulmonary nodules bilateral. Patient was seen by Oncology and recommended to get biopsy of sigmoid lesion. Patient will follow up with Gastroenterology as outpatient for colonoscopy. will also follow up with Oncology for PET scan. Patient had acute kidney injury on admission which resolved. For borderline diabetes was diet controlled. Noted to have acute hyponatremia likely due to hemopericardium and possible malignancy, improved to 129 at time of discharge. Patient is feeling better will be discharged home. PMF Active Problems Active Problems: uAll Active Problems Status post creation of pericardial window (Acute) Abnormal finding on imaging (Acute) Malignant pericardial effusion (Acute) Cardiac tamponade (Acute) Pericardial effusion without cardiac tamponade (Acute) Acute dyspnea (Acute) Elevated WBC count (Acute) Acute pericardial effusion (Acute) PAM (acute kidney injury) (Acute) Acute hyponatremia (Acute) Cerumen impaction (Acute) Lesion of tongue (Acute) Shoulder pain, right (Acute) Diabetes mellitus (Acute) Greater trochanteric bursitis of right hip (Acute) Hyponatremia (Acute) Hyperglycemia (Acute) Ileus (Acute) Hyponatremia (Acute) Hypomagnesemia (Acute) Acute pancreatitis (Acute) Acute kidney injury (Acute) Alcohol dependence (Acute) Colitis (Acute) Strain of lumbar paraspinal muscle (Acute) Past Medical History Medical History (Updated 12/13/24 @ 16:53 by Jersey Mclaughlin MD) Hyperlipidemia Hiatal hernia GERD (gastroesophageal reflux disease) Prostate cancer HTN (hypertension) Surgical History Surgical History (Updated 12/19/24 @ 07:28 by Charmaine Vegas RN) S/P pericardial window creation History of tonsillectomy History of prostatectomy History of esophagogastroduodenoscopy (EGD) Hx of colonoscopy Social History Social History Household Members: Spouse Housing: House Are you a primary career services coordinator to a significant other at home: No Do you presently have visiting nurse or other home services: No Alcohol intake: current Alcohol intake frequency: 0-2 drinks per day Alcohol type: beer, wine and hard liquor Comment: REFUSE ALARM Patient Tobacco Use Status: Former Tobacco user Tobacco use type: Cigarette Use of substances other than those prescribed or required for medical reasons: No Substance Use Type: Marijuana Are you DNR?: No Advance Directives: No Advance Directives Information Provided: Yes Nutrition Risks: No Nutritional Risk Poor oral hygiene: No service: No Current occupational status: retired Meds Allergies Allergy/AdvReac Type Severity Reaction Status Date / Time bee pollen [bee stings] Allergy Severe Swelling Verified 12/18/24 08:25 Penicillins Allergy Unknown Swelling Verified 12/18/24 08:25 Home Medications ?Medication ?Instructions ?Recorded ?Confirmed ?Last Taken ?Type lisinopril 5 mg tablet 1 tab PO DAILY 04/18/21 12/18/24 12/09/24 History omeprazole 20 mg capsule,delayed 20 mg PO DAILY 09/08/22 12/18/24 12/09/24 History release Exam Airway Mallampati Class: II TM Dist: >3cm Neck ROM: Full Loose/Missing/Broken Teeth: Yes Heart: ok Lungs: ok Assessment and Plan Assessment Anesthesia Assessment: Anesthesia Plan Discussed Final Anesthetic Review NPO: Yes ASA Class: III Final Preanesthetic Review: No Changes in Pt Med Stat, Meds/Allgs Chart Reviewed, Consent Obtained/Reviewed and Anes Risks/Benef Reviewed Patient Risk: Intermediate Procedure Risk: Intermediate Anesthetic Plan Anesthetic Plan: Agree w/ Assess. and Plan and TIVA Disposition: Standard PACU
[2024-12-19 07:46] VITALS: BMI 31.4
[2024-12-19 07:56] VITALS: BP 127/83; PULSE 111; RESP 24; TEMP 36.5; O2SAT 97
[2024-12-19] MEDS: Lactated Ringers 1,000 ML 100 ML IVCONT (08:08)
--- NOTE | 2024-12-19 08:09 | MHC.SHP ---
Pre-Procedural Eval Section A - 24 Hr Update-Section A only Date of Service: 12/19/24 The patient is an INPATIENT: No The patient has been examined within 24 hours of the surgical procedure. The History & Physical has been completed within 30 days and I have reviewed it.: Yes Section B - Complete if H&P > 30 days Chief Complaint: Benign neoplasm of colon, Allergies: Allergies Allergy/AdvReac Type Severity Reaction Status Date / Time bee pollen [bee stings] Allergy Severe Swelling Verified 12/18/24 08:25 Penicillins Allergy Unknown Swelling Verified 12/18/24 08:25 Plan Diagnosis/Plan: Unchanged I have reviewed the history and physical and performed a pertinent physical examination on my patient. No changes have occurred unless specified. EGD and colonoscopy to r/o neoplasia Time Spent With Patient Time: Total time managing care of this patient today ____ minutes.
[2024-12-19 08:15] VITALS: PULSE 100
[2024-12-19 08:25] LABS: Anion Gap 18 (12-20); Carbon Dioxide 22 mmol/L (22-29); Chloride 95 mmol/L (96-108); Potassium 4.7 mmol/L (3.3-5.1); Sodium 130 mmol/L (135-145)
--- NOTE | 2024-12-19 08:34 | PC.NURSE ---
applied colowrap with nurse prior to procedure per md dutton.
--- NOTE | 2024-12-19 08:34 | PC.NURSE ---
md blunt aware of vitals sings.
--- NOTE | 2024-12-19 08:59 | HO.OPN-COLON ---
Colonoscopy Operative Note Operative Note Date of Service: 12/19/24 Narrative: Operative Information Procedure Description: EGD, Colonoscopy Indication: concern for neoplasia Anesthesia: MAC FLEXIBLE TRANSORAL UPPER GASTROINTESTINAL ENDOSCOPY AND COLONOSCOPY PROCEDURE NOTE UPPER ENDOSCOPY Consent: Indications for the procedure and potential complications of bleeding, perforation, reaction to medications and missed diagnosis were discussed with the patient and informed consent was obtained. Instrument: Olympus GIF H 190 J mid size upper endoscope Monitoring: Vital signs and clinical assessment, continuous EKG monitoring, Pulse oximetry, Carbon Dioxide monitoring and blood pressure monitoring were done throughout the procedure. Procedure: The patient was placed in the left lateral decubitis position and pre-procedure medications were administered and a bite block was placed. The endoscope was inserted into the mouth and advanced under direct vision to the third part of duodenum. A careful inspection was made as the upper endoscope was withdrawn including a retroflexed examination of the proximal stomach; Findings and interventions are described below. Findings: Larynx:normal Esophagus: GE junction at 40 cm, diaphragm hiatus at 40 cm, normal mucosa Stomach: Normal mucosa. Grade 2 flap valve on retroflexed examination of the cardia. Duodenum: Normal bulb and descending duodenum, Intervention: none COLONOSCOPY Instrument: Olympus variable stiffness adult scope 190L Colonoscopy Monitoring: Vital signs and clinical assessment, continuous EKG monitoring, Pulse oximetry, Carbon Dioxide monitoring and blood pressure monitoring were done throughout the procedure. Colon withdrawal time was 14 minutes. Procedure: The patient was placed in the left lateral decubitis position and pre-procedure medications were administered. After a digital rectal examination of the ano-rectum, the video colonoscope was inserted into the rectum and advanced through the colon to the cecum/TI. The colonoscope was slowly withdrawn in a retrograde panoramic fashion and the colon mucosa was carefully examined including a retroflexed view of the rectum. Findings and interventions are described below. Procedure Difficulty:moderate Findings: Terminal Ileum-normal Cecum:normal Ascending Colon: normal Transverse Colon -normal Descending Colon:normal Sigmoid Colon: moderate severe diverticulosis with luminal narrowin,g 4-5 mm sessile polyp removed with cold forceps Rectum: Retroflexion with small internal hemorrhoids, grade I, 10-11 mm sessile polyp inject with 1 ml of epinephrine and removed with hot snare, x 1 sessile polyp 4-7 mm removed with cold snare, x 1 sessile polyp 4-5 mm removed with cold forceps Anorectum - normal Colon preparation: [place] Bowel Preparation Scale Right colon; 2 Transverse colon: 2 Left colon; 2 (0 = Unprepared colon segment with mucosa not seen due to solid stool that cannot be cleared. 1 = Portion of mucosa of the colon segment seen, but other areas of the colon segment not well seen due to staining, residual stool and/or opaque liquid. 2 = Minor amount of residual staining, small fragments of stool and/or opaque liquid, but mucosa of colon segment seen well. 3 = Entire mucosa of colon segment seen well with no residual staining, small fragments of stool or opaque liquid) Impression and Post Procedure Diagnosis: Endoscopy Findings: normal Colonoscopy Findings: diverticulosis colon polyps internal hemorrhoids Plan: Await Pathology results Repeat Colonoscopy in 3-4 years or earlier if clinically indicated High fiber diet leaflet avoid straining at stool, epsom salts and sitz bath, anusol supps or cream no evidence of neoplasia in examined areas, defer further w/u to Dr Ruiz Above findings were reviewed with the patient and relevant handouts were provided if indicated.
[2024-12-19 09:07] VITALS: BP 114/67; PULSE 103; RESP 22; TEMP 36.4; O2SAT 97
[2024-12-19 09:22] VITALS: BP 110/78; PULSE 90; RESP 20; O2SAT 96
[2024-12-19 09:39] VITALS: BP 124/74; PULSE 92; RESP 16; TEMP 36.3; O2SAT 96
== END 2024-12-19 10:18 | disposition home or self-care (01) ==
PROVIDERS: Nurse Practitioner; PCP Internal Medicine; Visit Provider Internal Medicine Gastroenterology
PROC: (CPT 45385; principal; 2024-12-19 09:30)
DX: Z12.11 Encounter for screening for malignant neoplasm of colon (principal); Z86.0101 Personal history of adenomatous and serrated colon polyps; D12.8 Benign neoplasm of rectum; K63.5 Polyp of colon; K57.30 Diverticulosis of large intestine without perforation or abscess without bleeding; K64.0 First degree hemorrhoids; K21.9 Gastro-esophageal reflux disease without esophagitis; I10 Essential (primary) hypertension; E78.5 Hyperlipidemia, unspecified; R73.03 Prediabetes; F10.20 Alcohol dependence, uncomplicated; Z79.899 Other long term (current) drug therapy; Z88.0 Allergy status to penicillin; Z86.79 Personal history of other diseases of the circulatory system; Z87.19 Personal history of other diseases of the digestive system; Z85.46 Personal history of malignant neoplasm of prostate; Z90.79 Acquired absence of other genital organ(s); Z98.890 Other specified postprocedural states; Z87.891 Personal history of nicotine dependence
CPT/HCPCS: 45385; 45380; 45381; 43235; 36415; 80051; 88305; J0171; J2003; J2704; J3010

== ENCOUNTER → 2024-12-19 07:14 | Outpatient (BNV) | payer MEDICARE, SELFPAY | PROVIDERS: PCP Internal Medicine; Visit Provider Internal Medicine Gastroenterology | DX: K57.30 Diverticulosis of large intestine without perforation or abscess without bleeding (principal); D12.8 Benign neoplasm of rectum; K63.5 Polyp of colon; K64.0 First degree hemorrhoids; R93.3 Abnormal findings on diagnostic imaging of other parts of digestive tract | CPT/HCPCS: 43235; 45380; 45381; 45385 ==

== ENCOUNTER → 2024-12-22 10:30 | Outpatient (BNV) | payer MEDICARE, SELFPAY | PROVIDERS: PCP Internal Medicine; Visit Provider Internal Medicine Medical Oncology | DX: I31.31 Malignant pericardial effusion in diseases classified elsewhere (principal) | CPT/HCPCS: 99214 ==

== ENCOUNTER 2024-12-26 09:51 | Outpatient (REF) | payer MEDICARE, SELFPAY ==
--- NOTE | ~2024-12-26 | PE_ITS ---
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 Pulmonary nodules. TECHNIQUE: 59 minutes following the intravenous administration of 21.2 mCi of fluorine 18 FDG, images from the top of the vertex to mid thigh were obtained using a combined PET/CT scanner with CT scan based attenuation correction. No oral contrast was administered No intravenous contrast was administered. Transverse, coronal, sagittal, and volume reconstruction projections were obtained. The patient's blood glucose as determined by a finger stick, was 130 mg/dL immediately prior to injection. The radiotracer was injected intravenously through a left antecubital vein, without any complications. Total CT exam dose-length product 1297 mGy-cm. * These CT images were obtained using dose optimization techniques as appropriate, variously including the following: Automated exposure control * Adjustment of mA and/or kV according to patient size (this includes techniques or standardized protocols for targeted exams where dose is matched to indication/reason for exam; i.e. extremities or head) * Use of iterative reconstruction technique DLP: 1297 mGy/cm. COMPARISON: CT chest 12/11/2024 FINDINGS: HEAD AND NECK: No abnormal radiotracer uptake seen in the skull base or in neck. Nonspecific metabolic activity seen in the left sublingual soft tissues. No abnormal FDG activity seen in the lymph nodes of the neck or skull base. On visualized CT images there is no large intracranial hemorrhage, acute territorial infarct or significant shift of midline structures. The paranasal sinuses are normal. No obvious large neck mass or lymphadenopathy seen. There is widely patent. CHEST: Ports and Devices: None Lungs: No abnormal radiotracer uptake seen in the lung parenchyma. Pleura: There is a small left pleural effusion which is not metabolically active. Lymph Nodes: There is a 1.6 cm right paratracheal lymph node metabolically active and several additional small pretracheal lymph nodes which are minimally active as well on axial CT slice 216/2, 210/2. The left parahilar lymph node which is metabolically active as well and CT/201/3. Mediastinum: There is mild thickening of the pericardium with trace pericardial fluid with pneumomediastinum. Mild FDG activity seen in the right pericardial thickening on axial PET slice 182/3, 185/3. Breasts/Chest Wall: There is significant FDG activity seen in the upper hemithorax an bilateral shoulders suspicious of metastatic uptake versus myositis in musculoskeletal system. There are no lytic lesion seen involving there ribs on CT ABDOMEN/PELVIS: Liver/Biliary System: No focal tracer-avid liver lesion. The gallbladder appears unremarkable. Pancreas: Normal.No pancreatic ductal dilatation seen. Spleen: No abnormal radiotracer uptake. No evidence of splenomegaly. Adrenal Glands: No abnormal radiotracer uptake. Kidneys: No hydronephrosis, hydroureter or renal calculi bilaterally. Simple exophytic non-FDG avid cyst lower pole left kidney Bowel: There is no significant bowel dilatation to suggest obstruction. Lymph Nodes: No tracer avid retroperitoneal, mesenteric or pelvic and/or groin lymphadenopathy. Pelvic Organs: The urinary bladder is underdistended. MUSCULOSKELETAL: There is significant muscular uptake seen along bilateral hip joints and the pelvis region and proximal and mid mid thigh region. Similarly there is significant muscular FDG activity seen in the upper chest wall and around the shoulder joints. VASCULAR: Unremarkable. PET/PET CT fusion skull to thigh IMPRESSION: FDG activity seen within the right pericardium, mediastinal lymph nodes. The pericardial fluid is not metabolically active. No pleural effusion seen. There is significant muscular activity seen in the upper hemithorax, bilateral shoulders, bilateral hips and proximal and mid thigh region. This could be secondary to myositis, metastatic disease which can be seen with lymphoma, rarely with adenocarcinoma. Correlate with clinical exam. Electronically signed by: Anurag Turpin MD 12/28/2024 08:29 AM [facility]
--- OUTSIDE RECORDS SUMMARY | 2024-12-26 11:25 | XMS_ITS | Patient Health Record ---
Author Organization [facility] Address [address] [place] [address] Care Team Providers Care Belt Glass Sander Name Role Phone Nicola Rubio MD Primary Care Provider Russ Babcock Unavailable [phone] ALLERGIES Allergen (clinical drug ingredient) Drug/Non Drug [...] malignant neoplasm of colon (Z12.11) Active confirmed 891433466 Problem Preprocedural examination (Z01.818) Active confirmed 403043751789561 Problem History of colon polyps (Z86.010) Active confirmed 415324393 Problem Diverticulosis of sigmoid colon (K57.30) Active confirmed Diverticulosis of sigmoid colon (068618617) PLAN OF TREATMENT Pending Test Test Name Order Date Pathology 04/25/2021 Future Test Test Name Order Date COLONOSCOPY 04/01/2021 Insurance Providers Payer Name Payer Address Payer Phone Subscriber Number Group Number Insured Name Patient Relationship to Insured Coverage Start Date Coverage End Date MEDICARE OF [place] [address] [place] [id number] [employer] Self - patient is the insured [facility] [address] [place] [address] [id number] [employer] Self - patient is the insured MEDICAL (GENERAL) HISTORY Medical History History ICD Code Hypertension Hx prostate cancer with surgery as below Denies MA,DM,CVA,Lung disease,renal dise ase GERD-EGD with Dr. Oneal--he describes a Hyperlipidemia Colon polyps-3 previous colo noscopies with Dr. Oneal, with the most recent one being in approximately 2015 or 2016 Surgical History Surgery Date(Month/Year) Prostatectomy 2010 Tonsillectomy
--- OUTSIDE RECORDS SUMMARY | 2024-12-26 11:25 | XMS_ITS | Continuity of Care Document ---
Author Organization [place] - [facility], [facility] Address [address] [place] [address] Care Team Providers Care Marine Engine Driver Name Role Phone RICARDA AMEZQUITA Primary Care Provider [phone] Assessment No assessment recorded. 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 Medical [...] Updated DateTime 12/01/2024 182.88 cm 31.2 kg/m2 115254.25 g Lashonda Matos [place] - [facility] 12/01/2024 12:55:35 Social History None recorded. Functional Status None recorded. Mental Status None recorded. Family History Nothing Reported. Medical History No medical history recorded. 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 Glossitis 20959695 K14.0 see above Health Concerns Section Related Observation LastModified by Organization Detai ls LastModified Time None Recorded Concern Status LastModified by Organization Details LastModified Time None Recorded Payers Encounter Date Sequence Insurance Name Policy Number Policy [place] Covered Member ID Os[place] Member ID Guarantor Name 12/01/2024 1 [facility] (MEDICARE REPLACEMENT/A DVANTAGE - PPO) [id number] Abel Grayson [id number] Abel Kenan Notes Date Note Type Note [...] just bit his tongue. TIFFANIE DARBY MD [address] [place] [address], [place], [address], [facility] - [facility] 12/01/2024 13:05:52
== END 2024-12-26 09:52 | disposition home or self-care (01) ==
LOC: HO.PET 09:51
PROVIDERS: PCP Internal Medicine; Visit Provider Internal Medicine Medical Oncology
DX: Z13.89 Encounter for screening for other disorder (principal)

== ENCOUNTER → 2024-12-29 14:50 | Outpatient (BNV) | payer MEDICARE, SELFPAY | PROVIDERS: PCP Internal Medicine; Visit Provider Radiology Diagnostic Radiology | DX: C79.51 Secondary malignant neoplasm of bone (principal) | CPT/HCPCS: 70553 ==

== ENCOUNTER 2024-12-29 14:52 | Outpatient (REF) | payer MEDICARE, SELFPAY ==
--- NOTE | ~2024-12-29 | MR_ITS ---
EXAMINATION: MR BRAIN WITHOUT AND WITH CONTRAST CLINICAL INFORMATION: Adenocarcinoma of the lung. Per patient note, lumps on temporal right side. Left eye blurriness. COMPARISON: None available. TECHNIQUE: Multiplanar, multisequence MRI of the brain was obtained before and after the intravenous administration of 10 mL Gadavist. Exam performed on a 1.5 T Siemens high-field unit. FINDINGS: There is no diffusion restriction. There is no intracranial hemorrhage, acute infarction, mass effect, or edema. Ventricles, sulci, and cisterns are mildly diffusely prominent, in keeping with age-related cerebral and cerebellar involutional changes. No shift of midline. There is a midline retrocerebellar arachnoid cyst present, measuring approximately 3.2 x 7.1 x 4.1 cm (, AP, TRV, CC), extending to overlie the left posterior cerebellar hemisphere. There is minimal flattening of the left posterior cerebellum with no underlying edema. No abnormal hemosiderin deposition is identified. There are numerous scattered punctate and minimally confluent foci of white matter T2 hyperintensity in the periventricular, subcortical, and hemispheric deep white matter, nonspecific. There is a 7 mm oval enhancing nodule in the left carotid radiata consistent with a metastatic lesion (series 14, image 18).. There is a far right lateral pontine enhancing lesion measuring 1.5 x 0.7 x 1.1 cm (AP, TRV, CC) (series 14, image 10) Midline structures appear normally formed. The pituitary gland appears normal. Posterior fossa structures appear normal. Cerebellar tonsils are appropriately located. Major flow voids are preserved within the skull base. The globes and orbital contents demonstrate no abnormalities. Paranasal sinuses are clear bilaterally. Nasal septum is midline without spur. The mastoids and tympanic cavities are normally aerated. Extracranial soft tissues demonstrate a 7 mm right parietal scalp oval nodule (series 6, image 18). 5 mm enhancing soft tissue nodule left temporal fossa. There is an 8 mm enhancing nodule left superior pterygoid muscle. There is a 6 mm focus of bone marrow signal alteration in the right anterior parietal bone suspicious for a metastasis. Atlantoaxial joint is normal. MR/MR head/brain wo/w con IMPRESSION: 1. Enhancing metastasis within the far right superior tayla measuring 1.5 x 0.7 x 1.1 cm. 2. Oval 7 mm enhancing metastasis within the left mid wilder radiata. 3. Prominent retrocerebellar arachnoid cyst. 4. Bony metastatic lesion right parietal bone measuring 6 mm. 5. There are several extracranial soft tissue nodules measuring up to 8 mm consistent with metastases. 6. There is no acute infarction or intracranial hemorrhage. There are moderate changes of small vessel ischemia. Electronically signed by: Hayes Butler MD 01/01/2025 04:16 PM EDT
[2024-12-29] MEDS: gadobutroL 10 ML VIAL IVPUSH (16:02)
--- OUTSIDE RECORDS SUMMARY | 2024-12-29 16:38 | XMS_ITS | Data Portability ---
Author Organization [place] - [facility], Allergy Address [address] [place] [phone] Care Team Providers Care Freezer Unloader Name Role Phone RICARDA AMEZQUITA Primary Care Provider [phone] Assessment No assessment recorded. 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 [place], [phone] , [facility] 5 12:57:14 Glossitis 08049908 Active 025 TIFFANIE DARBY MD [address] [place] [address], [place], [phone] , [facility] 5 12:57:20 Problem Notes None recorded. Procedures Surgical History Date Name Laterality Status Provider Name and Address Organization Details Recorded Time 12/29/2024 Biopsy Anterior Tongue active RODRI RECINOS PA-C [address] [place] [address], [phone], [facility] 12/29/2024 09:48:09 Imaging Results None recorded. Procedure Notes None recorded. Medical Equipment None Reported. Allergies No known drug allergies Medications Name Sig Start Date Stop Date Status Note LastModified by Organization Details LastModified Time diphen/lido/ antacid TAKE 10 MLS BY MOUTH FOUR TIMES DAILY active Not Available Not Available No t Available ibuprofen 800 mg tablet TAKE 1 TABLET BY MOUTH TWICE DAILY active Not Available Not Available No t Available lidocaine HCl 2 % mucosal solution active Not Available Not Available Not Available omeprazole 20 mg capsule,sara yed release TAKE 1 CAPSULE BY MOUTH EVERY DAY active Not Available Not Available No t Available lisinopril 5 mg tablet TAKE 1 TABLET BY MOUTH EVERY DAY active Not Available Not Available No t Available oxycodone 5 mg tablet PLEASE SEE ATTACHED FOR DETAILED DIRECTIONS active Not Available Not Available N ot Available sodium,potas sium,mag sulfates 17.5 gram-3.13 gram-1.6 gram oral soln active Not Available Not Available Not Available Vitals Date Recorded Body height Body weight Provider Name and Address Organization Details Last Updated DateTime 12/29/2024 182.88 cm 721811.25 g Diandra Gleason [place] - [facility] 12/29/2024 08:14:21 Date Recorded Body height Body mass index (BMI) Body weight Provider Name and Address Organization Details Last Updated DateTime 12/01/2024 182.88 cm 31.2 kg/m2 200945.25 g Lashonda Matos [place] - [facility] 12/01/2024 12:55:35 Social History None recorded. Functional Status None recorded. Mental Status None recorded. Family History Nothing Reported. Medical History No medical history recorded. Past Encounters Encounter ID Performer Location Encounter Start Date Encounter Closed Date Diagnosis/Indication Diagnosis SNOMED-CT Code Diagnosis ICD10 Code Diagnosis Note [id number] TIFFANIE DARBY MD [facility] on [address] [place] [address] 12/01/2024 12:45:15 12/01/2024 13:03:39 Neoplasm of uncertain behavior of tongue 60172052 D37.02 4mm ulcer on left posterolat eral [...] a punch biopsy if persistent . Glossitis 78987764 K14.0 see above [id number] Nicolasa Maribel [facility] [address] [place] [address] 12/29/2024 08:05:56 12/29/2024 09:27:07 Neoplasm of uncertain behavior of tongue 24345974 D37.02 Health Concerns Section Related Observation LastModified by Organization Detai ls LastModified Time None Recorded Concern Status LastModified by Organization Details LastModified Time None Recorded Advance Directives Directive None Recorded Payers Encounter Date Sequence Insurance Name Policy Number Policy Osullivan Covered Member ID Osullivan Member ID Guarantor Name 12/01/2024 1 [facility] (MEDICARE REPLACEMENT/A DVANTAGE - PPO) [id number] Abel Kenan [id number] Abel Grayson Notes Date Note Type Note Provider Name [...] just bit his tongue. TIFFANIE DARBY MD [address] [place] [address], [place], [address], [facility] - [facility] 12/01/2024 13:05:52
--- OUTSIDE RECORDS SUMMARY | 2024-12-29 16:38 | XMS_ITS | Continuity of Care Document ---
Author Organization [place] - [facility], [facility] Address [address] [place] [address] Care Team Providers Care Shoe Stainer Name Role Phone RICARDA AMEZQUITA Primary Care [...] Time Neoplasm of uncertain behavior of tongue 25697359 Active 025 TIFFANIE DARBY MD [address] [place] [address], [phone] , [facility] 5 12:57:14 Glossitis 65378962 Active 025 TIFFANIE DARBY MD [address] [place] [address], [phone] , [facility] 5 12:57:20 Problem Notes None recorded. Procedures Surgical History Date Name Laterality Status Provider Name and Address Organization Details Recorded Time 12/29/2024 Biopsy Anterior Tongue active RODRI RECINOS PA-C [address] [place] [address], [phone], [facility] 12/29/2024 09:48:09 Imaging Results None recorded. [...] Updated DateTime 12/01/2024 182.88 cm 31.2 kg/m2 692345.25 g Lashonda Matos [place] - [facility] 12/01/2024 12:55:35 Social History None recorded. Functional Status None recorded. Mental Status None recorded. Family History Nothing Reported. Medical History No medical history recorded. Past Encounters Encounter ID Performer Location Encounter Start Date Encounter Closed Date Diagnosis/Indication Diagnosis SNOMED-CT Code Diagnosis ICD10 Code Diagnosis Note [id number] TIFFANIE DARBY MD [facility] on [address] [place] [address] 12/01/2024 12:45:15 12/01/2024 13:03:39 Neoplasm of uncertain behavior of tongue 38129915 D37.02 4mm ulcer on left posterolat eral [...] a punch biopsy if persistent . Glossitis 66509609 K14.0 see above Health Concerns Section Related Observation LastModified by Organization Detai ls LastModified Time None Recorded Concern Status LastModified by Organization Details LastModified Time None Recorded Payers Encounter Date Sequence Insurance Name Policy Number Policy Osullivan Covered Member ID Osullivan Member ID Guarantor Name 12/01/2024 1 [facility] (MEDICARE REPLACEMENT/A DVANTAGE - PPO) [id number] Abel Grayson [id number] Abel Grayson Notes Date Note Type Note [...] bit his tongue. TIFFANIE DARBY MD [address] [place] [address], [phone], [facility] - [facility] 12/01/2024 13:05:52
--- OUTSIDE RECORDS SUMMARY | 2024-12-29 16:38 | XMS_ITS | Patient Health Record ---
Author Organization [facility] Address [address] [place] [address] Care Team Providers Care Hairspring Adjuster Name Role Phone Nicola Rubio MD Primary Care Provider Russ Babcock Unavailable [phone] Allergies Allergen (clinical drug ingredient) Drug/Non Drug Allergy documented on EMR Reaction Allergy Type Onset Date Status penicillin G Penicillin G Sodium Unknown Drug Allergy Active bees (uncoded) Unknown Allergy Activ e Reason For Referral No Information Medications Medication SIG (Take, Route, Frequency, Duration) Notes Start Date End Date Status Lisinopril 5 MG TAKE 1 TABLET BY KALEIGH TH EVERY DAY Oral for 90 Active Prevacid otc Active Pravastatin Sodium 40 MG TAKE 1 TABLET B Y MOUTH EVERY DAY Oral for 90 Active Social History Tobacco Use: Social History Observation Description Date Details (start date - stop date) Never Smoker NA - NA Tobacco Use/Smoking Question Answer Notes Patient is [...] drinks (0 point) Points 4 Interpretation Positive Section Notes: Couple of drinks per day; No nsmoker Problems Problem Type SNOMED Code ICD Code Onset Dates Problem Status W/U Status Risk Notes Problem [id number] Encounter for screening for malignant neoplasm of colon (Z12.11) Active confirmed Problem 945393662628646 Preprocedural examination (Z01.818) Active confirmed Problem 589700579 History of colon polyps (Z86.010) Active confirmed Problem Diverticulosis of sigmoid colon (493546574) Diverticulosis of sigmoid colon (K57.30) Active confirmed Plan Of Treatment Pending Test Test Name Order Date Pathology 04/25/2021 Future Test Test Name Order Date COLONOSCOPY 04/01/2021 Insurance Providers Payer Name Payer Address Payer Phone Subscriber Number Group Number Insured Name Patient Relationship to Insured Coverage Start Date Coverage End Date MEDICARE OF [place] [address] [place] [id number] [employer] Self - patient is the insured [facility] [employer] [address] [place] [address] [id number] [employer] Self - patient is the insured Medical (General) History Medical History History ICD Code Hypertension Hx prostate cancer with surgery as below Denies CO,DM,CVA,Lung disease,renal dise ase GERD-EGD with Dr. Oneal--he describes a HH Hyperlipidemia Colon polyps-3 previous colo noscopies with Dr. Oneal, with the most recent one being in approximately 2015 or 2016 Surgical History Surgery Date(Month/Year) Prostatectomy 2010 Tonsillectomy
== END 2024-12-29 14:53 | disposition home or self-care (01) ==
LOC: HO.MRI 14:52
PROVIDERS: PCP Internal Medicine; Visit Provider Internal Medicine Medical Oncology
DX: C80.1 Malignant (primary) neoplasm, unspecified (principal)
CPT/HCPCS: 70553; A9585

== ENCOUNTER 2025-01-01 13:20 | Outpatient (RCR) | payer MEDICARE, SELFPAY ==
[2024-12-22 09:19] LABS: MANUAL DIFF FLAG NO
[2024-12-22 09:21] LABS: Basophils Absolute Auto 0.1 X10*3/uL (0.0-0.2); Basophils Percent Auto 0.6 % (0-2); Eosinophils Absolute Auto 0.1 X10*3/uL (0.0-0.4); Eosinophils Percent Auto 1.1 % (0-4); Hematocrit 35.8 % (42.0-52.0); Hemoglobin 12.4 g/dl (14.0-18.0); Imm Gran Abs Auto 0.06 X10*3/uL (0.00-0.03); Imm Gran Pct Auto 0.5 % (0.0-0.4); Lymphocytes Absolute Auto 0.7 X10*3/uL (1.2-4.9); Lymphocytes Percent Auto 5.9 % (20-40); Mean Corpuscular HGB Conc 34.6 g/dl (31.0-36.0); Mean Corpuscular Hemoglobin 30.8 pg (27.0-33.0); Mean Corpuscular Volume 88.8 fL (80.0-98.0); Mean Platelet Volume 8.4 fL (9.4-12.4); Monocytes Absolute Auto 0.8 X10*3/uL (0.1-1.2); Monocytes Percent Auto 6.5 % (2-11); Neutrophils Absolute Auto 10.5 x10*3/uL (2.0-8.3); Neutrophils Percent Auto 85.4 % (45-73); Platelet Count 425 X10*3/uL (160-400); Red Blood Count 4.03 X10*6/uL (4.60-5.80); Red Cell Distribution Width 12.4 % (11.0-16.0); White Blood Count 12.3 X10*3/uL (4.8-10.8)
[2024-12-22 09:27] VITALS: BP 135/78; PULSE 101; O2SAT 97; BMI 31.4
[2024-12-22 09:46] LABS: Alanine Aminotransferase 8 U/L (0-40); Albumin Level 3.3 g/dL (3.5-5.0); Alkaline Phosphatase 112 U/L (39-117); Anion Gap 14 (12-20); Aspartate Amino Transferase 21 U/L (5-37); Bilirubin Total 0.4 mg/dL (0.0-1.0); Blood Urea Nitrogen 12 mg/dL (9-16); Calcium 8.6 mg/dL (8.4-10.2); Carbon Dioxide 22 mmol/L (22-29); Chloride 94 mmol/L (96-108); Creatinine Clr Calc Pharmacy 85.6; Estimated Glomerular Filt Rate > 60; Glucose Random 146 mg/dL (60-115); Potassium 5.1 mmol/L (3.3-5.1); Sodium 125 mmol/L (135-145); Total Protein 6.8 g/dL (6.5-8.0)
--- NOTE | 2024-12-22 09:55 | P.CNHO_ITS ---
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 Warehouse Incentive Selector Utilized?: No - Turkmen Speaking HPI - Consult Narrative Reason for consult: Consult for:Adenocarcinoma of pericardial fluid. Narrative: Abel Grayson is a 69 year old gentleman, he was seen initially on 12/05 in house. He is now here for a consult. PRESENTING HISTORY: He was admitted on 12/09. He complained of shortness of breath and extreme fatigue for the past day or so that he could not ambulate or take care of his daily routine. He also has been having cough for the previous 3 weeks, mildly productive, not associated with blood. He had bilateral shoulder joint pains, for which he went to [facility] and was given steroid injection. In the ED he underwent TTE which showed large pericardial effusion with tamponade physiology. Thoracic surgery was called in, underwent pericardial window placement and he was transferred to ICU for close monitoring. 12/11: Echocardiogram done - no significant pericardial effusion. 12/12: CT scan of the abdomen pelvis revealed: 1. There is a small amount of free intraperitoneal air and there are multiple pockets of gas within the subcutaneous tissues. Gas may be iatrogenic or secondary to bowel perforation. 2. There is marked thickening of the wall of the sigmoid colon extending over 9 cm of its length. The degree of thickening is suspicious for malignancy. Recommend further evaluation with colonoscopy. 3. There is moderate retroperitoneal lymphadenopathy. 12/19: Colonoscopy was done by Dr. Mclaughlin. This revealed: Sigmoid Colon: moderate severe diverticulosis with luminal narrowin,g 4-5 mm sessile polyp removed with cold forceps Rectum: Retroflexion with small internal hemorrhoids, grade I, 10-11 mm sessile polyp inject with 1 ml of epinephrine and removed with hot snare, x 1 sessile polyp 4-7 mm removed with cold snare, x 1 sessile polyp 4-5 mm removed with cold forceps Pathology revealed: One hyperplastic polyp in the sigmoid. 2 tubular adenomas in the rectum. Medical History:) Prostate cancer: Status post radical prostatectomy about 20 years ago. Hyperlipidemia Hiatal hernia GERD (gastroesophageal reflux disease) HTN (hypertension) Surgical History:) History of tonsillectomy History of prostatectomy History of esophagogastroduodenoscopy (EGD) Hx of colonoscopy Family history:) No malignancy in the family. Mom is 95 MT old and in good general health. 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 He is . Has no children. Household Members: Spouse Housing: House Are you a primary complex care nurse practitioner to a significant other at home: No Do you presently have visiting nurse or other home services: No Alcohol intake: current Alcohol intake frequency: 0-2 drinks per day Alcohol type: beer, wine and hard liquor Comment: REFUSE ALARM Patient Tobacco Use Status: Former Tobacco user Tobacco use type: Cigarette Smoked in Last 30 Days: No Use of substances other than those prescribed or required for medical reasons: Yes Substance Use Type: Marijuana. ROS: He does feel rather fatigued. No fever chills or night sweats. Appetite is not that great. He has lost weight. He has a very painful sore on the left border of his tongue. That precludes eating. Magic mouthwash did not help. No headache no dizziness. He has noticed blurring in his left eye recently. No chest pain or trouble breathing. He denies abdominal pain nausea vomiting heartburn indigestion. Bowels are working without any gross blood in it. He underwent a colonoscopy on 12/[address] Mclaughlin. Denies dysuria or hematuria. He has had shoulder pain. X-rays did not reveal anything major. He actually went to [facility] urgent [facility] month ago. Injection was given that did not help. He is using a nonsteroidal cream. He is not able to sleep well at night since his recent admission. Review of Systems - Constitutional Reports system reviewed and no additional complaints, except as documented, Reports fatigue, Reports lack of energy, Reports malaise, Reports poor appetite, Reports weight loss - Eyes Reports system reviewed and no additional complaints, except as documented - ENT Reports system reviewed and no additional complaints, except as documented, Reports mouth lesions Comments: Sore on the left border of his tongue. - Cardiovascular Reports system reviewed and no additional complaints, except as documented - Respiratory Reports no additional respiratory complaints - Gastrointestinal Reports system reviewed and no additional complaints, except as documented - Genitourinary Genitourinary: Reports no additional male genitourinary complaints - Musculoskeletal Reports system reviewed and no additional complaints, except as documented, Reports joint pain Comments: Shoulder pain - Integumentary/Breasts Skin/Breast: Reports no additional skin complaints - Neurologic Reports system reviewed and no additional complaints, except as documented - Psychiatric Reports system reviewed and no additional complaints, except as documented - Endocrine Reports no additional endocrine complaints - Hematologic/Lymphatic Reports system reviewed and no additional complaints, except as documented - Allergic/Immunologic Reports system reviewed and no additional complaints, except as documented Oncology Screenings - ECOG Performance Status ECOG Performance Status: 1 [facility] Medical History: Medical History (Last Reviewed 12/22/24 @ 09:23 by Shahrzad Chapin) GERD (gastroesophageal reflux disease) Hiatal hernia HTN (hypertension) Hyperlipidemia Prostate cancer Functional capacity: uses cane/walker Patient : No Surgical History: Surgical History (Last Reviewed 12/22/24 @ 09:23 by Shahrzad Chapin) History of esophagogastroduodenoscopy (EGD) History of prostatectomy History of tonsillectomy Hx of colonoscopy S/P pericardial window creation Social History: Social History (Last Updated 12/22/24 @ 09:24 by Shahrzad Chapin) Living Situation History: Household Members: Spouse Housing: House Are you a primary complex care nurse practitioner to a significant other at home: No Do you presently have visiting nurse or other home services: No Alcohol History Details: 1. How often do you have a drink containing alcohol?: b. Monthly or less 2. How many drinks containing alcohol do you have on a typical day when you are drinking?: a. 1 or 2 3. How often do you have six or more drinks on one occasion?: d. 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 Home Medications and Allergies Home Medications ?Medication ?Instructions ?Recorded ?Confirmed ?Type omeprazole 20 mg capsule,delayed 20 mg PO DAILY 09/08/22 12/22/24 History release Allergies Allergy/AdvReac Type Severity Reaction Status Date / Time bee pollen [bee stings] Allergy Severe Swelling Verified 12/22/24 09:25 Penicillins Allergy Unknown Swelling Verified 12/22/24 09:25 Physical Exam Vital signs: Vital Signs Pulse 101 H 12/22/24 09:27 BP 135/78 12/22/24 09:27 Pulse Ox 97 12/22/24 09:27 O2 Del Method Room Air 12/22/24 09:27 Intake & Output 12/21/24 12/22/24 12/22/24 18:59 06:59 18:59 Other: Weight 105 kg Weight in Grams [id number] Weight 105 kg - Constitutional Present: moderate distress - Routine HEENT Exam Head: Present: normal inspection, normocephalic Eye: Present: normal appearance ENT: Present: mucous membranes moist - Routine Neck Exam Present: supple - Routine Respiratory Exam Present: CTAB - Routine Cardiovascular Exam Cardiovascular: Present: RRR, S1, S2 - Routine Extremities Exam Present: nontender - Routine Skin Exam Present: intact, normal turgor - Routine Neurological Exam Present: alert, oriented X3 - Detailed Neurological Exam: Coma Scale Eye Opening: Spontaneous (4) Hem/Onc Consult Result - Labs CBC & Chem 7: 12/22/24 09:17 12/22/24 09:17 Labs: Short CBC 12/22/24 Range/Units 09:17 WBC 12.3 H (4.8-10.8) X10*3/uL Hgb 12.4 L (14.0-18.0) g/dl Hct 35.8 L (42.0-52.0) % Plt Count 425 H (160-400) X10*3/uL BMP 12/22/24 09:17 Sodium 125 L Potassium 5.1 Chloride 94 L Carbon Dioxide 22 BUN 12 Creatinine 1.02 Calcium 8.6 Liver Function 12/22/24 Range/Units 09:17 Total Bilirubin 0.4 (0.0-1.0) mg/dL AST 21 (5-37) U/L ALT 8 (0-40) U/L Alkaline Phosphatase 112 (39-117) U/L Albumin 3.3 L (3.5-5.0) g/dL Assessment and Plan Patient Active problem list reviewed?: Yes (1) Adenocarcinoma Status: Acute Assessment and plan: 69-year-old gentleman, admitted with shortness of breath. He was noted to be in pericardial tamponade. Had pericardial window placed, by thoracic surgery. Chest CT from 12/12: 1. Large pneumomediastinum. 2. Small pericardial effusion. There is also trace gas within the pericardial space. 3. Small bilateral pleural effusions. 4. There is mediastinal lymphadenopathy with an appearance suspicious for malignancy. 5. There are multiple new bilateral pulmonary nodules, suspicious for metastatic disease. CT scan of the abdomen pelvis 12/12 revealed: 1. There is a small amount of free intraperitoneal air and there are multiple pockets of gas within the subcutaneous tissues. Gas may be iatrogenic or secondary to bowel perforation. 2. There is marked thickening of the wall of the sigmoid colon extending over 9 cm of its length. The degree of thickening is suspicious for malignancy. Recommend further evaluation with colonoscopy. 3. There is moderate retroperitoneal lymphadenopathy. 12/19: Colonoscopy was done by Dr. Mclaughlin. This revealed: Sigmoid Colon: moderate severe diverticulosis with luminal narrowing 4-5 mm sessile polyp removed with cold forceps Rectum: Retroflexion with small internal hemorrhoids, grade I, 10-11 mm sessile polyp inject with 1 ml of epinephrine and removed with hot snare, x 1 sessile polyp 4-7 mm removed with cold snare, x 1 sessile polyp 4-5 mm removed with cold forceps Pathology revealed: One hyperplastic polyp in the sigmoid. 2 tubular adenomas in the rectum. CEA level: 6.9. CA 19-9: 447. PSA: <0.10. Pericardial fluid cytology revealed: Adenocarcinoma. Differential includes: Upper GI, pancreatic or biliary, lung or colon primary. Special stains are pending. He does have a remote history of prostate cancer. He had had radical prostatectomy. I shared the above results with the patient and his . They felt rather shocked and sad about the recent findings. Moral support was given. I did mentioned to them that will need to proceed with a PET scan for further diagnosis and staging. Will also wait for the final molecular testing on the cytology to decide about further treatment. PLAN: Will make further plans based upon the exact pathology. Will proceed with a PET scan. In view of the visual blurring of the left eye, and concern for brain metastases. Will check an MRI of the brain. His sodium is low at 125. 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 He was given 500 cc of IV fluids. He was given urea powder, 15 g b.i.d. He was given a couple of doses here, the rest has been ordered at [facility] to be delivered on Wednesday. I have set up an appointment with renal as well. All his and his 's questions were answered to their satisfaction. They met with our navigator and high risk case manager as well. He will return in a week for labs and a follow-up. Thank you, CC: Dr. Rubio. - Time Spent With Patient Time Spent with Patient (in minutes): 30
--- NOTE | 2024-12-22 10:12 | HO.HEMONCPA ---
Addendum entered by Reyna Rowell 12/22/24 10:43: PET/CT SKULL TO THIGH [id number] APPROVED AUTH # [id number] DOS 12/22/24 - 02/05/25 SENT TO [facility] FOR SCHEDULING Original Note: [place] PENDING FOR PET/CT SKULL TO THIGH [id number] AWAITING DECISION FROM [facility] CASE # [id number]
[2024-12-22] MEDS: 0.9 % Sodium Chloride 500 ML 250 ML IVCONT (10:30)
[2024-12-22] MEDS: Urea 15 GM POWDER 30 GM PO ×2 (10:53→11:45)
[2024-12-22] MEDS: oxyCODONE HCl Immed Release 5 MG TABLET PO (10:55)
--- NOTE | 2024-12-22 15:12 | MHC.HEMONC ---
I met with patient and his following Oncology f/u with Dr Ruiz. Doctor had met him while he was inpatient as he had required cardiac window for effusion. The effusion was malignant but primary cancer site has not been determined. Colonoscopy done earlier in week was WNL. He will be scheduled for PET and we will go from there. HCP was completed.
--- NOTE | 2024-12-22 15:50 | MHC.HEMONCMA ---
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 pt will come back for lab testing on 12/28
[2024-12-22 17:13] LABS: Prostate Specific Antigen < 0.10 ng/mL (<0.05-4.0)
--- NOTE | 2024-12-25 10:31 | MHC.HEMONCSW ---
Abel's Alysa came in to request assistance with medications and a doctor's note for a trip reimbursement. Vandana assisted with the medication concern, and I drafted a letter for Dr. Ruiz for this reimbursement.
--- NOTE | 2024-12-25 10:45 | HO.HEMONCSCH ---
Patient booked for PET/CT Skull to Thigh [id number] with [facility] on December 26 at 10:30am
--- NOTE | 2024-12-25 11:36 | MHC.HEMONCMA ---
Pet Scan is scheduled for 12/26/24 @ 1030am
--- NOTE | 2024-12-26 09:43 | MHC.HEMONCSW ---
I had Dr. Ruiz review and sign the reimbursement letter I drafted yesterday. 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
[2024-12-28 11:17] LABS: MANUAL DIFF FLAG NO
[2024-12-28 11:25] LABS: Basophils Absolute Auto 0.1 X10*3/uL (0.0-0.2); Basophils Percent Auto 0.5 % (0-2); Eosinophils Absolute Auto 0.1 X10*3/uL (0.0-0.4); Eosinophils Percent Auto 0.7 % (0-4); Hematocrit 34.5 % (42.0-52.0); Hemoglobin 11.9 g/dl (14.0-18.0); Imm Gran Abs Auto 0.05 X10*3/uL (0.00-0.03); Imm Gran Pct Auto 0.5 % (0.0-0.4); Lymphocytes Absolute Auto 0.7 X10*3/uL (1.2-4.9); Lymphocytes Percent Auto 6.7 % (20-40); Mean Corpuscular HGB Conc 34.5 g/dl (31.0-36.0); Mean Corpuscular Hemoglobin 30.9 pg (27.0-33.0); Mean Corpuscular Volume 89.6 fL (80.0-98.0); Mean Platelet Volume 8.7 fL (9.4-12.4); Monocytes Absolute Auto 0.8 X10*3/uL (0.1-1.2); Monocytes Percent Auto 8.1 % (2-11); Neutrophils Absolute Auto 8.6 x10*3/uL (2.0-8.3); Neutrophils Percent Auto 83.5 % (45-73); Platelet Count 411 X10*3/uL (160-400); Red Blood Count 3.85 X10*6/uL (4.60-5.80); Red Cell Distribution Width 12.6 % (11.0-16.0); White Blood Count 10.2 X10*3/uL (4.8-10.8)
[2024-12-28 11:47] LABS: Alanine Aminotransferase 7 U/L (0-40); Albumin Level 3.3 g/dL (3.5-5.0); Alkaline Phosphatase 113 U/L (39-117); Anion Gap 14 (12-20); Aspartate Amino Transferase 15 U/L (5-37); Bilirubin Total 0.3 mg/dL (0.0-1.0); Blood Urea Nitrogen 42 mg/dL (9-16); Carbon Dioxide 22 mmol/L (22-29); Chloride 94 mmol/L (96-108); Creatinine Clr Calc Pharmacy 78.6; Estimated Glomerular Filt Rate > 60; Glucose Random 134 mg/dL (60-115); Potassium 5.6 mmol/L (3.3-5.1); Sodium 124 mmol/L (135-145); Total Protein 6.9 g/dL (6.5-8.0)
--- NOTE | 2025-01-01 13:43 | PM.HEMONCPN ---
Medical Summary - Medical Summary Date of Service: 01/01/25 Chief complaint: Follow-up for: Adenocarcinoma cells in the pericardial fluid. 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 Frame Operator Utilized?: No - Cymraes Speaking Interval History Interval history: Abel Grayson is a 69 year old gentleman, here for a follow-up visit. He is bothered by pain in his shoulders. That is debilitating. It is hard for him to sleep. He takes lorazepam at 10. He is using the oxycodone sparingly, takes it at night. He takes it during the day only if he has to go out for an appointment. It is making him constipated. He feels extremely fatigued. No fever chills or night sweats. The sore on the left border of his tongue, is still very painful. It is hard for him to eat. He had a biopsy of the lesion done on Wednesday by Dr. Schneider. Magic mouthwash did not help. No headache no dizziness. He has noticed blurring in his left eye recently. No chest pain or trouble breathing. He denies abdominal pain nausea vomiting heartburn indigestion. Bowels are working without any gross blood in it. He underwent a colonoscopy on 12/[address] Mclaughlin. Appetite is not good. He has lost weight. Denies dysuria or hematuria. He has had shoulder pain. X-rays did not reveal anything major. He actually went to [place] urgent care month ago. Injection was given that did not help. He is using a nonsteroidal cream. PRESENTING HISTORY: He was seen initially on 12/05 in [place]. He is now here for a consult. PRESENTING HISTORY: He was admitted on 11/29. He complained of shortness of breath and extreme fatigue for the past day or so that he could not ambulate or take care of his daily routine. He also has been having cough for the previous 3 weeks, mildly productive, not associated with blood. He had bilateral shoulder joint pains, for which he went to [facility] and was given steroid injection. In the ED he underwent TTE which showed large pericardial effusion with tamponade physiology. Thoracic surgery was called in, underwent pericardial window placement and he was transferred to ICU for close monitoring. 12/11: Echocardiogram done - no significant pericardial effusion. 12/12: CT scan of the abdomen pelvis revealed: 1. There is a small amount of free intraperitoneal air and there are multiple pockets of gas within the subcutaneous tissues. Gas may be iatrogenic or secondary to bowel perforation. 2. There is marked thickening of the wall of the sigmoid colon extending over 9 cm of its length. The degree of thickening is suspicious for malignancy. Recommend further evaluation with colonoscopy. 3. There is moderate retroperitoneal lymphadenopathy. 12/19: Colonoscopy was done by Dr. Mclaughlin. This revealed: Sigmoid Colon: moderate severe diverticulosis with luminal narrowin,g 4-5 mm sessile polyp removed with cold forceps Rectum: Retroflexion with small internal hemorrhoids, grade I, 10-11 mm sessile polyp inject with 1 ml of epinephrine and removed with hot snare, x 1 sessile polyp 4-7 mm removed with cold snare, x 1 sessile polyp 4-5 mm removed with cold forceps Pathology revealed: One hyperplastic polyp in the sigmoid. 2 tubular adenomas in the rectum. Medical History:) Prostate cancer: Status post radical prostatectomy about 20 years ago. Hyperlipidemia Hiatal hernia GERD (gastroesophageal reflux disease) HTN (hypertension) Surgical History:) History of tonsillectomy History of prostatectomy History of esophagogastroduodenoscopy (EGD) Hx of colonoscopy Family history:) No malignancy in the family. Mom is 95 [place] old and in good general health. 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 He is . Has no children. Household Members: Spouse Housing: House Are you a primary nonfarm animal caretaker to a significant other at home: No Do you presently have visiting nurse or other home services: No Alcohol intake: current Alcohol intake frequency: 0-2 drinks per day Alcohol type: beer, wine and hard liquor Comment: REFUSE ALARM Patient Tobacco Use Status: Former Tobacco user Tobacco use type: Cigarette Smoked in Last 30 Days: No Use of substances other than those prescribed or required for medical reasons: Yes Substance Use Type: Marijuana. Review of Systems - Constitutional Reports no additional constitutional complaints, Reports lack of energy, Reports malaise, Reports weight loss - Eyes Reports no additional eye complaints - ENT Reports no additional ear, nose, mouth, and throat complaints - Cardiovascular Reports no additional cardiovascular complaints - Respiratory Reports no additional respiratory complaints - Gastrointestinal Reports no additional gastrointestinal complaints - Genitourinary Genitourinary: Reports no additional male genitourinary complaints - Musculoskeletal Reports no additional musculoskeletal complaints, Reports joint pain - Integumentary/Breasts Skin/Breast: Reports no additional skin complaints - Neurologic Reports no additional neurologic complaints - Psychiatric Reports no additional psychiatric complaints - Endocrine Reports no additional endocrine complaints - Hematologic/Lymphatic Reports no additional hematologic/lymphatic complaints - Allergic/Immunologic Reports no additional allergic/immunologic complaints [facility] Medical History: Medical History (Last Reviewed 12/22/24 @ 09:23 by Shahrzad Chapin) GERD (gastroesophageal reflux disease) Hiatal hernia HTN (hypertension) Hyperlipidemia Prostate cancer Functional capacity: uses cane/walker Patient : No Surgical History: Surgical History (Last Reviewed 12/22/24 @ 09:23 by Shahrzad Chapin) History of esophagogastroduodenoscopy (EGD) History of prostatectomy History of tonsillectomy Hx of colonoscopy S/P pericardial window creation Social History: Social History (Last Reviewed 01/03/25 @ 10:40 by Lina Roper [facility]) Living Situation History: Household Members: Spouse Housing: House Are you a primary nonfarm animal caretaker to a significant other at home: No Do you presently have visiting nurse or other home services: No Tobacco History: Patient Tobacco Use Status: Former Tobacco user Tobacco use type: Cigarette Substance Use History: Substance Use Type: Marijuana Occupation Assessmet: Current occupational status: retired Oncology Screenings - ECOG Performance Status ECOG Performance Status: 1 Home Medications and Allergies Home Medications ?Medication ?Instructions ?Recorded ?Confirmed ?Type omeprazole 20 mg capsule,delayed 20 mg PO DAILY 09/08/22 01/01/25 History release Allergies Allergy/AdvReac Type Severity Reaction Status Date / Time bee pollen [bee stings] Allergy Severe Swelling Verified 01/03/25 10:40 Penicillins Allergy Unknown Swelling Verified 01/03/25 10:40 Exam Vital signs: Vital Signs Pulse 101 H 12/22/24 09:27 BP 135/78 12/22/24 09:27 Pulse Ox 97 12/22/24 09:27 O2 Del Method Room Air 12/22/24 09:27 Weight 105 kg BMI result Body Mass Index 31.4 - Constitutional Present: moderate distress - Routine HEENT Exam Head: Present: normal inspection, normocephalic Eye: Present: normal appearance ENT: Present: mucous membranes moist - Routine Neck Exam Present: full ROM - Routine Respiratory Exam Present: CTAB - Routine Cardiovascular Exam Cardiovascular: Present: RRR, S1, S2 - Routine Abdominal Exam Present: soft, nontender - Routine Extremities Exam Present: nontender - Routine Back/Spine/Pelvis Exam Back/Spine: Present: full ROM - Routine Skin Exam Present: intact, normal turgor - Routine Neurological Exam Present: alert, oriented X3 - Detailed Neurological Exam: Coma Scale Eye Opening: Spontaneous (4) - Routine Psychiatric Exam Present: normal affect Data - Labs CBC & Chem 7: 12/28/24 11:16 01/01/25 14:40 Labs: Laboratory Last Values WBC 10.2 X10*3/uL (4.8-10.8) 12/28/24 11:16 RBC 3.85 X10*6/uL (4.60-5.80) L 12/28/24 11:16 Hgb 11.9 g/dl (14.0-18.0) L 12/28/24 11:16 Hct 34.5 % (42.0-52.0) L 12/28/24 11:16 MCV 89.6 fL (80.0-98.0) 12/28/24 11:16 MCH 30.9 pg (27.0-33.0) 12/28/24 11:16 MCHC 34.5 g/dl (31.0-36.0) 12/28/24 11:16 RDW 12.6 % (11.0-16.0) 12/28/24 11:16 Plt Count 411 X10*3/uL (160-400) H 12/28/24 11:16 MPV 8.7 fL (9.4-12.4) L 12/28/24 11:16 Immature Gran % (Auto) 0.5 % (0.0-0.4) H 12/28/24 11:16 Neut % (Auto) 83.5 % (45-73) H 12/28/24 11:16 Lymph % (Auto) 6.7 % (20-40) L 12/28/24 11:16 Cobb % (Auto) 8.1 % (2-11) 12/28/24 11:16 Eos % (Auto) 0.7 % (0-4) 12/28/24 11:16 Baso % (Auto) 0.5 % (0-2) 12/28/24 11:16 Lymph # (Auto) 0.7 X10*3/uL (1.2-4.9) L 12/28/24 11:16 Cobb # (Auto) 0.8 X10*3/uL (0.1-1.2) 12/28/24 11:16 Eos # (Auto) 0.1 X10*3/uL (0.0-0.4) 12/28/24 11:16 Baso # (Auto) 0.1 X10*3/uL (0.0-0.2) 12/28/24 11:16 Abs Immat Gran (auto) 0.05 X10*3/uL (0.00-0.03) H 12/28/24 11:16 Absolute Neuts (auto) 8.6 x10*3/uL (2.0-8.3) H 12/28/24 11:16 Absolute Nucleated RBC 0.000 X10*3/uL (0.0-0.012) 12/28/24 11:16 Nucleated RBC % (auto) 0.0 /100WBC (0.0-0.2) 12/28/24 11:16 Sodium 124 mmol/L (135-145) L 12/28/24 11:16 Potassium 5.6 mmol/L (3.3-5.1) H 12/28/24 11:16 Chloride 94 mmol/L (96-108) L 12/28/24 11:16 Carbon Dioxide 22 mmol/L (22-29) 12/28/24 11:16 Anion Gap 14 (12-20) 12/28/24 11:16 BUN 42 mg/dL (9-16) H 12/28/24 11:16 Creatinine 1.11 mg/dL (0.5-1.4) 12/28/24 11:16 Estim Creat Clear Calc 78.6 12/28/24 11:16 Estimated GFR > 60 12/28/24 11:16 Random Glucose 134 mg/dL (60-115) H 12/28/24 11:16 Calcium 9.0 mg/dL (8.4-10.2) 12/28/24 11:16 Total Bilirubin 0.3 mg/dL (0.0-1.0) 12/28/24 11:16 AST 15 U/L (5-37) 12/28/24 11:16 ALT 7 U/L (0-40) 12/28/24 11:16 Alkaline Phosphatase 113 U/L (39-117) 12/28/24 11:16 Total Creatine Kinase 41 U/L (38-174) 12/28/24 11:16 Total Protein 6.9 g/dL (6.5-8.0) 12/28/24 11:16 Albumin 3.3 g/dL (3.5-5.0) L 12/28/24 11:16 Carcinoembryonic Ag 6.90 ng/mL 12/22/24 09:17 Prostate Specific Ag < 0.10 ng/mL (<0.05-4.0) 12/22/24 09:17 Hold Yellow Top See Note 12/28/24 11:16 Assessment and Plan Patient Active problem list reviewed?: Yes (1) Adenocarcinoma Status: Acute Assessment and plan: 69-year-old gentleman, admitted with shortness of breath. He was noted to be in pericardial tamponade. Had pericardial window placed, by thoracic surgery. Chest CT from 12/12: 1. Large pneumomediastinum. 2. Small pericardial effusion. There is also trace gas within the pericardial space. 3. Small bilateral pleural effusions. 4. There is mediastinal lymphadenopathy with an appearance suspicious for malignancy. 5. There are multiple new bilateral pulmonary nodules, suspicious for metastatic disease. CT scan of the abdomen pelvis 12/12 revealed: 1. There is a small amount of free intraperitoneal air and there are multiple pockets of gas within the subcutaneous tissues. Gas may be iatrogenic or secondary to bowel perforation. 2. There is marked thickening of the wall of the sigmoid colon extending over 9 cm of its length. The degree of thickening is suspicious for malignancy. Recommend further evaluation with colonoscopy. 3. There is moderate retroperitoneal lymphadenopathy. 12/19: Colonoscopy was done by Dr. Mclaughlin. This revealed: Sigmoid Colon: moderate severe diverticulosis with luminal narrowing 4-5 mm sessile polyp removed with cold forceps Rectum: Retroflexion with small internal hemorrhoids, grade I, 10-11 mm sessile polyp inject with 1 ml of epinephrine and removed with hot snare, x 1 sessile polyp 4-7 mm removed with cold snare, x 1 sessile polyp 4-5 mm removed with cold forceps Pathology revealed: One hyperplastic polyp in the sigmoid. 2 tubular adenomas in the rectum. CEA level: 6.9. CA 19-9: 447. PSA: <0.10. Pericardial fluid cytology revealed: Adenocarcinoma. Differential includes: Upper GI, pancreatic or biliary, lung or colon primary. Special stains are pending. He does have a remote history of prostate cancer. He had had radical prostatectomy. I shared the above results with the patient and his . They felt rather shocked and sad about the recent findings. Moral support was given. On 12/22. His sodium was low at 125. 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 He was given 500 cc of IV fluids. He was given Urea powder, 15 g b.i.d. He was given a couple of doses here, the rest was ordered at [facility] and was delivered on 12/25. I did mentioned to them that will need to proceed with a PET scan for further diagnosis and staging. Will also wait for the final molecular testing on the cytology to decide about further treatment. I proceeded with a PET scan. This was done on 12/26 and revealed: FDG activity seen within the right pericardium, mediastinal lymph nodes. The pericardial fluid is not metabolically active. No pleural effusion seen. There is significant muscular activity seen in the upper hemithorax, bilateral shoulders, bilateral hips and proximal and mid thigh region. This could be secondary to myositis, metastatic disease which can be seen with lymphoma, rarely with adenocarcinoma. Correlate with clinical exam. Concern was raised for myositis. I did check CPK: 41. Aldolase: 4.4. These are in the normal range. 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 In view of the visual blurring of the left eye, and concern for brain metastases. l checked an MRI of the brain. This was done on 12/29 and was read today. Results: 1. Enhancing metastasis within the far right superior tayla measuring 1.5 x 0.7 x 1.1 cm. 2. Oval 7 mm enhancing metastasis within the left mid wilder radiata. 3. Prominent retrocerebellar arachnoid cyst. 4. Bony metastatic lesion right parietal bone measuring 6 mm. 5. There are several extracranial soft tissue nodules measuring up to 8 mm consistent with metastases. 6. There is no acute infarction or intracranial hemorrhage. There are moderate changes of small vessel ischemia. PLAN: I will refer him for radiation therapy for the brain metastases. This appointment is on 01/09/2025. As far as the primary is concerned, he has mediastinal adenopathy. I discussed with Dr. Telles, to obtain tissue diagnosis. He felt he could proceed with an EBUS. That way we can have core biopsies taken, with more tissue available for the molecular testing can be done to look for any actionable mutation. Sodium is down to 123, K 5.8, urine osmol 517, urine sodium <20. I have set up an urgent appointment with renal for the hyponatremia. Meanwhile I have sent a prescription for MS Contin 15 mg twice a day for long-acting action. He can still take the oxycodone for breakthrough pain. All his and his 's questions were answered to their satisfaction. He will return in a week for labs and a follow-up. Thank you, CC: Dr. Rubio. - Time Spent With Patient Time Spent with Patient (in minutes): 25
[2025-01-01 13:50] VITALS: BP 120/72; PULSE 100; RESP 21; TEMP 35.5; O2SAT 99; BMI 31.6
[2025-01-01 15:06] LABS: Sodium Urine Random < 20.0 mmol/L
[2025-01-01 15:16] LABS: Alanine Aminotransferase 9 U/L (0-40); Albumin Level 3.6 g/dL (3.5-5.0); Alkaline Phosphatase 112 U/L (39-117); Anion Gap 14 (12-20); Aspartate Amino Transferase 26 U/L (5-37); Bilirubin Total 0.4 mg/dL (0.0-1.0); Blood Urea Nitrogen 53 mg/dL (9-16); Calcium 8.9 mg/dL (8.4-10.2); Carbon Dioxide 23 mmol/L (22-29); Chloride 92 mmol/L (96-108); Creatinine Clr Calc Pharmacy 66.8; Estimated Glomerular Filt Rate 54; Glucose Random 139 mg/dL (60-115); Magnesium 1.7 mg/dL (1.6-2.6); Potassium 5.8 mmol/L (3.3-5.1); Sodium 123 mmol/L (135-145)
[2025-01-01 15:24] LABS: Osmolality Urine 517 mosm/kg (373-1093)
--- NOTE | 2025-01-01 16:30 | MHC.HEMONC ---
Pt here for Onc follow up with Dr Ruiz. Labs drawn by veterinary technician-specimen to lab. Pt states he has bilateral shoulder pain and tongue discomfort.Taking oxycodone with minimal relief. Dr Ruiz into see pt. Pt has appointmetn with Dr Sow on 01/04/[address] Nguyen on 01/04/25. Plan for biopsy with Dr Telles. Next appointment scheduled-pt aware
[2025-01-01 21:23] LABS: Aldolase 4.4 U/L (<=8.1)
--- NOTE | 2025-01-02 11:15 | MHC.HEMONC ---
Notes faxed to [facility] Rad Onc - brain mets. Dr Ruiz to speak to patient and or regarding MRI result.
--- NOTE | 2025-01-02 12:49 | MHC.HEMONC ---
Dr Cleary to see pt on 01/09/25 at 9 am [facility].
--- NOTE | 2025-01-10 09:30 | MHC.HEMONCSW ---
Nurse Sonal Ross and myself went to see Abel on the medical floor. He is currently comfort measures only and was resting comfortably when we arrived. We spoke with his brother and niece who were there at bedside and discussed his care and offered support if needed. The doctor on the floor also came in and checked in with the family while we were there. They indicated they had no questions or needs at this time and that his Alysa would be back later today.
== END 2025-01-12 | disposition home or self-care (01) ==
LOC: HO.ONC 13:20
PROVIDERS: PCP Internal Medicine; Visit Provider Internal Medicine Medical Oncology
DX: C80.1 Malignant (primary) neoplasm, unspecified (principal); I31.31 Malignant pericardial effusion in diseases classified elsewhere; C79.31 Secondary malignant neoplasm of brain; C79.51 Secondary malignant neoplasm of bone; R59.0 Localized enlarged lymph nodes; E87.1 Hypo-osmolality and hyponatremia; Z12.5 Encounter for screening for malignant neoplasm of prostate
CPT/HCPCS: 36415; 80053; 82085; 82378; 82550; 83735; 83935; 84153; 84300; 85025; 99202; 99212

== ENCOUNTER 2025-01-03 10:22 | Outpatient (AMB) | payer MEDICARE, SELFPAY ==
[2025-01-03 10:37] VITALS: BP 110/66; PULSE 105; O2SAT 98; BMI 31.8
--- NOTE | 2025-01-03 10:37 | MHC.OFFVIS ---
Vital Signs 01/03/25 10:37 Height 6 ft Weight 234 lb 12.677 oz BMI 31.8 BP 110/66 Blood Pressure Location Lt brachial Position Sitting Pulse 105 H Pulse Source Pulse Oximeter Pulse Oximetry (%) 98 Oxygen Delivery Method Room Air Intake Visit Reasons: Lymphadenopathy Allergies bee pollen [bee stings] Allergy (Severe, Verified 01/03/25 10:40) Swelling Penicillins Allergy (Unknown, Verified 01/03/25 10:40) Swelling HPI Comments Details: This is a pulmonary evaluation. The patient is a 69-year-old gentleman presented to the ED with complaints of shortness of breath and extreme fatigue for the past day or so that he could not ambulate or take care of his daily routine. He also has been having cough for the past 3 weeks, mildly productive, not associated with blood. He had bilateral shoulder joint pains so far which is at Dr. and was given steroid injection. In the ED he underwent TTE which showed large pericardial effusion with tamponade physiology, thoracic surgery was called in, underwent pericardial window placement and is being transferred to ICU for close monitoring. The pericardial fluid did come back positive for adenocarcinoma. The PET scan was personally by me demonstrating FDG avid R4 and also our 2. Patient also had pulmonary nodules noted but small below the threshold of PET scan. Still the etiology the primary is not clear. But he does have underlying metastatic disease. He was started on prednisone. In addition to that he was referred to Radiation Oncology. Will plan to have him undergo endobronchial ultrasound bronchoscopy to sample the mediastinal lymph nodes on the right side that were avid on PET scan. [facility] Medical History (Updated 01/03/25 @ 23:38 by Joe Orantes MD) Pulmonary nodules Lymphadenopathy, mediastinal Hyperlipidemia Hiatal hernia GERD (gastroesophageal reflux disease) Prostate cancer HTN (hypertension) Surgical History (Updated 12/22/24 @ 09:58 by Reinier Ruiz MD) S/P pericardial window creation History of tonsillectomy History of prostatectomy History of esophagogastroduodenoscopy (EGD) Hx of colonoscopy Social History Household Members: Spouse Housing: House Are you a primary managed care nurse to a significant other at home: No Do you presently have visiting nurse or other home services: No Alcohol intake: current Alcohol intake frequency: 0-2 drinks per day Alcohol type: beer, wine and hard liquor Patient Tobacco Use Status: Former Tobacco user Tobacco use type: Cigarette Substance Use Type: Marijuana Current occupational status: retired Review of Systems Const Reports fatigue Eyes Reports no additional complaints ENT Reports neck pain and Denies throat swelling Card Reports chest pain Resp Reports cough GI Reports GI cramping Musc Reports as per HPI, Reports back pain, Reports myalgias, Reports limited range of motion and Reports neck pain Skin/Breast Denies rash Neuro Reports as per HPI Endo Reports fatigue David/Lymph Reports other (skull induration) Aller/Immun Denies throat swelling Physical Exam Vital Signs: Last Vital Signs Pulse 105 H 01/03/25 10:37 BP 110/66 01/03/25 10:37 Pulse Ox 98 01/03/25 10:37 Oxygen Delivery Method Room Air 01/03/25 10:37 BMI result Body Mass Index 31.8 Last Vital Signs Temp 97.3 F 12/11/24 07:59 Pulse 90 12/11/24 07:59 Resp 18 12/11/24 07:59 BP 119/70 12/11/24 07:59 Pulse Ox 96 12/11/24 07:59 O2 Del Method Room Air 12/11/24 07:59 O2 Flow Rate 1 12/10/24 11:00 Oxygen Flow Rate 1 12/10/24 11:35 BMI result Body Mass Index 34.0 Const General: comfortable and no acute distress Orientation/consciousness: patient oriented x3 HEENT Head: Yes scalp lesion Neck Neck: Yes supple Chest Other: pericardiostomy tube in, scanty serosanguinous output Chest palpation & inspection: tenderness Resp Effort & Inspection: normal respiratory effort Cardio Rate: regular rate GI Palpation (GI): Soft to palpation Skin Lesions: lesion noted Neuro General: patient oriented x3 Extrem General: Yes no clubbing, cyanosis or edema Assessment & Plan Assessment & Plan (1) Adenocarcinoma: Code(s): C80.1 - Malignant (primary) neoplasm, unspecified Category: Medical (2) Lymphadenopathy, mediastinal: Code(s): R59.0 - Localized enlarged lymph nodes Category: Medical (3) Pulmonary nodules: Code(s): R91.8 - Other nonspecific abnormal finding of lung field Category: Medical (4) Malignant pericardial effusion: Code(s): I31.31 - Malignant pericardial effusion in diseases classified elsewhere Category: Medical (5) Status post creation of pericardial window: Code(s): Z98.890 - Other specified postprocedural states Category: Medical Plan Plan for EBUS to sample 2R and 4R and bronchosocopy with visualize airways continue prednisone Referral to radiation oncologist soon F/U 3-4 weeks Coding Level of Care Code New Pt Level 5 (44627) Diagnoses Adenocarcinoma C80.1 Lymphadenopathy, mediastinal R59.0 Pulmonary nodules R91.8 Malignant pericardial effusion I31.31 Status post creation of pericardial window Z98.890 Time Spent (min) 60
--- OUTSIDE RECORDS SUMMARY | 2025-01-03 11:54 | XMS_ITS | Continuity of Care Document ---
Author Organization [place] - [facility], [facility] Address [address] [place] [address] Care Team Providers Care Speech Pathology Assistant Name Role Phone RICARDA AMEZQUITA Primary Care Provider [phone] Assessment Encounter Date Assessment Date Assessment LastModified by Organization Details LastModified Time 12/29/2024 12/29/2024 69 year old male with new cancer diagnosis which he states is adenocarcinoma of the lung discovered after large pericardial effusion. He has persistent ulceration at the left posterolateral tongue despite having the adjacent sharp edge of tooth addressed by the dentist. Recommended biopsy today which he was agreeable to. PET had increased sublingual uptake. No sublingual or neck masses appreciated. Tongue biopsy performed with Dr. Darby. [email or web address] Not available 01/02/2025 13:44:03 Plan of Treatment Reminders Order Date Submit Date Provider Last Modified By Organization Details Last Modified Time Details Appointments None record ed. Lab None record ed. Referral None record ed. Procedures None record ed. Surgeries None record ed. Imaging None record ed. Medication Orders None record ed. Patient TargetsNo targets recorded. Patient InstructionsNo instructions recorded. Reason for Referral None Reported. 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 5 12:57:14 Glossitis 28063759 Active 025 TIFFANIE DARBY MD [address] [place] [address],[place] [address], [place], [address] , [facility] 5 12:57:20 Problem Notes None recorded. Procedures Surgical History Date Name Laterality Status Provider Name and Address Organization Details Recorded Time Biopsy Anterior Tongue completed RODRI RECINOS PA-C [address] [place] [address],[place] [address], [place], [address], [place] - [facility] 12/29/2024 09:48:09 Imaging Results None recorded. [...] Details Last Updated DateTime 12/29/2024 182.88 cm 645075.25 g Diandra Gleason [place] [facility] [place] 12/29/2024 08:14:21 Social History None recorded. Functional Status None recorded. Mental Status None recorded. Family History Nothing Reported. Medical History No medical history recorded. Past Encounters Encounter ID Performer Location Encounter Start Date Encounter Closed Date Diagnosis/Indication Diagnosis SNOMED-CT Code Diagnosis ICD10 Code Diagnosis Note [id number] TIFFANIE DARBY MD [facility] on [address] [place] [address] 12/01/2024 12:45:15 12/01/2024 13:03:39 Neoplasm of uncertain behavior of tongue 02575752 D37.02 4mm ulcer on left posterolat eral [...] a punch biopsy if persistent . Glossitis 26787836 K14.0 see above [id number] TIFFANIE DARBY MD [facility] on [address] [place] [address] 12/29/2024 08:05:56 12/29/2024 09:27:07 Neoplasm of uncertain behavior of tongue 57592745 D37.02 Glossitis 07584314 K14.0 Health Concerns Section Related Observation LastModified by Organization Detai ls LastModified Time None Recorded Concern Status LastModified by Organization Details LastModified Time None Recorded Payers Encounter Date Sequence Insurance Name Policy Number Policy Os[place] Covered Member ID Osullivan Member ID Guarantor Name 12/29/2024 1 [facility] (MEDICARE REPLACEMENT/A DVANTAGE - PPO) [id number] Abel Grayson [id number] Abel Grayson Notes Date Note Type Note Provider Name and Address Organization Details Recorded Time 12/29/2024 text/html 69 year old form er smoker presents to the office for follow up of left posterolateral tongue lesion. He was able to get into his dentist to have sharp edge on tooth # 18 ground down just a few days after his visit last month. Initially his tongue felt better but at this point it feels about the same as last month. Since his visit last month he developed large pericardial effusion. He was found to have adenocarcinoma. He had recent PET. They recently met with Dr. Ruiz in oncology in [place] and were told that his primary is the lung. On PET there was some increased sublingual uptake. He quit smoking 8-9 years ago. TIFFANIE DARBY MD [address] [place] [address], [place], [address], [place] - [facility] 01/03/2025 08:15:15
--- OUTSIDE RECORDS SUMMARY | 2025-01-03 11:54 | XMS_ITS | Patient Health Record ---
Author Organization [facility] Address [address] [place] [address] Care Team Providers Care Sheet Metal Layout Mechanic Name Role Phone Nicola Rubio MD Primary Care Provider Russ Babcock Unavailable [phone] Allergies Allergen (clinical drug ingredient) Drug/Non Drug [...] Problem Status W/U Status Risk Notes Problem [id number] Encounter for screening for malignant neoplasm of colon (Z12.11) Active confirmed Problem [id number] Preprocedural examination (Z01.818) Active confirmed Problem 977068465 History of colon polyps (Z86.010) Active confirmed Problem Diverticulosis of sigmoid colon (949604336) Diverticulosis of sigmoid colon (K57.30) Active confirmed Plan Of Treatment Pending Test Test Name Order Date Pathology 04/25/2021 Future Test Test Name Order Date COLONOSCOPY 04/01/2021 Insurance Providers Payer Name Payer Address Payer Phone Subscriber Number Group Number Insured Name Patient Relationship to Insured Coverage Start Date Coverage End Date MEDICARE OF [place] [address] [place] [id number] [employer] Self - patient is the insured [facility] [address] [place] [address] [id number] [employer] Self - patient is the insured Medical (General) History Medical History History ICD Code Hypertension Hx prostate cancer with surgery as below Denies NV,DM,CVA,Lung disease,renal dise ase GERD-EGD with Dr. Oneal--he describes a HH Hyperlipidemia Colon polyps-3 previous colo noscopies with Dr. Oneal, with the most recent one being in approximately 2015 or 2016 Surgical History Surgery Date(Month/Year) Prostatectomy 2010 Tonsillectomy
== END 2025-01-03 11:12 | disposition home or self-care (01) ==
PROVIDERS: PCP Internal Medicine; Visit Provider Hospitalist
DX: R59.0 Localized enlarged lymph nodes (principal); C80.1 Malignant (primary) neoplasm, unspecified; R91.8 Other nonspecific abnormal finding of lung field; I31.31 Malignant pericardial effusion in diseases classified elsewhere
CPT/HCPCS: 99205

== ENCOUNTER → 2025-01-03 10:22 | Outpatient (BNVA) | payer MEDICARE, SELFPAY | PROVIDERS: PCP Internal Medicine; Visit Provider Hospitalist | DX: R59.0 Localized enlarged lymph nodes (principal); R91.8 Other nonspecific abnormal finding of lung field; C80.1 Malignant (primary) neoplasm, unspecified; I31.31 Malignant pericardial effusion in diseases classified elsewhere; Z98.890 Other specified postprocedural states | CPT/HCPCS: 99202 ==

== ENCOUNTER 2025-01-09 10:12 | Inpatient (IN) | payer MEDICARE, SELFPAY ==
[2025-01-09] VITALS (18 sets, daily range): BP systolic 78–130; BP diastolic 49–105; PULSE 93–128; RESP 16–26; TEMP 36–36.4; O2SAT 94–100; BMI 33.1
--- NOTE | ~2025-01-09 | US_ITS ---
EXAMINATION: US TRIPLEX UPPER EXTREMITY, RIGHT CLINICAL INFORMATION: Edema/swelling right upper extremity. COMPARISON: None available. TECHNIQUE: Color-flow triplex imaging with spectral analysis and compression Doppler was performed on the right upper extremity. FINDINGS: The right internal jugular, subclavian, and axillary veins, the imaged segment of the right brachiocephalic vein are patent and demonstrated normal spectral doppler waveforms. The brachial, basilic, cephalic, radial, and ulnar veins are patent and compressible. US/US venous duplex UE RT IMPRESSION: No acute deep venous thrombosis involving the right upper extremity.. Negative for DVT. Electronically signed by: Bro Mesa MD 01/10/2025 08:43 AM EDT
--- NOTE | ~2025-01-09 | MR_ITS ---
EXAMINATION: MR CERVICAL SPINE WITHOUT AND WITH CONTRAST CLINICAL INFORMATION: Metastasis COMPARISON: None available. TECHNIQUE: MRI of the cervical spine was obtained using routine sequences with and without contrast. Intravenous contrast: (Gadavist) 10 mL. No reported immediate complications. FINDINGS: There is a focal 5 mm enhancing lesion in the inferior right tayla. There is a 13 mm enhancing lesion at the right midbrain/tayla junction. There is no enhancing lesion or abnormal enhancement in the leptomeninges of the cervical segment nor the cervical spinal cord. There is no enhancing lesion in the prevertebral compartment. Craniocervical junction is intact. Bone marrow inhomogeneity. No bone marrow STIR signal abnormality. Multilevel marginal osteophyte formation and disc desiccation more pronounced at C4-5 C5-6 and C6-7 levels. Grade 1 retrolisthesis C4-5 and C6-7. C2-3: No disc herniation. No cord compression. No cord signal abnormality no neuroforamina stenosis. C3-4: Broad-based disc osteophyte complex measuring abutting the spinal cord. No cord signal abnormality. Bilateral neuroforamina narrowing on a degenerative basis. C4-5: Grade 1 retrolisthesis. Disc osteophyte complex formation. Flattening of the cervical spinal cord and CSF effacement without cord signal abnormality. Bilateral neuroforamina stenosis on a degenerative basis. The C5-6: Grade 1 anterolisthesis. Central spinal canal narrowing. Bilateral neuroforamina narrowing. No cord compression. No cord signal abnormality. The C6-7: Grade 1 retrolisthesis. CSF effacement of the ventral aspect of the thecal sac. No cord signal abnormality. Bilateral neuroforamina stenosis on a multifactorial basis. The C7-T1: No disc herniation. No neuroforamina stenosis. Flow-void signal within the main vessels is normal. Left vertebral artery is dominant. Negative cisterna magna. MR/MR cervical spine wo/w con IMPRESSION: Metastatic disease, posterior cranial fossa. Please refer to the recent MRI brain dated December 29, 2024. No metastatic disease, cervical spine. Multilevel cervical spondylosis resulting in grade 1 retrolisthesis C4-5 C6-7 and central spinal canal stenosis without cord edema and or myelopathy.. Electronically signed by: Bro Mesa MD 01/09/2025 01:00 PM EDT RP
--- NOTE | ~2025-01-09 | CT_ITS ---
EXAMINATION: CT ABDOMEN AND PELVIS WITHOUT CONTRAST CLINICAL INFORMATION: Acute renal failure. COMPARISON: December 11, 2024. TECHNIQUE: Multidetector volumetric imaging was performed from the superior aspect of the liver through the pubic symphysis. Sagittal and coronal reformatted images were obtained on the technologist's workstation. This CT examination was performed using dose optimization techniques as appropriate, variously including the following: *Automated exposure control *Adjustment of mA and/or kV according to patient size (this includes techniques or standardized protocols for targeted exams where dose is matched to indication/reason for exam; i.e. extremities or head) *Use of iterative reconstruction technique DLP: 1361.8 mGy centimeter. FINDINGS: Limited evaluation of the intra-abdominal organs and vascular structures due to lack of IV contrast. LUNG BASES: Peribronchial vascular small nodules. Scattered noncalcified pulmonary nodules measuring less than 1. Moderate volume of hypodense attenuation in the pericardium with the thecal wall and irregularity. Right-sided pleural effusion, moderate volume. LIVER, GALLBLADDER, AND BILIARY TREE: Liver measures 15 cm. Hyperdense intraluminal abnormality in a nondilated/nondistended gallbladder. No pericholecystic fluid collection or gallbladder wall thickening. No intrahepatic or extrahepatic biliary ductal dilatation. PANCREAS: No peripancreatic fluid collection. Volume loss. No main pancreatic ductal dilatation. SPLEEN: 8 cm. ADRENAL GLANDS: Soft tissue fullness without gross nodularity. KIDNEYS AND URETERS: No hydronephrosis or nephrolithiasis. Multifocal different sizes hypodensities, the largest in the left kidney measures 4 cm. BLADDER: Fluid-filled. GASTROINTESTINAL TRACT: Segmental wall thickening and sigmoid colon with narrowed lumen. Multiple diverticula throughout the large intestine mostly in the left hemicolon. No intestinal obstruction pattern. No pneumoperitoneum. No ascites. ABDOMINAL WALL: No gross umbilical hernia. LYMPH NODES: Lymphadenopathy, retroperitoneum, there are iliac, inguinal and to a lesser extent mesenteric. VASCULAR: Calcified plaques throughout the abdominal aorta wall extending branches and the splenic artery PELVIC VISCERA: Absent prostate gland. OSSEOUS STRUCTURES: Multilevel thoracolumbar spondylosis without acute fracture. Degenerative changes in the coxofemoral joints. CT/CT abdomen pelvis wo IV con IMPRESSION: Concerning intrathoracic and intra-abdominal malignancy with questionable mass in the sigmoid colon. No hydronephrosis or nephrolithiasis. Fleischner guidelines were followed. Electronically signed by: Bro Mesa MD 01/09/2025 03:38 PM EDT RP
--- NOTE | ~2025-01-09 | CT_ITS ---
EXAMINATION: CT CHEST WITHOUT CONTRAST CLINICAL INFORMATION: Upper abdominal pain. Acute renal failure.. COMPARISON: December 11, 2024. TECHNIQUE: Multidetector volumetric CT imaging of the chest was done. Axial MIP volume rendering provided. Sagittal and coronal reformatted images were obtained. This CT examination was performed using dose optimization techniques as appropriate, variously including the following: *Automated exposure control *Adjustment of mA and/or kV according to patient size (this includes techniques or standardized protocols for targeted exams where dose is matched to indication/reason for exam; i.e. extremities or head) *Use of iterative reconstruction technique. DLP: 442.22 mGy centimeter. FINDINGS: BEE RAISER: No hyperinflation. Upper extremities have both size of the body. LUNGS: Pulmonary reticular nodular pattern extending from the peribronchial vascular bundle bilaterally with associated the larger, less than 2 cm noncalcified pulmonary nodules. The airways patent. No bronchiectasis. No honeycombing. MEDIASTINUM: Lymphadenopathy, mediastinum and pulmonary hilum. Calcified plaques throughout the thoracic aorta wall extending branches and the coronary arteries. Moderate volume pericardial effusion with thick wall. CORONARY ARTERY CALCIFICATION: Calcified plaques. PLEURA: Right-sided pleural effusion moderate volume and small left-sided pleural effusion. AXILLA: No lymphadenopathy. UPPER ABDOMEN: Small hiatal hernia. Retrocrural lymphadenopathy. OSSEOUS STRUCTURES: Multilevel spondylosis without acute fracture or listhesis. No gross lytic or blastic lesions. 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 Pericardial effusion versus infiltration and bilateral pleural effusions likely related to tumor infiltration. Fleischner guidelines were followed. Electronically signed by: Bro Mesa MD 01/09/2025 03:46 PM EDT
--- NOTE | ~2025-01-09 | XR_ITS ---
EXAMINATION: XR CHEST 1 VIEW HISTORY: cp COMPARISON: Comparison is made with the prior examination dated 12/09/2024. FINDINGS: A single AP portable view of the chest performed at 11:11 AM is submitted. There are low lung volumes. Again seen are increased interstitial markings with fibrosis. There are no focal airspace opacities. There is no pleural effusion, pneumothorax, or pulmonary vascular congestion. The heart is normal in size. There is degenerative disc disease of the spine. XR/XR chest 1V IMPRESSION: Low lung volumes. Pulmonary fibrosis. No acute abnormality. Electronically signed by: Russ Major MD 01/09/2025 11:51 AM EDT
--- NOTE | 2025-01-09 10:24 | ECG_ITS ---
Test Reason : SHOULDER PAIN Blood Pressure : */* mmHG Vent. Rate : 97 BPM Atrial Rate : 97 BPM P-R Int : 206 ms QRS Dur : 82 ms QT Int : 334 ms P-R-T Axes : 14 -17 54 degrees QTcB Int : 424 ms Normal sinus rhythm with first degree AV block Low voltage QRS Possible Inferior infarct , age undetermined Cannot rule out Anterior infarct , age undetermined Abnormal ECG When compared with ECG of 13-Dec-2024 05:27, Sinus rhythm has replaced Atrial flutter Nonspecific T wave abnormality, worse in Inferior leads Nonspecific T wave abnormality now evident in Anterolateral leads Referred By: Payton Rondon Electronically Signed By: Brian Ochoa
--- NOTE | 2025-01-09 11:07 | ED.GENADULT ---
HPI - General Adult General Chief complaint: General Medical Stated complaint: Shoulder pain Time Seen by Provider: 01/09/25 10:38 History of Present Illness HPI narrative: 69 years old with a history of adenocarcinoma unsure of the origin. With Mets to the brain. Also she a pericardial effusion. Had a window done at [facility] prior. Presented today with having increasing shoulder blade pain. Ongoing for a few weeks. But just getting much worse. Patient was going to see his radiation oncologist at [facility]. Sent to [place] for further evaluation by his oncologist. The pain is 10/10 is over the shoulder blade. There is no worsening shortness of breath there is no diaphoresis. No history of UT. No history of dissection in the past. Patient is from home. Also pain in the neck. Related Data Home Medications ?Medication ?Instructions ?Recorded ?Confirmed omeprazole 20 mg capsule,delayed 20 mg PO DAILY 09/08/22 01/01/25 release Previous Rx's ?Medication ?Instructions ?Recorded sodium,potassium,mag sulfates 17.5 See Rx Instructions PO .COMPLEX 12/14/24 gram-3.13 gram-1.6 gram oral soln #354 mL (Suprep Bowel Prep Kit) Magic Mouthwash 10 ml PO QID #240 mL 12/15/24 Diphen/Lido/Antacid 1:1:1 240 mL suspension Magic Mouthwash 10 ml PO QID #240 mL 12/15/24 Diphen/Lido/Antacid 1:1:1 240 mL suspension amlodipine benzoate 1 mg/mL oral 5 mg (5 mL) PO DAILY #30 mL 12/22/24 suspension urea 15 gram oral powder packet 2 packet PO DAILY #30 ea 12/22/24 lorazepam 0.5 mg tablet 0.5 mg PO BID PRN Anxiety #10 tabs 12/29/24 oxycodone 5 mg tablet 5 mg PO Q8H PRN Breakthrough Pain, 12/29/24 Severe #60 tabs morphine 15 mg tablet,extended 15 mg PO Q8H #60 tabs 01/01/25 release (MS Contin) prednisone 20 mg tablet 40 mg (2 x 20 mg) PO DAILY #60 tabs 01/01/25 Allergies Allergy/AdvReac Type Severity Reaction Status Date / Time bee pollen [bee stings] Allergy Severe Swelling Verified 01/09/25 10:21 Penicillins Allergy Unknown Swelling Verified 01/09/25 10:21 Review of Systems Review of Systems: Positive shoulder pain No chest pain or diaphoresis No fever PMFSH Past Medical History Attestation statement: The following information was validated with the patient. Medical History Pulmonary nodules Lymphadenopathy, mediastinal Hyperlipidemia Hiatal hernia GERD (gastroesophageal reflux disease) Prostate cancer HTN (hypertension) Surgical History S/P pericardial window creation History of tonsillectomy History of prostatectomy History of esophagogastroduodenoscopy (EGD) Hx of colonoscopy Social History Social History Household Members: Spouse Housing: House Are you a primary summer child caregiver to a significant other at home: No Do you presently have visiting nurse or other home services: No Alcohol intake: current Alcohol intake frequency: 0-2 drinks per day Alcohol type: beer, wine and hard liquor Patient Tobacco Use Status: Former Tobacco user Tobacco use type: Cigarette Smoked in Last 30 Days: No Use of substances other than those prescribed or required for medical reasons: No Substance Use Type: Marijuana Advance Directives: No Advance Directives Information Provided: Yes Current occupational status: retired Physical Exam ED Vital Signs: Vital Signs - 24 hr 01/09/25 10:16 01/09/25 11:24 01/09/25 13:06 Temperature 96.8 F 97.2 F Pulse Rate 99 93 100 Respiratory Rate 22 H 26 H 26 H Blood Pressure 130/105 H 100/75 97/69 Pulse Oximetry 98 98 100 Oxygen Delivery Method Room Air Room Air Room Air 01/09/25 13:54 Temperature Pulse Rate 116 H Respiratory Rate 22 H Blood Pressure 82/55 L Pulse Oximetry 98 Oxygen Delivery Method Room Air BMI result Body Mass Index 33.1 Appearance: Alert. Sick appearing male complaining of pain to his neck and between his shoulder blade Eyes: Pupils equal, round and reactive to light. ENT: Pharynx normal. Neck: Normal inspection. Neck supple. No lymph nodes noted. No crepitus CVS: Normal heart rate and rhythm. Pulses normal. Normal S1 and S2 Respiratory: No respiratory distress. Breath sounds normal. No Wheezing. No rales Abdomen: Soft and nontender. No rigidity. No distention. good BS x4 Skin: Skin warm and dry. Normal skin color. Normal skin turgor. Extremities: No lower extremity edema. Neurovascular intact to all extremities. No Lacerations. No Rash Neuro: Oriented X 3. No motor deficit. No sensory deficit. Moving all extermities. No slurred speech Medications Administered Generic Name Dose Route Start Last Admin Trade Name Freq PRN Reason Stop Dose Admin Sodium Chloride 1,000 mls @ 999 mls/hr 01/09/25 13:45 01/09/25 14:19 Ns IV 01/09/25 14:45 999 mls/hr .Q1H1M HONEY Administration Calcium Gluconate 1 gm in 50 mls @ 50 mls/hr 01/09/25 13:41 01/09/25 14:19 Calcium Gluconate IV 01/09/25 14:40 50 mls/hr ONCE ONE Administration Discontinued Medications Generic Name Dose Route Start Last Admin Trade Name Freq PRN Reason Stop Dose Admin Dextrose 25 gm 01/09/25 13:41 01/09/25 14:19 Dextrose 50 % 25 Gm/50 Ml Syringe IVPUSH 01/09/25 13:42 25 gm ONCE ONE Administration Gadobutrol 10 ml 01/09/25 12:28 01/09/25 12:28 Gadobutrol 10 Ml Vial IVPUSH 01/09/25 12:29 10 ml ONCE ONE Administration Hydromorphone HCl 1 mg 01/09/25 11:06 01/09/25 11:23 Hydromorphone Hcl 1 Mg/Ml Syringe IVPUSH 01/09/25 11:07 1 mg ONCE ONE Administration Protocol Sodium Chloride 1,000 mls @ 999 mls/hr 01/09/25 11:15 01/09/25 11:23 Ns IV 01/09/25 12:15 999 mls/hr .Q1H1M HONEY Administration Insulin Human Regular 5 unit 01/09/25 13:41 01/09/25 14:20 Insulin Regular, Human 100 Unit/Ml 10 Ml Vial IVPUSH 01/09/25 13:42 5 unit ONCE ONE Administration Sodium Bicarbonate 50 meq 01/09/25 13:41 01/09/25 14:19 Sodium Bicarbonate 8.4% 50 Meq/50 Ml Syringe IVPUSH 01/09/25 13:42 50 meq ONCE ONE Administration Sodium Polystyrene Sulfonate 30 gm 01/09/25 13:41 01/09/25 14:19 Sodium Polystyrene Sulfon/Sorb 15 Gm/60 Ml Oral.Susp PO 01/09/25 13:42 30 gm ONCE ONE Administration Medical Decision Making Medical Decision Making [facility] Narrative: Pain medication ordered. Patient has pain between the shoulder blade question etiology a chest x-ray was ordered to look for gross focal infiltrate. Patient had a window done with thoracic about a week 2 weeks ago. Unlikely to have tamponade. Patient has pain between the shoulder blade and also in the neck area discussed the case with patient's oncologist. Wanted an MRI of the cervical spine. MRI with and without contrast of the cervical spine was ordered. Patient has no chest pain but feels short of breath has pain between the shoulder blade. Will get a CTA of the chest to look for possibility of PE. Labs ordered. Troponin ordered. My interpretation of patient's EKG showed a sinus rhythm with a low-voltage [place] QRS QTC normal no acute ST segment elevation. Patient had a recent PET scan done. It shows the following. There is significant muscular activity seen in the upper hemithorax, bilateral shoulders, bilateral hips and proximal and mid thigh region. This could be secondary to myositis, metastatic disease which can be seen with lymphoma, rarely with adenocarcinoma. Correlate with clinical exam. A CPK was added. An MRI was done. The MRI did not show any acute cord compression. It did show multiple meds. I discussed the finding with the radiologist I reviewed the MRI images myself there is no gross cord compression there is signs of arthritis. On patient's return patient's chemistry was redrawn. At this point we were able to find out patient had a sodium of 121. 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 Patient appear grossly dehydrated the a L of fluid was given nevertheless will monitor patient's blood pressure carefully as patient had a low blood pressure on returning from MRI. Patient's potassium also came back at over 6. In the setting of acute renal insufficiency will treat aggressively. Calcium, bicarb, insulin and glucose was given. Because of patient's elevated creatinine we can not get the CTA of the chest. [place] patient is too weak to get a V/Q scan at this time. We will get a CT chest CT abdomen pelvis to look for gross pathology in the chest and in the abdomen for the acute renal insufficiency. Patient had a colonoscopy and an endoscopy done there is no evidence for colon cancer. Currently in critical condition awaiting admission Patient's urine appear concentrated with a high specific gravity. In the setting of low-sodium question SIADH Differential Diagnosis Differential Diagnoses: The differential diagnosis associated with the presentation includes Pneumonia, PE, dissection, metastasis, renal insufficiency, hyperkalemia, hyponatremia Admission/Observation Consideration of admission/observation: Escalation of care including admission/observation considered Consult Healthcare Provider Management of the patient was discussed with: Sheet Pile Driver Operator (Oncology) Lab Data 01/09/25 11:22 01/09/25 12:52 Labs: Lab Results 01/09/25 01/09/25 01/09/25 Range/Units 11:22 12:52 14:15 WBC 11.3 H (4.8-10.8) X10*3/uL RBC 3.64 L (4.60-5.80) X10*6/uL Hgb 11.0 L (14.0-18.0) g/dl Hct 32.1 L (42.0-52.0) % MCV 88.2 (80.0-98.0) fL MCH 30.2 (27.0-33.0) pg MCHC 34.3 (31.0-36.0) g/dl RDW 13.2 (11.0-16.0) % Plt Count 391 (160-400) X10*3/uL MPV 9.4 (9.4-12.4) fL Immature Gran % (Auto) 0.7 H (0.0-0.4) % Neut % (Auto) 88.1 H (45-73) % Lymph % (Auto) 4.2 L (20-40) % [place] % (Auto) 6.5 (2-11) % Eos % (Auto) 0.2 (0-4) % Baso % (Auto) 0.3 (0-2) % Lymph # (Auto) 0.5 L (1.2-4.9) X10*3/uL [place] # (Auto) 0.7 (0.1-1.2) X10*3/uL Eos # (Auto) 0.0 (0.0-0.4) X10*3/uL Baso # (Auto) 0.0 (0.0-0.2) X10*3/uL Abs Immat Gran (auto) 0.08 H (0.00-0.03) X10*3/uL Absolute Neuts (auto) 9.9 H (2.0-8.3) x10*3/uL Absolute Nucleated RBC 0.000 (0.0-0.012) X10*3/uL Nucleated RBC % (auto) 0.0 (0.0-0.2) /100WBC Sodium 121 L (135-145) mmol/L Potassium 6.5 H* (3.3-5.1) mmol/L Chloride 91 L (96-108) mmol/L Carbon Dioxide 19 L (22-29) mmol/L Anion Gap 18 (12-20) BUN 114 H (9-16) mg/dL Creatinine 2.08 H (0.5-1.4) mg/dL Estim Creat Clear Calc 43.0 Estimated GFR 32 POC Glucose 131 H (60-115) mg/dL Random Glucose 152 H (60-115) mg/dL Calcium 8.8 (8.4-10.2) mg/dL Total Bilirubin 0.4 (0.0-1.0) mg/dL Direct Bilirubin 0.2 (0.0-0.5) mg/dL AST 14 (5-37) U/L ALT 6 (0-40) U/L Alkaline Phosphatase 102 (39-117) U/L Troponin I High Sens 9.6 D (<3.5-35.0) ng/L Total Protein 6.6 (6.5-8.0) g/dL Albumin 3.3 L (3.5-5.0) g/dL Lipase 8 (8-78) U/L Urine Color Urine Appearance Urine pH (5.0-9.0) Ur Specific [place] (1.005-1.025) Urine Protein (Neg-Trace) mg/dL Urine Glucose (UA) (Negative) mg/dL Urine Ketones (Negative) mg/dL Urine Blood (Negative) Urine Nitrite (Negative) Ur Leukocyte Esterase (Negative) Influenza Type A (PCR) NEGATIVE (Negative) Influenza Type B (PCR) NEGATIVE (Negative) RSV RNA Qual (PCR) NEGATIVE (Negative) SARS-CoV-2 RNA (RT-PCR) NEGATIVE (Negative) 03/18/25 Range/Units 14:16 WBC (4.8-10.8) X10*3/uL RBC (4.60-5.80) X10*6/uL Hgb (14.0-18.0) g/dl Hct (42.0-52.0) % MCV (80.0-98.0) fL MCH (27.0-33.0) pg MCHC (31.0-36.0) g/dl RDW (11.0-16.0) % Plt Count (160-400) X10*3/uL MPV (9.4-12.4) fL Immature Gran % (Auto) (0.0-0.4) % Neut % (Auto) (45-73) % Lymph % (Auto) (20-40) % [place] % (Auto) (2-11) % Eos % (Auto) (0-4) % Baso % (Auto) (0-2) % Lymph # (Auto) (1.2-4.9) X10*3/uL [place] # (Auto) (0.1-1.2) X10*3/uL Eos # (Auto) (0.0-0.4) X10*3/uL Baso # (Auto) (0.0-0.2) X10*3/uL Abs Immat Gran (auto) (0.00-0.03) X10*3/uL Absolute Neuts (auto) (2.0-8.3) x10*3/uL Absolute Nucleated RBC (0.0-0.012) X10*3/uL Nucleated RBC % (auto) (0.0-0.2) /100WBC Sodium (135-145) mmol/L Potassium (3.3-5.1) mmol/L Chloride (96-108) mmol/L Carbon Dioxide (22-29) mmol/L Anion Gap (12-20) BUN (9-16) mg/dL Creatinine (0.5-1.4) mg/dL Estim Creat Clear Calc Estimated GFR POC Glucose (60-115) mg/dL Random Glucose (60-115) mg/dL Calcium (8.4-10.2) mg/dL Total Bilirubin (0.0-1.0) mg/dL Direct Bilirubin (0.0-0.5) mg/dL AST (5-37) U/L ALT (0-40) U/L Alkaline Phosphatase (39-117) U/L Troponin I High Sens (<3.5-35.0) ng/L Total Protein (6.5-8.0) g/dL Albumin (3.5-5.0) g/dL Lipase (8-78) U/L Urine Color Yellow Urine Appearance Clear Urine pH 5.5 (5.0-9.0) Ur Specific [place] 1.020 (1.005-1.025) Urine Protein Negative (Neg-Trace) mg/dL Urine Glucose (UA) Negative (Negative) mg/dL Urine Ketones Trace (Negative) mg/dL Urine Blood Negative (Negative) Urine Nitrite Negative (Negative) Ur Leukocyte Esterase Negative (Negative) Influenza Type A (PCR) (Negative) Influenza Type B (PCR) (Negative) RSV RNA Qual (PCR) (Negative) SARS-CoV-2 RNA (RT-PCR) (Negative) Critical Care Time Critical Care Time Critical Care Time: Yes Total Critical Care Time: 80 Attestation: I have personally provided 80 minutes of critical care time exclusive of time spent on separately billable procedures. ?Time includes review of lab data, radiology results, discussion with consultants, and monitoring for potential decompensation. ?Interventions were performed as documented above Discharge Plan Discharge Clinical Impression: Acute kidney injury, Acute hyponatremia, Acute hyperkalemia, History of metastatic neoplastic disease Patient Disposition: Admitted As Inpatient Print Language: Luxembourger
[2025-01-09] MEDS: HYDROmorphone HCl 1 MG/ML SYRINGE IVPUSH ×3 (11:23→21:21)
[2025-01-09] MEDS: 0.9 % Sodium Chloride 1,000 ML 999 ML IV ×3 (11:23→16:55)
[2025-01-09 11:28] LABS: MANUAL DIFF FLAG NO
[2025-01-09 11:35] LABS: Basophils Percent Auto 0.3 % (0-2); Eosinophils Percent Auto 0.2 % (0-4); Hematocrit 32.1 % (42.0-52.0); Imm Gran Abs Auto 0.08 X10*3/uL (0.00-0.03); Imm Gran Pct Auto 0.7 % (0.0-0.4); Lymphocytes Absolute Auto 0.5 X10*3/uL (1.2-4.9); Lymphocytes Percent Auto 4.2 % (20-40); Mean Corpuscular HGB Conc 34.3 g/dl (31.0-36.0); Mean Corpuscular Hemoglobin 30.2 pg (27.0-33.0); Mean Corpuscular Volume 88.2 fL (80.0-98.0); Mean Platelet Volume 9.4 fL (9.4-12.4); Monocytes Absolute Auto 0.7 X10*3/uL (0.1-1.2); Monocytes Percent Auto 6.5 % (2-11); Neutrophils Absolute Auto 9.9 x10*3/uL (2.0-8.3); Neutrophils Percent Auto 88.1 % (45-73); Platelet Count 391 X10*3/uL (160-400); Red Blood Count 3.64 X10*6/uL (4.60-5.80); Red Cell Distribution Width 13.2 % (11.0-16.0); White Blood Count 11.3 X10*3/uL (4.8-10.8)
[2025-01-09 11:50] LABS: Troponin-I High Sensitivity 9.6 ng/L (<3.5-35.0)
[2025-01-09 12:07] LABS: Influenza A PCR NEGATIVE (Negative); Influenza B PCR NEGATIVE (Negative); Resp Syncy Virus RNA Qual PCR NEGATIVE (Negative); SARS COV2 PCR INHOUSE NEGATIVE (Negative)
[2025-01-09] MEDS: gadobutroL 10 ML VIAL IVPUSH (12:28)
--- OUTSIDE RECORDS SUMMARY | 2025-01-09 12:30 | XMS_ITS | Continuity of Care Document ---
Author Organization [place] - [facility], [facility] Address [address] [place] [address] Care Team Providers Care Attraction Attendant Name Role Phone RICARDA AMEZQUITA Primary Care Provider [phone] Assessment Encounter Date Assessment Date Assessment LastModified [...] instructions recorded. Reason for Referral None Reported. Results Created Date Observation Date Name Description Value Unit Range Abnormal Flag Note LastModifiedBy Organization Detail LastModifiedTime 01/04/2012/26/2024 PET, skull base to mid-t high No observ ation record ed. [email or web address] Not Available 2024 14:25:45 01/04/20 25 12/19/2024 colon oscop y outco mes repor ting* No observ ation record ed. [email or web address] Not Available 2024 14:28:02 Result Notes None recorded. Problems Name Problem SNOMED Code Status Onset Date Resolution Date Notes Provider Name and Address Organization Details Recorded Time Neoplasm of uncertain behavior of tongue 43595599 Active 025 TIFFANIE Phipps MD [address] [facility] [address], [place], [address], [facility] - [facility] 5 12:57:14 Glossitis 67959891 Active 025 TIFFANIE Phipps MD [address] [facility] [address], [place], [phone], [facility] - [facility] 5 12:57:20 Malignant tumor of tongue 411322035 Active 025 TIFFANIE Phipps MD [address] [facility] [address], [place], [phone], [facility] [place] 5 12:58:55 Problem Notes None recorded. Procedures Surgical History Date Name Laterality Status Provider Name and Address Organization Details Recorded Time Biopsy Anterior Tongue completed RODRI RECINOS PA-C [address] [address], [place], [address], [facility] 12/29/2024 09:48:09 Imaging Results None recorded. [...] Details Last Updated DateTime 12/29/2024 182.88 cm 038006.25 g Diandra Gleason [place] [facility] 12/29/2024 08:14:21 Social History None recorded. Functional Status None recorded. Mental Status None recorded. Family History Nothing Reported. Medical History No medical history recorded. Past Encounters Encounter ID Performer Location Encounter Start Date Encounter Closed Date Diagnosis/Indication Diagnosis SNOMED-CT Code Diagnosis ICD10 Code Diagnosis Note [id number] TIFFNAIE DARBY MD [facility] on [address] [place] [id number] 12/01/2024 12:45:15 12/01/2024 13:03:39 Neoplasm of uncertain behavior of tongue 60202778 D37.02 4mm ulcer on left posterolat eral [...] a punch biopsy if persistent . Glossitis 37265512 K14.0 see above [id number] TIFFANIE DARBY MD [facility] on [address] [place] [id number] 12/29/2024 08:05:56 12/29/2024 09:27:07 Neoplasm of uncertain behavior of tongue 07300573 D37.02 Glossitis 79333258 K14.0 Health Concerns Section Related Observation LastModified by Organization Detai ls LastModified Time None Recorded Concern Status LastModified by Organization Details LastModified Time None Recorded Payers Encounter Date Sequence Insurance Name Policy Number Policy Os[place] Covered Member ID Os[place] Member ID Guarantor Name 12/29/2024 1 [facility] (MEDICARE REPLACEMENT/A DVANTAGE - PPO) [id number] Abel Grayson [id number] Abel Grayson Notes Date Note Type Note [...] met with Dr. Ruiz in oncology in [place] and were told that his primary is the lung. On PET there was some increased sublingual uptake. He quit smoking 8-9 years ago. TIFFANIE DARBY MD [address] [place] [address], [phone], [facility] - [facility] 01/03/2025 08:15:15
--- NOTE | 2025-01-09 13:07 | PC.NURSE ---
pt returned from MRI at this time - still reporting 10/10 pain despite previous medication administration. provider notified/aware. pt pending for labs to results so he can go to CT at this time. remains bedside for support. plan of care ongoing. call dove placed within reach.
--- NOTE | 2025-01-09 13:36 | PC.NURSE ---
Criticial K 6.5 taken from lab, primary RN Shayy made aware
[2025-01-09 13:37] LABS: Alanine Aminotransferase 6 U/L (0-40); Albumin Level 3.3 g/dL (3.5-5.0); Alkaline Phosphatase 102 U/L (39-117); Anion Gap 18 (12-20); Aspartate Amino Transferase 14 U/L (5-37); Bilirubin Direct 0.2 mg/dL (0.0-0.5); Bilirubin Total 0.4 mg/dL (0.0-1.0); Calcium 8.8 mg/dL (8.4-10.2); Carbon Dioxide 19 mmol/L (22-29); Chloride 91 mmol/L (96-108); Estimated Glomerular Filt Rate 32; Glucose Random 152 mg/dL (60-115); Lipase 8 U/L (8-78); Potassium 6.5 mmol/L (3.3-5.1); Sodium 121 mmol/L (135-145); Total Protein 6.6 g/dL (6.5-8.0)
--- NOTE | 2025-01-09 13:40 | PC.NURSE ---
critical potassium level of 6.5 received at this time - dr. walsh notified/aware.
[2025-01-09 13:52] LABS: Blood Urea Nitrogen 114 mg/dL (9-16)
[2025-01-09] MEDS: Sodium Polystyrene Sulfon/Sorb 15 GM/60 ML ORAL.SUSP 30 GM PO (14:19)
[2025-01-09] MEDS: Dextrose 50 % 25 GM/50 ML SYRINGE IVPUSH (14:19)
[2025-01-09] MEDS: Sodium Bicarbonate 8.4% 50 MEQ/50 ML SYRINGE IVPUSH (14:19)
[2025-01-09] MEDS: Calcium Gluconate/NaCl,Iso-Osm 1 GM/50 ML PLAST..BAG IV (14:19)
[2025-01-09] MEDS: Insulin Regular, Human 100 UNIT/ML 10 ML VIAL IVPUSH (14:20)
[2025-01-09 14:21] LABS: Glucose, Whole Blood 131 mg/dL (60-115)
[2025-01-09 14:25] LABS: Appearance Urine Clear; Color Urine Yellow; Glucose Urine UA Negative (Negative); Leukocyte Esterase Urine Negative (Negative); Nitrite Urine Negative (Negative); PH 5.5 (5.0-9.0); Urine Blood Negative (Negative); Urine Ketones Trace mg/dL (Negative); Urine Protein Negative (Neg-Trace)
[2025-01-09 14:28] LABS: Bacteria Urine None Seen (None Seen); Hyaline Casts Urine 0-2 /LPF (0-2); RBC Urine 0-2 /HPF (0-2); Squamous Epithelial Cell Urine 0-2 /HPF (0-2); WBC Urine 0-5 /HPF (0-5)
[2025-01-09 15:06] LABS: Glucose, Whole Blood 542 mg/dL (60-115)
[2025-01-09 15:43] LABS: Anion Gap 16 (12-20); Blood Urea Nitrogen 121 mg/dL (9-16); Calcium 8.5 mg/dL (8.4-10.2); Carbon Dioxide 17 mmol/L (22-29); Chloride 95 mmol/L (96-108); Creatinine Clr Calc Pharmacy 45.4; Estimated Glomerular Filt Rate 34; Glucose Random 187 mg/dL (60-115); Potassium 6.7 mmol/L (3.3-5.1); Sodium 121 mmol/L (135-145)
--- NOTE | 2025-01-09 15:45 | PC.NURSE ---
Pts Alysa= [phone]
[2025-01-09] MEDS: Albumin Human 25 % 100 ML 133.33 ML IV ×2 (15:57→16:40)
[2025-01-09 16:11] LABS: Glucose, Whole Blood 186 mg/dL (60-115)
[2025-01-09] MEDS: Albuterol Sulfate 7.5 MG, Albuterol Sulfate (0.083%) 2.5 MG 10 MG INHALE (16:17)
[2025-01-09 16:26] LABS: Phosphorus 4.2 mg/dL (2.7-4.5); Uric Acid 9.3 mg/dL (3.4-7.0)
[2025-01-09] MEDS: Sodium Zirconium Cyclosilicate 10 GM POWD.PACK PO (16:54)
[2025-01-09 17:15] LABS: Glucose, Whole Blood 169 mg/dL (60-115)
[2025-01-09 18:19] LABS: Glucose, Whole Blood 191 mg/dL (60-115)
--- NOTE | 2025-01-09 18:21 | PHA.MEDREC ---
Addendum entered by Ashly Batista RPh 01/09/25 18:46: [facility] Original Note: Pharmacy Consult ? Medication Reconciliation Pharmacy has completed the medication reconciliation. Spoke to patient and at bedside to confirm med list. Patient states he is no longer taking Amlodipine 5 mg, Lorazepam 0.5 mg, Magic mouthwash, Prednisone 40 mg and Urea packets. patient last took his medication today in the morning.
--- NOTE | 2025-01-09 18:36 | PC.NURSE ---
Pt had large bowel movement.
[2025-01-09 18:41] LABS: Anion Gap 21 (12-20); Blood Urea Nitrogen 115 mg/dL (9-16); Calcium 8.5 mg/dL (8.4-10.2); Carbon Dioxide 17 mmol/L (22-29); Chloride 93 mmol/L (96-108); Creatinine Clr Calc Pharmacy 45.2; Estimated Glomerular Filt Rate 34; Glucose Random 214 mg/dL (60-115); Sodium 126 mmol/L (135-145)
[2025-01-09] MEDS: Norepinephrine Bitartrate/D5W 8 MG/250 ML PLAST..BAG 10.38 MG IVCONT (18:44)
--- NOTE | 2025-01-09 18:49 | PC.NURSE ---
Norepi started, verified by 2 RNs, provider aware of BPs
--- NOTE | 2025-01-09 19:00 | PC.NURSE ---
PER PROVIDER: STOP NOREPI DRIP. PLAN IS NOW ENTERTAINER OR VARIETY ARTIST ONLY.
--- NOTE | 2025-01-09 19:45 | P.HPHOSP_ITS ---
History of Present Illness Date of Service: 01/09/25 Chief Complaint: Back pain This is a 69-year-old male with pertinent history of prostate cancer status post prostatectomy, alcohol use disorder, hypertension, prediabetes, recent admission due to cardiac tamponade secondary to hemopericardium likely in the setting of malignancy presents to the emergency department for evaluation of shoulder pain/back pain. In the emergency department, patient was found to have PAM with hyperkalemia and hyponatremia. Also continued to be hypotensive despite IV crystalloid resuscitation. 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 Cervical MRI concerning for metastatic disease, focal enhancing lesion in the inferior right tayla, right midbrain/tayla junction. Initially, there was consideration of admitting patient to the intensive care unit for management of shock. 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 Will admit to medicine floor with IV morphine and IV Ativan p.r.n.. Review of Systems 2 Constitutional: Constitutional: Reports fatigue, Reports malaise, Reports poor appetite and Reports weakness Cardiovascular: Cardiovascular: Reports dyspnea on exertion Respiratory: Respiratory: Reports dyspnea on exertion Musculoskeletal: Musculoskeletal: Reports back pain, Reports myalgias and Reports arthralgias Neurologic: Reports weakness Endocrine: Endocrine: Reports fatigue [facility] Medical History Pulmonary nodules Lymphadenopathy, mediastinal Hyperlipidemia Hiatal hernia GERD (gastroesophageal reflux disease) Prostate cancer HTN (hypertension) Surgical History S/P pericardial window creation History of tonsillectomy History of prostatectomy History of esophagogastroduodenoscopy (EGD) Hx of colonoscopy Social History Household Members: Spouse Housing: House Are you a primary elderly caregiver to a significant other at home: No Do you presently have visiting nurse or other home services: No Alcohol intake: current Alcohol intake frequency: 0-2 drinks per day Alcohol type: beer, wine and hard liquor Patient Tobacco Use Status: Former Tobacco user Tobacco use type: Cigarette Substance Use Type: Marijuana Current occupational status: retired Meds Allergies Allergy/AdvReac Type Severity Reaction Status Date / Time bee pollen [bee stings] Allergy Severe Swelling Verified 01/09/25 10:21 Penicillins Allergy Unknown Swelling Verified 01/09/25 10:21 Home Medications ?Medication ?Instructions ?Recorded ?Confirmed ?Last Taken ?Type omeprazole 20 mg capsule,delayed 20 mg PO DAILY@0630 09/08/22 01/09/25 01/09/25 History release ibuprofen 800 mg tablet 800 mg PO BID 01/09/25 01/09/25 01/09/25 History lisinopril 5 mg tablet 5 mg PO DAILY 01/09/25 01/09/25 01/09/25 History Physical Exam 2 Vital Signs and Narrative: Vital Signs: Last Vital Signs Temp 97.6 F 01/09/25 17:15 Pulse 110 H 01/09/25 18:59 Resp 20 01/09/25 18:42 BP 78/49 L 01/09/25 18:59 Pulse Ox 98 01/09/25 18:42 O2 Del Method Room Air 01/09/25 18:42 BMI result Body Mass Index 33.1 Middle-aged male lying in bed in no distress Neck supple Muffled heart sounds Reduced breath sounds Abdomen soft nontender, no guarding, no rigidity Patient is awake, alert and oriented to self, place, time and person ; no focal motor deficit Psych: Anxious Results Labs 01/09/25 11:22 01/09/25 18:25 Labs: Laboratory Results - last 24 hr 01/09/25 01/09/25 01/09/25 11:22 12:52 14:15 MCV 88.2 MCH 30.2 MCHC 34.3 RDW 13.2 Plt Count 391 MPV 9.4 Immature Gran % (Auto) 0.7 H Neut % (Auto) 88.1 H Lymph % (Auto) 4.2 L [facility] % (Auto) 6.5 Eos % (Auto) 0.2 Baso % (Auto) 0.3 Lymph # (Auto) 0.5 L [facility] # (Auto) 0.7 Eos # (Auto) 0.0 Baso # (Auto) 0.0 Abs Immat Gran (auto) 0.08 H Absolute Neuts (auto) 9.9 H Absolute Nucleated RBC 0.000 Nucleated RBC % (auto) 0.0 Anion Gap 18 Estim Creat Clear Calc 43.0 Estimated GFR 32 POC Glucose 131 H Random Glucose 152 H Uric Acid Calcium 8.8 Phosphorus Total Bilirubin 0.4 Direct Bilirubin 0.2 AST 14 ALT 6 Alkaline Phosphatase 102 Total Creatine Kinase 86 Total Protein 6.6 Albumin 3.3 L Lipase 8 Urine Color Urine Appearance Urine pH Ur Specific [place] Urine Protein Urine Glucose (UA) Urine Ketones Urine Blood Urine Nitrite Ur Leukocyte Esterase Urine RBC Urine WBC Ur Squamous Epith Cells Urine Bacteria Hyaline Casts Influenza Type A (PCR) NEGATIVE Influenza Type B (PCR) NEGATIVE RSV RNA Qual (PCR) NEGATIVE SARS-CoV-2 RNA (RT-PCR) NEGATIVE 01/09/25 01/09/25 01/09/25 14:16 15:02 15:23 MCV MCH MCHC RDW Plt Count MPV Immature Gran % (Auto) Neut % (Auto) Lymph % (Auto) [facility] % (Auto) Eos % (Auto) Baso % (Auto) Lymph # (Auto) [facility] # (Auto) Eos # (Auto) Baso # (Auto) Abs Immat Gran (auto) Absolute Neuts (auto) Absolute Nucleated RBC Nucleated RBC % (auto) Anion Gap 16 Estim Creat Clear Calc 45.4 Estimated GFR 34 POC Glucose 542 H* Random Glucose 187 H Uric Acid 9.3 H Calcium 8.5 Phosphorus 4.2 Total Bilirubin Direct Bilirubin AST ALT Alkaline Phosphatase Total Creatine Kinase Total Protein Albumin Lipase Urine Color Yellow Urine Appearance Clear Urine pH 5.5 Ur Specific [place] 1.020 Urine Protein Negative Urine Glucose (UA) Negative Urine Ketones Trace Urine Blood Negative Urine Nitrite Negative Ur Leukocyte Esterase Negative Urine RBC 0-2 Urine WBC 0-5 Ur Squamous Epith Cells 0-2 Urine Bacteria None Seen Hyaline Casts 0-2 Influenza Type A (PCR) Influenza Type B (PCR) RSV RNA Qual (PCR) SARS-CoV-2 RNA (RT-PCR) 01/09/25 01/09/25 01/09/25 16:07 17:12 18:15 MCV MCH MCHC RDW Plt Count MPV Immature Gran % (Auto) Neut % (Auto) Lymph % (Auto) [facility] % (Auto) Eos % (Auto) Baso % (Auto) Lymph # (Auto) [facility] # (Auto) Eos # (Auto) Baso # (Auto) Abs Immat Gran (auto) Absolute Neuts (auto) Absolute Nucleated RBC Nucleated RBC % (auto) Anion Gap Estim Creat Clear Calc Estimated GFR POC Glucose 186 H 169 H 191 H Random Glucose Uric Acid Calcium Phosphorus Total Bilirubin Direct Bilirubin AST ALT Alkaline Phosphatase Total Creatine Kinase Total Protein Albumin Lipase Urine Color Urine Appearance Urine pH Ur Specific [place] Urine Protein Urine Glucose (UA) Urine Ketones Urine Blood Urine Nitrite Ur Leukocyte Esterase Urine RBC Urine WBC Ur Squamous Epith Cells Urine Bacteria Hyaline Casts Influenza Type A (PCR) Influenza Type B (PCR) RSV RNA Qual (PCR) SARS-CoV-2 RNA (RT-PCR) 01/09/25 18:25 MCV MCH MCHC RDW Plt Count MPV Immature Gran % (Auto) Neut % (Auto) Lymph % (Auto) [facility] % (Auto) Eos % (Auto) Baso % (Auto) Lymph # (Auto) [facility] # (Auto) Eos # (Auto) Baso # (Auto) Abs Immat Gran (auto) Absolute Neuts (auto) Absolute Nucleated RBC Nucleated RBC % (auto) Anion Gap 21 H Estim Creat Clear Calc 45.2 Estimated GFR 34 POC Glucose Random Glucose 214 H Uric Acid Calcium 8.5 Phosphorus Total Bilirubin Direct Bilirubin AST ALT Alkaline Phosphatase Total Creatine Kinase Total Protein Albumin Lipase Urine Color Urine Appearance Urine pH Ur Specific [place] Urine Protein Urine Glucose (UA) Urine Ketones Urine Blood Urine Nitrite Ur Leukocyte Esterase Urine RBC Urine WBC Ur Squamous Epith Cells Urine Bacteria Hyaline Casts Influenza Type A (PCR) Influenza Type B (PCR) RSV RNA Qual (PCR) SARS-CoV-2 RNA (RT-PCR) Imaging Radiologist's Impressions: Impressions Cervical Spine MRI 01/09/25 11:45 IMPRESSION: Metastatic disease, posterior cranial fossa. Please refer to the recent MRI brain dated December 29, 2024. No metastatic disease, cervical spine. Multilevel cervical spondylosis resulting in grade 1 retrolisthesis C4-5 C6-7 and central spinal canal stenosis without cord edema and or myelopathy.. Electronically signed by: Bro Mesa MD 01/09/2025 01:00 PM EDT RP Chest X-Ray 01/09/25 11:46 IMPRESSION: Low lung volumes. Pulmonary fibrosis. No acute abnormality. Electronically signed by: Russ Major MD 01/09/2025 11:51 AM EDT RP Abdomen/Pelvis CT 01/09/25 13:44 IMPRESSION: Concerning intrathoracic and intra-abdominal malignancy with questionable mass in the sigmoid colon. No hydronephrosis or nephrolithiasis. Fleischner guidelines were followed. 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 Pericardial effusion versus infiltration and bilateral pleural effusions likely related to tumor infiltration. Fleischner guidelines were followed. Electronically signed by: Bro Mesa MD 01/09/2025 03:46 PM EDT RP Assessment and Plan (1) Metastatic cancer: Status: Acute Plan This is a 69-year-old male with pertinent history of prostate cancer status post prostatectomy, alcohol use disorder, hypertension, prediabetes, recent admission due to cardiac tamponade secondary to hemopericardium likely in the setting of malignancy presents to the emergency department for evaluation of shoulder pain/back pain. Assessment: # Metastatic cancer with suspected sigmoid colon primary. 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 Cervical MRI concerning for metastatic disease, focal enhancing lesion in the inferior right tayla, right midbrain/tayla junction # Shock, unspecified # Acute kidney injury # Acute hyperkalemia # Hypovolemic hypotonic hyponatremia # Alcohol use disorder # Prediabetes with hyperglycemia Plan: Discussed with patient and patient's at bedside. They reinforced that they understand underlying condition (widespread metastatic disease) and want the patient to be comfortable. Patient does not want to suffer anymore in the hospital as treatment is futile. Wants to focus on quality of life. Will discontinue all medications and treatments. No more blood pressure checks or lab draws. Patient on morphine drip with p.r.n. opioid for analgesia and p.r.n. Ativan for anxiety. The patient and are in agreement with the plan DVT Prophylaxis: NONE [employer]OR [employer] SALES Quality Stroke Does the patient have a stroke diagnosis?: No VTE Prior VTE?: No VTE Risk Level:: Medical - moderate - high VTE Device Contraindication: Treatment Not Indicated VTE Drug Contraindication: Treatment Not Indicated
[2025-01-09] MEDS: LORazepam 2 MG/ML VIAL 1 MG IVPUSH (21:25)
[2025-01-09] MEDS: Morphine Sulfate/NS 100 MG/100 ML PLAST..BAG IVCONT (22:36)
[2025-01-09] MEDS: 0.9 % Sodium Chloride Flush 3 ML SYRINGE IVFLUSH (22:37)
[2025-01-10 04:00] VITALS: RESP 20
[2025-01-10] MEDS: LORazepam 2 MG/ML VIAL 1 MG IVPUSH (05:02)
--- NOTE | 2025-01-10 09:40 | MHC.CLN ---
NUTRITION PATIENT ADMITTED COMFORT MEASURES ONLY. DX METASTATIC CANCER. DIET=REGULAR. RD AVAILABLE NEEDED.
[2025-01-10 10:00] VITALS: RESP 16
--- NOTE | 2025-01-10 10:34 | HO.PM.IMPN ---
Subjective Subjective Date of Service: 01/10/25 Interval History: seen and evaluated this morning family at bedside looks comfortable on Morphine drip no other events reported Review of Systems Review of Systems: Yes Unobtainable due to mental status Physical Exam Vital Signs: Vital Signs: Last Vital Signs Temp 97.6 F 01/09/25 17:15 Pulse 110 H 01/09/25 18:59 Resp 20 01/10/25 04:00 BP 78/49 L 01/09/25 18:59 Pulse Ox 98 01/09/25 18:42 O2 Del Method Room Air 01/09/25 18:42 BMI result Body Mass Index 33.1 Const: Other: looks comfortable sleeping , breathing and chest moving bilaterally Objective Data Active Medications Acetaminophen (Acetaminophen 325 Mg Tablet) 650 mg PO Q4H PRN PRN Reason: Fever >/= 100, Pain, mild 1-3 Calcium Carbonate (Calcium Carbonate 750 Mg Tab.Chew) 750 mg PO Q4H PRN PRN Reason: Heartburn Docusate Sodium (Docusate Sodium 100 Mg Capsule) 100 mg PO BEDTIME [facility] Last Admin: 01/09/25 22:41 Dose: Not Given Documented By: TAMEKA Non-Admin 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 [employer] Hydromorphone HCl (Hydromorphone Hcl 1 Mg/Ml Syringe) 1 mg IVPUSH Q1H PRN PRN Reason: Pain, Severe (Pain Scale 7-10) Last Admin: 01/09/25 21:21 Dose: 1 mg Documented By: NATHANAEL Morphine Sulfate (Morphine Sulfate/Ns) 100 mg in 100 mls @ 0 mls/hr IVCONT .Q0M [facility]; Protocol Last Infusion: 01/10/25 06:33 Dose: 6 mg/hr, 6 mls/hr Documented By: TAMEKA Lorazepam (Lorazepam 1 Mg Tablet) 1 mg PO Q4H PRN PRN Reason: Myoclonic twitching/anxiety Lorazepam (Lorazepam 2 Mg/Ml Vial) 1 mg IVPUSH Q2H PRN PRN Reason: anxiety/restlessness Last Admin: 01/10/25 05:02 Dose: 1 mg Documented By: TAMEKA Magnesium Hydroxide (Milk Of Magnesia 30 Ml Oral.Susp) 30 ml PO DAILY PRN PRN Reason: Constipation Melatonin (Melatonin 3 Mg Tablet) 6 mg PO BEDTIME PRN PRN Reason: Insomnia Morphine Sulfate (Morphine Sulfate Immed Release 15 Mg Tablet) 15 mg PO Q4H PRN PRN Reason: Pain, Moderate(Pain Scale 4-6) Ondansetron HCl (Ondansetron Odt 4 Mg Tab.Rapdis) 4 mg TRANSLINGU Q8H PRN PRN Reason: Nausea and Vomiting Ondansetron HCl (Ondansetron Hcl 4 Mg/2 Ml Vial) 4 mg IVPUSH Q8H PRN PRN Reason: Nausea and Vomiting Sodium Chloride (0.9 % Sodium Chloride Flush 3 Ml Syringe) 3 ml IVFLUSH QSHIFT [facility] Last Admin: 01/10/25 10:12 Dose: Not Given Documented By: LUZ ELENA Non-Admin Reason: IV Running Labs 01/09/25 11:22 01/09/25 18:25 Labs: Laboratory Results - last 24 hr 01/09/25 01/09/25 01/09/25 11:22 12:52 14:15 MCV 88.2 MCH 30.2 MCHC 34.3 RDW 13.2 Plt Count 391 MPV 9.4 Immature Gran % (Auto) 0.7 H Neut % (Auto) 88.1 H Lymph % (Auto) 4.2 L Lander % (Auto) 6.5 Eos % (Auto) 0.2 Baso % (Auto) 0.3 Lymph # (Auto) 0.5 L [place] # (Auto) 0.7 Eos # (Auto) 0.0 Baso # (Auto) 0.0 Abs Immat Gran (auto) 0.08 H Absolute Neuts (auto) 9.9 H Absolute Nucleated RBC 0.000 Nucleated RBC % (auto) 0.0 Anion Gap 18 Estim Creat Clear Calc 43.0 Estimated GFR 32 POC Glucose 131 H Random Glucose 152 H Uric Acid Calcium 8.8 Phosphorus Total Bilirubin 0.4 Direct Bilirubin 0.2 AST 14 ALT 6 Alkaline Phosphatase 102 Total Creatine Kinase 86 Total Protein 6.6 Albumin 3.3 L Lipase 8 Urine Color Urine Appearance Urine pH Ur Specific [place] Urine Protein Urine Glucose (UA) Urine Ketones Urine Blood Urine Nitrite Ur Leukocyte Esterase Urine RBC Urine WBC Ur Squamous Epith Cells Urine Bacteria Hyaline Casts Influenza Type A (PCR) NEGATIVE Influenza Type B (PCR) NEGATIVE RSV RNA Qual (PCR) NEGATIVE SARS-CoV-2 RNA (RT-PCR) NEGATIVE 01/09/25 01/09/25 01/09/25 14:16 15:02 15:23 MCV MCH MCHC RDW Plt Count MPV Immature Gran % (Auto) Neut % (Auto) Lymph % (Auto) Lander % (Auto) Eos % (Auto) Baso % (Auto) Lymph # (Auto) Lander # (Auto) Eos # (Auto) Baso # (Auto) Abs Immat Gran (auto) Absolute Neuts (auto) Absolute Nucleated RBC Nucleated RBC % (auto) Anion Gap 16 Estim Creat Clear Calc 45.4 Estimated GFR 34 POC Glucose 542 H* Random Glucose 187 H Uric Acid 9.3 H Calcium 8.5 Phosphorus 4.2 Total Bilirubin Direct Bilirubin AST ALT Alkaline Phosphatase Total Creatine Kinase Total Protein Albumin Lipase Urine Color Yellow Urine Appearance Clear Urine pH 5.5 Ur Specific [place] 1.020 Urine Protein Negative Urine Glucose (UA) Negative Urine Ketones Trace Urine Blood Negative Urine Nitrite Negative Ur Leukocyte Esterase Negative Urine RBC 0-2 Urine WBC 0-5 Ur Squamous Epith Cells 0-2 Urine Bacteria None Seen Hyaline Casts 0-2 Influenza Type A (PCR) Influenza Type B (PCR) RSV RNA Qual (PCR) SARS-CoV-2 RNA (RT-PCR) 01/09/25 01/09/25 01/09/25 16:07 17:12 18:15 MCV MCH MCHC RDW Plt Count MPV Immature Gran % (Auto) Neut % (Auto) Lymph % (Auto) Lander % (Auto) Eos % (Auto) Baso % (Auto) Lymph # (Auto) Lander # (Auto) Eos # (Auto) Baso # (Auto) Abs Immat Gran (auto) Absolute Neuts (auto) Absolute Nucleated RBC Nucleated RBC % (auto) Anion Gap Estim Creat Clear Calc Estimated GFR POC Glucose 186 H 169 H 191 H Random Glucose Uric Acid Calcium Phosphorus Total Bilirubin Direct Bilirubin AST ALT Alkaline Phosphatase Total Creatine Kinase Total Protein Albumin Lipase Urine Color Urine Appearance Urine pH Ur Specific [place] Urine Protein Urine Glucose (UA) Urine Ketones Urine Blood Urine Nitrite Ur Leukocyte Esterase Urine RBC Urine WBC Ur Squamous Epith Cells Urine Bacteria Hyaline Casts Influenza Type A (PCR) Influenza Type B (PCR) RSV RNA Qual (PCR) SARS-CoV-2 RNA (RT-PCR) 01/09/25 18:25 MCV MCH MCHC RDW Plt Count MPV Immature Gran % (Auto) Neut % (Auto) Lymph % (Auto) Lander % (Auto) Eos % (Auto) Baso % (Auto) Lymph # (Auto) Lander # (Auto) Eos # (Auto) Baso # (Auto) Abs Immat Gran (auto) Absolute Neuts (auto) Absolute Nucleated RBC Nucleated RBC % (auto) Anion Gap 21 H Estim Creat Clear Calc 45.2 Estimated GFR 34 POC Glucose Random Glucose 214 H Uric Acid Calcium 8.5 Phosphorus Total Bilirubin Direct Bilirubin AST ALT Alkaline Phosphatase Total Creatine Kinase Total Protein Albumin Lipase Urine Color Urine Appearance Urine pH Ur Specific [place] Urine Protein Urine Glucose (UA) Urine Ketones Urine Blood Urine Nitrite Ur Leukocyte Esterase Urine RBC Urine WBC Ur Squamous Epith Cells Urine Bacteria Hyaline Casts Influenza Type A (PCR) Influenza Type B (PCR) RSV RNA Qual (PCR) SARS-CoV-2 RNA (RT-PCR) Assessment and Plan (1) Metastatic cancer: Status: Acute Plan This is a 69-year-old male with pertinent history of prostate cancer status post prostatectomy, alcohol use disorder, hypertension, prediabetes, recent admission due to cardiac tamponade secondary to hemopericardium likely in the setting of malignancy presents to the emergency department for evaluation of shoulder pain/back pain. # Metastatic cancer with suspected sigmoid colon primary. 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 Cervical MRI concerning for metastatic disease, focal enhancing lesion in the inferior right tayla, right midbrain/tayla junction # Shock, unspecified # Acute kidney injury complicated with Acute hyperkalemia and Hypovolemic hypotonic hyponatremia # Alcohol use disorder # Prediabetes with hyperglycemia Plan: Continue morphine drip with p.r.n. opioid for analgesia p.r.n. 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
--- NOTE | 2025-01-10 14:41 | MHC.CM.PN ---
cm ASSESMENT DIFFERED IF DC PLAN INDICATES PLACEMENT WILL RE ATEMPT ASSEMENT
--- NOTE | 2025-01-10 15:25 | MHC.CM.PN ---
per rounds pt ready for dc bed search continues
[2025-01-10] MEDS: Atropine Sulfate 1 % Ophth Sol 2 ML BOTTLE 2 DROP SUBLINGUAL (16:06)
[2025-01-10] MEDS: 0.9 % Sodium Chloride Flush 3 ML SYRINGE IVFLUSH (16:08)
[2025-01-10] MEDS: Morphine Sulfate/NS 100 MG/100 ML PLAST..BAG 6 MG IVCONT (19:28)
[2025-01-11] MEDS: Atropine Sulfate 1 % Ophth Sol 2 ML BOTTLE 2 DROP SUBLINGUAL ×2 (02:20→05:10)
[2025-01-11] MEDS: LORazepam 2 MG/ML VIAL 1 MG IVPUSH (02:27)
--- NOTE | 2025-01-11 06:12 | PM.EVENT ---
Event Note Date of Service: 01/11/25 Event Note: I was called to patient's bedside to pronounce the patient. No spontaneous movements were present. There was no response to verbal or tactile stimulus. Pupils were mid dilated and fixed. No breath sounds were appreciated over either lung field. No carotid pulses were palpable. No heart sounds were auscultated over entire precordium. Patient was on comfort measures only. Patient pronounced on 01/11/2025 at 06:02. Condolences offered to present at bedside. certificate completed Time Spent With Patient Time: Total time managing care of this patient today ____ minutes.
--- NOTE | 2025-01-11 06:13 | PM.DDS ---
Discharge Sum: Prov Provider Primary care physician: Nicola Rubio MD Consults: 01/09/25 19:42 Consult to Hospice Routine Comment: Pronouncing clinician: Jennifer Cassidy Discharge Sum: Diag PCOD Cause of : Metastatic carcinoma Contributing Factors (1) Shock: (2) Acute kidney failure: Discharge Sum: Summary Date and Time Date of admission: 01/09/25 19:44 Date of : 01/11/25 Time of : 06:02 Summary Details: HPI: This is a 69-year-old male with pertinent history of prostate cancer status post prostatectomy, alcohol use disorder, hypertension, prediabetes, recent admission due to cardiac tamponade secondary to hemopericardium likely in the setting of malignancy presents to the emergency department for evaluation of shoulder pain/back pain. In the emergency department, patient was found to have PAM with hyperkalemia and hyponatremia. Also continued to be hypotensive despite IV crystalloid resuscitation. 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 Cervical MRI concerning for metastatic disease, focal enhancing lesion in the inferior right tayla, right midbrain/tayla junction. Initially, there was consideration of admitting patient to the intensive care unit for management of shock. Ultimately, patient was made [employer] COMPENSATION [employer] after family discussion with ER provider. Will admit to medicine floor with IV morphine and IV Ativan p.r.n.. Plan was discussed with patient and patient's at bedside by admitting provider. The reinforced that they understand underlying condition (widespread metastatic disease) and wanted the patient to be comfortable. Patient did not want to suffer anymore in the hospital as treatment was futile. He wanted to focus on quality of life. All medications were discontinued. Patient was admitted with IV morphine drip and IV p.r.n. Ativan for anxiety. Remained comfortable on morphine drip throughout hospital course. On the morning of 01/11, the nurse called covering provider at bedside to pronounce the patient. No spontaneous movements were present. There was no response to verbal or tactile stimulus. Pupils were mid dilated and fixed. No breath sounds were appreciated over either lung field. No carotid pulses were palpable. No heart sounds were auscultated over entire precordium. Patient was on comfort measures only. Patient pronounced on 01/11/2025 at 06:02. Condolences offered to present at bedside. certificate completed Additional Data Confirmation of as documented by pronouncing clinician: no pulse Family: at bedside Attending physician: Amanda Beltre MD
--- NOTE | 2025-01-11 06:13 | PC.NURSE ---
came out to desk states pt .Checked for heart sounds and respirations none noted notified came to see pt pronounced at [id number].[employer] notified pt declined by Giana Goel #[id number].
--- NOTE | 2025-01-11 06:34 | PC.NURSE ---
pt to go to [facility] in [place] on [facility]
--- NOTE | 2025-01-11 08:30 | PM.DS ---
DS: Providers Provider Date of admission: 01/09/25 19:44 Primary care physician: Nicola Rubio MD Consults: 01/09/25 19:42 Consult to Hospice Routine Comment: DS: Diagnosis Discharge Diagnosis (1) Shock: Status: Acute (2) Acute kidney failure: Status: Acute Physical Exam Vital Signs: Vital Signs: Last Vital Signs Temp 97.6 F 01/09/25 17:15 Pulse 110 H 01/09/25 18:59 Resp 16 01/10/25 10:00 BP 78/49 L 01/09/25 18:59 Pulse Ox 98 01/09/25 18:42 O2 Del Method Room Air 01/09/25 18:42 BMI result Body Mass Index 33.1 DS: Data Data Completed and Pending Completed studies during hospitalization [Text1]: Procedures Detoxification Services for Substance Abuse Treatment (09/08/22) Drainage of Pericardial Cavity with Drainage Device, Open Approach (12/09/24) Discharge Plan Discharge Referrals: Nicola Rubio MD [Primary Care Provider] - 1 Week Discharge Medications: No Action omeprazole 20 mg Capsule,Delayed Release(Dr/Ec) 20 mg PO DAILY@0630 oxycodone 5 mg Tablet 5 mg PO Q8H PRN (Reason: Breakthrough Pain, Severe) Qty: 60 0RF Rx Instructions: Partial Fill upon patient request. morphine [MS Contin] 15 mg Tablet Extended Release 15 mg PO Q8H Qty: 60 0RF Rx Instructions: Partial Fill upon patient request. ibuprofen 800 mg tablet 800 mg PO BID lisinopril 5 mg tablet 5 mg PO DAILY Print Language: Hong Konger
== END 2025-01-11 06:02 | disposition expired | DRG 951 ==
LOC: HO.ED 18:42 → HO.S3 22:46 → HO.EDOVER 01-10 08:39
PROVIDERS: Emergency Medicine Emergency Medical Services; Physician Assistant; Admitting Provider Student in an Organized Health Care Education/Training Program; Emergency Provider Emergency Medicine; PCP Internal Medicine; Visit Provider Student in an Organized Health Care Education/Training Program
DX: Z51.5 Encounter for palliative care (principal); C79.31 Secondary malignant neoplasm of brain; N17.9 Acute kidney failure, unspecified; E87.1 Hypo-osmolality and hyponatremia; C18.7 Malignant neoplasm of sigmoid colon; R57.9 Shock, unspecified; C80.0 Disseminated malignant neoplasm, unspecified; E86.1 Hypovolemia; F10.90 Alcohol use, unspecified, uncomplicated; E87.5 Hyperkalemia; R73.03 Prediabetes; Z20.822 Contact with and (suspected) exposure to COVID-19; Z85.46 Personal history of malignant neoplasm of prostate; Z90.79 Acquired absence of other genital organ(s); Z87.891 Personal history of nicotine dependence; Z79.899 Other long term (current) drug therapy
CPT/HCPCS: 0241U; 36415; 71045; 71250; 72156; 74176; 80048; 80076; 81001; 82550; 82947; 83690; 84100; 84484; 84550; 85025; 93005; 93971; 94640; 99285; A9585; J0613; J1171; J2060; J2270; P9047

== ENCOUNTER → 2025-01-09 10:24 | Outpatient (BNV) | payer MEDICARE, SELFPAY | PROVIDERS: Admitting Provider Student in an Organized Health Care Education/Training Program; Emergency Provider Emergency Medicine; PCP Internal Medicine; Visit Provider Internal Medicine Cardiovascular Disease | DX: R94.31 Abnormal electrocardiogram [ECG] [EKG] (principal); I44.0 Atrioventricular block, first degree | CPT/HCPCS: 93010 ==

== ENCOUNTER → 2025-01-09 11:03 | Outpatient (BNV) | payer MEDICARE, SELFPAY | PROVIDERS: Emergency Provider Emergency Medicine Emergency Medical Services; PCP Internal Medicine; Visit Provider Radiology Diagnostic Radiology | DX: R22.31 Localized swelling, mass and lump, right upper limb (principal) | CPT/HCPCS: 71045; 71250; 72156; 74176; 93971 ==

== ENCOUNTER → 2025-01-09 19:44 | Outpatient (BNV) | payer MEDICARE, SELFPAY | PROVIDERS: Admitting Provider Student in an Organized Health Care Education/Training Program; Emergency Provider Emergency Medicine; PCP Internal Medicine; Visit Provider Student in an Organized Health Care Education/Training Program | DX: R57.9 Shock, unspecified (principal); N17.9 Acute kidney failure, unspecified; C79.89 Secondary malignant neoplasm of other specified sites | CPT/HCPCS: 99223; 99231; 99238; 99499 ==